=== PATIENT | male | born 1930 | race Caucasian/White ===

== ENCOUNTER → 2016-09-22 | Outpatient (CLI) | payer MEDICARE, OTHER ==
[~2016-09-22] MED LIST: ALBU18HF2 INH; ATOR40TA64 PO; AZIT250T PO; BENZ200C36 PO; DABI150C PO; DULO60CA56 PO; GADOBUTROL 10mMol/10ml INJECTION IV ONE; HYDR-4246 PO; IPRA3AMP AEROSOL; LEVO25TA9 PO; MELO-273 PO; METO25TA6 PO; MULT-94 PO; NITR0.4T SL; OMEG1CAP87 PO; OMEP40CA52 PO; PRED10TA PO; SALINE FLUSH 10ml SYRINGE ONE; SAWP1CAP PO; TRAM50TA4 PO
--- NOTE | 2016-09-22 11:23 | DI ---
EXAM: MRI CERVICAL SPINE W/WO CONTRA LOCATION OF DICTATION: [facility] HISTORY: ITS.REASON: M50.30 CERVICAL DDD; M47.812 CERVICAL SPONDYLOSIS COMPARISON: No prior studies available for comparison. TECHNIQUE: Multiplanar, multisequence, cervical spine protocol MR imaging with and without contrast of the spine was acquired. CONTRAST: 6 ml of gadolinium given Intravenously. FINDINGS: There is reversal of normal cervical dosis centered at the C4 level. There is grade 1 retrolisthesis of C4 on C5. Mild grade 1 retrolisthesis of C6 on C7. No acute fractures are demonstrated. There are Modic type changes demonstrated at several levels particularly involving the C4 and C5 levels. Anterior cervical disc fusion is demonstrated at the C5, C6, and C7 vertebra. There is multilevel degenerative disc disease and facet arthropathy with loss of disc space height and signal worse at the C3-4, C4-5, C5-C6, and C6-C7 levels. The prevertebral and paraspinal soft tissues are without identified abnormality. Segmental analysis: At the C2-C3 level there is no significant spinal canal or foraminal compromise. At the C3-4 level there is posterior disc osteophyte complex causing effacement of the ventral thecal sac. There is moderate central spinal and bilateral lateral recess/neuroforaminal stenosis suggested. At the C4-5 level there is posterior disc osteophyte complex causing effacement of the thecal sac and spinal cord. There is moderate central spinal stenosis at this level. There is moderate bilateral neuroforaminal stenosis. 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 At the C5-C6 level there is broad-based disc bulge. There is mild to moderate bilateral neuroforaminal narrowing. At the C6-7 level there is broad-based disc bulge. There is mild grade 1 retrolisthesis of C6 on C7. There is moderate central spinal and right neuroforaminal stenosis and mild left neuroforaminal stenosis suggested. At the C7-T1 level there is no significant spinal canal or foraminal compromise. IMPRESSION: 1. Reversal normal cervical dosis centered at C4 level. There is grade 1 retrolisthesis of C4 on C5 and C6 on C7. 2. There is multilevel degenerative disease and facet arthropathy. No abnormal areas of enhancement. Modic type changes at the C4-5 levels. 3. At the C3-4 level there is moderate central canal and bilateral neuroforaminal/lateral recess stenosis. 4. At the C4-5 level there is moderate central spinal and moderate bilateral neuroforaminal stenosis. There is mild increased signal in the spinal cord at this level which may reflect compressive myelopathy. 5. At the C5-C6 level there is mild to moderate bilateral neuroforaminal narrowing. 6. There is moderate central spinal and moderate right neuroforaminal stenosis and mild left neuroforaminal stenosis. .
== END ==
LOC: IMA 08:52
PROVIDERS: ATTEND Family Medicine
DX: M50.31 Other cervical disc degeneration, high cervical region (principal); M50.321 Other cervical disc degeneration at C4-C5 level; M50.322 Other cervical disc degeneration at C5-C6 level; M50.323 Other cervical disc degeneration at C6-C7 level; M50.223 Other cervical disc displacement at C6-C7 level; M43.12 Spondylolisthesis, cervical region; M47.812 Spondylosis without myelopathy or radiculopathy, cervical region; M48.02 Spinal stenosis, cervical region; Z98.1 Arthrodesis status
CPT/HCPCS: 72156; A9585

== ENCOUNTER 2016-10-02 14:46 | Emergency (ER) | payer MEDICARE, OTHER ==
[~2016-10-02] VITALS: Ht 182.9 cm; Wt 71.9 kg
[~2016-10-02 14:46] MED LIST changes: -GADOBUTROL 10mMol/10ml INJECTION IV ONE; -SALINE FLUSH 10ml SYRINGE ONE
[2016-10-02 14:48] VITALS: Ht 182.9 cm; Wt 71.9 kg
--- OUTSIDE RECORDS SUMMARY | 2016-10-02 14:49 | XMS REPORT | Continuity of Care Document ---
Author Author [facility] Organization [facility] Address Unknown Phone Unavailable Support Name Relationship Address Phone KENIA LAN DO Caregiver [address] [place] [address] SAFIA CHEEMA MD Caregiver [facility] [address] [place], [place] [phone] DANIA LAURA Next Of Kin [address] [place], [place] [address] Insurance Providers Payer Name Policy Number Subscriber Name Relationship Medicare [id number] Radha Laura 19 Self [employer] [id number] Radha Laura 19 Self Advance Directives Directive Response Recorded Date/Time Ordered Resuscitation Status Full Code 01/25/14 1:53pm Resuscitation Documents on File No 01/25/14 1:25pm Problems No known problems or medical conditions. Medications Medication Dose Route Sig Days/Qty Instructions Order Date Discontinued Date Status Guaifenesin 600 Mg PO NEEDED 03/27/09 05/27/11 Discontinued Saw [place] Fruit 450 Mg PO DAILY 03/27/09 Active Amlodipine Besylate 10 Mg PO DAILY 03/27/09 Active Atenolol 50 Mg PO BEDTIME 03/27/09 10/24/12 Discontinued Aspirin 81 Mg PO DAILY 03/27/09 10/21/12 Discontinued Fish Oil/[place]-3 Fatty Acids 1 Cap PO DAILY 03/27/09 Active Celecoxib 200 Mg PO DAILY 04/29/10 10/24/12 Discontinued Clopidogrel Bisulfate 75 Mg PO DAILY 04/29/10 10/21/12 Discontinued Famotidine 20 Mg PO DAILY 04/29/10 10/21/12 Discontinued Dabigatran Etexilate Mesylate 150 Mg PO DAILY 10/21/12 Active Duloxetine HCl 30 Mg PO DAILY 30 Qty 01/25/14 Active Tramadol HCl 50 Mg PO FOUR TIMES DAILY 90 Qty 01/25/14 Active Atorvastatin Calcium 40 Mg PO DAILY 90 Qty 01/25/14 Active Albuterol Sulfate 2.5 Mg AEROSOL RESP.TX Q4H WHILE AWAKE 01/25/14 Active Levothyroxine Sodium 25 Mcg PO DAILY 90 Qty 01/25/14 Active Hydrocodone/Apap 7.5/325 Mg 1-2 Tab PO Every 6 Hours PRN PAIN Active Hydrocodone/Acetaminophen 1 Tab PO Every 6 Hours PRN PAIN 01/26/14 Active Gabapentin 1 Cap PO NEEDED PRN PRN ORDERS 01/26/14 Active Nitroglycerin 0.4 Mg SL NEEDED For CHEST PAIN 01/26/14 Active Duloxetine HCl 1 Cap PO TWICE A DAY PRN DEPRESSION 01/26/14 Active Social History Social History Problem Response Recorded Date/Time Smoking Status Former smoker 01/26/2014 1:08pm When did patient STOP smoking? 200001/26/2014 1:08pm Chewing Tobacco Status No 10/21/2012 3:18pm Hx Substance Use No 01/26/2014 1:08pm Hx Alcohol Use Y BEER OCCASIONALLY 01/26/2014 1:08pm Has the pt used tobacco in the last 12 months Yes 01/26/2014 1:08pm Query Response Start Date Stop Date Smoking Status Never smoker Hospital Discharge Instructions No hospital discharge instructions. Plan of Care No plan of care. Functional Status No functional status results. Allergies, Adverse Reactions, Alerts Allergen Type Severity Reaction Status Last Updated No Known Drug Allergies Allergy Unknown Active 03/26/09 Immunizations Name Given Type Hx Influenza Vaccination Y FALL 2012 Historical Hx Pneumococcal Vaccination Y 2004 Historical Hx Influenza Vaccination Y FALL 2012 Historical Vital Signs Acute Vital Signs Vital Response Date/Time Temperature (Fahrenheit) 97.0 deg F (96.8 - 99.1) Temperature (Calculated Celsius) 36.59240 degrees C (36.0 - 37.3) Temperature Source Temporal Pulse Rate (adult) 74 bpm (60 - 100) Respiratory Rate 20 breaths/min (10 - 20) O2 Sat by Pulse Oximetry 96 % (90 - 100) Oxygen Delivery Method Room Air Blood Pressure 153/74 mm Hg Blood Pressure Source Automatic Cuff Height 6 ft 0 in Weight 158 lb Body Mass Index 21.0 kg/m^2 Results Test Source Date Result Interp. Ref. Range Comments Alanine Aminotransferase (ALT/SGPT) May 27, 2011 9:30am 27 U/L N 21- 72 Albumin May 27, 2011 9:30am 4.2 G/DL N 3.5-5.0 Albumin/Globulin Ratio May 27, 2011 9:30am 1.6 RATIO N 1.1-2.2 Alkaline Phosphatase May 27, 2011 9:30am 92 U/L N 38-126 Anion Gap May 27, 2011 9:30am 6 MEQ/L N 5-15 Aspartate Amino Transf (AST/SGOT) May 27, 2011 9:30am 30 U/L N 17- 59 BUN/Creatinine Ratio May 27, 2011 9:30am 28 RATIO H 6-26 Band Neutrophils # March 27, 2009 10:05am 0.0 T/MM3 - Band Neutrophils % March 27, 2009 10:05am 0.0 % N 0-6 Basophils # (Auto) May 27, 2011 9:30am 0.1 T/MM3 N 0-0.2 Basophils # (Manual) March 27, 2009 10:05am 0.0 T/MM3 N 0-0.2 Basophils % (Manual) March 27, 2009 10:05am 0.0 % N 0-2 Basophils (%) (Auto) May 27, 2011 9:30am 0.9 % N 0-2 Blood Urea Nitrogen May 27, 2011 9:30am 28.0 MG/DL H 9-20 Calcium Level May 27, 2011 9:30am 8.9 MG/DL N 8.4-10.2 Calculated Osmolality May 27, 2011 9:30am 278 MOSM/KG N 261-280 Carbon Dioxide Level May 27, 2011 9:30am 30 MEQ/L N 22-30 Chloride Level May 27, 2011 9:30am 106 MEQ/L N 98-107 Creatinine May 27, 2011 9:30am 1.0 MG/DL N 0.8-1.5 Eosinophils # (Auto) May 27, 2011 9:30am 0.4 T/MM3 N 0-0.5 Eosinophils # (Manual) March 27, 2009 10:05am 0.4 T/MM3 N 0-0.5 Eosinophils % (Manual) March 27, 2009 10:05am 5.0 % H 0-4 Eosinophils (%) (Auto) May 27, 2011 9:30am 5.9 % H 0-4 Globulin May 27, 2011 9:30am 2.6 G/DL N 2.4-3.6 Glucose Level May 27, 2011 9:30am 87 MG/DL N 75-110 Hematocrit May 27, 2011 9:30am 38.7 % L 41-53 Hemoglobin May 27, 2011 9:30am 13.3 GM/DL L 13.5-17.5 Lymphocytes # (Auto) May 27, 2011 9:30am 1.5 T/MM3 N 1-4.8 Lymphocytes # (Manual) March 27, 2009 10:05am 1.1 T/MM3 N 1-4.8 Lymphocytes % (Manual) March 27, 2009 10:05am 12.0 % L 23-45 Lymphocytes (%) (Auto) May 27, 2011 9:30am 22.2 % L 23-45 Mean Corpuscular Hemoglobin May 27, 2011 9:30am 31.4 UUG N 26-34 Mean Corpuscular Hemoglobin Concent May 27, 2011 9:30am 34.4 GM/DL N 31-37 Mean Corpuscular Volume May 27, 2011 9:30am 91.5 UM3 N 80-100 Mean Platelet Volume May 27, 2011 9:30am 11.4 UM3 N 9.4-12.4 Monocytes # (Auto) May 27, 2011 9:30am 1.1 T/MM3 H 0-0.8 Monocytes # (Manual) March 27, 2009 10:05am 1.3 T/MM3 H 0-0.8 Monocytes % (Manual) March 27, 2009 10:05am 15.0 % H 0-9.0 Monocytes (%) (Auto) May 27, 2011 9:30am 16.0 % H 0-9.0 Neutrophils # (Auto) May 27, 2011 9:30am 3.6 T/MM3 N 1.8-7.7 Neutrophils # (Manual) March 27, 2009 10:05am 6.1 T/MM3 N 1.8-7.7 Neutrophils % (Manual) March 27, 2009 10:05am 68.0 % H 33-66 Neutrophils (%) (Auto) May 27, 2011 9:30am 54.5 % N 33-66 Platelet Count May 27, 2011 9:30am 298 T/MM3 N 130-400 Potassium Level May 27, 2011 9:30am 4.7 MEQ/L N 3.6-5 Prothromb Time International Ratio March 27, 2009 10:05am 0.88 N 0.79 -1.23 THERAPUTIC RANGE=2.00-3.00 FOR ANTI-THROMBOSIS THERAPUTIC RANGE=2.50- 3.50 FOR IMPLANTED VALVE RDW Standard Deviation May 27, 2011 9:30am 41.8 FL N 36.9-50.2 Red Blood Count May 27, 2011 9:30am 4.23 M/MM3 L 4.50-5.90 Sodium Level May 27, 2011 9:30am 142 MEQ/L N 134-144 Total Bilirubin May 27, 2011 9:30am 1.00 MG/DL N 0.20-1.30 Total Protein May 27, 2011 9:30am 6.8 G/DL N 6.3-8.2 White Blood Count May 27, 2011 9:30am 6.6 T/MM3 N 4.5-11.0 EKG March 28, 2009 4:00am Complete - Glomerular Filtration Rate Calc May 27, 2011 9:30am 72 - Immature Granulocyte # (Auto) May 27, 2011 9:30am 0.03 T/MM3 N 0.00- 0.03 Immature Granulocyte % (Auto) May 27, 2011 9:30am 0.5 % N 0.0-0.5 Procedures Procedure Status Date Provider(s) Colonoscopy completed 01/26/14 SAFIA CHEEMA MD
--- OUTSIDE RECORDS SUMMARY | 2016-10-02 14:49 | XMS REPORT | Continuity of Care Document ---
Author Author [facility] Organization [facility] Address Unknown Phone Unavailable Support Name Relationship Address Phone KENIA LAN DO Caregiver [address] [place] [address] Unavailable YOSI CARVAJAL MD Caregiver [address] [place] [address] [place] [address] Unavailable DANIA LAURA DPOA Next Of Kin Unknown [phone] Insurance Providers Guarantor Radha Laura Address [address] [place] [address] CELL Email [email or web address] Payer Medicare Policy Number [id number] Subscriber's Name Radha Laura Relationship 18 Self Effective Date 96 Payer [employer] Policy Number [id number] Subscriber's Name Radha Laura Relationship 18 Self Group Number [id number] Advance Directives Directive Response Recorded Date/Time Advanced Directives Type Living Will DPOA for Healthcare 04/12/16 3:35pm Chief Complaint and Reason for Visit Chief Complaint Dyspnea/Respdistress Reason for Visit Acute bronchitis [id number] Problems Active Problems Medical Problem Onset Date Status Atrial fibrillation Unknown Chronic BPH (benign prostatic hypertrophy) Unknown Chronic CAD (coronary artery disease) Unknown Chronic COPD (chronic obstructive pulmonary disease) Unknown Chronic Degenerative arthritis of right knee Unknown Dyslipidemia Unknown Chronic GERD (gastroesophageal reflux disease) Unknown Chronic HTN (hypertension) Unknown Chronic Hypothyroidism Unknown Chronic OA (osteoarthritis) Unknown Chronic SHANA (obstructive sleep apnea) Unknown Chronic Spinal stenosis, lumbar Unknown Chronic Past Problems Medical Problem Onset Date Acute bronchitis Unknown Anemia Unknown COPD exacerbation Unknown COPD exacerbation Unknown COPD with acute exacerbation Unknown Degenerative arthritis of hip Unknown GI bleed Unknown H/O pyelonephritis Unknown Leukocytosis Unknown Ocular migraine Unknown Respiratory distress Unknown Spinal stenosis Unknown Medications Current Home Medications Medication Dose Units Route Directions Days Qty Instructions Start Date Albuterol Sulfate (Ventolin Hfa 90 Mcg/Actuation) 18 Gm Hfa.aer.ad 2 Puff Inhalation As Needed 02/06/15 Atorvastatin Calcium 40 Mg Tablet 40 Mg Oral Bedtime 01/25/14 Azithromycin (Zithromax) 250 Mg Tablet 1 Tab Oral Daily 6 Tablet TAKE TWO ON DAY ONE, THEN ONE TAB DAILY UNTIL ALL TAKEN. 04/12/16 Benzonatate 200 Mg Capsule 1 Cap Oral Three Times A Day as needed for Cough 30 Capsule DO NOT BITE, CHEW, OR CRUSH 04/12/16 Dabigatran Etexilate Mesylate (Pradaxa) 150 Mg Capsule 150 Mg Oral Twice A Day 02/06/15 Duloxetine Hcl 60 Mg Capsule. 60 Mg Oral Daily 04/12/16 Hydrocodone/Acetaminophen ([place] 5-325 Tablet) 5-325 Tablet 1 Tab Oral Every 4-6 Hours Prn 02/12/16 Ipratropium/Albuterol Sulfate (Iprat-Albut 0.5-3(2.5) Mg/3 Ml) 3 Ml Ampul.neb 1 Vial Aerosol Tx. Three Times A Day 02/12/16 Levothyroxine Sodium 25 Mcg Tablet 25 Mcg Oral Daily 01/25/14 Meloxicam 7.5 Mg Tablet 7.5 Mg Oral Daily 02/06/15 Metoprolol Tartrate 25 Mg Tablet 25 Mg Oral Twice Daily With Meals 03/06/15 Multivitamin W/Iron, Minerals ([place] For [facility]) 1 Each Tablet 1 Tab Oral Daily 04/12/16 Nitroglycerin (Nitrostat) 0.4 Mg Tablet 0.4 Mg Sublingual Every 5 Minutes X 3 as needed for Chest Pain 01/26/14 [place]-3 Fatty Acids/Fish Oil (Fish Oil 1,200 Mg Softgel) 1 Each Capsule 1 Cap Oral Daily 02/06/15 Omeprazole 40 Mg Capsule. 40 Mg Oral Daily 02/06/15 Prednisone 10 Mg Tablet 10 Mg Oral As Directed 24 Tablet 5 Tablets by mouth daily for 2 days THEN, 4 Tablets by mouth daily for 2 days THEN, 3 Tablets by mouth daily for 1 day THEN, 2 Tablets by mouth daily for 1 day THEN, 1 Tablet by mouth daily for 1 Day. 04/12/16 [place] Xtr/Zinc Picolin ([place] Capsule) 1 Each Capsule 585 Mg Oral Daily 04/12/16 Tramadol Hcl 50 Mg Tablet 50 Mg Oral Three Times A Day as needed for Pain 04/12/16 Past Home Medications Medication Directions Ordered Status Aspirin (Aspir 81) 81 Mg Tablet., 81 Mg Oral Daily 03/27/09 Discontinued Atenolol 50 Mg Tablet, 50 Mg Oral Bedtime 03/27/09 Discontinued Celecoxib (Celebrex) 200 Mg Capsule, 200 Mg Oral Daily 04/29/10 Discontinued Clopidogrel Bisulfate (Plavix) 75 Mg Tablet, 75 Mg Oral Daily 04/29/10 Discontinued Dabigatran Etexilate Mesylate (Pradaxa) 150 Mg Capsule, 150 Mg Oral Twice A Day 02/03/14 Discontinued Famotidine (Pepcid) 20 Mg Tablet, 20 Mg Oral Daily 04/29/10 Discontinued Guaifenesin (Mucinex) 600 Mg Tablet.sa, 600 Mg Oral As Needed 03/27/09 Discontinued Hydrocodone/Acetaminophen ([place] 5-325 Tablet) 1 Each Tablet, 1 Tab Oral Every 6 Hours as needed for Pain 01/26/14 Discontinued Social History Social History Problem Response Recorded Date/Time Onset Date Status Chewing Tobacco Status No 10/21/2012 3:18pm Not Applicable Not Applicable Hx Substance Use No 04/12/2016 4:08pm Not Applicable Not Applicable Hx Alcohol Use Y 2 BEERS SEVERAL TIMES PER WEEK 04/12/2016 4:08pm Not Applicable Not Applicable Has the pt used tobacco in the last 12 months No 02/12/2016 4:05pm Not Applicable Not Applicable Quit (MM/YYYY) 200103/14/2015 2:58pm Not Applicable Not Applicable Tobacco Usage none 03/14/2015 2:58pm Not Applicable Not Applicable Query Response Start Date Stop Date Smoking Status Former smoker Hospital Discharge Instructions No hospital discharge instructions. Plan of Care Discharge Date 04/12/16 5:49pm Disposition 01 DISCHARGED HOME, SELF-CARE Condition at Discharge Improved Instructions/Education Provided DI for Acute Bronchitis Prescriptions See Medication Section Referrals KENIA LAN DO Order Date: 1 Week Address: [place] [address] [address] [place] [address] Note: Additional Instructions/Education 1) PREDNISONE TAPER DIRECTED FOR SEVEN DAYS 2) ZITHROMAX Z-PACK DIRECTED FOR FIVE DAYS 3) BREATHING TREATMENTS WITH XOPENEX EVERY 6 HOURS NEEDED FOR SHORTNESS OF BREATH OR WHEEZING 4) TESSALON PERLES 200 MG EVERY 8 HOURS OR THREE TIMES A DAY NEEDED FOR COUGH 5) FOLLOW UP WITH DR. LAN IN NEXT WEEK FOR RE-EVALUATION AND FURTHER TREATMENT NEEDED Care Plan and Goals Physician Care Plan Problem: 1) ACUTE BRONCHITIS 2) ACUTE EXACERBATION OF COPD Goal: Follow up with primary care provider Instructions: Take medications and follow care plan as discussed/written Functional Status No functional status results. Allergies, Adverse Reactions, Alerts No known allergies. Immunizations Query Response on File Recorded Date/Time Hx Influenza Vaccination Y JAN 2015 02/12/16 4:05pm Hx Pneumococcal Vaccination Y 4 YRS AGO 02/12/16 4:05pm Hx Influenza Vaccination Y JAN 2015 02/12/16 4:05pm Influenza Vaccine Hx 2014 04/12/16 4:08pm Vital Signs Acute Vital Signs Vital Response Date/Time Temperature (Fahrenheit) 98.4 deg F (96.8 - 99.1) 04/12/2016 5:49pm Temperature (Calculated Celsius) 36.93537 degrees C (36.0 - 37.3) 04/12/2016 5:49pm Pulse Rate (adult) 106 bpm (60 - 100) 04/12/2016 5:49pm Respiratory Rate 20 breaths/min (10 - 20) 04/12/2016 5:49pm O2 Sat by Pulse Oximetry 99 % (90 - 100) 04/12/2016 5:49pm Oxygen Flow Rate 2.00 L/min 04/12/2016 5:49pm Blood Pressure 112/65 mm Hg 04/12/2016 5:49pm Height (Feet) 6 feet 04/12/2016 3:35pm Height (Inches) 0 inches 04/12/2016 3:35pm Weight (Kilograms) 68.400 kg 04/12/2016 3:35pm Body Mass Index (BMI) 20.0 04/12/2016 3:35pm Results Laboratory Results Test Name Result Units Flags Reference Collection Date/Time Result Date/ Time Comments Neutrophils (%) (Auto) 75.8 % H 33-66 02/24/2016 2:45am 02/24/2016 2: 52am Lymphocytes (%) (Auto) 10.1 % L 23-45 02/24/2016 2:45am 02/24/2016 2: 52am Monocytes (%) (Auto) 10.5 % H 0-9.0 02/24/2016 2:45am 02/24/2016 2:52am Eosinophils (%) (Auto) 2.8 % 0-4 02/24/2016 2:45am 02/24/2016 2:52am Basophils (%) (Auto) 0.4 % 0-2 02/24/2016 2:45am 02/24/2016 2:52am Immature Granulocyte % (Auto) 0.4 % 0.0-0.5 02/24/2016 2:45am 2015 2:52am Absolute Neutrophils (auto) 11.0 T/MM3 H 1.8-7.7 02/24/2016 2:45am 02/23 2:52am Absolute Lymphocytes (auto) 1.5 T/MM3 1-4.8 02/24/2016 2:45am 2015 2:52am Absolute Monocytes (auto) 1.5 T/MM3 H 0-0.8 02/24/2016 2:45am 2015 2:52am Absolute Eosinophils (auto) 0.4 T/MM3 0-0.5 02/24/2016 2:45am 2015 2:52am Absolute Basophils (auto) 0.1 T/MM3 0-0.2 02/24/2016 2:45am 02/24/2016 2:52am Absolute Immature Granulocyte (auto 0.06 T/MM3 H 0.00-0.03 02/24/2016 2: 45am 02/24/2016 2:52am Arterial Blood pH 7.520 H 7.350-7.450 03/25/2016 1:30pm 03/25/2016 1: 47pm Arterial Blood Partial Pressure CO2 39 MMHG 34-45 03/25/2016 1:30pm 01/2016 1:47pm Arterial Blood pO2 at Patient Temp 71 MMHG L 80-100 03/25/2016 1:30pm 1:47pm Arterial Blood HCO3 32 MEQ/L H 22-26 03/25/2016 1:30pm 03/25/2016 1: 47pm Arterial Blood Total CO2 33.0 MEQ/L H 23-27 03/25/2016 1:30pm 2015 1:47pm Arterial Blood Base Excess 8.3 MMOL/L H -2.0-2.0 03/25/2016 1:30pm 03/25 1:47pm Arterial Blood Oxygen Saturation 96.0 % 95.0-98.0 03/25/2016 1:30pm 01/2016 1:47pm Oxygen Delivery Method (LAB) ROOM AIR 03/25/2016 1:30pm 03/25/2016 1:47pm White Blood Count 17.5 T/MM3 H 4.5-11.0 04/12/2016 4:04pm 04/12/2016 4: 40pm Red Blood Count 4.06 M/MM3 L 4.50-5.90 04/12/2016 4:04pm 04/12/2016 4: 40pm Hemoglobin 12.8 GM/DL L 13.5-17.5 04/12/2016 4:04pm 04/12/2016 4:40pm Hematocrit 37.9 % L 41-53 04/12/2016 4:04pm 04/12/2016 4:40pm Mean Corpuscular Volume 93.3 UM3 80-100 04/12/2016 4:04pm 04/12/2016 4: 40pm Mean Corpuscular Hemoglobin 31.5 UUG 26-34 04/12/2016 4:04pm 2015 4:40pm Mean Corpuscular Hemoglobin Concent 33.8 GM/DL 31-37 04/12/2016 4:04pm 04/12/2016 4:40pm RDW Standard Deviation 43.0 FL 36.9-50.2 04/12/2016 4:04pm 04/12/2016 4 :40pm Platelet Count 388 T/MM3 130-400 04/12/2016 4:04pm 04/12/2016 4:40pm Mean Platelet Volume 10.6 UM3 9.4-12.4 04/12/2016 4:04pm 04/12/2016 4: 40pm Neutrophils % (Manual) 74.0 % H 33-66 04/12/2016 4:04pm 04/12/2016 4: 59pm Band Neutrophils % 3.0 % 0-6 04/12/2016 4:04pm 04/12/2016 4:59pm Lymphocytes % (Manual) 12.0 % L 23-45 04/12/2016 4:04pm 04/12/2016 4: 59pm Monocytes % (Manual) 9.0 % 0-9.0 04/12/2016 4:04pm 04/12/2016 4:59pm Eosinophils % (Manual) 2.0 % 0-4 04/12/2016 4:04pm 04/12/2016 4:59pm Band Neutrophils # 0.5 T/MM3 04/12/2016 4:04pm 04/12/2016 4:59pm Absolute Neutrophils (Manual) 13.0 T/MM3 H 1.8-7.7 04/12/2016 4:04pm 4:59pm Lymphocytes # (Manual) 2.1 T/MM3 1-4.8 04/12/2016 4:04pm 04/12/2016 4: 59pm Monocytes # (Manual) 1.6 T/MM3 H 0-0.8 04/12/2016 4:04pm 04/12/2016 4: 59pm Eosinophils # (Manual) 0.4 T/MM3 0-0.5 04/12/2016 4:04pm 04/12/2016 4: 59pm Red Cell Morphology Comment NORMAL 04/12/2016 4:04pm 04/12/2016 4: 59pm Prothromb Time International Ratio 1.05 0.99-1.21 04/12/2016 4:04pm 04/12/2016 4:34pm THERAPUTIC RANGE=2.00-3.00 FOR ANTI-THROMBOSIS THERAPUTIC RANGE=2.50-3.50 FOR IMPLANTED VALVE Activated Partial Thromboplast Time 45.1 SEC H 24-36 04/12/2016 4:04pm 04/12/2016 4:34pm Icterus Index < 2 0-7 04/12/2016 4:04pm 04/12/2016 4:41pm Chemistry Specimen Hemolysis < 15 0-25 04/12/2016 4:04pm 04/12/2016 4 :41pm 0-25: Specimen Exhibited No Hemolysis. Turbidity < 20 0-20 04/12/2016 4:04pm 04/12/2016 4:41pm Sodium Level 142 MEQ/L 134-144 04/12/2016 4:04pm 04/12/2016 4:41pm Potassium Level 3.5 MEQ/L L 3.6-5 04/12/2016 4:04pm 04/12/2016 4:41pm Chloride Level 99 MEQ/L 98-107 04/12/2016 4:04pm 04/12/2016 4:41pm Carbon Dioxide Level 32 MEQ/L H 22-30 04/12/2016 4:04pm 04/12/2016 4: 41pm Anion Gap 11 MEQ/L 5-15 04/12/2016 4:04pm 04/12/2016 4:41pm Blood Urea Nitrogen 22.0 MG/DL H 9-20 04/12/2016 4:04pm 04/12/2016 4: 41pm Creatinine 1.0 MG/DL 0.8-1.5 04/12/2016 4:04pm 04/12/2016 4:41pm BUN/Creatinine Ratio 22 RATIO 6-26 04/12/2016 4:04pm 04/12/2016 4:41pm Glomerular Filtration Rate Calc 71 04/12/2016 4:04pm 04/12/2016 4: 41pm Glucose Level 107 MG/DL 75-110 04/12/2016 4:04pm 04/12/2016 4:41pm Calculated Osmolality 276 MOSM/KG 261-280 04/12/2016 4:04pm 04/12/2016 4:41pm Calcium Level 9.6 MG/DL 8.4-10.2 04/12/2016 4:04pm 04/12/2016 4:41pm Total Bilirubin 2.10 MG/DL H 0.20-1.30 04/12/2016 4:04pm 04/12/2016 4: 41pm Alkaline Phosphatase 89 U/L 38-126 04/12/2016 4:04pm 04/12/2016 4:41pm Total Protein 7.0 G/DL 6.3-8.2 04/12/2016 4:04pm 04/12/2016 4:41pm Albumin 4.0 G/DL 3.5-5.0 04/12/2016 4:04pm 04/12/2016 4:41pm Globulin 3.0 G/DL 2.4-3.6 04/12/2016 4:04pm 04/12/2016 4:41pm Albumin/Globulin Ratio 1.3 RATIO 1.1-2.2 04/12/2016 4:04pm 04/12/2016 4 :41pm Aspartate Amino Transf (AST/SGOT) 31 U/L 17-59 04/12/2016 4:04pm 2015 4:41pm Alanine Aminotransferase (ALT/SGPT) 33 U/L 21-72 04/12/2016 4:04pm 4:41pm Troponin I < 0.012 ng/ml 0-0.12 04/12/2016 4:04pm 04/12/2016 4:52pm Troponin values with a difference of 55% increase from orginal troponin value represent a true biological DELTA value. (%increase Calc=Orginal Troponin value, divided by subsequent Troponin value, multiplied by 100) GP-Huc-G-Type Natriuretic Peptide 804 PG/ML H 0-175 04/12/2016 4:04pm 4:52pm Rule in cut points: <50 years old=450; 50-75 years old=900; >75 years old=1800; When utilizing ProBNP rule-in cut points, adjustment for impaired renal function is typically not required. Magnesium Level 1.4 MG/DL L 1.6-2.3 04/12/2016 4:04pm 04/12/2016 4:41pm Plasma Lactate 1.5 MMOL/L 0.6-2.2 04/12/2016 4:04pm 04/12/2016 4:36pm Procalcitonin 0.08 NG/ML 04/12/2016 4:04pm 04/12/2016 4:54pm PCT </= 0.5 ng/mL - sepsis not likely; PCT >0.5 and </=2 ng/mL - sepsis possible; PCT >2 ng/mL - sepsis likely; PCT >/=10 ng/mL - systemic inflammatory response - sepsis or septic shock highly indicated. Microbiology Results Procedure Source Organism/Result Collection Date/Time Result Date/Time Result Status Sputum Culture Sputum, Expectorated Sputum CULTURE INITIATED - RESULTS PENDING 04/12/2016 5:09pm 04/12/2016 5:22pm Preliminary Blood Culture Peripheral/Iv Start CULTURE INITIATED - RESULTS PENDING 04/12 4:21pm 04/12/2016 4:23pm Preliminary Name: RADHA LAURA Unit #: [id number] : 1930 Sex: M Admit Date: Loc / Svc: ED Discharge Date: DIAGNOSTIC IMAGING REPORT Report #: [id number] [facility] DEMARCUS Blankenship Indication: ITS.REASON: COUGH, SHORTNESS OF BREATH Procedure: CHEST, PA LATERAL: Encounter: Initial Comparison: 03/02/2016 Technique: PA and lateral radiographs of the chest were obtained. Findings: Lungs and airways: Increased lung volumes suggesting COPD. No focal airspace consolidation. Normal pulmonary vasculature. Pleura: No pleural effusion or pneumothorax. Heart and mediastinum: Aortic atherosclerosis. The cardiomediastinal silhouette and great vessels are otherwise within normal limits. Osseous structures and soft tissues: No acute osseous abnormality is seen. Postoperative changes of anterior cervical discectomy and fusion. Degenerative changes of the shoulders and thoracic spine. Impression: No acute cardiopulmonary process. . Procedures Procedure Status Date Provider(s) CHEST X-RAY 1 VIEW FRONTAL Completed 02/24/16 COMPREHEN METABOLIC PANEL Completed 02/24/16 ASSAY OF NATRIURETIC PEPTIDE Completed 02/24/16 ASSAY OF TROPONIN QUANT Completed 02/24/16 COMPLETE CBC W/AUTO DIFF WBC Completed 02/24/16 ELECTROCARDIOGRAM TRACING Completed 02/24/16 AIRWAY INHALATION TREATMENT Completed 02/24/16 AIRWAY INHALATION TREATMENT Completed 02/24/16 THER/PROPH/DIAG INJ IV PUSH Completed 02/24/16 EMERGENCY DEPT VISIT Completed 02/24/16 090032"INJECTION, METHYLPREDNISOLONE SODIUM SUCCINATE, UP TO Completed PREDNISONE, 10 MG TAB Completed 02/24/16 ROUTINE VENIPUNCTURE Completed 03/02/16 CHEST X-RAY 2VW FRONTAL&LATL Completed 03/02/16 METABOLIC PANEL TOTAL CA Completed 03/02/16 ASSAY OF TROPONIN QUANT Completed 03/02/16 COMPLETE CBC W/AUTO DIFF WBC Completed 03/02/16 ELECTROCARDIOGRAM TRACING Completed 03/02/16 EMERGENCY DEPT VISIT Completed 03/02/16 [id number] ITEM OR SERVICE Completed 03/02/16 WITHDRAWAL OF ARTERIAL BLOOD Completed 03/25/16 BLOOD GASES ANY COMBINATION Completed 03/25/16 Encounters Encounter Location Arrival/Admit Date Discharge/Depart Date Attending Provider Departed Emergency Room [facility] 04/12/16 3:35pm 04/12/16 5: 49pm YOSI CARVAJAL MD [facility] 03/25/16 1:15pm KENIA LAN DO Departed Emergency Room [facility] 03/02/16 12:29am 03/02/16 2: 32am DANICA ROBERT MD Departed Emergency Room [facility] 02/24/16 2:22am 02/24/16 4: 52am ESTEFANI ROACH MD Recent Diagnosis
--- OUTSIDE RECORDS SUMMARY | 2016-10-02 14:49 | XMS REPORT | Continuity of Care Document ---
Author Author [facility] Organization [facility] Address Unknown Phone Unavailable Allergies Active Description Code Type Severity Reaction Onset Reported/Identified Relationship to Patient Clinical Status Yes No Known Allergies No Known Allergies Drug Allergy Unknown N/A 07/15/2015 Medications Problems Procedures Results Test Result Range CBC - 07/16/15 05:55 MEAN CELL HGB 29.8 pg 27.0-33.0 MEAN CELL HGB CONCENTRATION 33.2 g/dL 32.0-37.0 MEAN CELL VOLUME 89.8 fl 80.0-100.0 RED BLOOD CELL 4.20 m/cumm 4.00-6.00 RED CELL DISTRIBUTION WIDTH 13.9 % 11.0- 15.6 WHITE BLOOD CELL 7.1 k/cumm 5.0-10.0 HEMOGLOBIN 12.5 gm/dL 14.0-18.0 HEMATOCRIT 37.7 % 40.0-54.0 PLATELET COUNT 342 k/cumm 150-450 PROTHROMBIN TIME WITH INR - 07/16/15 05:55 INTERNATIONAL NORMAL RATIO 1.0 0.9-1.1 PROTHROMBIN TIME 11.0 sec 9.3-12.2 PARTIAL THROMBOPLASTIN TIME - 07/16/15 05:55 PARTIAL THROMBOPLASTIN TIME 39 sec 23-39 METABOLIC PANEL, BASIC - 07/16/15 05:55 POTASSIUM 3.8 mmol/L 3.5-5.3 EST GFR (MDRD) > 60 mL/min > 59 ANION GAP 6 mmol/L 5-15 GLUCOSE 97 mg/dL 70-99 CALCIUM 8.9 mg/dL 8.5-10.1 BLOOD UREA NITROGEN 19 mg/dL 7-20 CREATININE 1.0 mg/dL 0.7-1.3 SODIUM 140 mmol/L 135-148 CHLORIDE 102 mmol/L 98-110 CARBON DIOXIDE 32 mmol/L 21-32 MAGNESIUM - 07/16/15 05:55 MAGNESIUM 1.7 mg/dL 1.8-2.4 ACT PLUS (POC) - 07/16/15 08:30 ACT PLUS (POC) 138 sec Webb <160 ACT PLUS (POC) - 07/16/15 09:21 ACT PLUS (POC) 280 sec Webb <160 ACT PLUS (POC) - 07/16/15 09:34 ACT PLUS (POC) 316 sec Webb <160 ACT PLUS (POC) - 07/16/15 09:57 ACT PLUS (POC) 357 sec Webb <160 ACT PLUS (POC) - 07/16/15 10:31 ACT PLUS (POC) 410 sec Webb <160 ACT PLUS (POC) - 07/16/15 10:52 ACT PLUS (POC) 403 sec Webb <160 ACT PLUS (POC) - 07/16/15 11:24 ACT PLUS (POC) 392 sec Webb <160 ACT PLUS (POC) - 07/16/15 11:56 ACT PLUS (POC) 443 sec Webb <160 ACT PLUS (POC) - 07/16/15 12:21 ACT PLUS (POC) 426 sec Webb <160 ACT PLUS (POC) - 07/16/15 12:42 ACT PLUS (POC) 171 sec Webb <160 CBC W/DIFF - 07/17/15 04:59 EOSINOPHIL # 0.5 k/cumm 0.1-0.5 EOSINOPHIL % 5 % 2-4 GRANULOCYTE # 7.2 k/cumm 2.0-9.0 GRANULOCYTE % 69 % 50-75 LYMPHOCYTE # 1.2 k/cumm 1.0-4.0 LYMPHOCYTE % 11 % 20-30 MEAN CELL HGB 29.8 pg 27.0-33.0 MEAN CELL HGB CONCENTRATION 32.4 g/dL 32.0-37.0 MEAN CELL VOLUME 91.7 fl 80.0-100.0 MONOCYTE # 1.6 k/cumm 0.1-1.0 MONOCYTE % 15 % 4-6 RED BLOOD CELL 3.26 m/cumm 4.00-6.00 RED CELL DISTRIBUTION WIDTH 14.0 % 11.0- 15.6 WHITE BLOOD CELL 10.4 k/cumm 5.0-10.0 HEMOGLOBIN 9.7 gm/dL 14.0-18.0 HEMATOCRIT 29.9 % 40.0-54.0 PLATELET COUNT 234 k/cumm 150-450 METABOLIC PANEL, BASIC - 07/17/15 04:59 POTASSIUM 3.9 mmol/L 3.5-5.3 EST GFR (MDRD) > 60 mL/min > 59 ANION GAP 4 mmol/L 5-15 EST CrCl (CG) > 60 mL/min > 59 GLUCOSE 94 mg/dL 70-99 CALCIUM 8.4 mg/dL 8.5-10.1 BLOOD UREA NITROGEN 17 mg/dL 7-20 CREATININE 0.8 mg/dL 0.7-1.3 SODIUM 141 mmol/L 135-148 CHLORIDE 107 mmol/L 98-110 CARBON DIOXIDE 30 mmol/L 21-32 Encounters ACCT No. Visit Date/Time Discharge Status Pt. Type Provider Facility Loc./Unit Complaint [id number] 07/16/2015 05:35:00 2015 12:31:00 DIS Outpatient Joao JACKMAN, Count Includes [facility] E.EPO [id number] 07/08/2015 14:19:00 2015 14:19:00 DIS Outpatient Joao JACKMAN, Count Includes [facility] E.RAC
--- OUTSIDE RECORDS SUMMARY | 2016-10-02 14:50 | XMS REPORT | Continuity of Care Document ---
Author Author [facility] Organization [facility] Address Unknown Phone Unavailable Support Name Relationship Address Phone DANICA ROBERT MD Caregiver [address] [place] [address] [place] [phone] LELA ROY MD Caregiver [address] [place] [address] [place] [address] KENIA OROSCO DO Caregiver [phone] [place] [phone] DANIA LAURA Next Of Kin [address] [place] [address] Insurance Providers Payer Name Policy Number Subscriber Name Relationship Medicare [id number] Radha Laura 19 Self [employer] [id number] Radha Laura 19 Self Advance Directives Directive Response Recorded Date/Time Advanced Directives Type Living Will DPOA for Healthcare 02/03/14 1:02pm Ordered Resuscitation Status Full Code 02/03/14 3:56pm Resuscitation Documents on File No 02/03/14 1:57pm Chief Complaint and Reason for Visit Chief Complaint GI BLEED Reason for Visit GI bleed Atrial fibrillation CAD (coronary artery disease) OA (osteoarthritis) GERD (gastroesophageal reflux disease) COPD (chronic obstructive pulmonary disease) HTN (hypertension) Dyslipidemia Ocular migraine Spinal stenosis, lumbar BPH (benign prostatic hypertrophy) Anemia Hypothyroidism Problems Medical Problems Problem Onset Date Status GI bleed Unknown Active Atrial fibrillation Unknown Active CAD (coronary artery disease) Unknown Active OA (osteoarthritis) Unknown Active GERD (gastroesophageal reflux disease) Unknown Active COPD (chronic obstructive pulmonary disease) Unknown Active HTN (hypertension) Unknown Active Dyslipidemia Unknown Active Ocular migraine Unknown Active Spinal stenosis, lumbar Unknown Active BPH (benign prostatic hypertrophy) Unknown Active Anemia Unknown Active Hypothyroidism Unknown Active Medications Medication Dose Route Sig Days/Qty Instructions Order Date Discontinued Date Status Guaifenesin 600 Mg PO NEEDED 03/27/09 05/27/11 Discontinued Saw Colton Fruit 450 Mg PO DAILY 03/27/09 Active Atenolol 50 Mg PO BEDTIME 03/27/09 10/24/12 Discontinued Aspirin 81 Mg PO DAILY 03/27/09 10/21/12 Discontinued Fish Oil/Pinckard-3 Fatty Acids 1 Cap PO DAILY 03/27/09 Active Celecoxib 200 Mg PO DAILY 04/29/10 10/24/12 Discontinued Clopidogrel Bisulfate 75 Mg PO DAILY 04/29/10 10/21/12 Discontinued Famotidine 20 Mg PO DAILY 04/29/10 10/21/12 Discontinued Duloxetine HCl 30 Mg PO DAILY 30 Qty 01/25/14 Active Tramadol HCl 50 Mg PO FOUR TIMES DAILY 90 Qty 01/25/14 Active Atorvastatin Calcium 40 Mg PO DAILY 90 Qty 01/25/14 Active Albuterol Sulfate 2.5 Mg AEROSOL RESP.TX Q4H WHILE AWAKE 01/25/14 Active Levothyroxine Sodium 25 Mcg PO DAILY 90 Qty 01/25/14 Active Hydrocodone/Acetaminophen 1 Tab PO Every 6 Hours PRN PAIN 01/26/14 Active Nitroglycerin 0.4 Mg SL NEEDED For CHEST PAIN 01/26/14 Active Dabigatran Etexilate Mesylate 150 Mg PO TWICE A DAY 60 Qty 02/03/14 Discontinued Gabapentin 2 Cap PO THREE TIMES A DAY 90 Qty 02/03/14 Active Hydrocodone/Acetaminophen 1 Tab PO TWICE A DAY 02/03/14 Active Social History Social History Problem Response Recorded Date/Time Smoking Status Former smoker 02/03/2014 1:58pm When did patient START smoking? 20Y/O 02/03/2014 1:58pm When did patient STOP smoking? 200102/03/2014 1:58pm Chewing Tobacco Status No 10/21/2012 3:18pm Hx Substance Use No 02/03/2014 11:01am Hx Alcohol Use Y BEER OCCASIONALLY 02/03/2014 11:01am Has the pt used tobacco in the last 12 months No 02/03/2014 1:58pm Query Response Start Date Stop Date Smoking Status Never smoker Hospital Discharge Instructions Instructions: Care Instructions: Reason for Hospitalization: Acute GI Bleed I was in the hospital because (patient own words): "I HAD BLOOD IN MY STOOL" Discharge Diet: Cardiac Discharge Activity: As tolerated Follow Up Appointments: Dr Orosco tomorrow Patient Instructions: Stop Pradaxa Condition at time of discharge: Good see instructions Condition at time of discharge: Good Notify Physician If: - Your pain is not adequately controlled. - You have persistent nausea or vomiting for more than 24 hours. - You have a fever over 101.5 degrees. - You develop redness, swelling, increasing pain, excessive bleeding, or excessive/foul smelling drainage at your incision site. - You have difficulty breathing. During office hours, call [phone]. After hours, please call [facility] at [phone] and have the directory assistance operator page Dr. Reese or the covering surgeon. *In the event of an emergency, seek medical care at the nearest emergency room.* Condition at time of discharge: Good rate >100, confusion, or persistent nausea/vomitting. 2.Severe pain, swelling, redness, or warmth in either of your legs. 3.During office hours, call [phone] 4. After hours, please call [facility] at [phone], and have the directory assistance operator page your Surgeon IN THE EVENT OF AN EMERGENCY, seek medical care at the nearest Emergency Room Condition at time of discharge: Good Good Plan of Care Discharge Date 02/04/14 1:30pm Disposition 01 DISCHARGED HOME, SELF-CARE Instructions/Education Provided Colon Polyps DI for Rectal Bleed DI for Gastrointestinal Bleeding Prescriptions See Medications Section Functional Status Query Response Date Recorded Physical Hygiene Self February 04, 2014 12:48pm Disabilities Visual February 04, 2014 12:48pm Devices Used Glasses Cane February 04, 2014 12:48pm Dressing Self February 04, 2014 12:48pm Ambulation Self February 04, 2014 12:48pm Diet Self February 04, 2014 12:48pm Mental Status Alert February 04, 2014 12:48pm Disabilities Visual February 04, 2014 12:48pm Devices Used Glasses Cane February 04, 2014 12:48pm Physical Hygiene Self February 04, 2014 12:48pm Dressing Self February 04, 2014 12:48pm Ambulation Self February 04, 2014 12:48pm Diet Self February 04, 2014 12:48pm Allergies, Adverse Reactions, Alerts Allergen Type Severity Reaction Status Last Updated No Known Drug Allergies Allergy Unknown Active 02/03/14 Immunizations Name Given Type Hx Influenza Vaccination Y FALL 2012 Historical Hx Pneumococcal Vaccination Y 3 YEARS AGO Historical Hx Influenza Vaccination Y FALL 2012 Historical Vital Signs Acute Vital Signs Vital Response Date/Time Temperature (Fahrenheit) 96.7 deg F (96.8 - 99.1) Temperature (Calculated Celsius) 35.59778 degrees C (36.0 - 37.3) Temperature Source Temporal Pulse Rate (adult) 76 bpm (60 - 100) O2 Sat by Pulse Oximetry 96 % (90 - 100) Height 6 ft 0 in Weight 158 lb Body Mass Index 21.0 kg/m^2 Results Test Source Date Result Interp. Ref. Range Comments Activated Partial Thromboplast Time February 03, 2014 10:45am 44.9 SEC H 24-36 Alanine Aminotransferase (ALT/SGPT) February 03, 2014 10:45am 27 U/L N 21-72 Albumin February 03, 2014 10:45am 3.5 G/DL N 3.5-5.0 Albumin/Globulin Ratio February 03, 2014 10:45am 1.4 RATIO N 1.1-2.2 Alkaline Phosphatase February 03, 2014 10:45am 77 U/L N 38-126 Amylase Level February 03, 2014 10:45am 55 U/L N 30-110 Anion Gap February 04, 2014 5:06am 8 MEQ/L N 5-15 Aspartate Amino Transf (AST/SGOT) February 03, 2014 10:45am 21 U/L N 17 -59 BUN/Creatinine Ratio February 04, 2014 5:06am 14 RATIO N 6-26 Band Neutrophils # March 27, 2009 10:05am 0.0 T/MM3 - Band Neutrophils % March 27, 2009 10:05am 0.0 % N 0-6 Basophils # (Auto) February 04, 2014 5:06am 0.1 T/MM3 N 0-0.2 Basophils # (Manual) March 27, 2009 10:05am 0.0 T/MM3 N 0-0.2 Basophils % (Manual) March 27, 2009 10:05am 0.0 % N 0-2 Basophils (%) (Auto) February 04, 2014 5:06am 0.9 % N 0-2 Blood Urea Nitrogen February 04, 2014 5:06am 11.0 MG/DL N 9-20 Calcium Level February 04, 2014 5:06am 9.0 MG/DL N 8.4-10.2 Calculated Osmolality February 04, 2014 5:06am 271 MOSM/KG N 261-280 Carbon Dioxide Level February 04, 2014 5:06am 30 MEQ/L N 22-30 Chemistry Specimen Hemolysis February 04, 2014 5:06am < 15 0-25 0-25 : No Hemolysis.26-70: Slight Hemolysis - can falsely elevate K and Urine Protein. 71-285: Moderate Hemolysis - can falsely elevate K, Troponin I, CA 19-9, PTH, CSF GLucose, and Urine Protein, and can falsely decrease Phenytoin. 286-999: Gross Hemolysis - can falsely elevate K, Troponin I, CA 19-9, PTH, CSF Glucose, and Urine Protine, and can falsely decrease Phenytoin. Recommend specimen recollection. Chloride Level February 04, 2014 5:06am 104 MEQ/L N 98-107 Creatinine February 04, 2014 5:06am 0.8 MG/DL N 0.8-1.5 EKG March 28, 2009 4:00am Complete - Eosinophils # (Auto) February 04, 2014 5:06am 0.5 T/MM3 N 0-0.5 Eosinophils # (Manual) March 27, 2009 10:05am 0.4 T/MM3 N 0-0.5 Eosinophils % (Manual) March 27, 2009 10:05am 5.0 % H 0-4 Eosinophils (%) (Auto) February 04, 2014 5:06am 7.6 % H 0-4 Globulin February 03, 2014 10:45am 2.5 G/DL N 2.4-3.6 Glomerular Filtration Rate Calc February 04, 2014 5:06am 93 - Glucose Level February 04, 2014 5:06am 87 MG/DL N 75-110 Hematocrit February 04, 2014 5:06am 35.9 % L 41-53 Hemoglobin February 04, 2014 10:09am 12.7 GM/DL L 13.5-17.5 Icterus Index February 04, 2014 5:06am < 2 0-7 Immature Granulocyte # (Auto) February 04, 2014 5:06am 0.03 T/MM3 N 0.00-0.03 Immature Granulocyte % (Auto) February 04, 2014 5:06am 0.5 % N 0.0-0.5 Lipase February 03, 2014 10:45am 38 U/L N 23-300 Lymphocytes # (Auto) February 04, 2014 5:06am 1.4 T/MM3 N 1-4.8 Lymphocytes # (Manual) March 27, 2009 10:05am 1.1 T/MM3 N 1-4.8 Lymphocytes % (Manual) March 27, 2009 10:05am 12.0 % L 23-45 Lymphocytes (%) (Auto) February 04, 2014 5:06am 22.3 % L 23-45 Mean Corpuscular Hemoglobin February 04, 2014 5:06am 32.2 UUG N 26-34 Mean Corpuscular Hemoglobin Concent February 04, 2014 5:06am 33.1 GM/DL N 31-37 Mean Corpuscular Volume February 04, 2014 5:06am 97.3 UM3 N 80-100 Mean Platelet Volume February 04, 2014 5:06am 10.8 UM3 N 9.4-12.4 Monocytes # (Auto) February 04, 2014 5:06am 0.9 T/MM3 H 0-0.8 Monocytes # (Manual) March 27, 2009 10:05am 1.3 T/MM3 H 0-0.8 Monocytes % (Manual) March 27, 2009 10:05am 15.0 % H 0-9.0 Monocytes (%) (Auto) February 04, 2014 5:06am 14.2 % H 0-9.0 Neutrophils # (Auto) February 04, 2014 5:06am 3.5 T/MM3 N 1.8-7.7 Neutrophils # (Manual) March 27, 2009 10:05am 6.1 T/MM3 N 1.8-7.7 Neutrophils % (Manual) March 27, 2009 10:05am 68.0 % H 33-66 Neutrophils (%) (Auto) February 04, 2014 5:06am 54.5 % N 33-66 Platelet Count February 04, 2014 5:06am 273 T/MM3 N 130-400 Potassium Level February 04, 2014 5:06am 3.9 MEQ/L N 3.6-5 Prealbumin February 03, 2014 4:00pm 26.3 MG/DL N 17.6-36.0 Prothromb Time International Ratio February 03, 2014 10:45am 1.00 N 0.81-1.09 THERAPUTIC RANGE=2.00-3.00 FOR ANTI-THROMBOSIS THERAPUTIC RANGE=2.50 -3.50 FOR IMPLANTED VALVE RDW Standard Deviation February 04, 2014 5:06am 42.5 FL N 36.9-50.2 Red Blood Count February 04, 2014 5:06am 3.69 M/MM3 L 4.50-5.90 Sodium Level February 04, 2014 5:06am 142 MEQ/L N 134-144 Thyroid Stimulating Hormone (TSH) February 03, 2014 4:00pm 0.62 MIU/L N 0.47-4.68 COMMENT blood in lab Total Bilirubin February 03, 2014 10:45am 0.90 MG/DL N 0.20-1.30 Total Protein February 03, 2014 10:45am 6.0 G/DL L 6.3-8.2 Turbidity February 04, 2014 5:06am < 20 0-20 Urinalysis Comment February 03, 2014 11:20am Microscopic not ind. - Has specimen been collected/obtained? Y Urine Bilirubin February 03, 2014 11:20am Negative - Has specimen been collected/obtained? Y Urine Blood February 03, 2014 11:20am Negative - Has specimen been collected/obtained? Y Urine Collection Type February 03, 2014 11:20am Cleancatch-midstream - Has specimen been collected/obtained? Y Urine Color February 03, 2014 11:20am Yellow - Has specimen been collected/obtained? Y Urine Glucose (UA) February 03, 2014 11:20am Negative - Has specimen been collected/obtained? Y Urine Ketones February 03, 2014 11:20am Negative - Has specimen been collected/obtained? Y Urine Leukocyte Esterase February 03, 2014 11:20am Negative - Has specimen been collected/obtained? Y Urine Nitrite February 03, 2014 11:20am Negative - Has specimen been collected/obtained? Y Urine Protein February 03, 2014 11:20am Negative - Has specimen been collected/obtained? Y Urine Specific [place] February 03, 2014 11:20am <=1.005 L - Has specimen been collected/obtained? Y Urine Turbidity February 03, 2014 11:20am Clear - Has specimen been collected/obtained? Y Urine Urobilinogen February 03, 2014 11:20am 0.2 EU/DL - Has specimen been collected/obtained? Y Urine pH February 03, 2014 11:20am 7.0 - Has specimen been collected /obtained? Y White Blood Count February 04, 2014 5:06am 6.5 T/MM3 N 4.5-11.0 Name: RADHA LAURA Unit #: [id number] : 1930 Sex: M Loc / Svc: SRG DOS: 02/03/14 Signed Report #: [id number] DIAGNOSTIC IMAGING REPORT TYPE OF EXAM: CT ABD/PELVIS W/CONTRAST ONLY Dictated By: BRYANNA SOLOMON MD INDICATION: ITS.REASON: recent colonoscopy, bloody stools, abdominal pain CT ABD/PELVIS W/CONTRAST ONLY: I agree with the V.. rad report. No soft tissue mass or ascites or adenopathy. No inflammatory process. No worrisome finding. No pericardial thickening or effusion. The lung bases are clear. Normal appearance of the liver, spleen, pancreas, adrenal glands, gallbladder, and kidneys. Atherosclerotic disease. No abdominal aortic aneurysm. No retroperitoneal mass. The pelvis is normal. No bowel dilatation. No bowel obstruction. Possible constipation. . Procedures Procedure Status Date Provider(s) LESION REMOVE COLONOSCOPY completed 01/26/14 SAFIA REESE MD Encounters Encounter Location Date/Time Admitted Inpatient [facility] 02/03/14 12:56pm Recent Diagnosis GI bleed Atrial fibrillation CAD (coronary artery disease) OA (osteoarthritis) GERD (gastroesophageal reflux disease) COPD (chronic obstructive pulmonary disease) HTN (hypertension) Dyslipidemia Ocular migraine Spinal stenosis, lumbar BPH (benign prostatic hypertrophy) Anemia Hypothyroidism
--- NOTE | 2016-10-02 15:07 | ERPDOC ---
Departure Disposition Decision Date: October 02, 2016 Disposition Decision Time: 16:35 (ALISON GALLOWAY APRN) Disposition: 01 DISCHARGED HOME, SELF-CARE Impression Impression (ALISON GALLOWAY APRN) Impression: Primary Impression: Neck pain Additional Impression: Spinal stenosis Qualified Codes: M48.02 - Spinal stenosis, cervical region Severity: Moderate (ALISON GALLOWAY APRN) Condition: Stable Seen By: Mid-level only (ALISON GALLOWAY APRN) Referrals: KENIA LAN DO (Family) Patient Instructions: Cervical Spinal Stenosis (ED) Problems/Meds/Labs Reviewed?: Yes Medications reviewed and manag: Yes (ALISON GALLOWAY APRN) Additional Instructions: Take the [place] as needed for pain at home. If this is not controlling your pain I do want you to follow up with your primary care provider or your surgeon for reevaluation. Otherwise return to ER as needed. Your labs today do appear normal. Follow up care ordered?: Yes Mental Status: Alert (ALISON GALLOWAY APRN) Scripts Hydrocodone/Acetaminophen ([place] 5-325 Tablet) 5-325 Tablet 1 TAB PO Q6H Y for PAIN, #20 TAB 0 Refills Prov: ALISON GALLOWAY APRN 10/02/16 HPI - Headache General Chief Complaint: Neck Pain Stated Complaint: NECK PAIN Time Seen by Provider: 14:56 Source: patient Exam Limitations: no limitations (ALISON GALLOWAY APRN) Time Seen by Provider: 14:56 (TIMO MOYA DO) HPI - Headache Initial Comments He has a history of problems with his neck. Had a fusion done a few years ago and had had pain in his neck every since then. Over the last few months his pain has gotten worse and over the last 24 hours it has gotten severe. He has taken some Tramadol that he uses at home for the pain but it is not helping at all. His pain is so intense that he feels like he is off balance and his having a hard time moving his arms. Denies any numbness/tingling in his arms. He denies any fever or chills. He did [place] [facility] [place] that did show retrolithesis and spinal stenosis. He is scheduled for surgery on October 08 for a revision. Occurred At: home Onset: Gradual Duration: other (Over the last 6 weeks, worse today) Severity/Quality: moderate, sharp Prior Headaches/Recent Trauma: no recent headache/trauma Associated Symptoms: stiff neck, DENIES: confusion, facial pain, fatigue, fever /chills, flushing, loss of consciousness, nasal congestion, nasal drainage, nausea/vomiting, numbness in legs/feet, rash, seizures, sinus infection, vision changes, weakness Hx of Similar Symptoms: Yes (NOLD,ALISON N PICKING MACHINE OPERATOR) Allergies: Coded Allergies: No Known Allergies (Unverified , 10/02/16) Past History Patient Surgical History Cardiac cath 2008 (stent to RCA), 2011 (moderate MR, stent was patent) Echo 12/13/2013: EF 62%, diastolic disfuction, mod AoV scl, mild-mod MR, mod MAC, mild TR, PAP 45 mm Hg Holter (12/13/2013): Sinus, Occ PACs, rare PVCs appendectomy tonsillectomy cervical fusion 2013 Rt knee ACL reconstruction Lt knee scope Rt knee scope ORIF right ankle Rt ruptured achilles tendon. (NOLD,ALISON N PICKING MACHINE OPERATOR) Past Medical History Metabolic: hypercholesterolemia, hypertension, hypothyroidism ENMT: cataracts, sleep apnea Cardiac: A-fib, CAD Respiratory: COPD, asthma GI: GERD, other Male: BPH, pyelonephritis Neurological: migraines Musculoskeletal: back pain, osteoarthritis, rheumatoid arthritis (NOLD,ALISON N PICKING MACHINE OPERATOR) Surgical History General: EGD, appendix, colonoscopy, neck, tonsils Cardiac: cardiac cath, cardiac stent, radio ablation Joint: hip, knee, other (NOLD,ALISON N PICKING MACHINE OPERATOR) Family History Family PMH: FOUND: CHF, COPD (NOLD,ALISON N PICKING MACHINE OPERATOR) Vaccines Hx Influenza Vaccination: Yes (JAN 2015) Hx Pneumococcal Vaccination: Yes (4 YRS AGO) (NOLD,ALISON N PICKING MACHINE OPERATOR) Social History Does patient use chewing tobac: No # of Packs/Tins per Day: 1 # of Years: 35 Second Hand Exposure: No Substance Use Type: does not use Alcohol Intake: none Sexuality: other (NOLD,ALISON N PICKING MACHINE OPERATOR) Review of Systems Constitutional Constitutional: DENIES: chills, dizziness, fatigue, fever, weakness (NOLD, ALISON N PICKING MACHINE OPERATOR) Eyes Vision: DENIES: blurring, double vision (NOLD,ALISON N PICKING MACHINE OPERATOR) ENMT Ears: DENIES: drainage, pain Sinuses: DENIES: congestion, rhinorrhea Mouth/Throat: DENIES: painful swallowing, scratchy throat, sore throat (NOLD, ALISON N PICKING MACHINE OPERATOR) Cardiovascular Cardiac: DENIES: chest pain, orthopnea Rhythm/Rate: DENIES: irregular beat, palpitations (NOLD,ALISON N PICKING MACHINE OPERATOR) Pulmonary Respiratory: DENIES: cough, dyspnea, sputum, tachypnea (NOLD,ALISON N PICKING MACHINE OPERATOR) GI Upper Abdomen: DENIES: nausea, pain, vomiting Lower Abdomen: DENIES: constipation, diarrhea, pain (NOLD,ALISON N PICKING MACHINE OPERATOR) Musculoskeletal General: pain (neck and down into bilateral arms) (NOLD,ALISON N PICKING MACHINE OPERATOR) Integumentary Skin: DENIES: color change, rash (NOLD,ALISON N PICKING MACHINE OPERATOR) Neurological General: DENIES: change in strength, headache, numbness, syncope, tingling, weakness (NOLD,ALISON N PICKING MACHINE OPERATOR) Physical Exam General General Nourishment: well nourished, well developed, appears stated age, no acute distress, adult General Body Habitus: well groomed (NOLD,ALISON N PICKING MACHINE OPERATOR) Vitals and Pain First Documented Vital Signs Date Time Temp Pulse Resp B/P Pulse Ox O2 Delivery O2 Flow Rate FiO2 10/02/16 14:48 98.8 82 16 165/77 94 Room Air 10/02/16 16:21 2.00 (TIMO MOYA DO) Vitals and Pain Weight: Kilograms: 71.900 Height (feet): 6 Height (inches): 0 Triage Pain Scale: (NORAYSHAWN,ALISON N PICKING MACHINE OPERATOR) RN VS reviewed by Provider: Yes (NORAYSHAWN,ALISON N PICKING MACHINE OPERATOR) Normal Exams: Chest/Resp: Clear all hahn, with good airflow, and symmetry bilaterally CV: Regular rate and rhythm, without murmur or gallop, Pulses 2+ all extremities, capillary refill, <2 seconds all ext., no pedal edema noted Abdomen: Bowel sounds positive, soft, non-tender, non-distended, no hepatosplenomegaly, masses or bruits noted Lymphatic: No lymphadenopathy, or lymphedema noted Integumentary: No rashes, hives, or bruising noted Neurologic: Patient is alert, and oriented, cranial nerves, motor/sensory/ cerebellar, exams w/o gross deficits, to observation Psychiatric: Patient exhibits, appropriate attention, emotion and affect (NORAYSHAWN,ALISON N PICKING MACHINE OPERATOR) Neck (brief) Neck: FOUND: other (He does have painful ROM of the neck in all hahn but is able to move his head in all hahn. ), NOT FOUND: tenderness (NILESH,ALISON N PICKING MACHINE OPERATOR) Differential Diagnoses Considering: Headache, Headache - Migraine, Headache - Tension/Muscle, Other ( spinal stenosis, cervical spine fracture, chronic neck pain) (NILESH,ALISON N PICKING MACHINE OPERATOR) Progress Results/Orders Orders Procedure Category Date Status Time Iv Lock (Ed Only) EDM 10/02/16 Transmitted 15:02 Cbc W/Auto LAB 10/02/16 Complete Diff-Reflex Manual Bmp - Basic Metabolic LAB 10/02/16 Complete Panel Hydromorphone PHA 10/02/16 Complete (Dilaudid) 15:15 Hydromorphone PHA 10/02/16 Complete (Dilaudid) 16:00 Methylprednisolone PHA 10/02/16 Complete Sod Succ (Solu-Medrol 16:00 Ondansetron Odt PHA 10/02/16 Complete (Zofran Odt) 17:00 (TIMO MOYA DO) Lab Results Laboratory Tests Test 10/02/16 15:12 White Blood Count 10.9T/MM3 Red Blood Count 3.74M/MM3 Hemoglobin 11.0GM/DL Hematocrit 33.1% Mean Corpuscular Volume 88.5UM3 Mean Corpuscular Hemoglobin 29.4UUG Mean Corpuscular Hemoglobin Concent 33.2GM/DL RDW Standard Deviation 42.5FL Platelet Count 369T/MM3 Mean Platelet Volume 10.7UM3 Immature Granulocyte % (Auto) 0.3% Neutrophils (%) (Auto) 63.3% Lymphocytes (%) (Auto) 16.4% Monocytes (%) (Auto) 15.0% Eosinophils (%) (Auto) 4.6% Basophils (%) (Auto) 0.4% Absolute Immature Granulocyte (auto 0.03T/MM3 Absolute Neutrophils (auto) 6.9T/MM3 Absolute Lymphocytes (auto) 1.8T/MM3 Absolute Monocytes (auto) 1.6T/MM3 Absolute Eosinophils (auto) 0.5T/MM3 Absolute Basophils (auto) 0.0T/MM3 Turbidity < 20 Sodium Level 144MEQ/L Potassium Level 3.7MEQ/L Chloride Level 105MEQ/L Carbon Dioxide Level 26MEQ/L Anion Gap 13MEQ/L Blood Urea Nitrogen 17.0MG/DL Creatinine 0.9MG/DL Glomerular Filtration Rate Calc 80 BUN/Creatinine Ratio 19RATIO Glucose Level 77MG/DL Calculated Osmolality 278MOSM/KG Calcium Level 9.0MG/DL Icterus Index < 2 Chemistry Specimen Hemolysis < 15 (TIMO MOYA DO) Medications Current ED Medications Hydromorphone HCl (Dilaudid) 0.5 mg O ONCE IV Last administered on 10/02/16 15:23; Start 10/02/16 at 15:15; Stop 10/02/16 at 15:16; Status DC Hydromorphone HCl (Dilaudid) 1 mg O ONCE IV Last administered on 10/02/16 16: 12; Start 10/02/16 at 16:00; Stop 10/02/16 at 16:01; Status DC Methylprednisolone Sodium Succinate (Solu-Medrol) 125 mg O ONCE IV Last administered on 10/02/16 16:08; Start 10/02/16 at 16:00; Stop 10/02/16 at 16:01 ; Status DC Ondansetron HCl (Zofran Odt) 4 mg O ONCE PO Last administered on 10/02/16 16: 58; Start 10/02/16 at 17:00; Stop 10/02/16 at 17:01; Status DC (TIMO MOYA DO) Progress Progress Pain is improved. Down from 28/02 to 12/24. Will go ahead and give him a Rx for [place] to take at home. If continuing to have pain at home then have him follow up with PCP or surgeon. (ALISON GALLOWAY APRN) ALISON GALLOWAY APRN October 02, 2016 15:07 TIMO MOYA DO October 02, 2016 17:44
[2016-10-02] MEDS ORDERED: HYDROMORPHONE 2mg/ml INJECTION IV ONE ×2 (15:15→16:00)
[2016-10-02 15:17] LABS: BASOPHILS % (AUTO) 0.4 % (0-2); EOSINOPHILS # (AUTO) 0.5 T/MM3 (0-0.5); EOSINOPHILS % (AUTO) 4.6 % (0-4); HCT - HEMATOCRIT 33.1 % (41-53); IMMATURE GRANULOCYTE # (AUTO) 0.03 T/MM3 (0.00-0.03); IMMATURE GRANULOCYTE % (AUTO) 0.3 % (0.0-0.5); LYMPHOCYTES # (AUTO) 1.8 T/MM3 (1-4.8); LYMPHOCYTES % (AUTO) 16.4 % (23-45); MEAN CORPUSCULAR HGB 29.4 UUG (26-34); MEAN CORPUSCULAR HGB CONC(MCHC 33.2 GM/DL (31-37); MEAN CORPUSCULAR VOLUME 88.5 UM3 (80-100); MEAN PLATELET VOLUME 10.7 UM3 (9.4-12.4); MONOCYTES # (AUTO) 1.6 T/MM3 (0-0.8); NEUTROPHILS #(AUTO)-ABSOLUTE 6.9 T/MM3 (1.8-7.7); NEUTROPHILS % (AUTO) 63.3 % (33-66); RED BLOOD COUNT 3.74 M/MM3 (4.50-5.90); WBC - WHITE BLOOD COUNT 10.9 T/MM3 (4.5-11.0)
--- OUTSIDE RECORDS SUMMARY | 2016-10-02 15:22 | XMS REPORT | Continuity of Care Document ---
Author Author [facility] Organization [facility] Address Unknown Phone Unavailable Allergies [...] 07/16/15 08:30 ACT PLUS (POC) 138 sec [place] <160 ACT PLUS (POC) - 07/16/15 09:21 ACT PLUS (POC) 280 sec [place] <160 ACT PLUS (POC) - 07/16/15 09:34 ACT PLUS (POC) 316 sec [place] <160 ACT PLUS (POC) - 07/16/15 09:57 ACT PLUS (POC) 357 sec [place] <160 ACT PLUS (POC) - 07/16/15 10:31 ACT PLUS (POC) 410 sec [place] <160 ACT PLUS (POC) - 07/16/15 10:52 ACT PLUS (POC) 403 sec [place] <160 ACT PLUS (POC) - 07/16/15 11:24 ACT PLUS (POC) 392 sec [place] <160 ACT PLUS (POC) - 07/16/15 11:56 ACT PLUS (POC) 443 sec [place] <160 ACT PLUS (POC) - 07/16/15 12:21 ACT PLUS (POC) 426 sec [place] <160 ACT PLUS (POC) - 07/16/15 12:42 ACT PLUS (POC) 171 sec [place] <160 CBC W/DIFF - 07/17/15 04:59 EOSINOPHIL [...] Status Pt. Type Provider Facility Loc./Unit Complaint [id number] 07/16/2015 05:35:00 2015 12:31:00 DIS Outpatient Joao JACKMAN, [facility] E.EPO [id number] 07/08/2015 14:19:00 2015 14:19:00 DIS Outpatient Joao JACKMAN, [facility] E.RAC
--- OUTSIDE RECORDS SUMMARY | 2016-10-02 15:22 | XMS REPORT | Continuity of Care Document ---
Author Author [facility] Organization [facility] Address Unknown Phone Unavailable Support Name Relationship Address Phone KENIA LAN DO Caregiver [address] [place] [address] SAFIA CHEEMA MD Caregiver [facility] [address] [place], [place] [phone] DANIA LAURA Next Of Kin [address] [place], [place] [address] Insurance Providers Payer Name Policy Number Subscriber Name Relationship Medicare [id number] Radha Laura 19 Self [employer] [id number] Radha Laura 19 Self Advance Directives Directive Response Recorded Date/Time Ordered Resuscitation Status Full Code 01/25/14 1:53pm Resuscitation Documents on File No 01/25/14 1:25pm Problems No known problems or medical conditions. Medications Medication Dose Route Sig Days/Qty Instructions Order Date Discontinued Date Status Guaifenesin 600 Mg PO NEEDED 03/27/09 05/27/11 Discontinued Saw Paicines Fruit 450 Mg PO DAILY 03/27/09 Active Amlodipine Besylate 10 Mg PO DAILY 03/27/09 Active Atenolol 50 Mg PO BEDTIME 03/27/09 10/24/12 Discontinued Aspirin 81 Mg PO DAILY 03/27/09 10/21/12 Discontinued Fish Oil/[place]-3 Fatty Acids 1 Cap PO DAILY 03/27/09 [...] F (96.8 - 99.1) Temperature (Calculated Celsius) 36.20702 degrees C (36.0 - 37.3) Temperature Source [...]
--- OUTSIDE RECORDS SUMMARY | 2016-10-02 15:22 | XMS REPORT | Continuity of Care Document ---
Author Author [facility] Organization [facility] Address Unknown Phone Unavailable Support Name Relationship Address Phone DANICA ROBERT MD Caregiver [address] [place] [address] [place] [phone] LELA ROY MD Caregiver [address] [place] [address] [place] [address] KENIA OROSCO DO Caregiver [address] [place] [phone] DANIA LAURA Next Of Kin [address] [place] [address] Insurance Providers Payer Name Policy Number Subscriber Name Relationship Medicare [id number] Radha Laura 19 Self [employer] [id number] Radha Laura 19 Self Advance Directives Directive [...] Mg PO NEEDED 03/27/09 05/27/11 Discontinued Saw Parlin Fruit 450 Mg PO DAILY 03/27/09 Active Atenolol 50 Mg PO BEDTIME 03/27/09 10/24/12 Discontinued Aspirin 81 Mg PO DAILY 03/27/09 10/21/12 Discontinued Fish Oil/[place]-3 Fatty Acids 1 Cap PO DAILY 03/27/09 [...] have difficulty breathing. During office hours, call [phone]. After hours, please call [facility] at [phone] and have the needle valve operator page Dr. Reese or the covering surgeon. *In the event of an emergency, seek medical care at the nearest emergency room.* Condition at time of discharge: Good rate >100, confusion, or persistent nausea/vomitting. 2.Severe pain, swelling, redness, or warmth in either of your legs. 3.During office hours, call [phone]. After hours, please call [facility] at [phone], and have the needle valve operator page your Surgeon IN THE EVENT [...] F (96.8 - 99.1) Temperature (Calculated Celsius) 35.36651 degrees C (36.0 - 37.3) Temperature Source [...] Has specimen been collected/obtained? Y Urine Specific [place] February 03, 2014 11:20am <=1.005 L - [...] N 4.5-11.0 Name: RADHA LAURA Unit #: [id number] : 1930 Sex: M Loc / Svc: SRG DOS: 02/03/14 Signed Report #: [id number] DIAGNOSTIC IMAGING REPORT TYPE OF EXAM: CT [...] MD Encounters Encounter Location Date/Time Admitted Inpatient [facility] 02/03/14 12:56pm Recent Diagnosis GI bleed Atrial fibrillation CAD (coronary artery disease) OA (osteoarthritis) GERD (gastroesophageal reflux disease) COPD (chronic obstructive pulmonary disease) HTN (hypertension) Dyslipidemia Ocular migraine Spinal stenosis, lumbar BPH (benign prostatic hypertrophy) Anemia Hypothyroidism
[2016-10-02 15:26] LABS: ANION GAP 13 MEQ/L (5-15); BUN/CREATININE RATIO 19 RATIO (6-26); CHLORIDE 105 MEQ/L (98-107); CO2 - CARBON DIOXIDE 26 MEQ/L (22-30); CREATININE 0.9 MG/DL (0.8-1.5); GLOMERULAR FILTRATION RATE 80; GLUCOSE 77 MG/DL (75-110); POTASSIUM 3.7 MEQ/L (3.6-5); SODIUM 144 MEQ/L (134-144)
[2016-10-02] MEDS ORDERED: LEVA1.25 AEROSOL (15:50)
[2016-10-02] MEDS ORDERED: APIX5TAB PO (15:52)
--- NOTE | 2016-10-02 15:57 | NUR ---
STATUS PT REPORTS NO RELIEF SINCE PAIN MEDICINE. PT STATES "IT'S NOT WORKING YET."
--- NOTE | 2016-10-02 15:58 | NUR ---
REGULATORY LAW SPECIALIST N. NOLD REGULATORY LAW SPECIALIST AT BEDSIDE.
[2016-10-02] MEDS ORDERED: HYDR-4246 PO (16:37)
--- NOTE | 2016-10-02 16:55 | NUR ---
STATUS UPON GETTING IN TO THE FOR DISMISSAL, PT STATES "I FEEL HALF NASEOUS." PT INES. REPORTED STATUS TO Peter GALLOWAY APRN WITH REQUEST FOR NAUSEA MEDICINE.
--- NOTE | 2016-10-02 16:59 | NUR ---
MED PT GIVEN INSTRUCTION REGARDING ZOFRAN, UNDERSTANDING VERBALIZED.
[2016-10-02] MEDS ORDERED: ONDANSETRON ODT 4 MG TAB PO ONE (17:00)
[2016-10-02 17:13] VITALS: BP 141/69; PULSE 83; RESP 16; TEMP 98.2; O2SAT 95
--- NOTE | 2016-10-02 17:13 | NUR ---
DISMISS PT STATES HE FEELS BETTER NOW, READY TO PROCEED TO PRIVATE VEHICLE. PT ASSISTED TO PRIVATE VEHICLE, DRIVEN BY SON, VIA WC. PT ASSISTED BY THIS RN.
== END 2016-10-02 17:13 | disposition home or self-care (01) ==
LOC: ED 14:46
DX: M48.02 Spinal stenosis, cervical region (principal)
CPT/HCPCS: 36415; 80048; 85025; 96374; 96375; 96376; 99284; A9270; J1170; J2930

== ENCOUNTER 2016-10-28 23:03 | Inpatient (IN) ==
[2016-10-28] MEDS ORDERED: DEXAMETHASONE 4 MG/ML INJECTION IVP ONE (23:18)
[2016-10-28] MEDS ORDERED: BUPIVACAINE 0.5% (5mg/ml) PF 30ml INJ SDV ID ONE (23:18)
[2016-10-28] MEDS ORDERED: NS 1,000 ML IV ONE (23:19)
--- NOTE | 2016-10-28 23:22 | Emergency Department Report ---
Fall HPI - General Stated Complaint: R Knee Time Seen by Provider: 10/28/16 23:18 Source: patient, EMS Mode of arrival: ambulatory Limitations: no limitations - History of Present Illness HPI Narrative: Patient had neck surgery 2 weeks ago, since that time he has been "been running out." Patient stumbled and fell tonight in the bathroom, when his legs "gave out on me." She has no significant injury from the fall, but feels very tired, severely fatigued, and is having worsening of his chronic right knee pain and effusion. Patient would like the effusion drained, and that is why he called EMS and came to the ER tonight. Pt had orthopedic hardware removal and replacement of the cervical spine 2 weeks ago. MD complaint: fall - Related Data Home Medications Medication Instructions Recorded Confirmed Atorvastatin Calcium 40 mg PO HS #0 01/25/14 10/28/16 Levothyroxine Sodium 25 mcg PO DAILY #0 01/25/14 10/28/16 Nitroglycerin [Nitrostat] 0.4 mg SL Q5MIN PRN #0 01/26/14 10/28/16 Albuterol Sulfate [Ventolin Hfa] 2 puff INH PRN #0 02/06/15 10/28/16 Omeprazole 40 mg PO DAILY #0 02/06/15 10/28/16 Metoprolol Tartrate 25 mg PO BIDWM #0 03/06/15 10/28/16 Duloxetine HCl 60 mg PO DAILY #0 04/12/16 10/28/16 Tramadol HCl 50 mg PO TID PRN #0 04/12/16 10/28/16 Apixaban [Eliquis] 5 mg PO DAILY #0 10/02/16 10/28/16 Levalbuterol HCl [Xopenex] 1 vial AEROSOL QID PRN #0 10/02/16 10/28/16 Hydrocodone/APAP 5/325 [Addison 1 - 2 tab PO Q4-6HPRN PRN 10/28/16 10/28/16 5/325] Meloxicam [Mobic] 7.5 mg PO DAILY 10/28/16 10/28/16 Allergies Allergy/AdvReac Type Severity Reaction Status Date / Time No Known Allergies Allergy Verified 10/28/16 23:25 Review of Systems All systems: reviewed and negative except as stated Constitutional: Reports: as per HPI Musculoskeletal: Reports: as per HPI [facility] Patient Stated Medical History Hearing Loss Yes: HEARING AIDS Cardiac Arrhythmia Yes: A FIB Hypertension Yes Chronic Obstructive Pulmonary Yes Disease (COPD) Gastroesophageal Reflux Yes Disease Clotting Problems Yes Clinic Medical History (Last Updated 10/29/16 @ 01:46 by Celso Blanchard MD) Atrial fibrillation (Acute Medical) BPH (benign prostatic hyperplasia) (Acute Medical) COPD (chronic obstructive pulmonary disease) (Acute Medical) GERD (gastroesophageal reflux disease) (Acute Medical) Hypertension (Acute Medical) Ocular migraine (Acute Medical) Past Medical History Metabolic: hypercholesterolemia, hypertension, hypothyroidism ENMT: cataracts Cardiac: A-fib, CAD Respiratory: COPD, asthma GI: GERD, other Male: BPH, pyelonephritis Neurological: migraines Musculoskeletal: back pain, osteoarthritis, chronic right knee pain/effusion Surgical History: Total Left hip replacement Mar 14, 2015. Rt knee surgery. Appendectomy 1937. Tonsillectomy . Ankle surgery. Neck surgery 2016. Arthroscopic surgery on left knee. heart catheterization with stenting 2008 Family History: Family History Brother Heart disease Father COPD (chronic obstructive pulmonary disease) Mother Diabetes - Social History Smoking status: Never smoker Physical Exam - Limitations Limitations: no limitations - General General appearance: alert (patient appears dehydrated with dry mouth) - Normal Exams: Head:: Normocephalic without trauma Eyes:: Pupils are PERRLA w/ EOMI, No scleral icterus, irritation, or foreign bodies noted ENMT:: No facial trauma, nasal exudates, pharyngeal erythema, or exudates are noted Neck:: Full range of motion, without adenopathy, JVD, bruits or thyromegaly Chest/Respirations:: Clear all hahn, with good airflow, and symmetry bilaterally Cardiovascular:: Regular rate and rhythm, without murmur or gallop, Pulses 2+ all extremities, capillary refill, <2 seconds all extremities Abdomen:: Bowel sounds positive, soft, non-tender, non-distended, no hepatosplenomegaly, masses or bruits noted Lymphatic:: No lymphadenopathy, or lymphedema noted Integumentary:: No rashes, hives, or bruising noted, hair and nails, without abnormality Neurological:: Patient is alert, and oriented, cranial nerves, motor/sensory/ cerebellar, exams w/o gross deficits, to observation Psychiatric:: Patient exhibits, appropriate attention, emotion and affect - Expanded Lower Extremity Exam Knee exam: Present: tenderness, swelling (severe sub-patellar diffuse effusion) . Absent: abrasion Course Vital Signs Temperature 101.3 F H 10/28/16 23:05 Pulse Rate 107 H 10/28/16 23:05 Respiratory Rate 16 10/28/16 23:05 Blood Pressure 160/70 H 10/28/16 23:05 Pulse Oximetry 93 10/28/16 23:05 Temperature 100.7 F H 10/29/16 00:30 Pulse Rate 119 H 10/29/16 01:31 Respiratory Rate 16 10/28/16 23:05 Blood Pressure 142/63 H 10/29/16 01:31 Pulse Oximetry 92 10/29/16 01:31 Fall - MDM Narrative Medical decision making narrative: Patient given 1 L normal saline IV fluid bolus and Tylenol - CBC - n CMP - n Lactate - normal UA - normal Using sterile technique, patient was prepped and draped with betadyne prep to the knee. Using a lateral approach, patient had local anesthetic, bupivacaine injected into the skin, then 21ga needle drained cc of yellow fluid off the knee. Then injection of 5cc Bupivacaine 0.5%/4 mg Dexamethasone into the knee. Cell count from synovial fluid shows greater than 42,000 white blood cells, primarily neutrophils. Culture and Gram stain are pending Case discussed with Dr. Cm - - Lab Data Result diagrams: 10/28/16 23:40 10/28/16 23:40 Lab Results 10/28/16 10/28/16 10/28/16 Range/Units 23:40 23:40 23:40 WBC 11.9 H (4.5-11.0) T/MM3 RBC 3.84 L (4.50-5.90) M/MM3 Hgb 11.3 L (13.5-17.5) GM/DL Hct 34.8 L (41-53) % MCV 90.6 (80-100) UM3 MCH 29.4 (26-34) UUG MCHC 32.5 (31-37) GM/DL RDW Std Deviation 45.3 (36.9-50.2) FL Plt Count 309 (130-400) T/MM3 MPV 10.0 (9.4-12.4) UM3 Immature Gran % (Auto) 0.3 (0.0-0.5) % Neut % (Auto) 77.5 H (33-66) % Lymph % (Auto) 8.8 L (23-45) % [place] % (Auto) 12.2 H (0-9.0) % Eos % (Auto) 0.9 (0-4) % Baso % (Auto) 0.3 (0-2) % Neut # 9.3 H (1.8-7.7) T/MM3 Lymph # 1.1 (1-4.8) T/MM3 [place] # 1.5 H (0-0.8) T/MM3 Eos # 0.1 (0-0.5) T/MM3 Baso # 0.0 (0-0.2) T/MM3 Abs Immat Gran (auto) 0.03 (0.00-0.03) T/MM3 Turbidity < 20 (0-20) Sodium 142 (134-144) MEQ/L Potassium 3.9 (3.6-5) MEQ/L Chloride 103 (98-107) MEQ/L Carbon Dioxide 28 (22-30) MEQ/L Anion Gap 11 (5-15) MEQ/L BUN 13.0 (9-20) MG/DL Creatinine 0.9 (0.8-1.5) MG/DL GFR Calculation 80 BUN/Creatinine Ratio 14 (6-26) RATIO Glucose 103 (75-110) MG/DL Calculated Osmolality 273 (261-280) MOSM/KG Calcium 9.3 (8.4-10.2) MG/DL Total Bilirubin 1.70 H (0.20-1.30) MG/DL Conjugated Bilirubin 0.00 (0.00-0.30) MG/DL Unconjugated Bilirubin 1.50 (0.00-11.10) MG/DL Icterus Index < 2 (0-7) AST 17 (17-59) U/L ALT 29 (21-72) U/L Alkaline Phosphatase 142 H (38-126) U/L Total Protein 6.6 (6.3-8.2) G/DL Albumin 3.8 (3.5-5.0) G/DL Globulin 2.8 (2.4-3.6) G/DL Albumin/Globulin Ratio 1.4 (1.1-2.2) RATIO Plasma Lactate 1.0 (0.6-2.2) MMOL/L Specimen Hemolysis < 15 (0-25) Ur Collection Type Urine Color (YELLOW) Urine Clarity Urine pH (5.0-8.0) Ur Specific [place] (1.015-1.025) Urine Protein (NEGATIVE) Urine Glucose (UA) (NEGATIVE) Urine Ketones (NEGATIVE) Urine Occult Blood (NEGATIVE) Urine Nitrate (NEGATIVE) Urine Bilirubin (NEGATIVE) Urine Urobilinogen (NORMAL) EU/DL Ur Leukocyte Esterase (NEGATIVE) Urinalysis Comment Fluid Type Fluid Color Fluid Turbidity Fluid RBC /MM3 Fld Tot Nucleated Cell /MM3 Fluid Neutrophils % Fluid Lymphocytes % Fluid Monocytes % Fluid Eosinophils % Fluid Basophils % Fluid Other Cells % % 10/29/16 10/29/16 Range/Units 00:09 01:00 WBC (4.5-11.0) T/MM3 RBC (4.50-5.90) M/MM3 Hgb (13.5-17.5) GM/DL Hct (41-53) % MCV (80-100) UM3 MCH (26-34) UUG MCHC (31-37) GM/DL RDW Std Deviation (36.9-50.2) FL Plt Count (130-400) T/MM3 MPV (9.4-12.4) UM3 Immature Gran % (Auto) (0.0-0.5) % Neut % (Auto) (33-66) % Lymph % (Auto) (23-45) % [place]aca % (Auto) (0-9.0) % Eos % (Auto) (0-4) % Baso % (Auto) (0-2) % Neut # (1.8-7.7) T/MM3 Lymph # (1-4.8) T/MM3 [place] # (0-0.8) T/MM3 Eos # (0-0.5) T/MM3 Baso # (0-0.2) T/MM3 Abs Immat Gran (auto) (0.00-0.03) T/MM3 Turbidity (0-20) Sodium (134-144) MEQ/L Potassium (3.6-5) MEQ/L Chloride (98-107) MEQ/L Carbon Dioxide (22-30) MEQ/L Anion Gap (5-15) MEQ/L BUN (9-20) MG/DL Creatinine (0.8-1.5) MG/DL GFR Calculation BUN/Creatinine Ratio (6-26) RATIO Glucose (75-110) MG/DL Calculated Osmolality (261-280) MOSM/KG Calcium (8.4-10.2) MG/DL Total Bilirubin (0.20-1.30) MG/DL Conjugated Bilirubin (0.00-0.30) MG/DL Unconjugated Bilirubin (0.00-11.10) MG/DL Icterus Index (0-7) AST (17-59) U/L ALT (21-72) U/L Alkaline Phosphatase (38-126) U/L Total Protein (6.3-8.2) G/DL Albumin (3.5-5.0) G/DL Globulin (2.4-3.6) G/DL Albumin/Globulin Ratio (1.1-2.2) RATIO Plasma Lactate (0.6-2.2) MMOL/L Specimen Hemolysis (0-25) Ur Collection Type Urine, clean catch Urine Color Yellow (YELLOW) Urine Clarity Clear Urine pH 7.0 (5.0-8.0) Ur Specific [place] 1.010 L (1.015-1.025) Urine Protein Negative (NEGATIVE) Urine Glucose (UA) Negative (NEGATIVE) Urine Ketones 1+ A (NEGATIVE) Urine Occult Blood Negative (NEGATIVE) Urine Nitrate Negative (NEGATIVE) Urine Bilirubin Negative (NEGATIVE) Urine Urobilinogen 1.0 (NORMAL) EU/DL Ur Leukocyte Esterase Negative (NEGATIVE) Urinalysis Comment Microscopic not ind. Fluid Type Aspirate Fluid Color Yellow Fluid Turbidity Cloudy Fluid RBC 4000 /MM3 Fld Tot Nucleated Cell 30007 /MM3 Fluid Neutrophils 90 % Fluid Lymphocytes 10 % Fluid Monocytes 0 % Fluid Eosinophils 0 % Fluid Basophils 0 % Fluid Other Cells % 0 % Disposition Clinical Impression: Septic arthritis of knee, right Qualifiers: Septic arthritis organism: due to unspecified organism Qualified Code(s): M00.9 - Pyogenic arthritis, unspecified Disposition: 02 To OBS [facility] Condition: Improved Prescriptions: Continue Atorvastatin Calcium 40 mg PO HS #0 Levothyroxine Sodium 25 mcg PO DAILY #0 Nitroglycerin [Nitrostat] 0.4 mg SL Q5MIN PRN #0 PRN Reason: CHEST PAIN Omeprazole 40 mg PO DAILY #0 Metoprolol Tartrate 25 mg PO BIDWM #0 Duloxetine HCl 60 mg PO DAILY #0 Tramadol HCl 50 mg PO TID PRN #0 PRN Reason: PAIN Albuterol Sulfate [Ventolin Hfa] 2 puff INH PRN #0 Levalbuterol HCl [Xopenex] 1 vial AEROSOL QID PRN #0 PRN Reason: SHORTNESS OF AIR Apixaban [Eliquis] 5 mg PO DAILY #0 Meloxicam [Mobic] 7.5 mg PO DAILY Hydrocodone/APAP 5/325 [Addison 5/325] 1 - 2 tab PO Q4-6HPRN PRN PRN Reason: Pain Referrals: Junior Orosco DO [Family Provider] - - Seen By: physician
[2016-10-28] MEDS: SALINE FLUSH 10ml SYRINGE IVF PRN (23:43)
[2016-10-28] MEDS ORDERED: DEXAMETHASONE 4 MG/ML INJECTION IM ONE (23:45)
[2016-10-29] MEDS ORDERED: ACETAMINOPHEN 500 MG TABLET PO ONE (00:13)
[2016-10-29] MEDS ORDERED: HYDROMORPHONE 2 MG/ML INJECTION IVP ONE (01:04)
[2016-10-29] MEDS ORDERED: KETOROLAC 30 MG/ML INJECTION IVP ONE (01:04)
[2016-10-29] MEDS: SALINE FLUSH 10ml SYRINGE IVF PRN (01:27)
[2016-10-29] MEDS ORDERED: ONDANSETRON 4 MG/2 ML INJECTION IVP PRN (02:06)
[2016-10-29] MEDS ORDERED: HYDROMORPHONE 2 MG/ML INJECTION IVP PRN (02:06)
[2016-10-29] MEDS: NS 1,000 ML IV SCH ×3 (02:27→20:56)
[2016-10-29] MEDS ORDERED: ALBUTEROL 2.5mg/3ml (0.083%) NEB AEROSOL PRN (10:26)
--- NOTE | 2016-10-29 10:41 | Orthopedic History & Physical ---
Orthopedic HPI - HPI Comments Mr Laura is an 86 yo male who was admitted thru the ER last night for right knee pain. He reports knee pain x several years that has been gradually worsening. He was scheduled for a TKA a few months ago, but it was cancelled due to a COPD exacerbation. The knee began swelling more about 2-3 days ago and in the last 24 hrs he became unable to ambulate due to severe knee pain. He presented to the ER at [facility] last evening and had the knee aspirated. Synovial fluid analysis showed no bacteria on gram stain but his synovial WBC count is >42,000. He denies fever , chills or recent infections. 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 He denies increased neck pain and has not reported any s/sx of infection in his neck. He had a left BELGICA by Dr Cm a few years ago and he reports no pain in that joint. [facility] Patient Stated Medical History Hearing Loss Yes: HEARING AIDS Cardiac Arrhythmia Yes: A FIB Hypertension Yes Chronic Obstructive Pulmonary Yes Disease (COPD) Gastroesophageal Reflux Yes Disease Clotting Problems Yes Other Musculoskeletal Yes: HARDWARE PLACED FOR C2-C7 10/08/16 Clinic Medical History (Last Updated 10/29/16 @ 01:46 by Celso Blanchard MD) Atrial fibrillation (Acute Medical) BPH (benign prostatic hyperplasia) (Acute Medical) COPD (chronic obstructive pulmonary disease) (Acute Medical) GERD (gastroesophageal reflux disease) (Acute Medical) Hypertension (Acute Medical) Ocular migraine (Acute Medical) Surgical History: Total Left hip replacement Mar 14, 2015. Rt knee surgery. ACL reconstruction Dr Garcia 1977. Appendectomy 1937. Tonsillectomy 0s. Ankle surgery. Neck surgery 2016. Arthroscopic surgery on left knee. heart catheterization with stenting 2008 Family History: Family History Brother Heart disease Father COPD (chronic obstructive pulmonary disease) Mother Diabetes - Social History Smoking status: Never smoker Review of Systems - Constitutional Constitutional: Present: fatigue, weakness. Absent: chills, fever(s), night sweats - EENT Eyes: Present: other (Needs reading glasses.) - Cardiovascular Cardiovascular: Absent: chest pain, syncope, edema - Respiratory Respiratory: Present: cough, wheezing (with his COPD.) - Gastrointestinal Gastrointestinal: Absent: abdominal pain, nausea, vomiting - Genitourinary Genitourinary General: Absent: fever(s) - Musculoskeletal Musculoskeletal: Present: as per HPI, neck pain (recent neck surgery.) - Neurological Neurological: Absent: numbness, paresthesias - Hematologic/Lymphatic Hematologic/Lymphatic: Present: easy bruising (On Eliquis.) Medications Home Medications Medication Instructions Recorded Confirmed Type Atorvastatin Calcium 40 mg PO HS #0 01/25/14 10/28/16 History Levothyroxine Sodium 25 mcg PO DAILY #0 01/25/14 10/28/16 History Nitroglycerin [Nitrostat] 0.4 mg SL Q5MIN PRN #0 01/26/14 10/28/16 History Albuterol Sulfate [Ventolin Hfa] 2 puff INH PRN #0 02/06/15 10/28/16 History Omeprazole 40 mg PO DAILY #0 02/06/15 10/28/16 History Metoprolol Tartrate 25 mg PO BIDWM #0 03/06/15 10/28/16 History Duloxetine HCl 60 mg PO DAILY #0 04/12/16 10/28/16 History Tramadol HCl 50 mg PO TID PRN #0 04/12/16 10/28/16 History Apixaban [Eliquis] 5 mg PO DAILY #0 10/02/16 10/28/16 History Levalbuterol HCl [Xopenex] 1 vial AEROSOL QID PRN #0 10/02/16 10/28/16 History Hydrocodone/APAP 5/325 [[place] 1 - 2 tab PO Q4-6HPRN PRN 10/28/16 10/28/16 History 5/325] Meloxicam [Mobic] 7.5 mg PO DAILY 10/28/16 10/28/16 History Allergies Allergy/AdvReac Type Severity Reaction Status Date / Time No Known Allergies Allergy Verified 10/29/16 03:15 Orthopedic Exam Vital signs: Temp Pulse Resp BP Pulse Ox 95.9 F L 86 16 153/73 H 98 10/29/16 08:13 10/29/16 08:13 10/29/16 08:13 10/29/16 08:13 10/29/16 08:13 - Constitutional General Appearance: Present: alert, cooperative, no acute distress - Respiratory Exam Present: non-labored - Cardiovascular Exam Present: pedal pulses intact Capillary Refill: < 2-3 Seconds - Abdominal Exam Present: soft. Absent: tenderness, distended - Extremities Exam Present: no edema, pulses intact, joint swelling (Moderate right knee effusion.) . Absent: cyanosis, calf tenderness - Knee Exam right Knee Exam: Present: tender along joint line, effusion, painful ROM (ROM pre aspiration was 0-20 degrees. Post aspiration 0-90 degrees.) - Integumentary Exam Present: pink, warm, dry, intact, other (skin is not warm or red. ). Absent: rash, lesions, bruising, erythema - Neurological Exam Present: no deficits - Psychiatric Exam Present: alert, normal affect - Labs Result Diagrams: 10/28/16 23:40 10/28/16 23:40 Abnormal lab results 10/29/16 Range/Units 04:46 C-Reactive Protein 61.3 H (0-9) MG/L Orthopedic Assessment and Plan (1) Right knee pain Status: Acute Qualifiers: Chronicity: acute Qualified Code(s): M25.561 - Pain in right knee Assessment and Plan: Pt admitted for severe knee pain. We will need to r/o septic arthritis. Txfr to inpatient status. The aspiration done in ER shows no bacteria but synovial fluid WBC's are elevated > 42,000. Pt reveived a dose of Vanco and Decadron in the ER. He has redeveloped an effusion and is quite painful. I will reaspirate the knee this morning and send specimen to lab for repeat studies. Additionally, a portion of the synovial fluid aspiration will be tested via SYNOVASURE to r/o infectious process which will be helpful if knee replacement surgery is considered in the future. I will have PT / OT work with him. He fell at home prior to admission and we need to work on strengthening and mobility. Convert to an inpatient and await final culture results from his knee. Will continue Vanco until cultures are available. Resume home meds for chronic problems. Consult hospitalist for med mgmt of his medical problems. NPO after midnight. If cultures grow anything out we will wash out the knee Wednesday. Hospital Course Summary Disclaimer: The visit summary below is not to be considered part of the above Progress Note.
[2016-10-29] MEDS ORDERED: NITROGLYCERIN 0.4 MG SUBLINGUAL TABLET SL PRN (13:20)
--- NOTE | 2016-10-29 13:23 | Operative Note ---
Orthopedic Procedures - Joint Aspiration/Injection Joint Aspiration/Injection 1 Time out performed: No Side of body: right Joint aspirated: knee Ultrasound guidance: No Skin prep: Chlorhexidine Local anesthesia used: lidocaine 1% Amount of anesthesia used (mL): 4 Needle size used: Other (18ga for the aspiration and 22 ga for the xylocaine..) Fluid obtained: turbid Total fluid obtained (mL): 155 Medication injected, if any: other (This was an aspiration procedure only. No meds injected into the joint.) Patient tolerated procedure: well, no complications Complications: none
[2016-10-29] MEDS ORDERED: TRAMADOL 50 MG TABLET PO PRN (13:59)
--- NOTE | 2016-10-29 14:01 | Pharmacy Consult-Antibiotics ---
Pharmacy Consult-Vancomycin - Laboratory Information WBC 11.9 T/MM3 (4.5-11.0) H 10/28/16 23:40 BUN 13.0 MG/DL (9-20) 10/28/16 23:40 Creatinine 0.9 MG/DL (0.8-1.5) 10/28/16 23:40 Vancomycin therapy for septic, arthritic Rt knee. Was drained in ED with fluid negative for bacteria, but positive for WBC (> 42, 000). Renal fx is stable. Calculated CrCl = 53ml/min. Received one dose of Vancomycin 1gm IV in ED at 0230 this am. Will continue with Vancomycin 750mg IV now (1400), then q12hrs starting tonight at 2100. This gets us to target trough range of 15-20mcg/ml quickly. Will confirm with a trough tomorrow am. Thank you
[2016-10-29] MEDS: OMEPRAZOLE 20 MG CAPSULE PO SCH (14:41)
--- NOTE | 2016-10-29 15:55 | Consult Note ---
<ViridianaVerena D - Last Filed: 10/29/16 17:11> Consult Information - Data of Consult Patient: known to practice within the last 3 years Consult date: 10/29/16 Requesting Physician: Elian Cm MD Primary Care Provider: Junior Orosco DO Family Provider: Junior Orosco DO - Consult Narrative Reason for consult: A-fib, CAD, COPD, O2 History of present illness: Jayy Laura is an 86 year old male seen in consultation from Dr. Cm for management of multiple comorbidities including A-fib, CAD, COPD requiring oxygen , HTN. He was seen in his room on the surgical unit. Jayy reports that while he has chronic right knee pain, over the last couple of days it has become severe and debilitating. He states that it came to the point where he was unable to bear any weight on it, and could barely move because of pain. He states that he had a mild fever, generalized body aches, and poor appetite. He has felt weak and lightheaded. He had a fall, and was unable to get up, prompting the call to 911. He was transported to [facility] emergency department on 10/28/16 late in the evening. His knee was aspirated in the emergency department, and cell count revealed greater than 42,000 WBCs, primarily neutrophils. White count was mildly elevated at 11.9. Lactate was normal at 1.0. Dr. Bernard was contacted and the patient was admitted under the orthopedic service. Medical history was reviewed. He states that he had fusion of C2-C4 by Dr. Drake about 3 weeks ago, and since that time. He hasn't had any further pain , difficulty sleeping or problems eating. He is still in a [facility] brace. He reports that since his last admission in 2014, he's had a heart ablation and this has resulted in his heart rate being under better control, at least, under the rate of 120 bpm.. He states that he has had chronic problems with his right knee and was scheduled to get it replaced but his COPD flared up, so that was postponed. In addition to the above review of systems, he also reports having a cough without further sinus issues. He also reports having problems with an enlarged prostate, namely, "dabbling" when he urinates. Review of Systems All systems: reviewed and no additional remarkable complaints except as stated - Constitutional Constitutional: Present: as per HPI, fever(s) (101.3), lethargy - EENMT Eyes: Present: other (Needs reading glasses.) Mouth/Throat: Present: as per HPI - Cardiovascular Cardiovascular: Absent: chest pain, palpitations, syncope, edema - Respiratory Respiratory: Present: cough, wheezing (with his COPD.) - Gastrointestinal Gastrointestinal: Absent: abdominal pain, change in bowel habits, constipation, diarrhea, nausea, vomiting - Genitourinary Genitourinary: Present: as per HPI - Musculoskeletal Musculoskeletal: Present: as per HPI, joint swelling, muscle weakness, neck pain - Integumentary/Breasts Integumentary: Present: wounds (surgical wound to neck) - Neurological Neurological: Present: dizziness, frequent falls, weakness - Psychiatric Psychiatric: Absent: anxiety - Hematologic/Lymphatic Hematologic/Lymphatic: Present: easy bruising (On Eliquis.) - Allergic/Immunologic Allergic/Immunologic: Absent: tongue swelling, lip swelling PFSH Coronary artery disease. Atrial fibrillation Hypertension Dyslipidemia. Hypothyroidism. Obstructive sleep apnea. Nocturnal oxygen use. COPD GERD. History of GI bleed. Spinal stenosis. History of ocular migraine. BPH Surgical History: Cardiac ablation. C2-C4 Neck fusion September 2016, Dr. Drake. Prior to this he had cervical fusion in 2013. Total Left hip replacement Feb. Rt knee surgery. ACL reconstruction Dr Garcia 1977. Appendectomy 1937. Tonsillectomy . Right ruptured Achilles tendon. Neck surgery 2016. Arthroscopic surgery on left knee. Heart catheterization with stenting to RCA 2008; cath in 2011 Family History: Brother Heart disease Father COPD (chronic obstructive pulmonary disease) Mother Diabetes Sister Atrial fibrillation - Social History Smoking status: Former smoker Packs per day: 1 Packs-years: 35 Quit date: 05/17/01 Substance use type: does not use Alcohol intake frequency: does not drink Current occupational status: retired Current residence: Apartment/Private Home Social history: PCP: Dr. Orosco CV: Dr. Jamie Epstein: Dr. Lance Uro: Dr. Arcos Pulm: Dr. Reyes Medications Home Medications Medication Instructions Recorded Confirmed Type Atorvastatin Calcium 40 mg PO HS #0 01/25/14 10/28/16 History Levothyroxine Sodium 25 mcg PO DAILY #0 01/25/14 10/28/16 History Nitroglycerin [Nitrostat] 0.4 mg SL Q5MIN PRN #0 01/26/14 10/28/16 History Omeprazole 40 mg PO DAILY #0 02/06/15 10/29/16 History Tramadol HCl 50 mg PO TID PRN #0 04/12/16 10/28/16 History Apixaban [Eliquis] 5 mg PO BID #0 10/02/16 10/29/16 History Levalbuterol HCl [Xopenex] 1 vial AEROSOL QID PRN #0 10/02/16 10/28/16 History Hydrocodone/APAP 5/325 [[place] 1 - 2 tab PO Q4-6HPRN PRN 10/28/16 10/28/16 History 5/325] Meloxicam [Mobic] 7.5 mg PO DAILY 10/28/16 10/29/16 History Diazepam [Valium] 5 mg PO TID PRN 10/29/16 10/29/16 History Metoprolol Tartrate [Lopressor] 50 mg PO BIDWM 10/29/16 10/29/16 History Allergies Allergy/AdvReac Type Severity Reaction Status Date / Time No Known Allergies Allergy Verified 10/29/16 03:15 Exam Vital Signs: Temp Pulse Resp BP Pulse Ox 96.5 F L 89 16 129/91 H 98 10/29/16 15:02 10/29/16 15:04 10/29/16 15:04 10/29/16 15:02 10/29/16 15:04 Height: 1.83 m Weight: 67.3 kg Body Mass Index: 20.1 - Constitutional Present: no acute distress, well nourished, well developed, thin - Routine HEENT Exam Eye: Present: PERRL. Absent: conjunctival icterus, scleral injection ENT: Present: mucous membranes moist, oropharynx clear - Routine Neck Exam Present: supple Comments: Healing surgical incision to left anterior neck. [place] J collar in place - Routine Respiratory Exam Present: decreased breath sounds, CTA bilaterally - Routine Cardiovascular Exam Present: S1, S2 - Routine Abdominal Exam Present: soft, normoactive bowel sounds, non distended, non tender - Routine Extremities Exam Present: clubbing (mild), edema, no edema, pulses intact, normal capillary refill, joint swelling (large right knee effusion with diffuse tenderness) - Routine Skin Exam Present: intact, dry, warm - Routine Neurological Exam Present: alert, oriented X3, vision grossly intact, hearing grossly intact ( slightly FALSE PASS) - Routine Psychiatric Exam Present: normal affect, normal thought process Results - Labs CBC & Chem 7: 10/28/16 23:40 10/28/16 23:40 Assessment and Plan (1) Sepsis Current visit: Yes Status: Acute (2) Septic arthritis of knee, right Current visit: Yes Status: Acute (3) CAD (coronary artery disease) Current visit: Yes Status: Acute (4) Atrial fibrillation Current visit: Yes Status: Acute (5) HTN (hypertension) Current visit: Yes Status: Acute (6) COPD (chronic obstructive pulmonary disease) Current visit: Yes Status: Acute (7) SHANA (obstructive sleep apnea) Current visit: Yes Status: Acute DVT Prophylaxis: SCD's GI Prophylaxis: other (Omeprazole) Resuscitation Status: Full Code Assessment and Plan: Agree with admission per ortho Sepsis secondary to septic joint -meets sepsis criteria based on fever of 101.3 and HR at 111. Leukocytosis nearly met limit of 12K. Lactate normal. CRP elevated. Check procalcitonin. -joint aspirated in the ED and again by ortho today - await cx; may need I&D -agree with Vanco, dosing per pharmacy Generalized debility -agree with PT/OT consult A-fib, CAD, HTN, HLD -monitor HR on tele & assess EKG -Dr. 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 Drake Elevated total bili (1.7) -conjugated 0; unconjugated 1.5 -AST & ALT normal but ALT is slightly high at 142 -monitor for now Thank you for this consult. We will follow Mr. Laura along with you during his hospital course. Discussed with nursing and with Dr. Spencer. Hospital Course Summary Disclaimer: The visit summary below is not to be considered part of the above Progress Note. Sepsis Assessment - Evaluation Sepsis screening result: No Definite Risk - Focused Exam Vital Signs Temp Pulse Resp BP Pulse Ox 10/29/16 15:04 89 16 98 10/29/16 15:02 96.5 F L 95 18 129/91 H 92 Capillary refill: < 2-3 Seconds <Adama Spencer - Last Filed: 10/29/16 18:05> Consult Information - Data of Consult Requesting Physician: Elian Cm MD Primary Care Provider: Junior Orosco DO Family Provider: Junior Orosco DO [facility] Medical History (Last Updated 10/29/16 @ 16:29 by Verena Kemp, BILLING ADMINISTRATOR) Atrial fibrillation (Acute Medical) BPH (benign prostatic hyperplasia) (Acute Medical) COPD (chronic obstructive pulmonary disease) (Acute Medical) GERD (gastroesophageal reflux disease) (Acute Medical) Hypertension (Acute Medical) Ocular migraine (Acute Medical) Family History: Family History Brother Heart disease Father COPD (chronic obstructive pulmonary disease) Mother Diabetes Exam Vital Signs: Temp Pulse Resp BP Pulse Ox 96.5 F L 89 16 129/91 H 98 10/29/16 15:02 10/29/16 17:33 10/29/16 17:33 10/29/16 15:02 10/29/16 17:33 Height: 1.83 m Weight: 67.3 kg Results - Labs CBC & Chem 7: 10/28/16 23:40 10/28/16 23:40 Assessment and Plan (1) Sepsis Current visit: Yes Status: Acute (2) Septic arthritis of knee, right Current visit: Yes Status: Acute (3) CAD (coronary artery disease) Current visit: Yes Status: Acute (4) Atrial fibrillation Current visit: Yes Status: Acute (5) HTN (hypertension) Current visit: Yes Status: Acute (6) COPD (chronic obstructive pulmonary disease) Current visit: Yes Status: Acute (7) SHANA (obstructive sleep apnea) Current visit: Yes Status: Acute Assessment and Plan: Have independently interviewed and examined pt. Chart reviewed. Case discussed With Jamey Eli and Verena Kemp. Above care plan developed with my supervision; agree with above. Pt has had chronic arthritic problems with his right knee, dating back to the 70 's. Last Steroid injection about 5 years ago. In process of getting knee replacement with Dr Cm. Developed increasing swelling and pain to right knee starting 3 day ago. Denies any trauma or injury to knee-did not twist or bend knee wrong, or have and impact to knee. Gradually progressive swelling/pain until yesterday when pain become to severe to walk or move. Any movement caused pain. Not able to stand from seated position (even with help). [place] very weak in general. Notes chills. No n/v. Recent neck surgery-recovering well. Bowel function has normalized. Breathing essentially stable. Does wear O2 when sleeping (or at rest, as sometimes will fall asleep in the chair if there for 2-3 hours). Cough without sputum. No pain with breathing or chest pain. Lungs: decrease air movement. Coarse bilaterally. No distress with O2. CV: distant, obscured by lung sounds. AB: soft nt/nd +BS EXT: right knee markedly swollen as compared to the left. No increased warmth. SCD in place MSE: awake alert appropriate Plan: Continue Vanco for antimicrobial coverage - check C/S. IS and acapella to help breathing; continue home breathing treatment. Tele to monitor HR. Pradaxa on hold for potential Sx. Monitor lab. Hospital Course Summary Disclaimer: The visit summary below is not to be considered part of the above Progress Note. Sepsis Assessment - Focused Exam Vital Signs Temp Pulse Resp BP Pulse Ox 10/29/16 17:33 89 16 98 10/29/16 15:04 89 16 98 10/29/16 15:02 96.5 F L 95 18 129/91 H 92
--- NOTE | 2016-10-29 15:55 | XRay Report ---
INDICATION: Dyspnea; CAD and COPD PROCEDURE: CHEST 2-VIEWS UPRIGHT (PA & LAT) Encounter: Initial COMPARISON: April 12, 2016 FINDINGS: The lungs are clear without evidence of focal abnormal airspace opacity. There is no pleural effusion or pneumothorax. The heart size, mediastinal contours and pulmonary vascularity are within normal limits. Cervical spine hardware. IMPRESSION: No acute cardiopulmonary disease. .
[2016-10-29] MEDS: LEVALBUTEROL 1.25 MG/3 ML AEROSOL PRN (18:06)
[2016-10-29] MEDS: ATORVASTATIN 40 MG TABLET PO SCH ×2 (20:58→23:06)
[2016-10-30] MEDS: NS 1,000 ML IV SCH ×3 (05:55→15:39)
[2016-10-30] MEDS: OMEPRAZOLE 20 MG CAPSULE PO SCH (08:37)
[2016-10-30] MEDS: LEVOTHYROXINE 25 MCG TABLET PO SCH (08:37)
[2016-10-30] MEDS: POLYETHYL GLYCOL 3350 17gm PACKET PO SCH (08:45)
[2016-10-30] MEDS: LEVALBUTEROL 1.25 MG/3 ML AEROSOL PRN ×4 (08:50→22:01)
--- NOTE | 2016-10-30 09:07 | Orthopedic Progress Note ---
Date: Subjective/Severity of Illness: Jayy is feeling about the same. Pain is better after aspiration but the effusion returns. The crystal exam shows pseudo gout. Cultures are negative so far. On IV Vanco. He worked with PT yesterday and they recommended IRU placement. Hospitalist is following medically. Orthopedic Objective PO Vital signs: Temp Pulse Resp BP Pulse Ox 96.6 F L 89 18 151/79 H 96 10/30/16 07:34 10/30/16 07:34 10/30/16 08:40 10/30/16 07:34 10/30/16 08:40 Height and Weight: Height 6 ft Weight 152 lb 1.903 oz Body Mass Index 20.1 - Constitutional General Appearance: Present: alert - Respiratory Exam Present: non-labored - Extremities Exam Extremities: Present: no edema, pulses intact - Knee Exam Knee Exam: Present: effusion, painful ROM - Integumentary Exam Absent: erythema - Neurological Exam Present: no deficits - Psychiatric Exam Present: alert - Labs Result Diagrams: 10/30/16 04:13 10/30/16 04:13 Abnormal lab results 10/30/16 10/30/16 Range/Units 04:13 04:13 RBC 3.09 L (4.50-5.90) M/MM3 Hgb 9.2 L D (13.5-17.5) GM/DL Hct 29.6 L D (41-53) % Neut % (Auto) 70.9 H (33-66) % Lymph % (Auto) 14.5 L (23-45) % [place] % (Auto) 11.1 H (0-9.0) % [place] # 0.9 H (0-0.8) T/MM3 Chloride 111 H D (98-107) MEQ/L H & H 10/30/16 Range/Units 04:13 Hgb 9.2 L D (13.5-17.5) GM/DL Hct 29.6 L D (41-53) % Orthopedic Assessment and Plan (1) Sepsis Status: Acute (2) Septic arthritis of knee, right Status: Acute Qualifiers: Septic arthritis organism: due to unspecified organism Qualified Code(s): M00.9 - Pyogenic arthritis, unspecified (3) CAD (coronary artery disease) Status: Acute (4) Atrial fibrillation Status: Acute (5) HTN (hypertension) Status: Acute (6) COPD (chronic obstructive pulmonary disease) Status: Acute (7) SHANA (obstructive sleep apnea) Status: Acute (8) Right knee pain Status: Acute Qualifiers: Chronicity: acute Qualified Code(s): M25.561 - Pain in right knee Assessment and Plan: A diagnosis of septic arthritis has not been confirmed at this time. He has severe primary osteoarthritis and pseudo gout. Cultures are negative so far but Ca Pyrophosphate crystals are present. He received some IV Decadron in the ER which is probably why the synovial cell count dropped so much on the second aspirate. Will continue to treat like its a septic arthritis until final cultures are available sometime Wednesday. If infectious process is ruled out, he would likely benefit from a steroid shot in the knee. Consider serial aspirations to help with his comfort until final results are available. Consider oral NSAIDs if reasonable from a medical standpoint. Plan transfer to IRU when we can confirm no surgical intervention is required. Hospital Course Summary Disclaimer: The visit summary below is not to be considered part of the above Progress Note.
[2016-10-30] MEDS: ACETAMINOPHEN 500 MG TABLET PO PRN (09:12)
--- NOTE | 2016-10-30 15:05 | Pharmacy Consult-Antibiotics ---
Pharmacy Consult-Vancomycin - Laboratory Information WBC 8.4 T/MM3 (4.5-11.0) 10/30/16 04:13 BUN 13.0 MG/DL (9-20) 10/30/16 04:13 Creatinine 0.8 MG/DL (0.8-1.5) 10/30/16 04:13 Procalcitonin 0.37 NG/ML 10/29/16 04:05 Vancomycin Trough 8.18 UG/ML (15-20) L 10/30/16 10:34 - Consult Information Vancomycin trough level low at 8.2 mcg/ml. Will change to vancomycin 1000mg IV q12h. Will continue to monitor and adjust accordingly. Thank you.
[2016-10-30] MEDS: MELOXICAM 7.5 MG TABLET PO SCH (18:45)
--- NOTE | 2016-10-30 20:54 | Progress Note ---
Subjective: F/U: COPD, HTN, Afib Doing okay. Right knee swollen today-was hoping ortho would tap off more fluid and taps do help decrease his discomfort. Walking difficult due to the knee pain. Breathing stable-not feeling increased SOA or congestion. No n/v or ab pain. Appetite fair. Passing flatus. No f/c. Objective Vital signs: Temp Pulse Resp BP Pulse Ox 96.6 F L 81 16 145/66 H 95 10/30/16 15:45 10/30/16 15:45 10/30/16 17:00 10/30/16 15:45 10/30/16 17:00 Weight: 69 kg - Constitutional Present: no acute distress, well nourished, well developed, thin - Routine HEENT Exam Head: Present: normocephalic, atraumatic Eye: Present: EOMI, PERRL. Absent: conjunctival icterus ENT: Present: mucous membranes moist, nares patent - Routine Respiratory Exam Present: prolonged expiratory phase, diminished air movement. Absent: accessory muscle use, wheezes - Routine Cardiovascular Exam Present: RRR - Routine Abdominal Exam Present: soft, normoactive bowel sounds, non distended, non tender - Routine Extremities Exam Absent: edema - Routine Musculoskeletal Exam Musculoskeletal: joint swelling (right knee) - Routine Skin Exam Present: intact, warm. Absent: mottling - Routine Neurological Exam Present: alert, oriented X3, CN II-XII intact. Absent: motor deficit - Routine Psychiatric Exam Present: normal affect, normal thought process, cooperative, good insight, good judgment Results - Labs CBC & Chem 7: 10/30/16 04:13 10/30/16 04:13 Assessment and Plan (1) Sepsis Current visit: Yes Status: Acute (2) Septic arthritis of knee, right Current visit: Yes Status: Acute (3) CAD (coronary artery disease) Current visit: Yes Status: Acute (4) Atrial fibrillation Current visit: Yes Status: Acute (5) HTN (hypertension) Current visit: Yes Status: Acute (6) COPD (chronic obstructive pulmonary disease) Current visit: Yes Status: Acute (7) SHANA (obstructive sleep apnea) Current visit: Yes Status: Acute DVT Prophylaxis: SCD's GI Prophylaxis: other (Omeprazole) Resuscitation Status: Full Code Assessment and Plan: Continue Vanco for antimicrobial coverage - no growth on joint aspirations. May restart Mobic to help pain. Continue neb treatment and IS/Acapella for pulmonary toilet. Hold on Pradaxa incase of any need for surgical intervention. Encourage therapy and activitis. Sepsis Assessment - Evaluation Sepsis screening result: No Definite Risk - Focused Exam Vital Signs Temp Pulse Resp BP Pulse Ox 10/30/16 17:00 16 95 10/30/16 15:45 96.6 F L 81 16 145/66 H 97 10/30/16 13:30 22 95 Respiratory exam: Present: decreased breath sounds, CTA bilaterally Cardiovascular exam: Present: S1, S2 Capillary refill: < 2-3 Seconds Hospital Course Summary Disclaimer: The visit summary below is not to be considered part of the above Progress Note.
[2016-10-30] MEDS: ATORVASTATIN 40 MG TABLET PO SCH (22:05)
[2016-10-31] MEDS: NS 1,000 ML IV SCH ×3 (01:03→20:18)
[2016-10-31] MEDS: OMEPRAZOLE 20 MG CAPSULE PO SCH (06:23)
[2016-10-31] MEDS: LEVOTHYROXINE 25 MCG TABLET PO SCH (06:24)
[2016-10-31] MEDS ORDERED: LIDOCAINE 1% (10mg/ml) 5ml PF SDV SQ ONE (08:21)
--- NOTE | 2016-10-31 08:35 | Orthopedic Progress Note ---
Date: Subjective/Severity of Illness: Jayy is doing okay. Reports a headache because of his neck brace and not being able to move his neck freely. No breathing problems. Knee pain is moderate if he moves. WBC trending downward, Afebrile, Cultures neg at Day #2. Orthopedic Objective Vital signs: Temp Pulse Resp BP Pulse Ox 96.7 F L 91 24 179/89 H 99 10/31/16 07:45 10/31/16 07:45 10/31/16 07:45 10/31/16 07:45 10/31/16 07:45 Height and Weight: Height 6 ft Weight 152 lb 1.903 oz Body Mass Index 20.1 - Constitutional General Appearance: Present: alert, cooperative, no acute distress - Respiratory Exam Present: non-labored - Cardiovascular Exam Present: pedal pulses intact - Extremities Exam Present: pulses intact, joint swelling (right knee.) - Knee Exam right Knee Exam: Present: tender along joint line, effusion, painful ROM (ROM pre aspiration was 0-20 degrees. Post aspiration 0-90 degrees.) - Integumentary Exam Present: pink, warm, dry. Absent: rash, bruising, erythema - Neurological Exam Present: no deficits - Psychiatric Exam Present: alert, normal affect - Labs Result Diagrams: 10/31/16 05:11 10/31/16 05:11 Abnormal lab results 10/30/16 10/31/16 10/31/16 Range/Units 10:34 05:11 05:11 RBC 3.57 L (4.50-5.90) M/MM3 Hgb 10.3 L D (13.5-17.5) GM/DL Hct 32.9 L D (41-53) % Lymph % (Auto) 19.3 L (23-45) % Eos % (Auto) 5.4 H (0-4) % Sodium 148 H (134-144) MEQ/L Chloride 110 H (98-107) MEQ/L Creatinine 0.7 L (0.8-1.5) MG/DL Calculated Osmolality 283 H (261-280) MOSM/KG Vancomycin Trough 8.18 L (15-20) UG/ML H & H 10/30/16 10/31/16 Range/Units 04:13 05:11 Hgb 9.2 L D 10.3 L D (13.5-17.5) GM/DL Hct 29.6 L D 32.9 L D (41-53) % Orthopedic Assessment and Plan (1) Sepsis Status: Acute (2) Septic arthritis of knee, right Status: Acute Qualifiers: Septic arthritis organism: due to unspecified organism Qualified Code(s): M00.9 - Pyogenic arthritis, unspecified (3) CAD (coronary artery disease) Status: Acute (4) Atrial fibrillation Status: Acute (5) HTN (hypertension) Status: Acute (6) COPD (chronic obstructive pulmonary disease) Status: Acute (7) SHANA (obstructive sleep apnea) Status: Acute (8) Right knee pain Status: Acute Qualifiers: Chronicity: acute Qualified Code(s): M25.561 - Pain in right knee Assessment and Plan: Cultures negative at day # 2. WBC trending downward and he remains afebrile. Knee continues to show no warmth or redness but has a mod effusion. I aspirated 140cc of synovial fluid off the knee this am. Fluid appeared the same as my first aspirate. Cont to work with PT. Consider Kenalog injection in the knee once cultures are confirmed negative at 72hrs. Agree with Mobic per hospitalist recommendation. Hospital Course Summary Disclaimer: The visit summary below is not to be considered part of the above Progress Note.
--- NOTE | 2016-10-31 08:36 | Operative Note ---
Orthopedic Procedures - Joint Aspiration/Injection Joint Aspiration/Injection 1 Time out performed: No Side of body: right Joint aspirated: knee Ultrasound guidance: No Skin prep: Chlorhexidine Local anesthesia used: lidocaine 1% Amount of anesthesia used (mL): 5 Needle size used: 18G Fluid obtained: turbid Medication injected, if any: other (NONE) Patient tolerated procedure: well, no complications Complications: none
[2016-10-31] MEDS: ACETAMINOPHEN 500 MG TABLET PO PRN (09:08)
[2016-10-31] MEDS: MELOXICAM 7.5 MG TABLET PO SCH (09:08)
[2016-10-31] MEDS: POLYETHYL GLYCOL 3350 17gm PACKET PO SCH (10:24)
[2016-10-31] MEDS ORDERED: SALINE FLUSH 10ml SYRINGE IV PRN (14:26)
--- NOTE | 2016-10-31 14:48 | Progress Note ---
Subjective: F/U: COPD, HTN, Afib Jamey tapped his right knee today-very helpful. Helped decrease his pain and he was able to walk much better. Breathing about the same-not SOA, but some congestion. Neb Tx as needed and helpful. Eating well. No ab pain. Not having chest pressure or pain. Objective Vital signs: Temp Pulse Resp BP Pulse Ox 96.7 F L 91 24 179/89 H 99 10/31/16 07:45 10/31/16 07:45 10/31/16 07:45 10/31/16 07:45 10/31/16 07:45 Weight: 68.3 kg - Constitutional Present: no acute distress, well nourished, well developed, thin - Routine HEENT Exam Head: Present: normocephalic, atraumatic Eye: Present: EOMI, PERRL ENT: Present: mucous membranes moist - Routine Respiratory Exam Present: decreased breath sounds, wheezes, distant breath sounds, diminished air movement. Absent: accessory muscle use, rales, respiratory distress - Routine Cardiovascular Exam Present: RRR - Routine Abdominal Exam Present: soft, normoactive bowel sounds, non distended, non tender. Absent: rebound, guarding - Routine Extremities Exam Present: no edema, pulses intact. Absent: cyanosis, clubbing - Routine Musculoskeletal Exam Musculoskeletal: no clubbing or cyanosis, normal strength, joint swelling ( Right knee ) - Routine Skin Exam Present: intact, dry, warm. Absent: pallor, mottling - Routine Neurological Exam Present: alert, oriented X3, CN II-XII intact, vision grossly intact, hearing grossly intact. Absent: sensory deficit, motor deficit - Routine Psychiatric Exam Present: normal affect, normal thought process, cooperative, good insight, good judgment Results - Labs CBC & Chem 7: 10/31/16 05:11 10/31/16 05:11 Assessment and Plan (1) Sepsis Current visit: Yes Status: Resolved (2) Septic arthritis of knee, right Current visit: Yes Status: Acute (3) CAD (coronary artery disease) Current visit: Yes Status: Chronic (4) Atrial fibrillation Current visit: Yes Status: Chronic (5) HTN (hypertension) Current visit: Yes Status: Chronic (6) COPD (chronic obstructive pulmonary disease) Current visit: Yes Status: Chronic (7) SHANA (obstructive sleep apnea) Current visit: Yes Status: Chronic DVT Prophylaxis: SCD's GI Prophylaxis: other (Prilosec) Assessment and Plan: Continue Vanco for antimicrobial coverage - no growth on joint aspirations after 2 days.. Mobic restarted yesterday to help pain. Tap by Jamey today very helpful. 140 cc removed. Will change Xopenex to [id number] prn. Add budesonide nebulized BID and Mucinex DM BID. Hold on Pradaxa incase of any need for surgical intervention. Encourage therapy and activities. Lab largely stable. Will hold on routine draw for tomorrow. Vanco trough set for Wednesday at 0430 - would be good time to recheck CRP and lab. Time spent with pt care 25 minutes. Sepsis Assessment - Evaluation Sepsis screening result: No Definite Risk - Focused Exam Vital Signs Temp Pulse Resp BP Pulse Ox 10/31/16 07:45 96.7 F L 91 24 179/89 H 99 Respiratory exam: Present: decreased breath sounds, CTA bilaterally Cardiovascular exam: Present: S1, S2 Capillary refill: < 2-3 Seconds Hospital Course Summary Disclaimer: The visit summary below is not to be considered part of the above Progress Note.
[2016-10-31] MEDS: LEVALBUTEROL 1.25 MG/3 ML AEROSOL PRN ×2 (15:57→21:07)
[2016-10-31] MEDS: BUDESONIDE INH.SOLN 0.5mg/2ml NEB AEROSOL SCH (21:07)
[2016-10-31] MEDS: GUAIFENESIN/D-METHORPHAN 600 MG/30 MG TABLET PO SCH (22:41)
[2016-10-31] MEDS: ATORVASTATIN 40 MG TABLET PO SCH (22:44)
[2016-11-01] MEDS: NS 1,000 ML IV SCH ×2 (04:26→04:27)
[2016-11-01] MEDS: LEVOTHYROXINE 25 MCG TABLET PO SCH (05:54)
[2016-11-01] MEDS: OMEPRAZOLE 20 MG CAPSULE PO SCH (05:54)
[2016-11-01] MEDS: BUDESONIDE INH.SOLN 0.5mg/2ml NEB AEROSOL SCH ×2 (07:07→20:35)
--- NOTE | 2016-11-01 08:50 | Orthopedic Progress Note ---
Date: Subjective/Severity of Illness: Otis is doing well this morning. He reports the knee feels much better today. Slept well early but struggled late. Neck is feeling better and headache is gone. Denies SOA but is still on some O2. Orthopedic Objective Vital signs: Temp Pulse Resp BP Pulse Ox 96.7 F L 85 12 152/84 H 98 10/31/16 23:21 11/01/16 00:00 11/01/16 07:07 10/31/16 23:21 11/01/16 07:07 Height and Weight: Height 6 ft Weight 150 lb 9.211 oz Body Mass Index 20.1 - Constitutional General Appearance: Present: alert, no acute distress - Respiratory Exam Present: non-labored - Extremities Exam Present: pulses intact - Knee Exam right Knee Exam: Present: effusion (Mild.) - Integumentary Exam Absent: erythema - Neurological Exam Present: no deficits - Psychiatric Exam Present: alert - Labs Result Diagrams: 10/31/16 05:11 10/31/16 05:11 H & H 10/30/16 10/31/16 Range/Units 04:13 05:11 Hgb 9.2 L D 10.3 L D (13.5-17.5) GM/DL Hct 29.6 L D 32.9 L D (41-53) % Orthopedic Assessment and Plan (1) Right knee pain Status: Acute Qualifiers: Chronicity: acute Qualified Code(s): M25.561 - Pain in right knee Assessment and Plan: Cultures negative from the knee. ( The second aspirate is not 72 hrs yet ). Crystals positive for Ca Pyrophosphate (pseudogout) Afebrile and WBC has normalized. I suspect his knee effusion was related to gout and not infection. If cultures remain neg past the 72 hr papo, we could stop the antibiotic and consider a steroid injection in the knee. Expect txfr to IRU in AM. (2) Sepsis Status: Resolved (3) Septic arthritis of knee, right Status: Acute Qualifiers: Septic arthritis organism: due to unspecified organism Qualified Code(s): M00.9 - Pyogenic arthritis, unspecified (4) CAD (coronary artery disease) Status: Chronic (5) Atrial fibrillation Status: Chronic (6) HTN (hypertension) Status: Chronic (7) COPD (chronic obstructive pulmonary disease) Status: Chronic (8) SHANA (obstructive sleep apnea) Status: Chronic Hospital Course Summary Disclaimer: The visit summary below is not to be considered part of the above Progress Note.
[2016-11-01] MEDS: GUAIFENESIN/D-METHORPHAN 600 MG/30 MG TABLET PO SCH ×2 (09:28→21:13)
[2016-11-01] MEDS: MELOXICAM 7.5 MG TABLET PO SCH (09:28)
[2016-11-01] MEDS: POLYETHYL GLYCOL 3350 17gm PACKET PO SCH (09:29)
[2016-11-01] MEDS: LEVALBUTEROL 1.25 MG/3 ML AEROSOL PRN ×3 (11:39→20:37)
--- NOTE | 2016-11-01 15:29 | Progress Note ---
Subjective: F/U: COPD, HTN, Afib Having a good day today. Knee swelling not as increased today as prior days. Still with pain due decreased. Able to walk well in halls, but needed tramadol post. Breathing stable-some cough/congestion and sputum; feels is decreasing overall. No pain with breathing. No chest pressure or pain. No nausea. Eating well. Had good stool yesterday, but not today yet. No f/c. Objective Vital signs: Temp Pulse Resp BP Pulse Ox 96.9 F 97 16 164/89 H 97 11/01/16 08:48 11/01/16 08:48 11/01/16 11:41 11/01/16 08:48 11/01/16 08:48 Weight: 66.5 kg - Constitutional Present: no acute distress, well nourished, well developed, thin, cooperative - Routine HEENT Exam Head: Present: normocephalic, atraumatic Eye: Present: EOMI, PERRL ENT: Present: mucous membranes moist, nares patent - Routine Respiratory Exam Present: decreased breath sounds, distant breath sounds, diminished air movement. Absent: accessory muscle use, respiratory distress, rhonchi, stridor , wheezes - Routine Cardiovascular Exam Present: RRR - Routine Abdominal Exam Present: soft, normoactive bowel sounds, non distended, non tender. Absent: guarding - Routine Extremities Exam Present: pulses intact. Absent: cyanosis, clubbing - Routine Musculoskeletal Exam Musculoskeletal: joint swelling (Right knee-stable. ) - Routine Skin Exam Present: intact, dry, warm - Routine Neurological Exam Present: alert, oriented X3, CN II-XII intact. Absent: motor deficit - Routine Psychiatric Exam Present: normal affect, normal thought process, cooperative, good insight, good judgment. Absent: depressed, anxious, agitated Results - Labs CBC & Chem 7: 10/31/16 05:11 10/31/16 05:11 Assessment and Plan (1) Sepsis Current visit: Yes Status: Resolved (2) Septic arthritis of knee, right Current visit: Yes Status: Suspected (3) CAD (coronary artery disease) Current visit: Yes Status: Chronic (4) Atrial fibrillation Current visit: Yes Status: Chronic (5) HTN (hypertension) Current visit: Yes Status: Chronic (6) COPD (chronic obstructive pulmonary disease) Current visit: Yes Status: Chronic (7) SHANA (obstructive sleep apnea) Current visit: Yes Status: Chronic DVT Prophylaxis: SCD's Resuscitation Status: Full Code Assessment and Plan: Continue Vanco for antimicrobial coverage - no growth on joint aspirations. If cultures negative tomorrow can stop Vanco. Continue with pain control. Hope for steroid injection to knee tomorrow if cultures negative. Continue respiratory medications and support. Could restart Pradaxa tomorrow if cultures neg (would start after steroid injection). Encourage therapy and activities. Check CMP, CBC, CRP tomorrow due to medications. Vanco trough on order. Time spent with pt care 25 minutes. Sepsis Assessment - Evaluation Sepsis screening result: No Definite Risk - Focused Exam Vital Signs Temp Pulse Resp BP Pulse Ox 11/01/16 11:41 16 11/01/16 08:48 96.9 F 97 18 164/89 H 97 11/01/16 08:00 93 11/01/16 07:07 12 98 Respiratory exam: Present: decreased breath sounds, CTA bilaterally Cardiovascular exam: Present: S1, S2 Capillary refill: < 2-3 Seconds Hospital Course Summary Disclaimer: The visit summary below is not to be considered part of the above Progress Note.
[2016-11-01] MEDS ORDERED: NS FLUSH BAG 500ml IV PRN (17:17)
[2016-11-01] MEDS: ATORVASTATIN 40 MG TABLET PO SCH (21:14)
[2016-11-02] MEDS: LEVOTHYROXINE 25 MCG TABLET PO SCH (06:18)
[2016-11-02] MEDS: BUDESONIDE INH.SOLN 0.5mg/2ml NEB AEROSOL SCH (06:55)
[2016-11-02] MEDS: LEVALBUTEROL 1.25 MG/3 ML AEROSOL PRN ×2 (06:56→14:54)
[2016-11-02] MEDS: OMEPRAZOLE 20 MG CAPSULE PO SCH (07:15)
--- NOTE | 2016-11-02 07:41 | Orthopedic Progress Note ---
Date: Subjective/Severity of Illness: Mr Laura is reporting little knee pain this AM. He has been mobile with a walker with good tolerance. Denies having any SOA at this time. No new complaints this am. Orthopedic Objective Vital signs: Temp Pulse Resp BP Pulse Ox 96 F L 82 15 156/86 H 97 11/01/16 23:10 11/02/16 00:00 11/02/16 06:45 11/01/16 23:10 11/02/16 06:45 Height and Weight: Height 6 ft Weight 146 lb 9.718 oz Body Mass Index 20.1 - Constitutional General Appearance: Present: alert, no acute distress - Respiratory Exam Present: non-labored - Extremities Exam Present: pulses intact - Knee Exam right Knee Exam: Present: effusion (Mild. No warmth or erythema.) - Neurological Exam Present: no deficits - Psychiatric Exam Present: alert, normal affect - Labs Result Diagrams: 11/02/16 04:35 11/02/16 04:35 Abnormal lab results 11/02/16 11/02/16 11/02/16 Range/Units 04:35 04:35 04:35 RBC 3.41 L (4.50-5.90) M/MM3 Hgb 9.9 L (13.5-17.5) GM/DL Hct 30.9 L (41-53) % Braxton % (Auto) 12.9 H (0-9.0) % Eos % (Auto) 7.4 H (0-4) % Sodium 147 H (134-144) MEQ/L Potassium 3.1 L (3.6-5) MEQ/L Chloride 108 H (98-107) MEQ/L BUN 8.0 L (9-20) MG/DL C-Reactive Protein 23.7 H (0-9) MG/L Total Protein 5.7 L (6.3-8.2) G/DL Albumin 3.1 L (3.5-5.0) G/DL Vancomycin Trough 14.74 L (15-20) UG/ML H & H 10/30/16 10/31/16 11/02/16 Range/Units 04:13 05:11 04:35 Hgb 9.2 L D 10.3 L D 9.9 L (13.5-17.5) GM/DL Hct 29.6 L D 32.9 L D 30.9 L (41-53) % Orthopedic Assessment and Plan (1) Right knee pain Status: Acute Qualifiers: Chronicity: acute Qualified Code(s): M25.561 - Pain in right knee Assessment and Plan: Synovial fluid cultures are all negative this AM which is 4 days post aspiration. I offered pt a cortisone shot this am but he feels the knee is better and would prefer to hold off in injecting it. He would like to go home rather than IRU. I will check with PT/OT regarding his safety and independent function. Hospitalist to eval medical condition before discharge. (2) Sepsis Status: Resolved (3) Septic arthritis of knee, right Status: Suspected Qualifiers: Septic arthritis organism: due to unspecified organism Qualified Code(s): M00.9 - Pyogenic arthritis, unspecified (4) CAD (coronary artery disease) Status: Chronic (5) Atrial fibrillation Status: Chronic (6) HTN (hypertension) Status: Chronic (7) COPD (chronic obstructive pulmonary disease) Status: Chronic (8) SHANA (obstructive sleep apnea) Status: Chronic Hospital Course Summary Disclaimer: The visit summary below is not to be considered part of the above Progress Note.
--- NOTE | 2016-11-02 08:42 | Pharmacy Consult-Antibiotics ---
Pharmacy Consult-Vancomycin - Laboratory Information WBC 6.0 T/MM3 (4.5-11.0) 11/02/16 04:35 BUN 8.0 MG/DL (9-20) L 11/02/16 04:35 Creatinine 0.9 MG/DL (0.8-1.5) D 11/02/16 04:35 Procalcitonin 0.37 NG/ML 10/29/16 04:05 Vancomycin Trough 14.74 UG/ML (15-20) L 11/02/16 04:35 Pt's renal fx remains stable. Calculated CrCl = 55ml/min Trough level is good. Will continue present regimen of VANCOMYCIN 1GM IV q12hrs. Thank you
[2016-11-02] MEDS: GUAIFENESIN/D-METHORPHAN 600 MG/30 MG TABLET PO SCH (08:55)
[2016-11-02] MEDS: MELOXICAM 7.5 MG TABLET PO SCH (08:55)
[2016-11-02] MEDS: POLYETHYL GLYCOL 3350 17gm PACKET PO SCH (08:56)
--- NOTE | 2016-11-02 10:04 | Infectious Disease Consult ---
Infectious Disease Consult Date of Consultation: 11/02/16 Requesting Physician: Elian Cm Reason for Consultation: antibiotic recs History of Present Illness: Mr. Laura is an 86 y/o man with a h/o prior surgeries on his right knee (ACL repair) who reports that about 5 years ago he had a knee effusion there that was drained. He thinks he got a cortisone shot and it improved. It's been ok until recently. He underwent revision cervical spine surgery on 10/08/[address] Luna (he reports hardware from C2-4 was removed, and new hardware was placed C2-7). Shortly after leaving the hospital, he developed R knee effusion and pain. He presented to the ED on 10/28 and his R knee was aspirated and showed 42,000 WBCs with 90% neutrophils. Synovial fluid culture was negative. There was Ca pyrophosphate crystals seen. His knee was aspirated again on 10/29 and showed fewer WBCs, but had 99% neutrophils, gram stain and culture negative. He had fever to 101.3 on admission. Blood cultures were not done. Sputum culture has grown Pseudomonas, but CXR is negative. He has a h/o COPD and reports that he gets antibiotics intermittently for that. Most recent antibiotic was Azithromycin, taken in September. A Synovasure was sent off and returned positive. The patient has been scheduled for R TKA in the future by Dr. Cm. The patient states that he can walk on his knee, but thinks the fluid is reaccumulating. He's been on Vancomycin since admission. Medications Home Medications Medication Instructions Recorded Confirmed Type Atorvastatin Calcium 40 mg PO HS #0 01/25/14 10/28/16 History Levothyroxine Sodium 25 mcg PO DAILY #0 01/25/14 10/28/16 History Nitroglycerin [Nitrostat] 0.4 mg SL Q5MIN PRN #0 01/26/14 10/28/16 History Omeprazole 40 mg PO DAILY #0 02/06/15 10/29/16 History Tramadol HCl 50 mg PO TID PRN #0 04/12/16 10/28/16 History Apixaban [Eliquis] 5 mg PO BID #0 10/02/16 10/29/16 History Levalbuterol HCl [Xopenex] 1 vial AEROSOL QID PRN #0 10/02/16 10/28/16 History Hydrocodone/APAP 5/325 [Mayer 1 - 2 tab PO Q4-6HPRN PRN 10/28/16 10/28/16 History 5/325] Meloxicam [Mobic] 7.5 mg PO DAILY 10/28/16 10/29/16 History Diazepam [Valium] 5 mg PO TID PRN 10/29/16 10/29/16 History Metoprolol Tartrate [Lopressor] 50 mg PO BIDWM 10/29/16 10/29/16 History Allergies Allergy/AdvReac Type Severity Reaction Status Date / Time No Known Drug Allergies Allergy Verified 10/30/16 13:41 No Known Adverse Drug AdvReac Verified 10/30/16 13:41 Reactions [facility] Medical History (Last Updated 11/01/16 @ 15:35 by Adama Spencer MD) Atrial fibrillation (Acute Medical) BPH (benign prostatic hyperplasia) (Acute Medical) COPD (chronic obstructive pulmonary disease) (Acute Medical) GERD (gastroesophageal reflux disease) (Acute Medical) Hypertension (Acute Medical) Ocular migraine (Acute Medical) Surgical History: Cardiac ablation. C2-C7 Neck fusion September 2016, Dr. Drake. Prior to this he had cervical fusion in 2013. Total Left hip replacement Feb. Rt knee surgery. ACL reconstruction Dr Garcia 1977. Appendectomy 1937. Tonsillectomy . Right ruptured Achilles tendon. Neck surgery 2016. Arthroscopic surgery on left knee. Heart catheterization with stenting to RCA 2008; cath in 2011 Family History: Family History Brother Heart disease Father COPD (chronic obstructive pulmonary disease) Mother Diabetes - Social History Smoking status: Former smoker Household members: family Current residence: Apartment/Private Home Review of Systems - Constitutional Constitutional: Present: as per HPI, fever(s) (101.3), lethargy - EENMT Eyes: Present: other (Needs reading glasses.) Mouth/Throat: Present: as per HPI - Cardiovascular Cardiovascular: Absent: chest pain, palpitations, syncope, edema - Respiratory Respiratory: Present: cough, wheezing (with his COPD.) - Gastrointestinal Gastrointestinal: Absent: abdominal pain, change in bowel habits, constipation, diarrhea, nausea, vomiting - Genitourinary Genitourinary: Absent: dysuria - Musculoskeletal Musculoskeletal: Present: as per HPI, joint swelling (R knee), muscle weakness, neck pain - Integumentary/Breasts Integumentary: Present: wounds (surgical wound to neck) - Neurological Neurological: Present: dizziness, frequent falls, weakness - Psychiatric Psychiatric: Absent: anxiety - Hematologic/Lymphatic Hematologic/Lymphatic: Present: easy bruising (On Eliquis.) - Allergic/Immunologic Allergic/Immunologic: Absent: tongue swelling, lip swelling Exam Vital Signs: Temp Pulse Resp BP Pulse Ox 97.2 F 91 16 169/80 H 94 11/02/16 07:54 11/02/16 07:54 11/02/16 07:54 11/02/16 07:54 11/02/16 07:54 Height: 1.83 m Weight: 66.5 kg Body Mass Index: 20.1 - Constitutional Present: no acute distress, well nourished, well developed, thin, cooperative - Routine HEENT Exam Head: Present: normocephalic, atraumatic Eye: Present: EOMI, PERRL ENT: Present: oropharynx clear - Routine Neck Exam Present: supple Comments: wearing cervical collar - Routine Respiratory Exam Present: CTA bilaterally - Routine Cardiovascular Exam Present: RRR - Routine Abdominal Exam Present: soft, normoactive bowel sounds, non tender - Routine Extremities Exam Absent: edema - Detailed Lower Extremity Exam Knee: Left erythema, Right joint effusion, Right warmth, Right full ROM (doesn' t appear to be very painful) - Routine Skin Exam Absent: rash - Routine Neurological Exam Present: alert, oriented X3, CN II-XII intact. Absent: motor deficit - Routine Psychiatric Exam Present: normal affect Results - Labs CBC & Chem 7: 11/02/16 04:35 11/02/16 04:35 Labs: Microbiology 10/29/16 10:20 Aspirate, Right Knee Gram Stain - Final 10/29/16 10:20 Aspirate, Right Knee Body Fluid Culture - Preliminary No Growth After 2 Days 10/29/16 01:00 Aspirate, Right Knee Gram Stain - Final 10/29/16 01:00 Aspirate, Right Knee Body Fluid Culture - Final No Growth After 3 Days 10/30/16 09:13 Sputum, Expectorated Gram Stain - Final 10/30/16 09:13 Sputum, Expectorated Sputum Culture - Final Pseudomonas aeruginosa Normal Respiratory Viviana Laboratory Tests 10/29/16 10/29/16 10/29/16 01:00 10:20 10:20 Fluid Type Aspirate Synovial fluid Fluid Color Yellow Light yellow Fluid Turbidity Cloudy Cloudy Fluid RBC 4000 80 Fld Tot Nucleated Cell [id number] Fluid Neutrophils 90 99 Fluid Crystal Quantity Many A Fluid Crystal Appear Cloudy A Fluid Crystal Color Yellow A Synovial Source - Synov Intracell Crystal Both A Synovial Crystal Type Ca pyrophosphat A Impression: Sepsis, secondary to musculoskeletal source. Fever, R knee pain and effusion. R knee effusion with 42,000 WBCs, 90% neutrophils, and positive Synovasure test. S/p revision C2-7 fusion 10/08/16. COPD, with sputum colonization with Pseudomonas. A fib. Recommendation: Recommend treating him with either Vancomycin, which would require q12 hour dosing, or Daptomycin for 4 weeks. I discussed this with him, and he was not very sure that he wanted to proceed with this plain. I discussed that I would recommend this, especially since he needs this knee replaced in the future. I discussed with case management who will help arrange outpatient IV antibiotoics. He already has a PICC. He will need weekly CBC with diff, BMP and CRP. He'll need weekly Vanco trough if on Vanco, and weekly CPK if on Daptomycin. Sepsis Assessment - Evaluation Sepsis screening result: No Definite Risk - Focused Exam Vital Signs Temp Pulse Resp BP Pulse Ox 11/02/16 07:54 97.2 F 91 16 169/80 H 94 11/02/16 06:45 15 97 11/02/16 00:00 82 11/01/16 23:10 96 F L 82 17 156/86 H 97 Respiratory exam: Present: decreased breath sounds, CTA bilaterally Cardiovascular exam: Present: S1, S2 Capillary refill: < 2-3 Seconds
--- NOTE | 2016-11-02 13:23 | Discharge Summary ---
Orthopedic Discharge Info Date of admission: 10/29/16 11:33 Anticipated date of discharge: 11/02/16 Primary care physician: Junior Orosco DO Attending Physician: Elian Cm MD Consults: 10/29/16 Pharmacy Consult [CONS] Routine Pharmacy Consult: Vancomycin Comment: He got one dose in ER last night. 10/29/16 13:11 Physician Consult [CONS] Routine Consulting Provider: Adama Spencer Reason For Exam: Medical mgmt Ordering Provider has Notified [employer]: No 10/30/16 IRU Screening [Inpatient Rehab Screening] [CONS] Routine Screen requested by:: Physician Comment Text:: recent back/neck surgery, suspected septic arthritis knee; possible DC thursday 11/0211/02/16 08:52 Physician Consult [CONS] Routine Consulting Provider: Elham Lyn Reason For Exam: septic right knee Ordering Provider has Notified [employer]ator: No - Discharge Diagnosis (1) Septic arthritis of knee, right Qualifiers: Septic arthritis organism: due to unspecified organism Qualified Code(s): M00.9 - Pyogenic arthritis, unspecified Status: Acute (2) Right knee pain Qualifiers: Chronicity: acute Qualified Code(s): M25.561 - Pain in right knee Status: Acute (3) Sepsis Status: Resolved (4) CAD (coronary artery disease) Status: Chronic (5) Atrial fibrillation Status: Chronic (6) HTN (hypertension) Status: Chronic (7) COPD (chronic obstructive pulmonary disease) Status: Chronic (8) SHANA (obstructive sleep apnea) Status: Chronic - Procedures Procedures: Procedures Replacement of Left Hip Joint with Ceramic on Polyethylene Synthetic Substitute , Uncemented, Open Approach (03/14/15) - Laboratory Result Diagrams: 11/02/16 04:35 11/02/16 04:35 Laboratory: Abnormal lab results 11/02/16 11/02/16 11/02/16 Range/Units 04:35 04:35 04:35 RBC 3.41 L (4.50-5.90) M/MM3 Hgb 9.9 L (13.5-17.5) GM/DL Hct 30.9 L (41-53) % [place] % (Auto) 12.9 H (0-9.0) % Eos % (Auto) 7.4 H (0-4) % Sodium 147 H (134-144) MEQ/L Potassium 3.1 L (3.6-5) MEQ/L Chloride 108 H (98-107) MEQ/L BUN 8.0 L (9-20) MG/DL C-Reactive Protein 23.7 H (0-9) MG/L Total Protein 5.7 L (6.3-8.2) G/DL Albumin 3.1 L (3.5-5.0) G/DL Vancomycin Trough 14.74 L (15-20) UG/ML H & H 10/30/16 10/31/16 11/02/16 Range/Units 04:13 05:11 04:35 Hgb 9.2 L D 10.3 L D 9.9 L (13.5-17.5) GM/DL Hct 29.6 L D 32.9 L D 30.9 L (41-53) % - Microbiology Microbiology 10/30/16 09:13 Sputum, Expectorated Gram Stain - Final 10/30/16 09:13 Sputum, Expectorated Sputum Culture - Final Pseudomonas aeruginosa Normal Respiratory [facility] Discharge HPI - HPI Comments Mr Laura is an 86 yo male who was admitted thru the ER last night for right knee pain. He reports knee pain x several years that has been gradually worsening. He was scheduled for a TKA a few months ago, but it was cancelled due to a COPD exacerbation. The knee began swelling more about 2-3 days ago and in the last 24 hrs he became unable to ambulate due to severe knee pain. He presented to the ER at [facility] last evening and had the knee aspirated. Synovial fluid analysis showed no bacteria on gram stain but his synovial WBC count is >42,000. He denies fever , chills or recent infections. 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 He denies increased neck pain and has not reported any s/sx of infection in his neck. He had a left BELGICA by Dr Cm a few years ago and he reports no pain in that joint. Orthopedic Hospital Course Hospital course: 11/02/16 13:01 Synvosure testing came back this AM and is POSITIVE for a bacterial component to his knee pain. Cultures at [facility] are both negative to date. Afebrile. ID consult obtained today. Recommend daily IV antibiotic x 4 weeks. PICC line is ordered. Resume anticoagulant as non-surgical tx is recommended. Discharge today. F/U in ortho clinic in 2 weeks. F/U with Dr Lyn in 4 weeks. 11/01/16 Cultures neg. Knee pain improving. Less effusion. Bowels working, Appetite good. Afebrile. 10/31/16 Knee aspirated with 140cc obtained. Specimen not sent for culture. Afeb. WBCs trending downward. Cultures negative. 10/30/16 Cultures negative. Moderate knee pain. Ca Pyrophosphate crystals found on previous days synovial analysis. Mobic added for pseudogout coverage. 10/29/16 Repeat aspiration at bedside this am, Synovial fluid specimen sent to our lab and sample sent for Synvosure evaluation. 155cc obtained during aspiration. Synovial WBC count reported as 3120 with 99% neutrophils. Begin PT for mobility needs. ST eval for swallowing problems using the neck brace for recent c-spine surgery 3 weeks ago. Diet adjusted. COPD / Afib / HTN / CAD all managed by hospitalist service. Nebulizers PRN. 10/28/16 Admitted thru ER around 11pm with signs / sx of right knee septic arthritis. Moderate right knee effusion with severe pain / debility. T 101.3 / HR 111 / Lactate 1.0 / Serum WBC 11.9 / elevated CRP, Synovial fluid aspiration done in ER showed >42,500 WBCs . IV Vanco given in ER along with IV Decadron. Ongoing care required?: Yes Discharge Plan - Med Rec/Dispo Truven Instructions: [facility] Ortho Postop Instructions Additional Instructions: FOLLOW UP WITH DR. LYN IN 4 WEEKS AT HER [place] OFFICE. COME TO [facility] AT THE SAME TIME EACH DAY TO GET YOUR IV ANTIBIOTIC FOR 4 WEEKS BEGINNING NOVEMBER 03. CHECK IN AT REGISTRATION AND THEN COME TO ROOM 114 ON THE SURGICAL UNIT TO GET THE MEDICATION. Prescriptions: New RX: PEG 3350 17gm PACKET [Miralax] 17 gm PO DAILY packet RX: Tramadol [Ultram] 50 - 100 mg PO Q6H PRN #30 PRN Reason: Pain Continue RX: Atorvastatin Calcium 40 mg PO HS #0 RX: Levothyroxine Sodium 25 mcg PO DAILY #0 RX: Nitroglycerin [Nitrostat] 0.4 mg SL Q5MIN PRN #0 PRN Reason: CHEST PAIN RX: Omeprazole 40 mg PO DAILY #0 RX: Tramadol HCl 50 mg PO TID PRN #0 PRN Reason: PAIN RX: Diazepam [Valium] 5 mg PO TID PRN PRN Reason: Anxiety RX: Meloxicam [Mobic] 7.5 mg PO DAILY #14 RX: Levalbuterol HCl [Xopenex] 1 vial AEROSOL QID PRN #0 PRN Reason: SHORTNESS OF AIR RX: Apixaban [Eliquis] 5 mg PO BID #0 RX: Hydrocodone/APAP 5/325 [[place] 5/325] 1 - 2 tab PO Q4-6HPRN PRN PRN Reason: Pain RX: Metoprolol Tartrate [Lopressor] 50 mg PO BIDWM - Disposition 01 Discharged Home, Self-Care - Attestation Attestation Narrative: 11/02/16 17:12 Pt will begin outpatient IV Daptomycin on 11/03/16. He received his first dose of antibiotic prior to discharge.
--- NOTE | 2016-11-02 13:28 | Progress Note ---
Subjective: F/U: COPD, HTN, Afib Doing well today. Minimal knee discomfort. Doing well ambulating in the halls. No f/c. Breathing stable. No nausea or ab pain. Stools stable. Not having chest pain or palpitations. Objective Vital signs: Temp Pulse Resp BP Pulse Ox 97.2 F 90 18 169/80 H 95 11/02/16 07:54 11/02/16 08:00 11/02/16 10:45 11/02/16 07:54 11/02/16 10:45 Body Mass Index: 20.1 - Constitutional Present: no acute distress, well nourished, well developed, thin, cooperative - Routine HEENT Exam Head: Present: normocephalic, atraumatic Eye: Present: EOMI, PERRL. Absent: scleral injection ENT: Present: mucous membranes moist - Routine Respiratory Exam Present: decreased breath sounds, wheezes (faint). Absent: rales, respiratory distress - Routine Cardiovascular Exam Present: RRR - Routine Abdominal Exam Present: soft, normoactive bowel sounds, non distended, non tender - Routine Extremities Exam Present: edema, no edema, pulses intact. Absent: cyanosis, clubbing - Routine Musculoskeletal Exam Musculoskeletal: normal strength, joint swelling (Right knee ) - Routine Skin Exam Present: intact, dry, warm - Routine Neurological Exam Present: alert, oriented X3, CN II-XII intact, vision grossly intact, hearing grossly intact. Absent: motor deficit - Routine Psychiatric Exam Present: normal affect, normal thought process, cooperative, good insight, good judgment Results - Labs CBC & Chem 7: 11/02/16 04:35 11/02/16 04:35 Assessment and Plan (1) Septic arthritis of knee, right Current visit: Yes Status: Acute (2) Sepsis Current visit: Yes Status: Resolved (3) CAD (coronary artery disease) Current visit: Yes Status: Chronic (4) Atrial fibrillation Current visit: Yes Status: Chronic (5) HTN (hypertension) Current visit: Yes Status: Chronic (6) COPD (chronic obstructive pulmonary disease) Current visit: Yes Status: Chronic (7) SHANA (obstructive sleep apnea) Current visit: Yes Status: Chronic DVT Prophylaxis: SCD's Assessment and Plan: ID recommending 4 weeks of treatment for knee coverage - initiating Daptomycin in outpatient setting. CM making arrangements. May restart Brillenta for anticoagulation. Encourage continued use of IS and acapella in outpatient setting. Oral potassium 20mEq x 1 today due to decreased potassium level. Medically doing well - agree with discharge plans to home. Case discussed with Jamey Mckeon. Time spent with pt care 25 minutes. Sepsis Assessment - Evaluation Sepsis screening result: No Definite Risk - Focused Exam Vital Signs Temp Pulse Resp BP Pulse Ox 11/02/16 10:45 18 95 11/02/16 08:00 90 11/02/16 07:54 97.2 F 91 16 169/80 H 94 11/02/16 06:45 15 97 Respiratory exam: Present: decreased breath sounds, CTA bilaterally Cardiovascular exam: Present: S1, S2 Capillary refill: < 2-3 Seconds Hospital Course Summary Disclaimer: The visit summary below is not to be considered part of the above Progress Note.
[2016-11-02] MEDS ORDERED: DAPTOmycin 400 MG in NS 8 ML IVP SCH ×2 (16:15→16:45)
--- NOTE | 2016-11-02 17:09 | XRay Report ---
EXAM: XR chest post-procedure 1V HISTORY: PICC LINE PLACEMENT LOCATION OF DICTATION: [facility] COMPARISON: Prior chest x-ray dated 10/29/2016 FINDINGS: There is been interval placement of a right-sided PICC line, the tip of the catheter is mid SVC in location in satisfactory position. There is no evidence of a pneumothorax. The cardiomediastinal silhouette remains within normal limits in size and configuration. The mediastinum is not widened. The trachea is midline. The pulmonary vascularity is not engorged. The lung hahn demonstrate mild increased interstitial markings that appear chronic. No acute consolidating infiltrates are seen. The costophrenic angles are sharp. The bony thorax is stable showing partial visualization of the changes of cervical spine fusion. IMPRESSION: 1. No acute cardiopulmonary process is identified. 2. Interval placement of a right-sided PICC line which is in satisfactory position. .
== END 2016-11-02 18:00 | disposition home or self-care (01) | DRG 872 ==
LOC: SRG 23:03 → ED 23:03 → SRG 10-29 03:05
PROVIDERS: ADMIT Orthopaedic Surgery; ATTEND Orthopaedic Surgery

== ENCOUNTER 2016-11-21 10:16 | Inpatient (IN) ==
[2016-11-21] MEDS ORDERED: ALBUTEROL/IPRATROPIUM 2.5mg-0.5mg/3ml NEB AEROSOL ONE (10:44)
[2016-11-21] MEDS: SALINE FLUSH 10ml SYRINGE IVF PRN (10:54)
[2016-11-21] MEDS: NS 1,000 ML IV SCH (11:11)
--- NOTE | 2016-11-21 12:30 | Emergency Department Report ---
SOB HPI - General Chief Complaint: Shortness of Breath/Dyspnea Stated Complaint: fever,cough,chest pain Time Seen by Provider: 11/21/16 10:32 Source: patient, other (INFUSION THERAPY NURSING STAFF) Mode of arrival: wheelchair Limitations: no limitations - History of Present Illness 86 YO WM who presents to ER for increasing shortness of breath. Patient has a history of COPD. He reports over the last week he has become increasingly short of breath. He is currently receiving vancomycin infusions for an infection in his knee. Today, during the infusion, patient notified staff that he has been feeling very short of breath. Patient's temperature was 100.2 deg F per Infusion Therapy nursing staff. He was brought over to ER for further evaluation. Patient reports he has been coughing up brown sputum. He has been experiencing chills and progressive weakness. Severity: similar to previous episodes Consistency/Duration: intermittent Relieving factors: oxygen, rest, bronchodilators Exacerbating factors: exertion, movement, coughing Associated symptoms: fever, cough, wheezing, sputum production, orthopnea, other (progressive generalized weakness) - Related Data Home oxygen amount: 2 liters (at night but increased use in the last 4-5 days) Home Medications Medication Instructions Recorded Confirmed Atorvastatin Calcium 40 mg PO HS #0 01/25/14 11/21/16 Levothyroxine Sodium 25 mcg PO ACB #0 01/25/14 11/21/16 Nitroglycerin [Nitrostat] 0.4 mg SL Q5MIN3 PRN #0 01/26/14 11/21/16 Omeprazole 40 mg PO ACB #0 02/06/15 11/21/16 Apixaban [Eliquis] 5 mg PO BID #0 10/02/16 11/21/16 Levalbuterol HCl [Xopenex] 1 vial AEROSOL QID PRN #0 10/02/16 11/21/16 Hydrocodone/APAP 5/325 [[place] 1 - 2 tab PO Q4-6HPRN PRN 10/28/16 11/21/16 5/325] Diazepam [Valium] 5 mg PO TID PRN 10/29/16 11/21/16 duloxetine 60 mg capsule,delayed 60 mg PO DAILY 30 Days 11/16/16 11/21/16 release Albuterol Inhaler [Ventolin Hfa] 1 puff INH BID PRN 11/21/16 11/21/16 DAPTOmycin [Daptomycin] 400 mg IV DAILY 11/21/16 11/21/16 Metoprolol Tartrate [Lopressor] 25 mg PO BIDWM 11/21/16 11/21/16 Mometasone/Formoterol 200/5 1 puff INH BID 11/21/16 11/21/16 [DULERA 200/5mcg INHALER] Previous Rx's Medication Instructions Recorded Meloxicam [Mobic] 7.5 mg PO DAILY #14 11/02/16 Tramadol [Ultram] 50 - 100 mg PO Q6H PRN #30 11/02/16 Allergies Allergy/AdvReac Type Severity Reaction Status Date / Time No Known Allergies Allergy Verified 11/21/16 10:33 Review of Systems All systems: reviewed and negative except as stated Constitutional: Reports: fever, chills, weakness Eyes: Denies: eye pain, vision change ENT: Denies: ear pain, dental pain, hearing loss Cardiovascular: Reports: dyspnea on exertion, orthopnea. Denies: chest pain, palpitations Respiratory: Reports: cough, dyspnea, wheezes Gastrointestinal: Reports: nausea. Denies: abdominal pain, vomiting, diarrhea, constipation, hematemesis, melena Genitourinary: Denies: dysuria, frequency Integumentary: Denies: photosensitivity Neurological: Reports: weakness (generalized) Endocrine: Reports: fatigue, heat or cold intolerance Hematological/Lymphatic: Reports: easy bruising PFSH Patient Stated Medical History Migraine Yes: ocular Cataracts Yes Hearing Loss Yes: HEARING AIDS Cardiac Arrhythmia Yes: A FIB Hypertension Yes Asthma Yes Chronic Obstructive Pulmonary Yes Disease (COPD) Pneumonia Yes Gastroesophageal Reflux Yes Disease Gastrointestinal Bleeding Yes Hx Benign Prostatic Yes Hyperplasia Hx Renal Disease No Clotting Problems Yes Osteoarthritis Yes Other Musculoskeletal Yes: HARDWARE PLACED FOR C2-C7 10/08/16 Other Infectious Yes Clinic Medical History (Last Updated 11/21/16 @ 15:55 by Jasmyne Colón APRN) Atrial fibrillation (Acute Medical) BPH (benign prostatic hyperplasia) (Acute Medical) COPD (chronic obstructive pulmonary disease) (Acute Medical) GERD (gastroesophageal reflux disease) (Acute Medical) Hypertension (Acute Medical) Ocular migraine (Acute Medical) Surgical History: Cardiac ablation. C2-C7 Neck fusion September 2016, Dr. Drake. Prior to this he had cervical fusion in 2013. Total Left hip replacement Feb. Rt knee surgery. ACL reconstruction Dr Garcia 1977. Appendectomy 193. Tonsillectomy 1939s. Right ruptured Achilles tendon. Neck surgery 2016. Arthroscopic surgery on left knee. Heart catheterization with stenting to RCA 2008; cath in 2011 Family History: Family History Brother Heart disease Father COPD (chronic obstructive pulmonary disease) Mother Diabetes - Social History Smoking status: Former smoker Current occupational status: retired Physical Exam - Limitations Limitations: no limitations - General General appearance: alert - Normal Exams: Head:: Normocephalic without trauma Eyes:: Pupils are PERRLA w/ EOMI, No scleral icterus ENMT:: No facial trauma Cardiovascular:: Regular rate and rhythm, without murmur or gallop, Pulses 2+ all extremities, capillary refill, <2 seconds all extremities Abdomen:: Bowel sounds positive, soft, non-tender, non-distended, no hepatosplenomegaly, masses or bruits noted Integumentary:: No rashes, hives, or bruising noted Neurological:: Patient is alert, and oriented, cranial nerves, motor/sensory/ cerebellar, exams w/o gross deficits, to observation Psychiatric:: Patient exhibits, appropriate attention, emotion and affect - Respiratory Respiratory exam: Present: wheezes (expiratory wheezes bilaterally), other ( coarse breath sounds bilaterally throughout) Course Course Narrative: 1218: Patient noted to be hypoxic with room air O2 sat 88%. Patient does utilize oxygen at night but not typically during the day. - Consultations Consultation #1: [id number]: Contacted Dr. Bustos regarding admission. discussed case. Will admit patient. Vital Signs Temperature 99.2 F 11/21/16 10:19 Pulse Rate 96 11/21/16 10:19 Respiratory Rate 28 H 11/21/16 10:19 Blood Pressure 144/65 H 11/21/16 10:19 Pulse Oximetry 92 11/21/16 10:19 Temperature 100 F 11/21/16 15:51 Pulse Rate 104 H 11/21/16 15:51 Respiratory Rate 16 11/21/16 17:05 Blood Pressure 161/82 H 11/21/16 15:51 Pulse Oximetry 95 11/21/16 17:05 Shortness of Breath/Dyspnea - Differential Diagnosis Likely: acute exacerbation of chronic obstructive airways disease, congestive heart failure, community acquired pneumonia, pulmonary embolism - Lab Data Attestation: I reviewed the patient's lab results. Result diagrams: 11/21/16 10:58 11/21/16 10:58 Lab Results 11/21/16 11/21/16 11/21/16 Range/Units 10:35 10:55 10:58 WBC 15.7 H (4.5-11.0) T/MM3 RBC 3.49 L (4.50-5.90) M/MM3 Hgb 10.2 L (13.5-17.5) GM/DL Hct 31.7 L (41-53) % MCV 90.8 (80-100) UM3 MCH 29.2 (26-34) UUG MCHC 32.2 (31-37) GM/DL RDW Std Deviation 44.8 (36.9-50.2) FL Plt Count 305 (130-400) T/MM3 MPV 11.4 (9.4-12.4) UM3 Immature Gran % (Auto) Not performed Neut % (Auto) Not performed Lymph % (Auto) Not performed [place] % (Auto) Not performed Eos % (Auto) Not performed Baso % (Auto) Not performed Neut # Not performed Lymph # Not performed [place] # Not performed Eos # Not performed Baso # Not performed Abs Immat Gran (auto) Not performed Neutrophils % (Manual) 80.0 H (33-66) % Band Neutrophils % 2.0 (0-6) % Lymphocytes % (Manual) 10.0 L (23-45) % Monocytes % (Manual) 8.0 (0-9.0) % Neutrophils # (Manual) 12.6 H (1.8-7.7) T/MM3 Band Neutrophils # 0.3 T/MM3 Lymphocytes # (Manual) 1.6 (1-4.8) T/MM3 Monocytes # (Manual) 1.3 H (0-0.8) T/MM3 RBC Morph Comment Abnormal INR (0.99-1.21) D-Dimer (0-230) NG/ML ABG pH 7.480 H (7.350-7.450) ABG pCO2 42 (34-45) MMHG ABG pO2 64 L (80-100) MMHG ABG HCO3 31 H (22-26) MEQ/L ABG Total CO2 32.6 H (23-27) MEQ/L ABG O2 Saturation 94.0 L (95.0-98.0) % ABG Base Excess 7.1 H (-2.0-2.0) MMOL/L O2 Delivery Method Room air Turbidity (0-20) Sodium (134-144) MEQ/L Potassium (3.6-5) MEQ/L Chloride (98-107) MEQ/L Carbon Dioxide (22-30) MEQ/L Anion Gap (5-15) MEQ/L BUN (9-20) MG/DL Creatinine (0.8-1.5) MG/DL GFR Calculation BUN/Creatinine Ratio (6-26) RATIO Glucose (75-110) MG/DL Calculated Osmolality (261-280) MOSM/KG Calcium (8.4-10.2) MG/DL Icterus Index (0-7) Troponin I (0-0.12) ng/ml B-Natriuretic Peptide (0-175) pg/mL Plasma Lactate (0.6-2.2) MMOL/L Procalcitonin 0.08 NG/ML Specimen Hemolysis (0-25) Ur Collection Type Urine Color (YELLOW) Urine Clarity Urine pH (5.0-8.0) Ur Specific [place] (1.015-1.025) Urine Protein (NEGATIVE) Urine Glucose (UA) (NEGATIVE) Urine Ketones (NEGATIVE) Urine Occult Blood (NEGATIVE) Urine Nitrate (NEGATIVE) Urine Bilirubin (NEGATIVE) Urine Urobilinogen (NORMAL) EU/DL Ur Leukocyte Esterase (NEGATIVE) Urine RBC (0-3) /HPF Urine WBC (0-5) /HPF Ur Squamous Epith Cells Amorphous Sediment Urine Bacteria (NEGATIVE) Ur Culture Indicated? 11/21/16 11/21/16 11/21/16 Range/Units 10:58 10:58 10:58 WBC (4.5-11.0) T/MM3 RBC (4.50-5.90) M/MM3 Hgb (13.5-17.5) GM/DL Hct (41-53) % MCV (80-100) UM3 MCH (26-34) UUG MCHC (31-37) GM/DL RDW Std Deviation (36.9-50.2) FL Plt Count (130-400) T/MM3 MPV (9.4-12.4) UM3 Immature Gran % (Auto) Neut % (Auto) Lymph % (Auto) [place] % (Auto) Eos % (Auto) Baso % (Auto) Neut # Lymph # [place] # Eos # Baso # Abs Immat Gran (auto) Neutrophils % (Manual) (33-66) % Band Neutrophils % (0-6) % Lymphocytes % (Manual) (23-45) % Monocytes % (Manual) (0-9.0) % Neutrophils # (Manual) (1.8-7.7) T/MM3 Band Neutrophils # T/MM3 Lymphocytes # (Manual) (1-4.8) T/MM3 Monocytes # (Manual) (0-0.8) T/MM3 RBC Morph Comment INR 1.80 H (0.99-1.21) D-Dimer 268 H (0-230) NG/ML ABG pH (7.350-7.450) ABG pCO2 (34-45) MMHG ABG pO2 (80-100) MMHG ABG HCO3 (22-26) MEQ/L ABG Total CO2 (23-27) MEQ/L ABG O2 Saturation (95.0-98.0) % ABG Base Excess (-2.0-2.0) MMOL/L O2 Delivery Method Turbidity < 20 (0-20) Sodium 139 (134-144) MEQ/L Potassium 3.3 L (3.6-5) MEQ/L Chloride 101 (98-107) MEQ/L Carbon Dioxide 30 (22-30) MEQ/L Anion Gap 8 (5-15) MEQ/L BUN 16.0 (9-20) MG/DL Creatinine 0.9 (0.8-1.5) MG/DL GFR Calculation 80 BUN/Creatinine Ratio 18 (6-26) RATIO Glucose 106 (75-110) MG/DL Calculated Osmolality 269 (261-280) MOSM/KG Calcium 8.5 (8.4-10.2) MG/DL Icterus Index < 2 (0-7) Troponin I 0.016 (0-0.12) ng/ml B-Natriuretic Peptide 1680 H (0-175) pg/mL Plasma Lactate 1.2 (0.6-2.2) MMOL/L Procalcitonin NG/ML Specimen Hemolysis < 15 (0-25) Ur Collection Type Urine Color (YELLOW) Urine Clarity Urine pH (5.0-8.0) Ur Specific [place] (1.015-1.025) Urine Protein (NEGATIVE) Urine Glucose (UA) (NEGATIVE) Urine Ketones (NEGATIVE) Urine Occult Blood (NEGATIVE) Urine Nitrate (NEGATIVE) Urine Bilirubin (NEGATIVE) Urine Urobilinogen (NORMAL) EU/DL Ur Leukocyte Esterase (NEGATIVE) Urine RBC (0-3) /HPF Urine WBC (0-5) /HPF Ur Squamous Epith Cells Amorphous Sediment Urine Bacteria (NEGATIVE) Ur Culture Indicated? 11/21/16 Range/Units 12:33 WBC (4.5-11.0) T/MM3 RBC (4.50-5.90) M/MM3 Hgb (13.5-17.5) GM/DL Hct (41-53) % MCV (80-100) UM3 MCH (26-34) UUG MCHC (31-37) GM/DL RDW Std Deviation (36.9-50.2) FL Plt Count (130-400) T/MM3 MPV (9.4-12.4) UM3 Immature Gran % (Auto) Neut % (Auto) Lymph % (Auto) [place] % (Auto) Eos % (Auto) Baso % (Auto) Neut # Lymph # [place] # Eos # Baso # Abs Immat Gran (auto) Neutrophils % (Manual) (33-66) % Band Neutrophils % (0-6) % Lymphocytes % (Manual) (23-45) % Monocytes % (Manual) (0-9.0) % Neutrophils # (Manual) (1.8-7.7) T/MM3 Band Neutrophils # T/MM3 Lymphocytes # (Manual) (1-4.8) T/MM3 Monocytes # (Manual) (0-0.8) T/MM3 RBC Morph Comment INR (0.99-1.21) D-Dimer (0-230) NG/ML ABG pH (7.350-7.450) ABG pCO2 (34-45) MMHG ABG pO2 (80-100) MMHG ABG HCO3 (22-26) MEQ/L ABG Total CO2 (23-27) MEQ/L ABG O2 Saturation (95.0-98.0) % ABG Base Excess (-2.0-2.0) MMOL/L O2 Delivery Method Turbidity (0-20) Sodium (134-144) MEQ/L Potassium (3.6-5) MEQ/L Chloride (98-107) MEQ/L Carbon Dioxide (22-30) MEQ/L Anion Gap (5-15) MEQ/L BUN (9-20) MG/DL Creatinine (0.8-1.5) MG/DL GFR Calculation BUN/Creatinine Ratio (6-26) RATIO Glucose (75-110) MG/DL Calculated Osmolality (261-280) MOSM/KG Calcium (8.4-10.2) MG/DL Icterus Index (0-7) Troponin I (0-0.12) ng/ml B-Natriuretic Peptide (0-175) pg/mL Plasma Lactate (0.6-2.2) MMOL/L Procalcitonin NG/ML Specimen Hemolysis (0-25) Ur Collection Type Urine, clean catch Urine Color Yellow (YELLOW) Urine Clarity Clear Urine pH 7.0 (5.0-8.0) Ur Specific [place] 1.015 (1.015-1.025) Urine Protein 1+ A (NEGATIVE) Urine Glucose (UA) Negative (NEGATIVE) Urine Ketones Negative (NEGATIVE) Urine Occult Blood Trace-intact (NEGATIVE) Urine Nitrate Negative (NEGATIVE) Urine Bilirubin Negative (NEGATIVE) Urine Urobilinogen 0.2 (NORMAL) EU/DL Ur Leukocyte Esterase Negative (NEGATIVE) Urine RBC None seen (0-3) /HPF Urine WBC 0-1 (0-5) /HPF Ur Squamous Epith Cells 0-5 Amorphous Sediment Few Urine Bacteria None seen (NEGATIVE) Ur Culture Indicated? Cult not indicated - Radiology Data Attestation: I reviewed the patient's radiology results. CT PE: NO EVIDENCE OF PULMONARY EMBOLUS. PATCHY NODULAR INFILTRATE IN THE RIGHT UPPER LOBE AND BILATERAL LOWER LOBES WITH PERIBRONCHIAL THICKENING AND HAZY INFILTRATION OF THE LEFT UPPER LOBE SUSPICIOUS FOR ASYMMETRIC EDEMA VS. MULTIFOCAL PNEUMONIA. - EKG Data EKG #1 EKG attestation: Yes: I reviewed and interpreted this EKG. Rate: normal Rhythm: NSR, PVC's (OCCASIONAL) [place]/QRS: normal Interpretation: nonspecific ST-T wave changes Disposition Clinical Impression: Community acquired pneumonia, Acute exacerbation of chronic obstructive airways disease Disposition: To [facility] Acute Care Condition: Stable Time of Disposition: 13:45 - Seen By: physician
[2016-11-21] MEDS ORDERED: IOHEXOL 350mg/ml 75ml INJECTION ONE (12:34)
[2016-11-21] MEDS ORDERED: SALINE FLUSH 10ml SYRINGE ONE (12:35)
[2016-11-21] MEDS ORDERED: NS 100 ML ONE (12:35)
[2016-11-21] MEDS ORDERED: ALBUTEROL 2.5mg/0.5ml (0.5%) NEB AEROSOL ONE (13:35)
[2016-11-21] MEDS ORDERED: CEFTRIAXONE (ER USE ONLY) 1 GM in NS 100 ML IV ONE (14:05)
--- NOTE | 2016-11-21 15:30 | History & Physical Report ---
<Jasmyne Colón V - Last Filed: 11/21/16 15:20> History of Present Illness Date: 11/21/16 Chief complaint: shortness of breath, fever, coughing HPI: Jayy is a pleasant 86-year-old gentleman who has been receiving outpatient infusions of Daptomycin since 11/03 for treatment of right knee infection. He was instructed to complete this course, through November 30 under the outpatient care of Dr. Elham Key. Today he presented to the outpatient infusion center and was found to have a fever of 100.2, accompanied with increased difficulty breathing. He was then directed to the emergency room for further evaluation and treatment. Initially his heart rate was 107, room air saturations 87%. Basic laboratory studies were obtained and he was found to have leukocytosis with a white count of 15.7, 80% neutrophils, 2% bands. Hemoglobin 10.2, hematocrit 31.7, platelet count 305. Sodium is 139, potassium 3.3, BUN 16, creatinine 0.9, Later osmolality 269. Troponin was 0.016, proBNP 1680. Venous lactate 1.2, pro calcitonin 0.08. Urinalysis is unremarkable. An ABG showed a pH of 7.48, pCO2 42, pO2 64, bicarbonate 31. INR 1.8, and a mildly elevated d- dimer at 268. CT of the chest was performed to rule out emboli. The CT did reveal right upper lobe and bilateral lower lobe infiltrates and no thrombus was identified. He should does chronically utilize oxygen only at night. However , over the last 3 days he has required increased oxygen during the day. Given these findings, patient does meet criteria for sepsis with known infection of pneumonia. The hospitalist services were contacted and accepted patient for inpatient admission for further evaluation and treatment. It is expected that his stay will be greater than 2 overnights He is seen on initial examination. He is alert, oriented and pleasant. He does report that over the past 3 days he feels more short of breath. He is now having a productive cough that is worse. States that he has been sleeping in his chair, which has subsequently been causing him an increased amount of pain in his neck. He did undergo a cervical revision of C2-C7 fusion on 10/08/16 under the care of Dr Luna. (He reports that oral old hardware was removed and new hardware was placed at this time). We did discuss advanced directives and he does wish to be a full code Review of Systems All systems: reviewed and no additional remarkable complaints except as stated - Constitutional Constitutional: Present: chills, fatigue, fever(s) - Cardiovascular Cardiovascular: Present: dyspnea on exertion, orthopnea - Respiratory Respiratory: Present: cough, dyspnea, dyspnea on exertion, excessive phlegm production - Gastrointestinal Gastrointestinal: Present: nausea (last evening) - Musculoskeletal Musculoskeletal: Present: neck pain PFSH Past Medical History Migraine- ocular Cataracts Hearing Loss Atrial fibrillation Hypertension Asthma Coronary artery disease COPD with home oxygen use at night Pneumonia Gastroesophageal Reflux Hypothyroidism BPH History of GI bleed Osteoarthritis Cervical hardware replaced C2-C7 10/08/16 Recent right knee infection. Currently on outpatient daptomycin IV treatment from 11/03 through 11/30/16 Surgical History: Cardiac ablation. C2-C7 Neck fusion September 2016, Dr. Drake. Prior cervical fusion in 2013. Total Left hip replacement Mar 14, 2015. Rt knee surgery. ACL reconstruction Dr Garcia 1977. Appendectomy 1937. Tonsillectomy . Right ruptured Achilles tendon. Neck surgery 2016. Arthroscopic surgery on left knee. Heart catheterization with stenting to RCA 2008; cath in 2011 Family History: Family History Brother Heart disease Father COPD (chronic obstructive pulmonary disease) Mother Diabetes - Social History Smoking status: Former smoker Substance use type: does not use Alcohol intake frequency: does not drink Housing: house Household members: none Current residence: Apartment/Private Home Social history: Primary care provider, Dr. Orosco [place] Dr. Ayala Medications Home Medications Medication Instructions Recorded Confirmed Type Atorvastatin Calcium 40 mg PO HS #0 01/25/14 11/21/16 History Levothyroxine Sodium 25 mcg PO ACB #0 01/25/14 11/21/16 History Nitroglycerin [Nitrostat] 0.4 mg SL Q5MIN3 PRN #0 01/26/14 11/21/16 History Omeprazole 40 mg PO ACB #0 02/06/15 11/21/16 History Apixaban [Eliquis] 5 mg PO BID #0 10/02/16 11/21/16 History Levalbuterol HCl [Xopenex] 1 vial AEROSOL QID PRN #0 10/02/16 11/21/16 History Hydrocodone/APAP 5/325 [[place] 1 - 2 tab PO Q4-6HPRN PRN 10/28/16 11/21/16 History 5/325] Diazepam [Valium] 5 mg PO TID PRN 10/29/16 11/21/16 History duloxetine 60 mg capsule,delayed 60 mg PO DAILY 30 Days 11/16/16 11/21/16 History release Albuterol Inhaler [Ventolin Hfa] 1 puff INH BID PRN 11/21/16 11/21/16 History DAPTOmycin [Daptomycin] 400 mg IV DAILY 11/21/16 11/21/16 History Metoprolol Tartrate [Lopressor] 25 mg PO BIDWM 11/21/16 11/21/16 History Mometasone/Formoterol 200/5 1 puff INH BID 11/21/16 11/21/16 History [DULERA 200/5mcg INHALER] Allergies Allergy/AdvReac Type Severity Reaction Status Date / Time No Known Allergies Allergy Verified 11/21/16 10:33 Exam Vital Signs: Temperature 99 F 11/21/16 14:11 Pulse Rate 107 H 11/21/16 14:11 Respiratory Rate 24 11/21/16 14:11 Blood Pressure 172/77 H 11/21/16 14:11 Pulse Oximetry 96 11/21/16 14:11 Height: 1.83 m Weight: 68.2 kg - Constitutional Present: no acute distress - Routine HEENT Exam Head: Present: normocephalic, atraumatic Eye: Present: EOMI, PERRL ENT: Present: mucous membranes moist, nares patent - Routine Neck Exam Comments: C-collar intact. Healed cervicle incision - Routine Respiratory Exam Present: wheezes, crackles (bilateral bases) - Routine Cardiovascular Exam Present: RRR, S1, S2, no murmur - Routine Abdominal Exam Present: soft, normoactive bowel sounds, non distended, non tender - Routine Extremities Exam Present: full ROM Comments: No erythema noted to right knee - Routine Back/Spine/Pelvis Exam Back/Spine: Present: full ROM - Routine Skin Exam Present: intact, dry, warm - Routine Neurological Exam Present: alert, oriented X3, CN II-XII intact, moving all extremities - Routine Psychiatric Exam Present: normal affect, normal thought process Results - Labs CBC & Chem 7: 11/21/16 10:58 11/21/16 10:58 Assessment and Plan (1) Sepsis Current visit: Yes Status: Acute (2) Community acquired pneumonia Current visit: Yes Status: Acute (3) Respiratory failure with hypoxia Current visit: Yes Status: Acute Assessment and Plan: 11/21/16 Sepsis-manifestations include- 1. Community acquired pneumonia 2. Leukocytosis 3. Tachycardia-heart rate 107 4. Hypoxia-room air saturations 87% 5. Fever-100.7 Community-acquired pneumonia Status failure with hypoxia COPD Recent cervical spine hardware change Atrial fibrillation Hypertension Asthma Coronary artery disease hx- Pneumonia Gastroesophageal Reflux Hypothyroidism BPH History of GI bleed Osteoarthritis Plan Based on meeting criteria for sepsis, we will admit patient as an inpatient under the care of Dr. Bustos for sepsis, kidney acquired pneumonia, hypoxia Repeat a venous lactate at 1530 based on sepsis protocol. Obtain a sputum culture, blood cultures pending. Rocephin was started on 1 gram of IV Rocephin in the emergency room. We'll continue this daily and add azithromycin for further pulmonary coverage. Will scheduled DuoNeb breathing treatments 4 times a day as well as when necessary in addition to Pulmicort twice a day. Patient does chronically utilize nebulizers at home. Acapella 4 times a day Mucinex twice a day to help with mucus expectorant Normal saline with 20 KCl at 75ml an hour for gentle hydration Patient is on eloquence for chronic anticoagulation. Remaining home medications are reviewed. Will need to speak with attending regarding continued outpatient daptomycin as patient does continue to need treatment through November 30. Will recheck CBC and BMP tomorrow morning to follow blood counts, renal function and electrolytes Again, patient does request to be a full code and this order is written. Discuss further orders with attending, Dr. Bustos. At time of discharge medical care will return to primary care provider, Dr. Orosco Sepsis Assessment - Evaluation Sepsis screening result: No Definite Risk Hospital Course Summary Disclaimer: The visit summary below is not to be considered part of the above Progress Note. Hospital Course: 11/21/16- Admission Sepsis-manifestations include- 1. Community acquired pneumonia 2. Leukocytosis 3. Tachycardia-heart rate 107 4. Hypoxia-room air saturations 87% 5. Fever-100.7 Community-acquired pneumonia Status failure with hypoxia COPD Recent cervical spine hardware change Atrial fibrillation Hypertension Asthma Coronary artery disease Pneumonia Gastroesophageal Reflux Hypothyroidism BPH History of GI bleed Osteoarthritis Plan Based on meeting criteria for sepsis, we will admit patient as an inpatient under the care of Dr. Bustos for sepsis, kidney acquired pneumonia, hypoxia Repeat a venous lactate at 1530 based on sepsis protocol. Obtain a sputum culture, blood cultures pending. Rocephin was started on 1 gram of IV Rocephin in the emergency room. We'll continue this daily and add azithromycin for further pulmonary coverage. Will scheduled DuoNeb breathing treatments 4 times a day as well as when necessary in addition to Pulmicort twice a day. Patient does chronically utilize nebulizers at home. Acapella 4 times a day Mucinex twice a day to help with mucus expectorant Normal saline with 20 KCl at 75ml an hour for gentle hydration Patient is on eloquence for chronic anticoagulation. Remaining home medications are reviewed. Will need to speak with attending regarding continued outpatient daptomycin as patient does continue to need treatment through November 30. Will recheck CBC and BMP tomorrow morning to follow blood counts, renal function and electrolytes Again, patient does request to be a full code and this order is written. Discuss further orders with attending, Dr. Bustos. At time of discharge medical care will return to primary care provider, Dr. Orosco <Leilani Bustos - Last Filed: 11/21/16 19:50> History of Present Illness Date: 11/21/16 [facility] Patient Stated Medical History Migraine Yes: ocular Cataracts Yes Hearing Loss Yes: HEARING AIDS Cardiac Arrhythmia Yes: A FIB Hypertension Yes Asthma Yes Bronchitis Yes Chronic Obstructive Pulmonary Yes Disease (COPD) Pneumonia Yes Gastroesophageal Reflux Yes Disease Gastrointestinal Bleeding Yes Hx Benign Prostatic Yes Hyperplasia Osteoarthritis Yes Other Musculoskeletal Yes: HARDWARE PLACED FOR C2-C7 10/08/16 Other Infectious Yes: SEPTIC ARTHRITIS IN [facility] Medical History (Last Updated 11/21/16 @ 18:00 by Radha Contreras MD) Atrial fibrillation (Acute Medical) BPH (benign prostatic hyperplasia) (Acute Medical) COPD (chronic obstructive pulmonary disease) (Acute Medical) GERD (gastroesophageal reflux disease) (Acute Medical) Hypertension (Acute Medical) Ocular migraine (Acute Medical) Family History: Family History Brother Heart disease Father COPD (chronic obstructive pulmonary disease) Mother Diabetes Exam Vital Signs: Temperature 100 F 11/21/16 15:51 Pulse Rate 104 H 11/21/16 15:51 Respiratory Rate 16 11/21/16 17:05 Blood Pressure 161/82 H 11/21/16 15:51 Pulse Oximetry 95 11/21/16 17:05 Oxygen Delivery Method Nasal Cannula Oxygen Flow Rate 2 Height: 1.83 m Weight: 67.5 kg Results - Labs CBC & Chem 7: 11/21/16 10:58 11/21/16 10:58 Assessment and Plan (1) Community acquired pneumonia Current visit: Yes Status: Acute (2) Sepsis Current visit: Yes Status: Acute (3) Respiratory failure with hypoxia Current visit: Yes Status: Acute (4) Septic arthritis of knee, right Problem details: Continue daptomycin daily at outpatient dose through 11/30 Current visit: No Status: Acute Assessment and Plan: I have independently evaluated and examined this patient. I reviewed the chart, the patient's history, and the [facility]'s documented findings as above. We discussed and formulated the assessment and plan as above with additions as below: Mr. Laura is an 86-year-old male with recent hospitalization for septic right knee infection being treated with outpatient daptomycin to permit daily infusions. For several days he developed increasing cough and dyspnea requiring increased use of breathing treatments and expansion of hours time he uses supplemental oxygen. Cough has been productive of large amounts of purulent sputum. He was noted to have fever at the infusion center today and referred to the emergency room where hypoxia with room air O2 sat 85%, leukocytosis, and infiltrate were identified on CTA prompting hospitalization. Respirations are nonlabored with good airflow, occasional wheezes in the mid right lung field, crackles in the mid left lung field posteriorly and faint crackles at both bases. Patient is alert and cooperative, speech is fluent, is fully oriented. Abdomen is benign, cardiac rhythm was regular at time of assessment. Labs as noted, CTA chest reviewed by myself-no evidence of pulmonary emboli but patchy infiltrate greater on the left evident. Infiltrate minimally apparent in left mid lung field on chest x-ray. EKG sinus rhythm without acute change. Thank you case could be made for considering this healthcare associated pneumonia given patient's daily visits to the hospital but in the absence of lactic acidosis and overall stability of the patient uncomfortable initiating antibiotics as reported above and reassessing. Gram-positive coverage will be provided by continuation of daptomycin. Sputum culture sent. In addition to above diagnoses please add anemia and hypokalemia. Note above should read respiratory failure with hypoxia and patient is on Eliquis for anticoagulation. Discussed with ER provider, nursing, chest x-ray/CT reviewed by myself, medications and laboratory data reviewed. Hospital Course Summary Disclaimer: The visit summary below is not to be considered part of the above Progress Note.
[2016-11-21] MEDS: POTASSIUM CHLORIDE INJ 20 MEQ in NS 1,000 ML IV SCH (15:44)
[2016-11-21] MEDS ORDERED: HYDROCODONE/APAP 5mg/325mg TABLET PO PRN (15:49)
[2016-11-21] MEDS ORDERED: DIAZEPAM 5 MG TABLET PO PRN (15:49)
[2016-11-21] MEDS ORDERED: FALL RISK - PHARMACY CONSULT MC PRN (16:11)
[2016-11-21 16:25] VITALS: BMI 20.2
[2016-11-21] MEDS: ALBUTEROL/IPRATROPIUM 2.5mg-0.5mg/3ml NEB AEROSOL SCH (17:15)
[2016-11-21] MEDS: TRAMADOL 50 MG TABLET PO PRN (18:49)
[2016-11-21] MEDS: ALBUTEROL/IPRATROPIUM 2.5mg-0.5mg/3ml NEB AEROSOL PRN (20:32)
[2016-11-21] MEDS: ATORVASTATIN 40 MG TABLET PO SCH (22:12)
[2016-11-21] MEDS: APIXABAN 5 MG TABLET PO SCH (22:12)
[2016-11-22] MEDS: ALBUTEROL/IPRATROPIUM 2.5mg-0.5mg/3ml NEB AEROSOL PRN ×2 (01:15→05:35)
[2016-11-22] MEDS: NS 1,000 ML IV SCH ×2 (04:07→04:08)
[2016-11-22] MEDS: TRAMADOL 50 MG TABLET PO PRN (05:17)
[2016-11-22] MEDS: POTASSIUM CHLORIDE INJ 20 MEQ in NS 1,000 ML IV SCH (05:31)
[2016-11-22] MEDS: LEVOTHYROXINE 25 MCG TABLET PO SCH (06:40)
[2016-11-22] MEDS: ALBUTEROL/IPRATROPIUM 2.5mg-0.5mg/3ml NEB AEROSOL SCH ×3 (07:16→15:06)
[2016-11-22] MEDS: OMEPRAZOLE 20 MG CAPSULE PO SCH (07:25)
[2016-11-22] MEDS: DULOXETINE 60 MG CAPSULE PO SCH (08:03)
[2016-11-22] MEDS: MELOXICAM 7.5 MG TABLET PO SCH (08:03)
[2016-11-22] MEDS: APIXABAN 5 MG TABLET PO SCH ×2 (08:04→20:58)
[2016-11-22] MEDS ORDERED: DAPTOMYCIN 500 MG IV SCH (09:00)
[2016-11-22] MEDS ORDERED: DIGOXIN 500 MCG/2 ML INJECTION IVP ONE (09:42)
[2016-11-22] MEDS: DAPTOmycin 400 MG in NS 8 ML IVP SCH (09:44)
--- NOTE | 2016-11-22 09:52 | XRay Report ---
INDICATION: Dyspnea PROCEDURE: CHEST 2-VIEWS UPRIGHT (PA & LAT) Encounter: Initial COMPARISON: November 02, 2016 FINDINGS: Slight opacity in the left lower lobe posteriorly appears new. Emphysema. Right PICC line remains in place. No pneumothorax or definite pleural effusion. Heart size and mediastinal contours are stable. Pulmonary vascular markings are slightly increased. Impression: Left lower lobe atelectasis or pneumonia. .
--- NOTE | 2016-11-22 10:41 | CT Scan Report ---
Indication: DYSPNEA, HYPOXIA, ELEVATED D-DIMER PROCEDURE: CT angio pulm emboli: Encounter: Initial Comparison: None Technique: Axial CT pulmonary angiographic phase images were performed through the chest after the administration of intravenous contrast. Coronal and Sagittal MIP reconstructed images were created and reviewed. Automated Exposure Control and Iterative Reconstruction dose reducing techniques were utilized. Contrast: Omnipaque 350 60 mL Findings: Pulmonary arteries: Exam is diagnostic to the subsegmental pulmonary arterial level. No filling defects identified to suggest a pulmonary embolus. Other findings: Paraseptal emphysema. Scattered groundglass nodular opacities in all lung hahn. There is bronchiectasis in both lower lobes which may be chronic. No pneumothorax. Central airways are patent. No axillary or mediastinal adenopathy. Heart size is within normal limits. Three vessel coronary artery disease. No pericardial effusion. Reflux of contrast into the hepatic veins may be due to right heart insufficiency. No acute abnormality seen in the upper abdomen. Impression: 1. No pulmonary embolus. 2. Infectious or inflammatory pulmonary opacities bilaterally. Recommend clinical and laboratory correlation. There is a preliminary report by [employer]. .
--- NOTE | 2016-11-22 12:17 | Cardiology Consult Note ---
History of Present Illness Consult date: 11/22/16 <Katy Amos 11/22/16 12:41> Requesting physician: Leilani Bustos <DandreKaty zamarripa 11/22/16 12:41> Consult reason: atrial fibrillation <DandreKaty zamarripa 11/22/16 12:41> Chief complaint: Atrial fibrillation <DandreKaty zamarripa Adonis 11/22/16 12:41> History of present illness: Jayy is a 86 year old male who is well known to with a history of CAD with stent to RCA in 2008, paroxysmal atrial fibrillation, carotid artery stenosis, non-rheumatic mitral valve insufficiency, HTN and HLD. He has been receiving outpatient infusions of Daptomycin since 11/03 for treatment of right knee infection. He was instructed to complete this course, through November 30 under the outpatient care of Dr. Elham Key. He presented to the outpatient infusion center yesterday and was found to have a fever of 100.2, accompanied with increased difficulty breathing. He was then directed to the emergency room for further evaluation and treatment. CT of the chest was performed to rule out emboli. The CT did reveal right upper lobe and bilateral lower lobe infiltrates and no thrombus was identified. The hospitalist services were contacted and accepted patient for inpatient admission. This morning he is noted to be in atrial fibrillationon EKG, rate 100-130s on telemetry and Dr. Ayala is being consulted. I examined him in his room on Medical with multiple family at the bedside. He is alert, oriented and pleasant. He is wearing a cervical collar due to recent cervical revision of C2- C7 fusion on 10/08/16 under the care of Dr Luna. He has a frequent cough and is tachypneic and dyspneic on O2 at 2L/NC. He denies chest pain or pressure, no pounding or racing heartbeats. <Katy Amos 11/22/16 12:41> Review of Systems - Constitutional Constitutional: Present: chills, fatigue, fever(s) <Katy Amos 11/22/16 12:41> - EENMT Eyes: Absent: change in vision <Katy Amos 11/22/16 12:41> Balance: Absent: vertigo <Katy Amos 11/22/16 12:41> Mouth/Throat: Absent: sore throat <Katy Amos 11/22/16 12:41> - Cardiovascular Cardiovascular: Present: dyspnea on exertion, orthopnea <Katy Amos 01/31 12:41> Vascular: Absent: pedal edema <Katy Amos 11/22/16 12:41> - Respiratory Respiratory: Present: cough, dyspnea, dyspnea on exertion, excessive phlegm production <Katy Amos 11/22/16 12:41> - Gastrointestinal Gastrointestinal: Present: nausea (last evening). Absent: diarrhea, vomiting <Katy Amos 11/22/16 12:41> - Genitourinary Genitourinary: Absent: dysuria <Katy Amos 11/22/16 12:41> - Musculoskeletal Musculoskeletal: Present: neck pain <DandreKaty Lamb 11/22/16 12:41> - Integumentary/Breasts Integumentary: Absent: photosensitivity <DandreKaty 11/22/16 12:41> - Neurological Neurological: Absent: dizziness <Katy Amos 11/22/16 12:41> PFS Patient Stated Medical History Migraine Yes: ocular Cataracts Yes Hearing Loss Yes: HEARING AIDS Cardiac Arrhythmia Yes: A FIB Hypertension Yes Asthma Yes Bronchitis Yes Chronic Obstructive Pulmonary Yes Disease (COPD) Pneumonia Yes Gastroesophageal Reflux Yes Disease Gastrointestinal Bleeding Yes Hx Benign Prostatic Yes Hyperplasia Osteoarthritis Yes Other Musculoskeletal Yes: HARDWARE PLACED FOR C2-C7 10/08/16 Other Infectious Yes: SEPTIC ARTHRITIS IN [facility] Medical History (Last Updated 11/25/16 @ 11:52 by Jasmyne Colón APRN) Atrial fibrillation (Acute Medical) BPH (benign prostatic hyperplasia) (Acute Medical) COPD (chronic obstructive pulmonary disease) (Acute Medical) GERD (gastroesophageal reflux disease) (Acute Medical) Hypertension (Acute Medical) Ocular migraine (Acute Medical) <Hola Ayala - 11/25/16 13:17> Patient Stated Medical History Migraine Yes: ocular Cataracts Yes Hearing Loss Yes: HEARING AIDS Cardiac Arrhythmia Yes: A FIB Hypertension Yes Asthma Yes Bronchitis Yes Chronic Obstructive Pulmonary Yes Disease (COPD) Pneumonia Yes Gastroesophageal Reflux Yes Disease Gastrointestinal Bleeding Yes Hx Benign Prostatic Yes Hyperplasia Osteoarthritis Yes Other Musculoskeletal Yes: HARDWARE PLACED FOR C2-C7 10/08/16 Other Infectious Yes: SEPTIC ARTHRITIS IN [facility] Medical History (Last Updated 11/21/16 @ 19:51 by Leilani Bustos MD) Atrial fibrillation (Acute Medical) BPH (benign prostatic hyperplasia) (Acute Medical) COPD (chronic obstructive pulmonary disease) (Acute Medical) GERD (gastroesophageal reflux disease) (Acute Medical) Hypertension (Acute Medical) Ocular migraine (Acute Medical) <Katy Amos - 11/22/16 12:41> Surgical History: Cardiac ablation. C2-C7 Neck fusion September 2016, Dr. Drake. Prior to this he had cervical fusion in 2013. Total Left hip replacement Feb. Rt knee surgery. ACL reconstruction Dr Garcia 1977. Appendectomy 1937. Tonsillectomy . Right ruptured Achilles tendon. Neck surgery 2016. Arthroscopic surgery on left knee. Heart catheterization with stenting to RCA 2008; cath in 2011 <Katy Amos - 11/22/16 12:41> Family History: Family History Brother Heart disease Father COPD (chronic obstructive pulmonary disease) Mother Diabetes <Hola Ayala - 11/25/16 13:17> Family History Brother Heart disease Father COPD (chronic obstructive pulmonary disease) Mother Diabetes <Katy Amos - 11/22/16 12:41> - Social History Smoking status: Former smoker <Katy Amos - 11/22/16 12:41> Substance use type: does not use <Katy Amos - 11/22/16 12:41> Alcohol intake frequency: does not drink <Katy Amos - 11/22/16 12:41> Current occupational status: retired <Katy Amos - 11/22/16 12:41> Current residence: Apartment/Private Home <Katy Amos - 11/22/16 12:41> Medications Home Medications Medication Instructions Recorded Confirmed Type Atorvastatin Calcium 40 mg PO HS #0 01/25/14 11/24/16 History Levothyroxine Sodium 25 mcg PO ACB #0 01/25/14 11/24/16 History Nitroglycerin [Nitrostat] 0.4 mg SL Q5MIN3 PRN #0 01/26/14 11/24/16 History Omeprazole 40 mg PO ACB #0 02/06/15 11/24/16 History Apixaban [Eliquis] 5 mg PO BID #0 10/02/16 11/24/16 History Levalbuterol HCl [Xopenex] 1 vial AEROSOL QID PRN #0 10/02/16 11/24/16 History Hydrocodone/APAP 5/325 [[place] 1 - 2 tab PO Q4-6HPRN PRN 10/28/16 11/24/16 History 5/325] Diazepam [Valium] 5 mg PO TID PRN 10/29/16 11/24/16 History duloxetine 60 mg capsule,delayed 60 mg PO DAILY 30 Days 11/16/16 11/24/16 History release Albuterol Inhaler [Ventolin Hfa] 1 puff INH BID PRN 11/21/16 11/24/16 History DAPTOmycin [Daptomycin] 400 mg IV DAILY 11/21/16 11/24/16 History Mometasone/Formoterol 200/5 1 puff INH BID 11/21/16 11/24/16 History [DULERA 200/5mcg INHALER] <Hola Ayala - 11/25/16 13:17> Allergies Allergy/AdvReac Type Severity Reaction Status Date / Time No Known Allergies Allergy Verified 11/21/16 10:33 <Hola Ayala - 11/25/16 13:17> Exam Vital signs: Temperature 95.8 F L 11/24/16 07:12 Pulse Rate 87 11/24/16 07:12 Respiratory Rate 18 11/24/16 15:10 Blood Pressure 152/73 H 11/24/16 07:12 Pulse Oximetry 95 11/24/16 15:10 Oxygen Delivery Method Room Air Oxygen Flow Rate 1 <Hola Ayala - 11/25/16 13:17> Temperature 99.6 F 11/22/16 07:41 Pulse Rate 119 H 11/22/16 11:00 Respiratory Rate 24 11/22/16 11:36 Blood Pressure 129/70 11/22/16 10:57 Pulse Oximetry 94 11/22/16 10:57 Oxygen Delivery Method Nasal Cannula Oxygen Flow Rate 2 <Katy Amos - 11/22/16 12:41> - Constitutional mild distress, thin, cooperative <Katy Amos 11/22/16 12:41> - Routine Neck Exam Present: carotid bruit (left). Absent: JVD <Katy Amos 11/22/16 12:41> - Routine Chest/Breast/Axilla Exam Chest wall: Absent: tenderness <Katy Amos 11/22/16 12:41> - Routine Respiratory Exam Present: rales (bilateral). Absent: CTA bilaterally <Katy Amos 12:41> - Routine Cardiovascular Exam Present: no murmur, tachycardia, irregular rhythm. Absent: JVD <Katy Amos 11/22/16 12:41> - Routine Abdominal Exam Present: soft, normoactive bowel sounds <Katy Amos 11/22/16 12:41> - Routine Extremities Exam Present: no edema <Katy Amos 11/22/16 12:41> - Routine Skin Exam Present: intact <Katy Amos 11/22/16 12:41> - Routine Neurological Exam Present: alert, oriented X3 <Katy Amos 11/22/16 12:41> - Routine Psychiatric Exam Present: normal affect, normal thought process <Katy Amos 11/22/16 12: 41> Results 11/24/16 04:38 11/24/16 04:38 <Hola Ayala - 11/25/16 13:17> CBC 11/22/16 Range/Units 05:13 WBC 14.2 H (4.5-11.0) T/MM3 RBC 3.19 L (4.50-5.90) M/MM3 Hgb 9.1 L (13.5-17.5) GM/DL Hct 28.8 L (41-53) % Plt Count 274 (130-400) T/MM3 Neut # Not performed Lymph # Not performed [place] # Not performed Eos # Not performed Baso # Not performed Comprehensive Metabolic Panel 11/22/16 Range/Units 05:13 Sodium 137 (134-144) MEQ/L Potassium 3.3 L (3.6-5) MEQ/L Chloride 102 (98-107) MEQ/L Carbon Dioxide 28 (22-30) MEQ/L BUN 13.0 (9-20) MG/DL Creatinine 0.9 (0.8-1.5) MG/DL Glucose 90 (75-110) MG/DL Calcium 8.1 L (8.4-10.2) MG/DL Intake and Output 11/21/16 11/22/16 11/22/16 22:59 06:59 14:59 Intake Total 670 / 670 1110 / 1110 240 / 240 Output Total 800 / 800 500 / 500 Balance -130 / -130 610 / 610 240 / 240 Intake: IV 1010 / 1010 KCl 20 Meq In Normal 1010 / 1010 Saline 1,000 ml @ 75 mls/ hr IV .[id number] [facility] Rx#: [id number] Oral 670 / 670 100 / 100 240 / 240 Output: Urine 800 / 800 500 / 500 Other: Weight 148 lb 12.992 oz 150 lb 2.157 oz Patient Weight 11/23/16 06:59 Weight 150 lb 2.157 oz Laboratory Results - last 48 hr 11/21/16 11/21/16 11/21/16 10:35 10:55 10:58 WBC 15.7 H RBC 3.49 L Hgb 10.2 L Hct 31.7 L MCV 90.8 MCH 29.2 MCHC 32.2 RDW Std Deviation 44.8 Plt Count 305 MPV 11.4 Immature Gran % (Auto) Not performed Neut % (Auto) Not performed Lymph % (Auto) Not performed [place] % (Auto) Not performed Eos % (Auto) Not performed Baso % (Auto) Not performed Neut # Not performed Lymph # Not performed [place] # Not performed Eos # Not performed Baso # Not performed Abs Immat Gran (auto) Not performed Neutrophils % (Manual) 80.0 H Band Neutrophils % 2.0 Lymphocytes % (Manual) 10.0 L Monocytes % (Manual) 8.0 Neutrophils # (Manual) 12.6 H Band Neutrophils # 0.3 Lymphocytes # (Manual) 1.6 Monocytes # (Manual) 1.3 H RBC Morph Comment Abnormal INR D-Dimer ABG pH 7.480 H ABG pCO2 42 ABG pO2 64 L ABG HCO3 31 H ABG Total CO2 32.6 H ABG O2 Saturation 94.0 L ABG Base Excess 7.1 H O2 Delivery Method Room air Turbidity Sodium Potassium Chloride Carbon Dioxide Anion Gap BUN Creatinine GFR Calculation BUN/Creatinine Ratio Glucose Calculated Osmolality Calcium Magnesium Icterus Index Troponin I B-Natriuretic Peptide Plasma Lactate Procalcitonin 0.08 Specimen Hemolysis Ur Collection Type Urine Color Urine Clarity Urine pH Ur Specific [place] Urine Protein Urine Glucose (UA) Urine Ketones Urine Occult Blood Urine Nitrate Urine Bilirubin Urine Urobilinogen Ur Leukocyte Esterase Urine RBC Urine WBC Ur Squamous Epith Cells Amorphous Sediment Urine Bacteria Ur Culture Indicated? 11/21/16 11/21/16 11/21/16 10:58 10:58 10:58 WBC RBC Hgb Hct MCV MCH MCHC RDW Std Deviation Plt Count MPV Immature Gran % (Auto) Neut % (Auto) Lymph % (Auto) [place] % (Auto) Eos % (Auto) Baso % (Auto) Neut # Lymph # [place] # Eos # Baso # Abs Immat Gran (auto) Neutrophils % (Manual) Band Neutrophils % Lymphocytes % (Manual) Monocytes % (Manual) Neutrophils # (Manual) Band Neutrophils # Lymphocytes # (Manual) Monocytes # (Manual) RBC Morph Comment INR 1.80 H D-Dimer 268 H ABG pH ABG pCO2 ABG pO2 ABG HCO3 ABG Total CO2 ABG O2 Saturation ABG Base Excess O2 Delivery Method Turbidity < 20 Sodium 139 Potassium 3.3 L Chloride 101 Carbon Dioxide 30 Anion Gap 8 BUN 16.0 Creatinine 0.9 GFR Calculation 80 BUN/Creatinine Ratio 18 Glucose 106 Calculated Osmolality 269 Calcium 8.5 Magnesium Icterus Index < 2 Troponin I 0.016 B-Natriuretic Peptide 1680 H Plasma Lactate 1.2 Procalcitonin Specimen Hemolysis < 15 Ur Collection Type Urine Color Urine Clarity Urine pH Ur Specific [place] Urine Protein Urine Glucose (UA) Urine Ketones Urine Occult Blood Urine Nitrate Urine Bilirubin Urine Urobilinogen Ur Leukocyte Esterase Urine RBC Urine WBC Ur Squamous Epith Cells Amorphous Sediment Urine Bacteria Ur Culture Indicated? 11/21/16 11/21/16 11/22/16 12:33 15:55 05:13 WBC 14.2 H RBC 3.19 L Hgb 9.1 L Hct 28.8 L MCV 90.3 MCH 28.5 MCHC 31.6 RDW Std Deviation 44.0 Plt Count 274 MPV 11.7 Immature Gran % (Auto) Not performed Neut % (Auto) Not performed Lymph % (Auto) Not performed [place] % (Auto) Not performed Eos % (Auto) Not performed Baso % (Auto) Not performed Neut # Not performed Lymph # Not performed [place] # Not performed Eos # Not performed Baso # Not performed Abs Immat Gran (auto) Not performed Neutrophils % (Manual) 86.0 H Band Neutrophils % 5.0 Lymphocytes % (Manual) 6.0 L Monocytes % (Manual) 3.0 Neutrophils # (Manual) 12.2 H Band Neutrophils # 0.7 Lymphocytes # (Manual) 0.9 L Monocytes # (Manual) 0.4 RBC Morph Comment Abnormal INR D-Dimer ABG pH ABG pCO2 ABG pO2 ABG HCO3 ABG Total CO2 ABG O2 Saturation ABG Base Excess O2 Delivery Method Turbidity Sodium Potassium Chloride Carbon Dioxide Anion Gap BUN Creatinine GFR Calculation BUN/Creatinine Ratio Glucose Calculated Osmolality Calcium Magnesium Icterus Index Troponin I B-Natriuretic Peptide Plasma Lactate 0.8 Procalcitonin Specimen Hemolysis Ur Collection Type Urine, clean catch Urine Color Yellow Urine Clarity Clear Urine pH 7.0 Ur Specific [place] 1.015 Urine Protein 1+ A Urine Glucose (UA) Negative Urine Ketones Negative Urine Occult Blood Trace-intact Urine Nitrate Negative Urine Bilirubin Negative Urine Urobilinogen 0.2 Ur Leukocyte Esterase Negative Urine RBC None seen Urine WBC 0-1 Ur Squamous Epith Cells 0-5 Amorphous Sediment Few Urine Bacteria None seen Ur Culture Indicated? Cult not indicated 11/22/16 11/22/16 05:13 05:13 WBC RBC Hgb Hct MCV MCH MCHC RDW Std Deviation Plt Count MPV Immature Gran % (Auto) Neut % (Auto) Lymph % (Auto) [place] % (Auto) Eos % (Auto) Baso % (Auto) Neut # Lymph # [place] # Eos # Baso # Abs Immat Gran (auto) Neutrophils % (Manual) Band Neutrophils % Lymphocytes % (Manual) Monocytes % (Manual) Neutrophils # (Manual) Band Neutrophils # Lymphocytes # (Manual) Monocytes # (Manual) RBC Morph Comment INR D-Dimer ABG pH ABG pCO2 ABG pO2 ABG HCO3 ABG Total CO2 ABG O2 Saturation ABG Base Excess O2 Delivery Method Turbidity < 20 Sodium 137 Potassium 3.3 L Chloride 102 Carbon Dioxide 28 Anion Gap 7 BUN 13.0 Creatinine 0.9 GFR Calculation 80 BUN/Creatinine Ratio 14 Glucose 90 Calculated Osmolality 264 Calcium 8.1 L Magnesium 0.9 L Icterus Index < 2 Troponin I B-Natriuretic Peptide Plasma Lactate Procalcitonin Specimen Hemolysis < 15 Ur Collection Type Urine Color Urine Clarity Urine pH Ur Specific [place] Urine Protein Urine Glucose (UA) Urine Ketones Urine Occult Blood Urine Nitrate Urine Bilirubin Urine Urobilinogen Ur Leukocyte Esterase Urine RBC Urine WBC Ur Squamous Epith Cells Amorphous Sediment Urine Bacteria Ur Culture Indicated? <Katy Amos - 11/22/16 12:41> - Imaging and Cardiology EKG results: image reviewed <Katy Amos - 11/22/16 12:41> Imaging & Cardiology Narrative: 11/22/16 12:37 Date of Exam: 11/21/16 Ordering Provider: Radha Contreras MD Type of Exam(s): XR chest 2V Reason for Exam(s): Dyspnea INDICATION: Dyspnea PROCEDURE: CHEST 2-VIEWS UPRIGHT (PA & LAT) Encounter: Initial COMPARISON: November 02, 2016 FINDINGS: Slight opacity in the left lower lobe posteriorly appears new. Emphysema. Right PICC line remains in place. No pneumothorax or definite pleural effusion. Heart size and mediastinal contours are stable. Pulmonary vascular markings are slightly increased. Impression: Left lower lobe atelectasis or pneumoni <Katy Amos - 11/22/16 12:41> - EKG Interpretation EKG shows: atrial fibrillation <DandreKaty Adonis - 11/22/16 12:41> EKG interpretations - Dysrhythmias Supraventricular dysrhythmia: atrial fibrillation <Katy Amos - 11/22/16 12:41> Assessment and Plan (1) CAD (coronary artery disease) Status: Chronic (2) Community acquired pneumonia Problem details: H influenza in sputum - likely causative agent. Status: Resolved (3) Sepsis Status: Resolved (4) Acute exacerbation of chronic obstructive airways disease Status: Acute (5) Essential (primary) hypertension Status: Chronic (6) Mixed hyperlipidemia Status: Chronic (7) Occlusion and stenosis of bilateral carotid arteries Status: Chronic (8) Nonrheumatic mitral valve insufficiency Status: Acute (9) Paroxysmal atrial fibrillation Status: Acute <Hola Ayala - 11/25/16 13:17> (1) Sepsis Status: Resolved per attending (2) Community acquired pneumonia Status: Acute per attending (3) Acute exacerbation of chronic obstructive airways disease Status: Acute per attending (4) CAD (coronary artery disease) Status: Chronic Recent stress test unremarkable. Continue current therapy with routine monitoring (5) Essential (primary) hypertension Status: Chronic Continue Home dose Metoprolol 50mg BID (6) Mixed hyperlipidemia Status: Chronic Takes Lipitor, PCP manages (7) Occlusion and stenosis of bilateral carotid arteries Status: Chronic Recent DCD stable. Continue current therapy with routine monitoring (8) Nonrheumatic mitral valve insufficiency Status: Acute No significant mitral stenosis on last echo. Continue current therapy with routine monitoring (9) Paroxysmal atrial fibrillation Status: Acute I examined the patient and discussed findings with Dr. Ayala, we agreed on the plan of care together. S/P ablation 15 months ago. Paroxysmal. Poor rate control. Increase Metoprolol to home dose of 50mg PO BID. Patient take Eliquis for stroke prevention. K+ 3.3-Replace potassium, Mag 0.9- replace magnesium, check TSH. Follow electrolytes <Katy Amos - 11/23/16 14:05> - Attestation Attestation Narrative: 11/25/16 13:17 Recommendation After examining the patient I agree with the above assessment. I am involved in the formulation of the patient's plan of care. <Hola Ayala - 11/25/16 13:17> Hospital Course Summary Disclaimer: The visit summary below is not to be considered part of the above Progress Note. <Hola Ayala - 11/25/16 13:17> The visit summary below is not to be considered part of the above Progress Note. <Katy Amos - 11/22/16 12:41> Hospital Course: 11/21/16- Admission Sepsis-manifestations include- 1. Community acquired pneumonia 2. Leukocytosis 3. Tachycardia-heart rate 107 4. Hypoxia-room air saturations 87% 5. Fever-100.7 Community-acquired pneumonia Status failure with hypoxia COPD Recent cervical spine hardware change Atrial fibrillation Hypertension Asthma Coronary artery disease Pneumonia Gastroesophageal Reflux Hypothyroidism BPH History of GI bleed Osteoarthritis Plan Based on meeting criteria for sepsis, we will admit patient as an inpatient under the care of Dr. Bustos for sepsis, kidney acquired pneumonia, hypoxia Repeat a venous lactate at 1530 based on sepsis protocol. Obtain a sputum culture, blood cultures pending. Rocephin was started on 1 gram of IV Rocephin in the emergency room. We'll continue this daily and add azithromycin for further pulmonary coverage. Will scheduled DuoNeb breathing treatments 4 times a day as well as when necessary in addition to Pulmicort twice a day. Patient does chronically utilize nebulizers at home. Acapella 4 times a day Mucinex twice a day to help with mucus expectorant Normal saline with 20 KCl at 75ml an hour for gentle hydration Patient is on eloquence for chronic anticoagulation. Remaining home medications are reviewed. Will need to speak with attending regarding continued outpatient daptomycin as patient does continue to need treatment through November 30. Will recheck CBC and BMP tomorrow morning to follow blood counts, renal function and electrolytes Again, patient does request to be a full code and this order is written. Discuss further orders with attending, Dr. Bustos. At time of discharge medical care will return to primary care provider, Dr. Orosco <Katy Amos - 11/22/16 12:41> Sepsis Assessment - Evaluation Sepsis screening result: No Definite Risk <Katy Amos - 11/22/16 12:41>
[2016-11-22] MEDS ORDERED: INHALER ASSIST DEVICE (Optichamber) MC ONE (12:59)
[2016-11-22] MEDS: MAGNESIUM SULFATE 1gm PREMIX 1 GM/100 ML BAG IV SCH ×2 (13:59→15:24)
--- NOTE | 2016-11-22 16:32 | Progress Note ---
<Alexandria Barbour - Last Filed: 11/22/16 16:29> Subjective: Jayy is seen today in follow up. He is up in the chair. Main c/o is pain in the right first thumb joint and also in the right knee. He has been getting outpt. dapto for septic joint. He does not report increasing SOA. He did demonstrate a mild increase in HR with increasing variability in rhythm. He does have a known hx of Atrial Fib. He reports that he was not symptomatic with this HR increase. No other acute c/o noted. Objective Vital signs: Temperature 98.9 F 11/22/16 15:46 Pulse Rate 103 H 11/22/16 16:13 Respiratory Rate 18 11/22/16 15:46 Blood Pressure 134/76 11/22/16 15:46 Pulse Oximetry 94 11/22/16 15:46 Oxygen Delivery Method Nasal Cannula Oxygen Flow Rate 3 Rhythm: Atrial Fibrillation with RVR Weight: 68.1 kg - Constitutional Present: no acute distress, thin, cooperative - Routine HEENT Exam Head: Present: normocephalic Eye: Present: EOMI, PERRL ENT: Present: mucous membranes moist Comments: C-collar in place due to recent spinal surgery - Routine Respiratory Exam Present: CTA bilaterally. Absent: rales, rhonchi, wheezes, crackles - Routine Cardiovascular Exam Present: RRR, S1, S2, no murmur, irregular rhythm - Routine Abdominal Exam Present: soft, normoactive bowel sounds, non distended, non tender - Routine Extremities Exam Present: no edema, pulses intact Comments: Right knee is swollen and tender. Right thumb first joint is swollen, mildly reddened, tender. - Routine Back/Spine/Pelvis Exam Comments: C-collar in place - Routine Musculoskeletal Exam Musculoskeletal: Present: joint erythera, joint swelling, limited range of motion. Absent: no joint swelling - Routine Skin Exam Present: dry, warm - Routine Neurological Exam Present: alert, oriented X3 - Routine Psychiatric Exam Present: normal affect, cooperative, good insight, good judgment Results - Labs CBC & Chem 7: 11/22/16 05:13 11/22/16 05:13 - ECG Data Tracing #2 Arrhythmias present: afib, paroxysmal afib Assessment and Plan (1) Septic arthritis of knee, right Problem details: Continue daptomycin daily at outpatient dose through 11/30 Current visit: No Status: Acute (2) Community acquired pneumonia Current visit: Yes Status: Acute (3) Sepsis Current visit: Yes Status: Acute (4) Respiratory failure with hypoxia Current visit: Yes Status: Acute (5) Essential (primary) hypertension Current visit: Yes Status: Chronic (6) Atrial fibrillation Current visit: No Status: Chronic (7) CAD (coronary artery disease) Current visit: No Status: Chronic (8) COPD (chronic obstructive pulmonary disease) Current visit: No Status: Chronic (9) HTN (hypertension) Current visit: No Status: Chronic (10) SHANA (obstructive sleep apnea) Current visit: No Status: Chronic (11) Swelling of right thumb Current visit: Yes Status: Acute DVT Prophylaxis: Eliquis GI Prophylaxis: other (PPI) Resuscitation Status: Full Code Assessment and Plan: 11/22/16- *Acute respiratory failure- Continue daptomycin and nebs. Will change to home Xopenex due to increase in HR and arrhythmia O2 as needed. Continue to monitor progress *Leukocytosis/Known septic joint- Continue Daptomycin. Follows with Dr. Elham Key as O/P. If leukocytosis persists, may want to consider c-spine CT, but he is not c/o of any increase in neck pain or new cervical-spine related sx. *Right thumb arthropathy- check uric acid. D/W Dr. Bustos- start prednisone. Continue pain medications *AFib vs. Atrial tachyarrhythmia- Metoprolol increased back to home dose. Mag was quite low, replacing. Replace low potassium as well. Continue telemetry. Appreciate cardiology input. (Follows with Dr. Ayala). Continue Eliquis. *HTN- BP is controlled at this time. Continue monitoring. *Hydration- May be able to DC IVF tomorrow, continue to monitor. *Pain- Cymbalta, Mobic, PRN meds. - Time spent with patient 25 - 35 minutes Sepsis Assessment - Evaluation Sepsis screening result: No Definite Risk Hospital Course Summary Disclaimer: The visit summary below is not to be considered part of the above Progress Note. Hospital Course: 11/21/16- Admission Sepsis-manifestations include- 1. Community acquired pneumonia 2. Leukocytosis 3. Tachycardia-heart rate 107 4. Hypoxia-room air saturations 87% 5. Fever-100.7 Community-acquired pneumonia Status failure with hypoxia COPD Recent cervical spine hardware change Atrial fibrillation Hypertension Asthma Coronary artery disease Pneumonia Gastroesophageal Reflux Hypothyroidism BPH History of GI bleed Osteoarthritis Plan Based on meeting criteria for sepsis, we will admit patient as an inpatient under the care of Dr. Bustos for sepsis, kidney acquired pneumonia, hypoxia Repeat a venous lactate at 1530 based on sepsis protocol. Obtain a sputum culture, blood cultures pending. Rocephin was started on 1 gram of IV Rocephin in the emergency room. We'll continue this daily and add azithromycin for further pulmonary coverage. Will scheduled DuoNeb breathing treatments 4 times a day as well as when necessary in addition to Pulmicort twice a day. Patient does chronically utilize nebulizers at home. Acapella 4 times a day Mucinex twice a day to help with mucus expectorant Normal saline with 20 KCl at 75ml an hour for gentle hydration Patient is on eloquence for chronic anticoagulation. Remaining home medications are reviewed. Will need to speak with attending regarding continued outpatient daptomycin as patient does continue to need treatment through November 30. Will recheck CBC and BMP tomorrow morning to follow blood counts, renal function and electrolytes Again, patient does request to be a full code and this order is written. Discuss further orders with attending, Dr. Bustos. At time of discharge medical care will return to primary care provider, Dr. Orosco 11/22/16 16:43 *Acute respiratory failure- Continue daptomycin and nebs. Will change to home Xopenex due to increase in HR and arrhythmia O2 as needed. Continue to monitor progress *Leukocytosis/Known septic joint- Continue Daptomycin. Follows with Dr. Elham Key as O/P. If leukocytosis persists, may want to consider c-spine CT, but he is not c/o of any increase in neck pain or new cervical-spine related sx. *Right thumb arthropathy- check uric acid. D/W Dr. Bustos- start prednisone. Continue pain medications *AFib vs. Atrial tachyarrhythmia- Metoprolol increased back to home dose. Mag was quite low, replacing. Replace low potassium as well. Continue telemetry. Appreciate cardiology input. (Follows with Dr. Ayala). Continue Eliquis. *HTN- BP is controlled at this time. Continue monitoring. *Hydration- May be able to DC IVF tomorrow, continue to monitor. *Pain- Cymbalta, Mobic, PRN meds. <Leilani Bustos - Last Filed: 11/22/16 20:50> Objective Vital signs: Temperature 98.9 F 11/22/16 15:46 Pulse Rate 103 H 11/22/16 16:13 Respiratory Rate 18 11/22/16 19:20 Blood Pressure 134/76 11/22/16 15:46 Pulse Oximetry 95 11/22/16 19:20 Oxygen Delivery Method Nasal Cannula Oxygen Flow Rate 3 Results - Labs CBC & Chem 7: 11/22/16 05:13 11/22/16 05:13 Assessment and Plan (1) Community acquired pneumonia Current visit: Yes Status: Acute (2) Respiratory failure with hypoxia Current visit: Yes Status: Acute (3) Septic arthritis of knee, right Problem details: Continue daptomycin daily at outpatient dose through 11/30 Current visit: No Status: Acute (4) CAD (coronary artery disease) Current visit: No Status: Chronic (5) Atrial fibrillation Current visit: No Status: Chronic (6) HTN (hypertension) Current visit: No Status: Chronic (7) COPD (chronic obstructive pulmonary disease) Current visit: No Status: Chronic (8) SHANA (obstructive sleep apnea) Current visit: No Status: Chronic (9) Sepsis Current visit: Yes Status: Acute (10) Essential (primary) hypertension Current visit: Yes Status: Chronic (11) Swelling of right thumb Current visit: Yes Status: Acute Assessment and Plan: I have independently evaluated and examined this patient. I reviewed the chart, the patient's history, and the RN DIGESTIVE's documented findings as above. We discussed and formulated the assessment and plan as above with additions as below: Mr. Laura was resting comfortably when seen but reported significant pain in his right thumb and increased pain in his right knee. Dyspnea is somewhat improved and cough remains productive of purulent sputum. Patient has been reported to have episodes of SVT overnight and EKG this morning suggested atrial fibrillation-although by my review there are clear P waves in lead 2 with frequent PVCs and this appears to be sinus tachycardia with PACs. NAD, alert Respirations are nonlabored with diminished airflow, breath sounds are clear other than minor crackles at the bases. The right first MCP is moderately swollen and slightly erythematous/warm; right knee has mild edema but no warmth. 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 If knee symptoms worsen will ask Dr. Cm to reevaluate. SVT, sinus tach-albuterol converted to Xopenex, metoprolol dose increased-wrong dose on home medication list, dose inappropriately low overnight. EKG reviewed by myself-result as above. Laboratory data reviewed, discussed with bacteriology, discussed with cardiology, chest x-ray ordered for tomorrow. Hospital Course Summary Disclaimer: The visit summary below is not to be considered part of the above Progress Note.
[2016-11-22] MEDS: PredniSONE 20 MG TABLET PO SCH (17:12)
[2016-11-22] MEDS: NS with KCL 20 mEq 1,000 ML IV SCH (18:23)
[2016-11-22] MEDS: ATORVASTATIN 40 MG TABLET PO SCH (21:00)
[2016-11-23] MEDS: OMEPRAZOLE 20 MG CAPSULE PO SCH (05:52)
[2016-11-23] MEDS: LEVOTHYROXINE 25 MCG TABLET PO SCH (05:53)
--- NOTE | 2016-11-23 07:54 | XRay Report ---
LOCATION OF DICTATION: [facility] EXAM: XR chest 2V HISTORY: Hypoxia, SOA COMPARISON: No prior studies available for comparison. FINDINGS: The heart size is normal. The mediastinal configuration is unremarkable. The lungs are hyperexpanded There are no consolidating opacities or pleural effusions. There is no evidence for a pneumothorax. Anterior cervical disc fusion is demonstrated. Mild spondylosis of the thoracic spine. IMPRESSION: Hyperexpanded lungs. No evidence for developing pneumonia. The heart size is within normal limits. .
[2016-11-23] MEDS: NS with KCL 20 mEq 1,000 ML IV SCH (08:15)
[2016-11-23] MEDS: MELOXICAM 7.5 MG TABLET PO SCH (08:16)
[2016-11-23] MEDS: APIXABAN 5 MG TABLET PO SCH ×2 (08:17→21:33)
[2016-11-23] MEDS: PredniSONE 20 MG TABLET PO SCH (08:17)
[2016-11-23] MEDS: DULOXETINE 60 MG CAPSULE PO SCH (08:17)
[2016-11-23] MEDS: DAPTOmycin 400 MG in NS 8 ML IVP SCH (08:35)
--- NOTE | 2016-11-23 10:47 | Progress Note ---
Subjective: F/U: Sepsis, Pneumonia, Respiratory failure. Breathing improving-less congestion and SOA. No pain with breathing. Right thumb still very painful to touch-hurts with movements. Right knee pain and swelling about the same from yesterday. Denies mouth pain or difficulty swallowing. No nausea or ab pain-appetite with decrease. No chest pressure or palpitations. NO f/c. Objective Vital signs: Temperature 96.6 F L 11/23/16 07:21 Pulse Rate 91 11/23/16 07:21 Respiratory Rate 20 11/23/16 09:32 Blood Pressure 136/78 11/23/16 07:21 Pulse Oximetry 95 11/23/16 07:21 Oxygen Delivery Method Nasal Cannula Oxygen Flow Rate 3 Weight: 70 kg - Constitutional Present: well nourished, well developed, cooperative. Absent: agitated - Routine HEENT Exam Head: Present: normocephalic, atraumatic Eye: Present: EOMI, PERRL ENT: Present: mucous membranes moist (No thrush ) - Routine Respiratory Exam Present: decreased breath sounds, prolonged expiratory phase, diminished air movement. Absent: accessory muscle use, respiratory distress, wheezes, crackles - Routine Cardiovascular Exam Present: RRR - Routine Abdominal Exam Present: soft, normoactive bowel sounds, non distended, non tender - Routine Extremities Exam Present: no edema, pulses intact, tenderness (Right thumb ), joint swelling ( Right knee ). Absent: cyanosis, clubbing - Routine Musculoskeletal Exam Musculoskeletal: Present: no clubbing or cyanosis - Routine Skin Exam Present: intact, warm. Absent: mottling - Routine Neurological Exam Present: alert, oriented X3, CN II-XII intact, vision grossly intact, hearing grossly intact. Absent: motor deficit - Routine Psychiatric Exam Present: normal affect, normal thought process, cooperative, good insight, good judgment. Absent: anxious, agitated Results - Labs CBC & Chem 7: 11/23/16 04:12 11/23/16 04:12 Assessment and Plan (1) Respiratory failure with hypoxia Current visit: Yes Status: Acute (2) Sepsis Current visit: Yes Status: Resolved (3) Community acquired pneumonia Current visit: Yes Status: Acute (4) Swelling of right thumb Current visit: Yes Status: Acute (5) Septic arthritis of knee, right Problem details: Continue daptomycin daily at outpatient dose through 11/30 Current visit: No Status: Acute (6) CAD (coronary artery disease) Current visit: No Status: Chronic (7) HTN (hypertension) Current visit: No Status: Chronic (8) Atrial fibrillation Current visit: No Status: Chronic (9) COPD (chronic obstructive pulmonary disease) Current visit: No Status: Chronic (10) SHANA (obstructive sleep apnea) Current visit: No Status: Chronic (11) Essential (primary) hypertension Current visit: Yes Status: Chronic (12) Hypokalemia Current visit: Yes Status: Resolved 11/23/16 10:50 POA DVT Prophylaxis: Eliquis Resuscitation Status: Full Code Assessment and Plan: Sputum Gram stain-H influenza CXR: Hyperexpantion - no infiltrate Sepsis syndrome resolved. Respiratory status improving. Will continue Daptomycin for coverage of knee. Continue Prednison to help decrease knee/thumb inflammation. Mucinex, neb treatments and acapella to help loosen secretions. Consult with Dr Cm for reevaluation of knee and to check thumb. HR and BP controlled well with current medications. PT/OT consult to assess functional status. Monitor lab. - Time spent with patient 25 - 35 minutes Sepsis Assessment - Evaluation Sepsis screening result: Sepsis Risk Hospital Course Summary Disclaimer: The visit summary below is not to be considered part of the above Progress Note. Hospital Course: 11/21/16- Admission Sepsis-manifestations include- 1. Community acquired pneumonia 2. Leukocytosis 3. Tachycardia-heart rate 107 4. Hypoxia-room air saturations 87% 5. Fever-100.7 Community-acquired pneumonia Status failure with hypoxia COPD Recent cervical spine hardware change Atrial fibrillation Hypertension Asthma Coronary artery disease Pneumonia Gastroesophageal Reflux Hypothyroidism BPH History of GI bleed Osteoarthritis Plan Based on meeting criteria for sepsis, we will admit patient as an inpatient under the care of Dr. Bustos for sepsis, kidney acquired pneumonia, hypoxia Repeat a venous lactate at 1530 based on sepsis protocol. Obtain a sputum culture, blood cultures pending. Rocephin was started on 1 gram of IV Rocephin in the emergency room. We'll continue this daily and add azithromycin for further pulmonary coverage. Will scheduled DuoNeb breathing treatments 4 times a day as well as when necessary in addition to Pulmicort twice a day. Patient does chronically utilize nebulizers at home. Acapella 4 times a day Mucinex twice a day to help with mucus expectorant Normal saline with 20 KCl at 75ml an hour for gentle hydration Patient is on eloquence for chronic anticoagulation. Remaining home medications are reviewed. Will need to speak with attending regarding continued outpatient daptomycin as patient does continue to need treatment through November 30. Will recheck CBC and BMP tomorrow morning to follow blood counts, renal function and electrolytes Again, patient does request to be a full code and this order is written. Discuss further orders with attending, Dr. Bustos. At time of discharge medical care will return to primary care provider, Dr. Orosco 11/22/16 16:43 *Acute respiratory failure- Continue daptomycin and nebs. Will change to home Xopenex due to increase in HR and arrhythmia O2 as needed. Continue to monitor progress *Leukocytosis/Known septic joint- Continue Daptomycin. Follows with Dr. Elham Key as O/P. If leukocytosis persists, may want to consider c-spine CT, but he is not c/o of any increase in neck pain or new cervical-spine related sx. *Right thumb arthropathy- check uric acid. D/W Dr. Bustos- start prednisone. Continue pain medications *AFib vs. Atrial tachyarrhythmia- Metoprolol increased back to home dose. Mag was quite low, replacing. Replace low potassium as well. Continue telemetry. Appreciate cardiology input. (Follows with Dr. Ayala). Continue Eliquis. *HTN- BP is controlled at this time. Continue monitoring. *Hydration- May be able to DC IVF tomorrow, continue to monitor. *Pain- Cymbalta, Mobic, PRN meds. 11/23/16 10:58 Sputum Gram stain-H influenza CXR: Hyperexpantion - no infiltrate Sepsis syndrome resolved. Respiratory status improving. Will continue Daptomycin for coverage of knee. Continue Prednison to help decrease knee/thumb inflammation. Mucinex, neb treatments and acapella to help loosen secretions. Consult with Dr Cm for reevaluation of knee and to check thumb. HR and BP controlled well with current medications. PT/OT consult to assess functional status. Monitor lab.
[2016-11-23] MEDS: MAGNESIUM SULFATE 1gm PREMIX 1 GM/100 ML BAG IV SCH ×2 (12:23→13:34)
--- NOTE | 2016-11-23 14:10 | Cardiology Progress Note ---
Subjective Principal diagnosis: atrial fibrillation <Katy Amos - 11/23/16 14:13> Interval history: Jayy is seen in his room on [facility]. He states he is feeling well today other than his right thumb which is quite painful with use. He denies chest pain or pressure, no palpitations noticed. <Katy Amos - 11/23/16 14:13> Exam Vital signs: Temperature 95.8 F L 11/24/16 07:12 Pulse Rate 87 11/24/16 07:12 Respiratory Rate 18 11/24/16 15:10 Blood Pressure 152/73 H 11/24/16 07:12 Pulse Oximetry 95 11/24/16 15:10 Oxygen Delivery Method Room Air Oxygen Flow Rate 1 <Hola Ayala - 11/25/16 13:21> Temperature 96.6 F L 11/23/16 07:21 Pulse Rate 91 11/23/16 07:21 Respiratory Rate 16 11/23/16 10:56 Blood Pressure 136/78 11/23/16 07:21 Pulse Oximetry 95 11/23/16 10:56 Oxygen Delivery Method Nasal Cannula Oxygen Flow Rate 3 <Katy Amos 11/23/16 14:13> - Constitutional no acute distress, well nourished, cooperative <Katy mAos 11/23/16 14: 13> - Routine HEENT Exam ENT: Present: mucous membranes moist <Katy Amos 11/23/16 14:13> - Routine Neck Exam Present: carotid bruit (left). Absent: JVD <DandreKaty Lamb 11/23/16 14:13> - Routine Chest/Breast/Axilla Exam Chest wall: Absent: tenderness <Katy Amos 11/23/16 14:13> - Routine Respiratory Exam Present: dyspnea, rales (bilateral). Absent: CTA bilaterally <Katy Amos 11/23/16 14:13> - Routine Cardiovascular Exam Present: RRR, no murmur. Absent: JVD <DandreKaty Lamb 11/23/16 14:13> - Routine Abdominal Exam Present: soft, normoactive bowel sounds <DandreKaty zamarripa Adonis 11/23/16 14:13> - Routine Skin Exam Present: intact <Katy Amos - 11/23/16 14:13> - Routine Neurological Exam Present: alert, oriented X3 <Katy Amos - 11/23/16 14:13> - Routine Psychiatric Exam Present: normal affect, normal thought process <Katy Amos - 11/23/16 14: 13> Hospital Course This is a general summary of the patient's hospital course. For more details refer to the complete medical record. <Hola Ayala - 11/25/16 13:21> This is a general summary of the patient's hospital course. For more details refer to the complete medical record. <Katy Amos - 11/23/16 14:13> Hospital course: 11/21/16- Admission Sepsis-manifestations include- 1. Community acquired pneumonia 2. Leukocytosis 3. Tachycardia-heart rate 107 4. Hypoxia-room air saturations 87% 5. Fever-100.7 Community-acquired pneumonia Status failure with hypoxia COPD Recent cervical spine hardware change Atrial fibrillation Hypertension Asthma Coronary artery disease Pneumonia Gastroesophageal Reflux Hypothyroidism BPH History of GI bleed Osteoarthritis Plan Based on meeting criteria for sepsis, we will admit patient as an inpatient under the care of Dr. Bustos for sepsis, kidney acquired pneumonia, hypoxia Repeat a venous lactate at 1530 based on sepsis protocol. Obtain a sputum culture, blood cultures pending. Rocephin was started on 1 gram of IV Rocephin in the emergency room. We'll continue this daily and add azithromycin for further pulmonary coverage. Will scheduled DuoNeb breathing treatments 4 times a day as well as when necessary in addition to Pulmicort twice a day. Patient does chronically utilize nebulizers at home. Acapella 4 times a day Mucinex twice a day to help with mucus expectorant Normal saline with 20 KCl at 75ml an hour for gentle hydration Patient is on eloquence for chronic anticoagulation. Remaining home medications are reviewed. Will need to speak with attending regarding continued outpatient daptomycin as patient does continue to need treatment through November 30. Will recheck CBC and BMP tomorrow morning to follow blood counts, renal function and electrolytes Again, patient does request to be a full code and this order is written. Discuss further orders with attending, Dr. Bustos. At time of discharge medical care will return to primary care provider, Dr. Orosco 11/22/16 Cardiology Atrial Fibrillation? S/P ablation 15 months ago. Paroxysmal. Poor rate control. Increase Metoprolol to home dose of 50mg PO BID. Patient take Eliquis for stroke prevention. K+ 3.3-Replace potassium, Mag 0.9- replace magnesium, check TSH. Follow electrolytes CAD -Recent stress test unremarkable. Continue current therapy with routine monitoring HTN -Continue Home dose Metoprolol 50mg BID HLD -Takes Lipitor, PCP manages Carotid stenosis -Recent DCD stable. Continue current therapy with routine monitoring Mitral insuff.-No significant mitral stenosis on last echo. Continue current therapy with routine monitoring I examined the patient and discussed findings with Dr. Ayala, we agreed on the plan of care together. 11/23/16 Cardiology HR regular and improved [id number]. Mag 1.6 today replaced with 2 gms IV. Continue to monitor telemetry. <Katy Amos - 11/24/16 12:17> Time spent with patient: less than 15 minutes <Katy Amos - 11/23/16 14:13 > Progress Note-A&P (1) CAD (coronary artery disease) Status: Chronic (2) Community acquired pneumonia Problem details: H influenza in sputum - likely causative agent. Status: Resolved (3) Sepsis Status: Resolved (4) Acute exacerbation of chronic obstructive airways disease Status: Acute (5) Essential (primary) hypertension Status: Chronic (6) Mixed hyperlipidemia Status: Chronic (7) Occlusion and stenosis of bilateral carotid arteries Status: Chronic (8) Nonrheumatic mitral valve insufficiency Status: Acute (9) Paroxysmal atrial fibrillation Status: Acute <Hola Ayala - 11/25/16 13:21> (1) Sepsis Status: Resolved (2) Community acquired pneumonia Status: Acute (3) Acute exacerbation of chronic obstructive airways disease Status: Acute (4) CAD (coronary artery disease) Status: Chronic (5) Essential (primary) hypertension Status: Chronic (6) Mixed hyperlipidemia Status: Chronic (7) Occlusion and stenosis of bilateral carotid arteries Status: Chronic (8) Nonrheumatic mitral valve insufficiency Status: Acute (9) Paroxysmal atrial fibrillation Status: Acute <Katy Amos - 11/24/16 12:17> - Time Spent With Patient Total time spent is greater than 50% in coordination of care (as documented) at patient's floor/unit and/or counseling patient: <Hola Ayala - 11/25/16 13:21> Total time spent is greater than 50% in coordination of care (as documented) at patient's floor/unit and/or counseling patient: <Katy Amos - 11/23/16 14:13> less than 15 minutes <Katy Amos - 11/24/16 12:17> - Attestation Attestation Narrative: Recommendation After examining the patient I agree with the above assessment. I am involved in the formulation of the patient's plan of care. <Hola Ayala - 11/25/16 13:21> Sepsis Assessment - Evaluation Sepsis screening result: No Definite Risk <Katy Amos - 11/23/16 14:13>
--- NOTE | 2016-11-23 16:57 | Operative Note ---
- Procedure Date of Admission: 11/23/16 Side: right Preoperative Diagnosis: knee primary DJD Postoperative Diagnosis: Same as preoperative diagnosis. Operation: Procedures Drainage of Right Knee Joint, Percutaneous Approach (10/29/16) Replacement of Left Hip Joint with Ceramic on Polyethylene Synthetic Substitute , Uncemented, Open Approach (03/14/15) Operation: other (aspiration right knee) Surgeon: Masoud Cm MD Complications: None. Estimated Blood Loss: None Fluids: None Description of Procedure: Mr. Sanchez right knee was identified. Skin was prepped with ChloraPrep. An 18 -gauge needle was then used to remove 100 cc of cloudy yellow fluid from the right knee joint through a superior lateral approach. The needle was then removed the site was cleaned with alcohol and a Band-Aid was placed. He tolerated this well.
--- NOTE | 2016-11-23 16:58 | Operative Note ---
- Procedure Date of Admission: 11/23/16 Side: right Preoperative Diagnosis: other (right thumb CMC osteoarthritis) Postoperative Diagnosis: Same as preoperative diagnosis. Operation: Procedures Drainage of Right Knee Joint, Percutaneous Approach (10/29/16) Replacement of Left Hip Joint with Ceramic on Polyethylene Synthetic Substitute , Uncemented, Open Approach (03/14/15) Operation: other (injection of right CMC joint with Kenalog) Surgeon: Masoud Cm MD Diagnostics Tech: None Complications: None. Estimated Blood Loss: None Fluids: None Description of Procedure: Mr. Laura's right thumb was prepped with ChloraPrep. I then used a 25-gauge needle to inject 40 mg Kenalog and 1 mL core percent Marcaine into the first CMC joint from a dorsal approach. The needle was removed and the site was cleaned with alcohol and a Band-Aid was placed. He tolerated this well.
--- NOTE | 2016-11-23 17:02 | Orthopedic Consult Note ---
Orthopedic Consultation HPI - Consultation Info Consult Date: 11/23/16 Attending Physician: Leilani Bustos MD Consult Reason: joint pain - HPI Elements right other Injury: No Pain: throbbing Onset: gradual Severity: moderate, severe Duration: several days Treatments Tried: rest - History of Present Illness Mr. Laura is a kind 86-year-old woman well-known to me. He is currently being treated with IV daptomycin for right knee intra-articular infection. On his previous workup culture results were negative but a synovial sure test was positive and so he was treated with IV antibiotics. He is currently doing well with the knee and is admitted as an inpatient for pneumonia. Over the last couple days is been complaining of increase seen pain his right thumb. He has had pain in his thumb before there is been no other specific treatment. Review of Systems - Constitutional Constitutional: Absent: chills, fever(s), night sweats PFSH Patient Stated Medical History Migraine Yes: ocular Cataracts Yes Hearing Loss Yes: HEARING AIDS Cardiac Arrhythmia Yes: A FIB Hypertension Yes Asthma Yes Bronchitis Yes Chronic Obstructive Pulmonary Yes Disease (COPD) Pneumonia Yes Gastroesophageal Reflux Yes Disease Gastrointestinal Bleeding Yes Hx Benign Prostatic Yes Hyperplasia Osteoarthritis Yes Other Musculoskeletal Yes: HARDWARE PLACED FOR C2-C7 10/08/16 Other Infectious Yes: SEPTIC ARTHRITIS IN [facility] Medical History (Last Updated 11/23/16 @ 12:40 by Katy Amos APRN) Atrial fibrillation (Acute Medical) BPH (benign prostatic hyperplasia) (Acute Medical) COPD (chronic obstructive pulmonary disease) (Acute Medical) GERD (gastroesophageal reflux disease) (Acute Medical) Hypertension (Acute Medical) Ocular migraine (Acute Medical) Surgical History: Cardiac ablation. C2-C7 Neck fusion September 2016, Dr. Drake. Prior to this he had cervical fusion in 2013. Total Left hip replacement Feb. Rt knee surgery. ACL reconstruction Dr Garcia 1977. Appendectomy 1937. Tonsillectomy . Right ruptured Achilles tendon. Neck surgery 2016. Arthroscopic surgery on left knee. Heart catheterization with stenting to RCA 2008; cath in 2011 Family History: Family History Brother Heart disease Father COPD (chronic obstructive pulmonary disease) Mother Diabetes - Social History Current residence: Apartment/Private Home Medications Home Medications Medication Instructions Recorded Confirmed Type Atorvastatin Calcium 40 mg PO HS #0 01/25/14 11/21/16 History Levothyroxine Sodium 25 mcg PO ACB #0 01/25/14 11/21/16 History Nitroglycerin [Nitrostat] 0.4 mg SL Q5MIN3 PRN #0 01/26/14 11/21/16 History Omeprazole 40 mg PO ACB #0 02/06/15 11/21/16 History Apixaban [Eliquis] 5 mg PO BID #0 10/02/16 11/21/16 History Levalbuterol HCl [Xopenex] 1 vial AEROSOL QID PRN #0 10/02/16 11/21/16 History Hydrocodone/APAP 5/325 [[place] 1 - 2 tab PO Q4-6HPRN PRN 10/28/16 11/21/16 History 5/325] Diazepam [Valium] 5 mg PO TID PRN 10/29/16 11/21/16 History duloxetine 60 mg capsule,delayed 60 mg PO DAILY 30 Days 11/16/16 11/21/16 History release Albuterol Inhaler [Ventolin Hfa] 1 puff INH BID PRN 11/21/16 11/21/16 History DAPTOmycin [Daptomycin] 400 mg IV DAILY 11/21/16 11/21/16 History Metoprolol Tartrate [Lopressor] 25 mg PO BIDWM 11/21/16 11/21/16 History Mometasone/Formoterol 200/5 1 puff INH BID 11/21/16 11/21/16 History [DULERA 200/5mcg INHALER] Allergies Allergy/AdvReac Type Severity Reaction Status Date / Time No Known Allergies Allergy Verified 11/21/16 10:33 Orthopedic Exam Vital signs: Temperature 96.8 F 11/23/16 15:50 Pulse Rate 84 11/23/16 16:00 Respiratory Rate 18 11/23/16 15:50 Blood Pressure 137/71 11/23/16 15:50 Pulse Oximetry 97 11/23/16 15:50 Oxygen Delivery Method Nasal Cannula Oxygen Flow Rate 3 - Constitutional General Appearance: Present: no acute distress, well developed, well nourished - Cardiovascular Exam Present: pedal pulses intact - Extremities Exam Present: no edema, joint swelling Comments: Right knee with 2+ effusion. No redness. Knee is stable to exam. Calf and thigh are soft and nontender. Range of motion actively is within normal limits. Exam of the right hand shows skin is intact without lesions is a positive first CMC grind test. He has full motion of the thumb without locking. Good sensation and pulses in his right hand - Neurological Exam Present: intact to light touch, no deficits - Psychiatric Exam Present: alert, oriented, normal affect - Labs Result Diagrams: 11/23/16 04:12 11/23/16 04:12 Abnormal lab results 11/22/16 11/23/16 11/23/16 Range/Units 05:05 04:12 04:12 WBC 11.6 H (4.5-11.0) T/MM3 RBC 3.13 L (4.50-5.90) M/MM3 Hgb 8.8 L (13.5-17.5) GM/DL Hct 28.3 L (41-53) % Neutrophils % (Manual) 86.0 H (33-66) % Lymphocytes % (Manual) 6.0 L (23-45) % Neutrophils # (Manual) 10.0 H (1.8-7.7) T/MM3 Lymphocytes # (Manual) 0.7 L (1-4.8) T/MM3 Glucose 150 H (75-110) MG/DL Uric Acid 3.4 L (3.5-8.5) MG/DL H & H 11/22/16 11/23/16 Range/Units 05:13 04:12 Hgb 9.1 L 8.8 L (13.5-17.5) GM/DL Hct 28.8 L 28.3 L (41-53) % Impression and Recommendation (1) CMC arthritis, thumb, degenerative Current visit: Yes Qualifiers: Osteoarthritis type: primary Laterality: right Qualified Code(s): M18.11 - Unilateral primary osteoarthritis of first carpometacarpal joint, right hand Status: Acute Recommended a corticosteroid injection. He agreed with this plan preformed today. We will also aspirate his right knee for comfort and sent for cultures and sensitivities as well as crystal analysis. Hospital Course Summary Disclaimer: The visit summary below is not to be considered part of the above Progress Note. Hospital Course: 11/21/16- Admission Sepsis-manifestations include- 1. Community acquired pneumonia 2. Leukocytosis 3. Tachycardia-heart rate 107 4. Hypoxia-room air saturations 87% 5. Fever-100.7 Community-acquired pneumonia Status failure with hypoxia COPD Recent cervical spine hardware change Atrial fibrillation Hypertension Asthma Coronary artery disease Pneumonia Gastroesophageal Reflux Hypothyroidism BPH History of GI bleed Osteoarthritis Plan Based on meeting criteria for sepsis, we will admit patient as an inpatient under the care of Dr. Bustos for sepsis, kidney acquired pneumonia, hypoxia Repeat a venous lactate at 1530 based on sepsis protocol. Obtain a sputum culture, blood cultures pending. Rocephin was started on 1 gram of IV Rocephin in the emergency room. We'll continue this daily and add azithromycin for further pulmonary coverage. Will scheduled DuoNeb breathing treatments 4 times a day as well as when necessary in addition to Pulmicort twice a day. Patient does chronically utilize nebulizers at home. Acapella 4 times a day Mucinex twice a day to help with mucus expectorant Normal saline with 20 KCl at 75ml an hour for gentle hydration Patient is on eloquence for chronic anticoagulation. Remaining home medications are reviewed. Will need to speak with attending regarding continued outpatient daptomycin as patient does continue to need treatment through November 30. Will recheck CBC and BMP tomorrow morning to follow blood counts, renal function and electrolytes Again, patient does request to be a full code and this order is written. Discuss further orders with attending, Dr. Bustos. At time of discharge medical care will return to primary care provider, Dr. Orosco 11/22/16 Cardiology Atrial Fibrillation? S/P ablation 15 months ago. Paroxysmal. Poor rate control. Increase Metoprolol to home dose of 50mg PO BID. Patient take Eliquis for stroke prevention. K+ 3.3-Replace potassium, Mag 0.9- replace magnesium, check TSH. Follow electrolytes CAD -Recent stress test unremarkable. Continue current therapy with routine monitoring HTN -Continue Home dose Metoprolol 50mg BID HLD -Takes Lipitor, PCP manages Carotid stenosis -Recent DCD stable. Continue current therapy with routine monitoring Mitral insuff.-No significant mitral stenosis on last echo. Continue current therapy with routine monitoring I examined the patient and discussed findings with Dr. Ayala, we agreed on the plan of care together. 11/23/16 Cardiology HR regular and improved [id number]. Mag 1.6 today replaced with 2 gms IV. Continue to monitor telemetry
[2016-11-23] MEDS ORDERED: TRIAMCINOLONE 40mg/ml 1ml INJECTION INJ ONE (18:40)
[2016-11-23] MEDS ORDERED: BUPIVACAINE 0.25% (2.5mg/ml) PF 30ml INJECTION IJ ONE (18:40)
[2016-11-23] MEDS: ATORVASTATIN 40 MG TABLET PO SCH (21:33)
[2016-11-24] MEDS: NS with KCL 20 mEq 1,000 ML IV SCH (01:47)
[2016-11-24] MEDS: OMEPRAZOLE 20 MG CAPSULE PO SCH (05:52)
[2016-11-24] MEDS: LEVOTHYROXINE 25 MCG TABLET PO SCH (05:53)
[2016-11-24 07:14] VITALS: BP 152/73; PULSE 87; TEMP 95.8
[2016-11-24] MEDS: DULOXETINE 60 MG CAPSULE PO SCH (08:35)
[2016-11-24] MEDS: MELOXICAM 7.5 MG TABLET PO SCH (08:35)
[2016-11-24] MEDS: APIXABAN 5 MG TABLET PO SCH (08:36)
[2016-11-24] MEDS: PredniSONE 20 MG TABLET PO SCH (08:36)
[2016-11-24] MEDS: DAPTOmycin 400 MG in NS 8 ML IVP SCH (08:37)
[2016-11-24] MEDS: SALINE FLUSH 10ml SYRINGE IVF PRN (08:40)
[2016-11-24 08:48] VITALS: RESP 18
[2016-11-24] MEDS: ALBUTEROL/IPRATROPIUM 2.5mg-0.5mg/3ml NEB AEROSOL PRN (12:34)
--- NOTE | 2016-11-24 12:46 | Cardiology Progress Note ---
Subjective Principal diagnosis: atrial fibrillation <Katy Amos 11/24/16 12:51> Interval history: Jayy is sitting up in the recliner in his room on Medical. He has family at the bedside. He had his right thumb injected by Ortho with corticosteriod yesterday. He denies chest pain or pressure, no palpitations noticed. <Katy Amos 11/24/16 12:51> Exam Vital signs: Temperature 95.8 F L 11/24/16 07:12 Pulse Rate 87 11/24/16 07:12 Respiratory Rate 18 11/24/16 15:10 Blood Pressure 152/73 H 11/24/16 07:12 Pulse Oximetry 95 11/24/16 15:10 Oxygen Delivery Method Room Air Oxygen Flow Rate 1 <Hola Ayala - 11/25/16 13:25> Temperature 95.8 F L 11/24/16 07:12 Pulse Rate 87 11/24/16 07:12 Respiratory Rate 18 11/24/16 12:09 Blood Pressure 152/73 H 11/24/16 07:12 Pulse Oximetry 93 11/24/16 12:09 Oxygen Delivery Method Room Air Oxygen Flow Rate 1 <Katy Amos 11/24/16 12:51> - Constitutional no acute distress, thin, cooperative <Katy Amos 11/24/16 12:51> - Routine HEENT Exam ENT: Present: mucous membranes moist <Katy Amos 11/24/16 12:51> - Routine Neck Exam Absent: JVD <Katy Amos 11/24/16 12:51> - Routine Chest/Breast/Axilla Exam Chest wall: Absent: tenderness <Katy Amos 11/24/16 12:51> - Routine Respiratory Exam Present: CTA bilaterally, diminished air movement. Absent: rales, wheezes < Katy Amos 11/24/16 12:51> - Routine Cardiovascular Exam Present: RRR, no murmur. Absent: JVD <Katy Amos 11/24/16 12:51> - Routine Abdominal Exam Present: soft, normoactive bowel sounds <Katy Amos 11/24/16 12:51> - Routine Extremities Exam Present: no edema <Katy Amos - 11/24/16 12:51> - Routine Skin Exam Present: intact <Katy Amos - 11/24/16 12:51> - Routine Neurological Exam Present: alert, oriented X3 <Kayt Amos - 11/24/16 12:51> - Routine Psychiatric Exam Present: normal affect, normal thought process <Katy Amos - 11/24/16 12: 51> - Additional findings Additional findings: Date of Exam: 11/23/16 Ordering Provider: Alexandria Barbour APRN Type of Exam(s): XR chest 2V Reason for Exam(s): Hypoxia, SOA LOCATION OF DICTATION: [place] EXAM: XR chest 2V HISTORY: Hypoxia, SOA COMPARISON: No prior studies available for comparison. FINDINGS: The heart size is normal. The mediastinal configuration is unremarkable. The lungs are hyperexpanded There are no consolidating opacities or pleural effusions. There is no evidence for a pneumothorax. Anterior cervical disc fusion is demonstrated. Mild spondylosis of the thoracic spine. IMPRESSION: Hyperexpanded lungs. No evidence for developing pneumonia. The heart size is within normal limits. Laboratory Results - last 72 hr 11/21/16 11/21/16 11/22/16 12:33 15:55 05:05 WBC RBC Hgb Hct MCV MCH MCHC RDW Std Deviation Plt Count MPV Immature Gran % (Auto) Neut % (Auto) Lymph % (Auto) [place] % (Auto) Eos % (Auto) Baso % (Auto) Neut # Lymph # [place] # Eos # Baso # Abs Immat Gran (auto) Neutrophils % (Manual) Band Neutrophils % Lymphocytes % (Manual) Monocytes % (Manual) Neutrophils # (Manual) Band Neutrophils # Lymphocytes # (Manual) Monocytes # (Manual) RBC Morph Comment Turbidity Sodium Potassium Chloride Carbon Dioxide Anion Gap BUN Creatinine GFR Calculation BUN/Creatinine Ratio Glucose Calculated Osmolality Uric Acid 3.4 L Calcium Magnesium Icterus Index Plasma Lactate 0.8 TSH Specimen Hemolysis Urine RBC None seen Urine WBC 0-1 Ur Squamous Epith Cells 0-5 Amorphous Sediment Few Urine Bacteria None seen Ur Culture Indicated? Cult not indicated Fluid Type Fluid Color Fluid Turbidity Fluid RBC Fld Tot Nucleated Cell Fluid Neutrophils Fluid Lymphocytes Fluid Monocytes Fluid Eosinophils Fluid Basophils Fluid Other Cells % 11/22/16 11/22/16 11/22/16 05:13 05:13 05:13 WBC 14.2 H RBC 3.19 L Hgb 9.1 L Hct 28.8 L MCV 90.3 MCH 28.5 MCHC 31.6 RDW Std Deviation 44.0 Plt Count 274 MPV 11.7 Immature Gran % (Auto) Not performed Neut % (Auto) Not performed Lymph % (Auto) Not performed [place] % (Auto) Not performed Eos % (Auto) Not performed Baso % (Auto) Not performed Neut # Not performed Lymph # Not performed [place] # Not performed Eos # Not performed Baso # Not performed Abs Immat Gran (auto) Not performed Neutrophils % (Manual) 86.0 H Band Neutrophils % 5.0 Lymphocytes % (Manual) 6.0 L Monocytes % (Manual) 3.0 Neutrophils # (Manual) 12.2 H Band Neutrophils # 0.7 Lymphocytes # (Manual) 0.9 L Monocytes # (Manual) 0.4 RBC Morph Comment Abnormal Turbidity < 20 Sodium 137 Potassium 3.3 L Chloride 102 Carbon Dioxide 28 Anion Gap 7 BUN 13.0 Creatinine 0.9 GFR Calculation 80 BUN/Creatinine Ratio 14 Glucose 90 Calculated Osmolality 264 Uric Acid Calcium 8.1 L Magnesium 0.9 L Icterus Index < 2 Plasma Lactate TSH 2.61 Specimen Hemolysis < 15 Urine RBC Urine WBC Ur Squamous Epith Cells Amorphous Sediment Urine Bacteria Ur Culture Indicated? Fluid Type Fluid Color Fluid Turbidity Fluid RBC Fld Tot Nucleated Cell Fluid Neutrophils Fluid Lymphocytes Fluid Monocytes Fluid Eosinophils Fluid Basophils Fluid Other Cells % 11/23/16 11/23/16 11/23/16 04:12 04:12 16:54 WBC 11.6 H RBC 3.13 L Hgb 8.8 L Hct 28.3 L MCV 90.4 MCH 28.1 MCHC 31.1 RDW Std Deviation 42.8 Plt Count 268 MPV 11.4 Immature Gran % (Auto) Not performed Neut % (Auto) Not performed Lymph % (Auto) Not performed [place] % (Auto) Not performed Eos % (Auto) Not performed Baso % (Auto) Not performed Neut # Not performed Lymph # Not performed [place] # Not performed Eos # Not performed Baso # Not performed Abs Immat Gran (auto) Not performed Neutrophils % (Manual) 86.0 H Band Neutrophils % 2.0 Lymphocytes % (Manual) 6.0 L Monocytes % (Manual) 6.0 Neutrophils # (Manual) 10.0 H Band Neutrophils # 0.2 Lymphocytes # (Manual) 0.7 L Monocytes # (Manual) 0.7 RBC Morph Comment Abnormal Turbidity < 20 Sodium 135 Potassium 4.4 D Chloride 102 Carbon Dioxide 27 Anion Gap 6 BUN 20.0 D Creatinine 0.9 GFR Calculation 80 BUN/Creatinine Ratio 22 Glucose 150 H Calculated Osmolality 266 Uric Acid Calcium 8.4 Magnesium 1.6 D Icterus Index < 2 Plasma Lactate TSH Specimen Hemolysis < 15 Urine RBC Urine WBC Ur Squamous Epith Cells Amorphous Sediment Urine Bacteria Ur Culture Indicated? Fluid Type Synovial fluid Fluid Color Yellow Fluid Turbidity Cloudy Fluid RBC 4000 Fld Tot Nucleated Cell [id number] Fluid Neutrophils 97 Fluid Lymphocytes 3 Fluid Monocytes 0 Fluid Eosinophils 0 Fluid Basophils 0 Fluid Other Cells % 0 11/24/16 11/24/16 04:38 04:38 WBC 14.2 H RBC 3.00 L Hgb 8.5 L Hct 26.8 L MCV 89.3 MCH 28.3 MCHC 31.7 RDW Std Deviation 40.8 Plt Count 288 MPV 11.2 Immature Gran % (Auto) Not performed Neut % (Auto) Not performed Lymph % (Auto) Not performed [place] % (Auto) Not performed Eos % (Auto) Not performed Baso % (Auto) Not performed Neut # Not performed Lymph # Not performed [place] # Not performed Eos # Not performed Baso # Not performed Abs Immat Gran (auto) Not performed Neutrophils % (Manual) 96.0 H Band Neutrophils % Lymphocytes % (Manual) 3.0 L Monocytes % (Manual) 1.0 Neutrophils # (Manual) 13.6 H Band Neutrophils # Lymphocytes # (Manual) 0.4 L Monocytes # (Manual) 0.1 RBC Morph Comment Abnormal Turbidity < 20 Sodium 135 Potassium 4.6 Chloride 104 Carbon Dioxide 25 Anion Gap 6 BUN 23.0 H Creatinine 0.8 GFR Calculation 92 BUN/Creatinine Ratio 29 H Glucose 159 H Calculated Osmolality 267 Uric Acid Calcium 8.5 Magnesium Icterus Index < 2 Plasma Lactate TSH Specimen Hemolysis < 15 Urine RBC Urine WBC Ur Squamous Epith Cells Amorphous Sediment Urine Bacteria Ur Culture Indicated? Fluid Type Fluid Color Fluid Turbidity Fluid RBC Fld Tot Nucleated Cell Fluid Neutrophils Fluid Lymphocytes Fluid Monocytes Fluid Eosinophils Fluid Basophils Fluid Other Cells % <Katy Amos - 11/24/16 12:51> Hospital Course This is a general summary of the patient's hospital course. For more details refer to the complete medical record. <Hola Ayala - 11/25/16 13:25> This is a general summary of the patient's hospital course. For more details refer to the complete medical record. <Katy Amos - 11/24/16 12:51> Hospital course: 11/21/16- Admission Sepsis-manifestations include- 1. Community acquired pneumonia 2. Leukocytosis 3. Tachycardia-heart rate 107 4. Hypoxia-room air saturations 87% 5. Fever-100.7 Community-acquired pneumonia Status failure with hypoxia COPD Recent cervical spine hardware change Atrial fibrillation Hypertension Asthma Coronary artery disease Pneumonia Gastroesophageal Reflux Hypothyroidism BPH History of GI bleed Osteoarthritis Plan Based on meeting criteria for sepsis, we will admit patient as an inpatient under the care of Dr. Bustos for sepsis, kidney acquired pneumonia, hypoxia Repeat a venous lactate at 1530 based on sepsis protocol. Obtain a sputum culture, blood cultures pending. Rocephin was started on 1 gram of IV Rocephin in the emergency room. We'll continue this daily and add azithromycin for further pulmonary coverage. Will scheduled DuoNeb breathing treatments 4 times a day as well as when necessary in addition to Pulmicort twice a day. Patient does chronically utilize nebulizers at home. Acapella 4 times a day Mucinex twice a day to help with mucus expectorant Normal saline with 20 KCl at 75ml an hour for gentle hydration Patient is on eloquence for chronic anticoagulation. Remaining home medications are reviewed. Will need to speak with attending regarding continued outpatient daptomycin as patient does continue to need treatment through November 30. Will recheck CBC and BMP tomorrow morning to follow blood counts, renal function and electrolytes Again, patient does request to be a full code and this order is written. Discuss further orders with attending, Dr. Bustos. At time of discharge medical care will return to primary care provider, Dr. Orosco 11/22/16 Cardiology Atrial Fibrillation? S/P ablation 15 months ago. Paroxysmal. Poor rate control. Increase Metoprolol to home dose of 50mg PO BID. Patient take Eliquis for stroke prevention. K+ 3.3-Replace potassium, Mag 0.9- replace magnesium, check TSH. Follow electrolytes CAD -Recent stress test unremarkable. Continue current therapy with routine monitoring HTN -Continue Home dose Metoprolol 50mg BID HLD -Takes Lipitor, PCP manages Carotid stenosis -Recent DCD stable. Continue current therapy with routine monitoring Mitral insuff.-No significant mitral stenosis on last echo. Continue current therapy with routine monitoring I examined the patient and discussed findings with Dr. Ayala, we agreed on the plan of care together. 11/23/16 Cardiology HR regular and improved [id number]. Mag 1.6 today replaced with 2 gms IV. Continue to monitor telemetry. 11/24/16 K+ 4.6, consider IVF without KCl if continued on transfer <Katy Amos - 11/24/16 14:45> Progress Note-A&P (1) CAD (coronary artery disease) Status: Chronic (2) Community acquired pneumonia Problem details: H influenza in sputum - likely causative agent. Status: Resolved (3) Sepsis Status: Resolved (4) Acute exacerbation of chronic obstructive airways disease Status: Acute (5) Essential (primary) hypertension Status: Chronic (6) Mixed hyperlipidemia Status: Chronic (7) Occlusion and stenosis of bilateral carotid arteries Status: Chronic (8) Nonrheumatic mitral valve insufficiency Status: Acute (9) Paroxysmal atrial fibrillation Status: Acute <Hola Ayala - 11/25/16 13:25> (1) Sepsis Status: Resolved (2) Community acquired pneumonia Problem details: H influenza in sputum - likely causative agent. Status: Resolved (3) Acute exacerbation of chronic obstructive airways disease Status: Acute (4) CAD (coronary artery disease) Status: Chronic (5) Essential (primary) hypertension Status: Chronic (6) Mixed hyperlipidemia Status: Chronic (7) Occlusion and stenosis of bilateral carotid arteries Status: Chronic (8) Nonrheumatic mitral valve insufficiency Status: Acute (9) Paroxysmal atrial fibrillation Status: Acute <Katy Amos - 11/24/16 14:44> - Time Spent With Patient Total time spent is greater than 50% in coordination of care (as documented) at patient's floor/unit and/or counseling patient: <Hola Ayala - 11/25/16 13:25> Total time spent is greater than 50% in coordination of care (as documented) at patient's floor/unit and/or counseling patient: <Katy Amos - 11/24/16 12:51> less than 15 minutes <Katy Amos 11/24/16 14:45> - Attestation Attestation Narrative: Recommendation After examining the patient I agree with the above assessment. I am involved in the formulation of the patient's plan of care. <Hola Ayala - 11/25/16 13:25> Sepsis Assessment - Evaluation Sepsis screening result: No Definite Risk <Katy Amos - 11/24/16 12:51>
--- NOTE | 2016-11-24 13:28 | Progress Note ---
Subjective: F/U: Sepsis, Pneumonia, Respiratory failure. Doing much better today. Breathing easier-still notes some cough/congestion but able to maintain saturations well on RA. No pain with breathing. Dr Cm injected his right thumb yesterday-much less discomfort today and more movement ability. Also had his knee tapped. Eating well. No ab pain. Stools moving. Urinating well. No chest pain. No f/c. Objective Vital signs: Temperature 95.8 F L 11/24/16 07:12 Pulse Rate 87 11/24/16 07:12 Respiratory Rate 18 11/24/16 12:09 Blood Pressure 152/73 H 11/24/16 07:12 Pulse Oximetry 93 11/24/16 12:09 Oxygen Delivery Method Room Air Oxygen Flow Rate 1 Weight: 71.9 kg - Constitutional Present: no acute distress, well nourished, well developed, cooperative - Routine HEENT Exam Head: Present: normocephalic, atraumatic Eye: Present: EOMI, PERRL ENT: Present: mucous membranes moist - Routine Respiratory Exam Present: distant breath sounds, diminished air movement. Absent: respiratory distress, rhonchi, wheezes, crackles - Routine Cardiovascular Exam Present: RRR, no murmur - Routine Abdominal Exam Present: soft, normoactive bowel sounds, non distended, non tender. Absent: guarding - Routine Extremities Exam Present: no edema, pulses intact. Absent: cyanosis, clubbing - Routine Musculoskeletal Exam Musculoskeletal: Present: no clubbing or cyanosis - Routine Skin Exam Present: intact, warm. Absent: mottling - Routine Neurological Exam Present: alert, oriented X3, CN II-XII intact, motor deficit, vision grossly intact, hearing grossly intact - Routine Psychiatric Exam Present: normal affect, normal thought process, cooperative, good insight, good judgment. Absent: anxious, agitated Results - Labs CBC & Chem 7: 11/24/16 04:38 11/24/16 04:38 Microbiology Results: Microbiology 11/23/16 16:53 Aspirate, Right Knee Gram Stain - Final 11/23/16 16:53 Aspirate, Right Knee Body Fluid Culture - Preliminary Culture Initiated - Results Pending Assessment and Plan (1) Respiratory failure with hypoxia Current visit: Yes Status: Resolved (2) Sepsis Current visit: Yes Status: Resolved (3) Community acquired pneumonia Current visit: Yes Status: Acute (4) Swelling of right thumb Current visit: Yes Status: Acute (5) Septic arthritis of knee, right Problem details: Continue daptomycin daily at outpatient dose through 11/30 Current visit: No Status: Acute (6) CAD (coronary artery disease) Current visit: No Status: Chronic (7) HTN (hypertension) Current visit: No Status: Chronic (8) Atrial fibrillation Current visit: No Status: Chronic (9) COPD (chronic obstructive pulmonary disease) Current visit: No Status: Chronic (10) SHANA (obstructive sleep apnea) Current visit: No Status: Chronic (11) Essential (primary) hypertension Current visit: Yes Status: Chronic (12) Hypokalemia Current visit: Yes Status: Resolved 11/23/16 10:50 POA DVT Prophylaxis: Eliquis Resuscitation Status: Full Code Assessment and Plan: With respiratory status improving and sepsis/respiratory failure resolve can discharge to IRU for continued therapy. Will need to continue Daptomycin for coverage of knee. Has ID appointment in near future from prior hospitalization - will had ID see on IRU. Continue Prednisone to help decrease knee/thumb inflammation - will decrease to 20mg tomorrow. Mucinex, neb treatments and acapella to help loosen secretions. Continue with CV medications - HR and BP stable. Electrolytes improved. Will need to continue to monitor electrolytes and blood counts on rehab. Definitive f/u with PCP will be made at time of discharge from IRU. See orders for details. Case discussed with CM and pt's son. Time spent with patient care and discharge greater than 35 minutes. Sepsis Assessment - Evaluation Sepsis screening result: No Definite Risk Hospital Course Summary Disclaimer: The visit summary below is not to be considered part of the above Progress Note. Hospital Course: 11/21/16- Admission Sepsis-manifestations include- 1. Community acquired pneumonia 2. Leukocytosis 3. Tachycardia-heart rate 107 4. Hypoxia-room air saturations 87% 5. Fever-100.7 Community-acquired pneumonia Status failure with hypoxia COPD Recent cervical spine hardware change Atrial fibrillation Hypertension Asthma Coronary artery disease Gastroesophageal Reflux Hypothyroidism BPH History of GI bleed Osteoarthritis Plan Based on meeting criteria for sepsis, we will admit patient as an inpatient under the care of Dr. Bustos for sepsis, kidney acquired pneumonia, hypoxia Repeat a venous lactate at 1530 based on sepsis protocol. Obtain a sputum culture, blood cultures pending. Rocephin was started on 1 gram of IV Rocephin in the emergency room. We'll continue this daily and add azithromycin for further pulmonary coverage. Will scheduled DuoNeb breathing treatments 4 times a day as well as when necessary in addition to Pulmicort twice a day. Patient does chronically utilize nebulizers at home. Acapella 4 times a day Mucinex twice a day to help with mucus expectorant Normal saline with 20 KCl at 75ml an hour for gentle hydration Patient is on eloquence for chronic anticoagulation. Remaining home medications are reviewed. Will need to speak with attending regarding continued outpatient daptomycin as patient does continue to need treatment through November 30. Will recheck CBC and BMP tomorrow morning to follow blood counts, renal function and electrolytes Again, patient does request to be a full code and this order is written. Discuss further orders with attending, Dr. Butsos. At time of discharge medical care will return to primary care provider, Dr. Orosco 11/22/16 16:43 *Acute respiratory failure- Continue daptomycin and nebs. Will change to home Xopenex due to increase in HR and arrhythmia O2 as needed. Continue to monitor progress *Leukocytosis/Known septic joint- Continue Daptomycin. Follows with Dr. Elham Key as O/P. If leukocytosis persists, may want to consider c-spine CT, but he is not c/o of any increase in neck pain or new cervical-spine related sx. *Right thumb arthropathy- Check uric acid. D/W Dr. Bustos- start prednisone. Continue pain medications *AFib vs. Atrial tachyarrhythmia- Metoprolol increased back to home dose. Mag was quite low, replacing. Replace low potassium as well. Continue telemetry. Appreciate cardiology input. (Follows with Dr. Ayala). Continue Eliquis. *HTN- BP is controlled at this time. Continue monitoring. *Hydration- May be able to DC IVF tomorrow, continue to monitor. *Pain- Cymbalta, Mobic, PRN meds. 11/22/16 Cardiology Atrial Fibrillation? S/P ablation 15 months ago. Paroxysmal. Poor rate control. Increase Metoprolol to home dose of 50mg PO BID. Patient take Eliquis for stroke prevention. K+ 3.3-Replace potassium, Mag 0.9- replace magnesium, check TSH. Follow electrolytes CAD -Recent stress test unremarkable. Continue current therapy with routine monitoring HTN -Continue Home dose Metoprolol 50mg BID HLD -Takes Lipitor, PCP manages Carotid stenosis -Recent DCD stable. Continue current therapy with routine monitoring Mitral insuff.-No significant mitral stenosis on last echo. Continue current therapy with routine monitoring 11/23/16 10:58 Sputum Gram stain-H influenza CXR: Hyperexpantion - no infiltrate Sepsis syndrome resolved. Respiratory status improving. Will continue Daptomycin for coverage of knee. Continue Prednison to help decrease knee/thumb inflammation. Mucinex, neb treatments and acapella to help loosen secretions. Consult with Dr Cm for reevaluation of knee and to check thumb. HR and BP controlled well with current medications. PT/OT consult to assess functional status. Monitor lab. 11/23/16 Cardiology HR regular and improved [id number]. Mag 1.6 today replaced with 2 gms IV. Continue to monitor telemetry. 11/24/16 Doing much better today. Breathing easier-still notes some cough/congestion but able to maintain saturations well on RA. No pain with breathing. Dr Cm injected his right thumb yesterday-much less discomfort today and more movement ability. Also had his knee tapped. Eating well. No ab pain. Stools moving. Urinating well. No chest pain. No f/c. With respiratory status improving and sepsis/respiratory failure resolve can discharge to IRU for continued therapy. Will need to continue Daptomycin for coverage of knee. Will need Daptomcyin through 11/30. Has ID appointment in near future from prior hospitalization - will had ID see on IRU. Continue Prednisone to help decrease knee/thumb inflammation - will decrease to 20mg tomorrow. Mucinex, neb treatments and acapella to help loosen secretions. Continue with CV medications - HR and BP stable. Electrolytes improved. Will need to continue to monitor electrolytes and blood counts on rehab. Definitive f/u with PCP will be made at time of discharge from IRU.
--- NOTE | 2016-11-24 13:50 | Discharge Summary ---
Discharge Information Date of admission: 11/21/16 14:40 Anticipated date of discharge: 11/24/16 Attending Physician: Leilani Bustos MD Primary care physician: Junior Orosco DO Consults: 11/22/16 11:05: Physician Consult [CONS] Routine Consulting Provider: Hola Ayala Reason For Exam: ekg showing AFIB with RVR. HR continuing 100-130s 11/23/16: Inpatient Rehab Screening [CONS] Routine 11/23/16 10:22 Dr [Physician Consult] [CONS] Routine Consulting Provider: Elian Cm Reason For Exam: Right thumb pain - Knee pain/swelling - Discharge Diagnosis (1) Respiratory failure with hypoxia Qualifiers: Chronicity: acute Qualified Code(s): J96.01 - Acute respiratory failure with hypoxia Status: Resolved (2) Sepsis Qualifiers: Sepsis type: sepsis due to unspecified organism Qualified Code(s): A41.9 - Sepsis, unspecified organism Status: Resolved (3) Community acquired pneumonia Problem Details: H influenza in sputum - likely causative agent. Status: Resolved (4) Swelling of right thumb Status: Acute (5) Septic arthritis of knee, right Qualifiers: Septic arthritis organism: due to unspecified organism Qualified Code(s): M00.9 - Pyogenic arthritis, unspecified Problem Details: Continue daptomycin daily at outpatient dose through 11/30 Status: Acute (6) CAD (coronary artery disease) Qualifiers: Coronary Disease-Associated Artery/Lesion type: [place] artery [place] vs. transplanted heart: [place] heart Associated angina: without angina Qualified Code(s): I25.10 - Atherosclerotic heart disease of [place] coronary artery without angina pectoris Status: Chronic (7) HTN (hypertension) Qualifiers: Hypertension type: essential hypertension Qualified Code(s): I10 - Essential (primary) hypertension Status: Chronic (8) Atrial fibrillation Status: Chronic (9) COPD (chronic obstructive pulmonary disease) Qualifiers: COPD type: unspecified COPD Qualified Code(s): J44.9 - Chronic obstructive pulmonary disease, unspecified Status: Chronic (10) SHANA (obstructive sleep apnea) Status: Chronic (11) Essential (primary) hypertension Status: Chronic (12) Hypokalemia Status: Resolved - Procedures Procedures: Date of Procedure: 11/23/16 Side: right Preoperative Diagnosis: knee primary DJD Postoperative Diagnosis: Same as preoperative diagnosis. Operation: other (aspiration right knee) Surgeon: Masoud Cm MD Description of Procedure: Mr. Sanchez right knee was identified. Skin was prepped with ChloraPrep. An 18 -gauge needle was then used to remove 100 cc of cloudy yellow fluid from the right knee joint through a superior lateral approach. The needle was then removed the site was cleaned with alcohol and a Band-Aid was placed. He tolerated this well. Date of procedure: 11/23/16 Side: right Preoperative Diagnosis: other (right thumb CMC osteoarthritis) Postoperative Diagnosis: Same as preoperative diagnosis. Operation: other (injection of right CMC joint with Kenalog) Surgeon: Masoud Cm MD Description of Procedure: Mr. Sanchez right thumb was prepped with ChloraPrep. I then used a 25-gauge needle to inject 40 mg Kenalog and 1 mL core percent Marcaine into the first CMC joint from a dorsal approach. The needle was removed and the site was cleaned with alcohol and a Band-Aid was placed. He tolerated this well. - Laboratory Labs: 11/24/16 04:38 11/24/16 04:38 - Microbiology Microbiology 11/23/16 16:53 Aspirate, Right Knee Gram Stain - Final 11/23/16 16:53 Aspirate, Right Knee Body Fluid Culture - Preliminary Culture Initiated - Results Pending - Radiology Radiology: Date of Exam: 11/21/16 Indication: DYSPNEA, HYPOXIA, ELEVATED D-DIMER PROCEDURE: CT angio pulm emboli: Technique: Axial CT pulmonary angiographic phase images were performed through the chest after the administration of intravenous contrast. Coronal and Sagittal MIP reconstructed images were created and reviewed. Findings: Pulmonary arteries: Exam is diagnostic to the subsegmental pulmonary arterial level. No filling defects identified to suggest a pulmonary embolus. Other findings: Paraseptal emphysema. Scattered groundglass nodular opacities in all lung hahn. There is bronchiectasis in both lower lobes which may be chronic. No pneumothorax. Central airways are patent. No axillary or mediastinal adenopathy. Heart size is within normal limits. Three vessel coronary artery disease. No pericardial effusion. Reflux of contrast into the hepatic veins may be due to right heart insufficiency. No acute abnormality seen in the upper abdomen. Impression: 1. No pulmonary embolus. 2. Infectious or inflammatory pulmonary opacities bilaterally. Recommend clinical and laboratory correlation. History of Present Illness HPI: Jayy is a pleasant 86-year-old gentleman who has been receiving outpatient infusions of Daptomycin since 11/03 for treatment of right knee infection. He was instructed to complete this course, through November 30 under the outpatient care of Dr. Elham Key. Today he presented to the outpatient infusion center and was found to have a fever of 100.2, accompanied with increased difficulty breathing. He was then directed to the emergency room for further evaluation and treatment. Initially his heart rate was 107, room air saturations 87%. Basic laboratory studies were obtained and he was found to have leukocytosis with a white count of 15.7, 80% neutrophils, 2% bands. Hemoglobin 10.2, hematocrit 31.7, platelet count 305. Sodium is 139, potassium 3.3, BUN 16, creatinine 0.9, Later osmolality 269. Troponin was 0.016, proBNP 1680. Venous lactate 1.2, pro calcitonin 0.08. Urinalysis is unremarkable. An ABG showed a pH of 7.48, pCO2 42, pO2 64, bicarbonate 31. INR 1.8, and a mildly elevated d- dimer at 268. CT of the chest was performed to rule out emboli. The CT did reveal right upper lobe and bilateral lower lobe infiltrates and no thrombus was identified. He should does chronically utilize oxygen only at night. However , over the last 3 days he has required increased oxygen during the day. Given these findings, patient does meet criteria for sepsis with known infection of pneumonia. The hospitalist services were contacted and accepted patient for inpatient admission for further evaluation and treatment. It is expected that his stay will be greater than 2 overnights He is seen on initial examination. He is alert, oriented and pleasant. He does report that over the past 3 days he feels more short of breath. He is now having a productive cough that is worse. States that he has been sleeping in his chair, which has subsequently been causing him an increased amount of pain in his neck. He did undergo a cervical revision of C2-C7 fusion on 10/08/16 under the care of Dr Luna. (He reports that oral old hardware was removed and new hardware was placed at this time). We did discuss advanced directives and he does wish to be a full code For complete details of the H&P, refer to that document. Objective Vital signs: Temperature 95.8 F L 11/24/16 07:12 Pulse Rate 87 11/24/16 07:12 Respiratory Rate 18 11/24/16 12:09 Blood Pressure 152/73 H 11/24/16 07:12 Pulse Oximetry 93 11/24/16 12:09 Oxygen Delivery Method Room Air Oxygen Flow Rate 1 Weight: 71.9 kg Hospital Course This is a general summary of the patient's hospital course. For more details refer to the complete medical record. Hospital course: 11/21/16- Admission Sepsis-manifestations include- 1. Community acquired pneumonia 2. Leukocytosis 3. Tachycardia-heart rate 107 4. Hypoxia-room air saturations 87% 5. Fever-100.7 Community-acquired pneumonia Status failure with hypoxia COPD Recent cervical spine hardware change Atrial fibrillation Hypertension Asthma Coronary artery disease Gastroesophageal Reflux Hypothyroidism BPH History of GI bleed Osteoarthritis Plan Based on meeting criteria for sepsis, we will admit patient as an inpatient under the care of Dr. Bustos for sepsis, kidney acquired pneumonia, hypoxia Repeat a venous lactate at 1530 based on sepsis protocol. Obtain a sputum culture, blood cultures pending. Rocephin was started on 1 gram of IV Rocephin in the emergency room. We'll continue this daily and add azithromycin for further pulmonary coverage. Will scheduled DuoNeb breathing treatments 4 times a day as well as when necessary in addition to Pulmicort twice a day. Patient does chronically utilize nebulizers at home. Acapella 4 times a day Mucinex twice a day to help with mucus expectorant Normal saline with 20 KCl at 75ml an hour for gentle hydration Patient is on eloquence for chronic anticoagulation. Remaining home medications are reviewed. Will need to speak with attending regarding continued outpatient daptomycin as patient does continue to need treatment through November 30. Will recheck CBC and BMP tomorrow morning to follow blood counts, renal function and electrolytes Again, patient does request to be a full code and this order is written. Discuss further orders with attending, Dr. Bustos. At time of discharge medical care will return to primary care provider, Dr. Orosco 11/22/16 16:43 *Acute respiratory failure- Continue daptomycin and nebs. Will change to home Xopenex due to increase in HR and arrhythmia O2 as needed. Continue to monitor progress *Leukocytosis/Known septic joint- Continue Daptomycin. Follows with Dr. Elham Key as O/P. If leukocytosis persists, may want to consider c-spine CT, but he is not c/o of any increase in neck pain or new cervical-spine related sx. *Right thumb arthropathy- Check uric acid. D/W Dr. Bustos- start prednisone. Continue pain medications *AFib vs. Atrial tachyarrhythmia- Metoprolol increased back to home dose. Mag was quite low, replacing. Replace low potassium as well. Continue telemetry. Appreciate cardiology input. (Follows with Dr. Ayala). Continue Eliquis. *HTN- BP is controlled at this time. Continue monitoring. *Hydration- May be able to DC IVF tomorrow, continue to monitor. *Pain- Cymbalta, Mobic, PRN meds. 11/22/16 Cardiology Atrial Fibrillation? S/P ablation 15 months ago. Paroxysmal. Poor rate control. Increase Metoprolol to home dose of 50mg PO BID. Patient take Eliquis for stroke prevention. K+ 3.3-Replace potassium, Mag 0.9- replace magnesium, check TSH. Follow electrolytes CAD -Recent stress test unremarkable. Continue current therapy with routine monitoring HTN -Continue Home dose Metoprolol 50mg BID HLD -Takes Lipitor, PCP manages Carotid stenosis -Recent DCD stable. Continue current therapy with routine monitoring Mitral insuff.-No significant mitral stenosis on last echo. Continue current therapy with routine monitoring 11/23/16 10:58 Sputum Gram stain-H influenza CXR: Hyperexpantion - no infiltrate Sepsis syndrome resolved. Respiratory status improving. Will continue Daptomycin for coverage of knee. Continue Prednison to help decrease knee/thumb inflammation. Mucinex, neb treatments and acapella to help loosen secretions. Consult with Dr Cm for reevaluation of knee and to check thumb. HR and BP controlled well with current medications. PT/OT consult to assess functional status. Monitor lab. 11/23/16 Cardiology HR regular and improved [id number]. Mag 1.6 today replaced with 2 gms IV. Continue to monitor telemetry. 11/24/16 Doing much better today. Breathing easier-still notes some cough/congestion but able to maintain saturations well on RA. No pain with breathing. Dr Cm injected his right thumb yesterday-much less discomfort today and more movement ability. Also had his knee tapped. Eating well. No ab pain. Stools moving. Urinating well. No chest pain. No f/c. With respiratory status improving and sepsis/respiratory failure resolve can discharge to IRU for continued therapy. Will need to continue Daptomycin for coverage of knee. Will need Daptomcyin through 11/30. Has ID appointment in near future from prior hospitalization - will had ID see on IRU. Continue Prednisone to help decrease knee/thumb inflammation - will decrease to 20mg tomorrow. Mucinex, neb treatments and acapella to help loosen secretions. Continue with CV medications - HR and BP stable. Electrolytes improved. Will need to continue to monitor electrolytes and blood counts on rehab. Definitive f/u with PCP will be made at time of discharge from IRU. Time spent with patient: discharge greater than 30 minutes DVT Prophylaxis: Eliqu Discharge Plan - Med Rec/Dispo Truven Instructions: Chest Pain (GEN), Fever in Adults (GEN), Acute Cough (GEN) Prescriptions: New Metoprolol Tartrate [Lopressor] 50 mg PO BIDWM tablet XOPENEX 1.25mg/3ml NEB [XOPENEX 1.25mg/3ml] 1.25 mg AEROSOL QID neb PredniSONE [Deltasone] 20 mg PO WB tablet Continue Atorvastatin Calcium 40 mg PO HS #0 Levothyroxine Sodium 25 mcg PO ACB #0 Nitroglycerin [Nitrostat] 0.4 mg SL Q5MIN3 PRN #0 PRN Reason: CHEST PAIN Omeprazole 40 mg PO ACB #0 Diazepam [Valium] 5 mg PO TID PRN PRN Reason: Anxiety Meloxicam [Mobic] 7.5 mg PO DAILY #14 Albuterol Inhaler [Ventolin Hfa] 1 puff INH BID PRN PRN Reason: Prn Orders Mometasone/Formoterol 200/5 [DULERA 200/5mcg INHALER] 1 puff INH BID DAPTOmycin [Daptomycin] 400 mg IV DAILY Levalbuterol HCl [Xopenex] 1 vial AEROSOL QID PRN #0 PRN Reason: SHORTNESS OF AIR Apixaban [Eliquis] 5 mg PO BID #0 Hydrocodone/APAP 5/325 [[place] 5/325] 1 - 2 tab PO Q4-6HPRN PRN PRN Reason: Pain Tramadol [Ultram] 50 - 100 mg PO Q6H PRN #30 PRN Reason: Pain duloxetine 60 mg capsule,delayed release 60 mg PO DAILY 30 Days Discontinued Metoprolol Tartrate [Lopressor] 25 mg PO BIDWM Discharge Instructions/Outpatient Orders: Final Provider Discharge Instructions Location: Determined By Patient - Disposition 62 To [facility] [place] INPT Rehab - Attestation Attestation Narrative: 11/24/16 14:08 Patient seen by me prior to discharge-see progress note from today.
[2016-11-24 15:11] VITALS: O2SAT 95
== END 2016-11-24 16:11 | DRG 871 ==
LOC: ED 10:16 → MED 14:40
PROVIDERS: ADMIT Internal Medicine; ATTEND Internal Medicine

== ENCOUNTER 2016-11-24 16:08 | Inpatient (IN) ==
[2016-11-24] MEDS ORDERED: FALL RISK - PHARMACY CONSULT MC PRN (19:47)
[2016-11-24] MEDS ORDERED: DIAZEPAM 5 MG TABLET PO PRN (19:47)
[2016-11-24] MEDS ORDERED: TRAMADOL 50 MG TABLET PO PRN (19:47)
[2016-11-24 21:43] VITALS: BMI 20.9
[2016-11-24] MEDS: ATORVASTATIN 40 MG TABLET PO SCH (22:15)
[2016-11-24] MEDS: APIXABAN 5 MG TABLET PO SCH (22:15)
[2016-11-24] MEDS: SALINE FLUSH 10ml SYRINGE IVF PRN (22:16)
[2016-11-24] MEDS: HYDROCODONE/APAP 5mg/325mg TABLET PO PRN (22:18)
[2016-11-25] MEDS: LEVOTHYROXINE 25 MCG TABLET PO SCH (05:31)
[2016-11-25] MEDS: OMEPRAZOLE 20 MG CAPSULE PO SCH (05:31)
[2016-11-25] MEDS: SALINE FLUSH 10ml SYRINGE IVF PRN ×2 (06:15→21:48)
[2016-11-25] MEDS: PredniSONE 20 MG TABLET PO SCH (08:59)
[2016-11-25] MEDS: MELOXICAM 7.5 MG TABLET PO SCH (09:00)
[2016-11-25] MEDS: APIXABAN 5 MG TABLET PO SCH ×2 (09:00→21:47)
[2016-11-25] MEDS: DULOXETINE 60 MG CAPSULE PO SCH (09:00)
--- NOTE | 2016-11-25 11:46 | Consult Note ---
Consult Information - Data of Consult Patient: known to practice within the last 3 years Consult date: 11/25/16 Requesting Physician: Lucas Baker MD Primary Care Provider: Junior Orosco DO Family Provider: Junior Orosco DO - Consult Narrative Reason for consult: Medical management. Recent sepsis History of present illness: Jayy is a pleasant 86 yr old gentleman who is well known to the hospitalist services following his recent admission to the acute hospital stay. He was admitted on 11/21/13 with sepsis, community-acquired pneumonia and respiratory failure with increased hypoxia. Sputum did reveal Haemophilus influenza A. He continued to receive IV daptomycin for a septic right knee that has been persistent and been followed in the outpatient setting by Dr. Elham Key. He also was evaluated by Dr. Cm for increased right thumb swelling and pain. He was placed on steroids to help with inflammation. Although medically, he has improved and stabilized. He continues to have weakness and is accepted to the inpatient rehabilitation unit for ongoing therapy and strengthening. Jayy is seen this morning for initial consultation. He is currently on room air maintain adequate saturations. He does verbalize that he utilizes home oxygen at night only, however, has recently required it during the day during his hospitalization. He does request to utilize oxygen if he feels short of breath regardless of his oxygen saturation number. Otherwise, he denies having any pain or difficulties. Did review this. My laboratory studies. White count did slightly increase to 17.3, hemoglobin stable. 8.5. He is afebrile. [facility] Patient Stated Medical History Migraine Yes: ocular Cataracts Yes Hearing Loss Yes: HEARING AIDS Cardiac Arrhythmia Yes: A FIB Hypertension Yes Asthma Yes Bronchitis Yes Chronic Obstructive Pulmonary Yes Disease (COPD) Pneumonia Yes Constipation No: HX: of Torn Anus Gastroesophageal Reflux Yes Disease Gastrointestinal Bleeding Yes: after having a polps removed Hx Benign Prostatic Yes Hyperplasia Hx Incontinence No: BPH Hx Renal Disease No Clotting Problems Yes Osteoarthritis Yes Other Musculoskeletal Yes: HARDWARE PLACED FOR C2-C7 10/08/16 Other Infectious Yes: SEPTIC ARTHRITIS IN [facility] Medical History (Last Updated 11/24/16 @ 14:10 by Adama Spencer MD) Atrial fibrillation (Acute Medical) BPH (benign prostatic hyperplasia) (Acute Medical) COPD (chronic obstructive pulmonary disease) (Acute Medical) GERD (gastroesophageal reflux disease) (Acute Medical) Hypertension (Acute Medical) Ocular migraine (Acute Medical) Surgical History: Cardiac ablation. C2-C7 Neck fusion September 2016, Dr. Drake. Prior to this he had cervical fusion in 2013. Total Left hip replacement Feb. Rt knee surgery. ACL reconstruction Dr Garcia 1977. Appendectomy 1937. Tonsillectomy . Right ruptured Achilles tendon. Neck surgery 2016. Arthroscopic surgery on left knee. Heart catheterization with stenting to RCA 2008; cath in 2011 Family History: Family History Brother Heart disease Father COPD (chronic obstructive pulmonary disease) Mother Diabetes - Social History Substance use type: does not use Alcohol intake frequency: does not drink Current residence: Apartment/Private Home Social history: PCP Dr Orosco Review of Systems All systems: reviewed and no additional remarkable complaints except as stated - Constitutional Constitutional: Present: fatigue - Respiratory Respiratory: Present: dyspnea Medications Home Medications Medication Instructions Recorded Confirmed Type Atorvastatin Calcium 40 mg PO HS #0 01/25/14 11/24/16 History Levothyroxine Sodium 25 mcg PO ACB #0 01/25/14 11/24/16 History Nitroglycerin [Nitrostat] 0.4 mg SL Q5MIN3 PRN #0 01/26/14 11/24/16 History Omeprazole 40 mg PO ACB #0 02/06/15 11/24/16 History Apixaban [Eliquis] 5 mg PO BID #0 10/02/16 11/24/16 History Levalbuterol HCl [Xopenex] 1 vial AEROSOL QID PRN #0 10/02/16 11/24/16 History Hydrocodone/APAP 5/325 [[place] 1 - 2 tab PO Q4-6HPRN PRN 10/28/16 11/24/16 History 5/325] Diazepam [Valium] 5 mg PO TID PRN 10/29/16 11/24/16 History duloxetine 60 mg capsule,delayed 60 mg PO DAILY 30 Days 11/16/16 11/24/16 History release Albuterol Inhaler [Ventolin Hfa] 1 puff INH BID PRN 11/21/16 11/24/16 History DAPTOmycin [Daptomycin] 400 mg IV DAILY 11/21/16 11/24/16 History Mometasone/Formoterol 200/5 1 puff INH BID 11/21/16 11/24/16 History [DULERA 200/5mcg INHALER] Allergies Allergy/AdvReac Type Severity Reaction Status Date / Time No Known Allergies Allergy Verified 11/21/16 10:33 Exam Vital Signs: Temperature 97.8 F 11/25/16 08:00 Pulse Rate 109 H 11/25/16 08:00 Respiratory Rate 16 11/25/16 10:45 Blood Pressure 125/71 11/25/16 08:00 Pulse Oximetry 93 11/25/16 08:00 Oxygen Delivery Method Room Air Height: 1.83 m Weight: 69.853 kg Body Mass Index: 20.9 - Constitutional Present: no acute distress - Routine HEENT Exam Eye: Present: EOMI, PERRL ENT: Present: mucous membranes moist, dentition normal - Routine Respiratory Exam Present: CTA bilaterally, diminished air movement (throughout ). Absent: wheezes - Routine Cardiovascular Exam Present: RRR, S1, S2, no murmur. Absent: murmur - Routine Abdominal Exam Present: soft, normoactive bowel sounds, non distended. Absent: tenderness - Routine Extremities Exam Present: normal capillary refill Comments: Mild swelling to knee without, without acute erythema Thumb erythema and swelling much improved - Routine Skin Exam Present: dry, warm - Routine Neurological Exam Present: alert, oriented X3, CN II-XII intact - Routine Psychiatric Exam Present: normal affect Results - Labs CBC & Chem 7: 11/25/16 06:07 11/25/16 06:07 Assessment and Plan (1) Weakness Current visit: Yes Status: Acute Following acute illness, sepsis H. Influenza (2) Nonrheumatic mitral valve insufficiency Current visit: No Status: Acute (3) Paroxysmal atrial fibrillation Current visit: No Status: Acute (4) Septic arthritis of knee, right Problem details: Continue daptomycin daily at outpatient dose through 11/30 Current visit: No Status: Acute (5) Swelling of right thumb Current visit: No Status: Acute (6) CAD (coronary artery disease) Current visit: No Status: Chronic (7) COPD (chronic obstructive pulmonary disease) Current visit: No Status: Chronic (8) Essential (primary) hypertension Current visit: No Status: Chronic (9) HTN (hypertension) Current visit: No Status: Chronic (10) Mixed hyperlipidemia Current visit: No Status: Chronic (11) SHANA (obstructive sleep apnea) Current visit: No Status: Chronic DVT Prophylaxis: Eliquis Resuscitation Status: Full Code Assessment and Plan: 11/25 Agree with admission to IRu for ongoing rehabilitation under the care of Dr Baker Continue with PT/OT for ongoing therapy and strengthening. He is able to be weaned down to room air during the day. He states that with activity. He does feel more dyspneic and is encouraged to utilize oxygen as needed. He does use chronic oxygen at night. Will continue to monitor both thumb and knee as both symptoms have improved greatly. He does continue on prednisone taper. 20 mg daily for 4 days then decrease to 10 mg daily for 4 days then stop. Prednisone may be the cause of mild leukocytosis. We will continue to follow. Routine laboratory studies. Hospital Course Summary Disclaimer: The visit summary below is not to be considered part of the above Progress Note. Hospital Course: 11/25/16 16:43 11/25 Continue with PT/OT for ongoing therapy and strengthening. She is able to be weaned down to room air during the day. He states that with activity. He does feel more dyspneic and is encouraged to utilize oxygen as needed. He does use chronic oxygen at night. Will continue to monitor both thumb and knee as both symptoms have improved greatly. He does continue on prednisone taper. 20 mg daily for 4 days then decrease to 10 mg daily for 4 days then stop. Prednisone may be the cause of mild leukocytosis. We will continue to follow. Routine laboratory studies. Sepsis Assessment - Evaluation Sepsis screening result: No Definite Risk
[2016-11-25] MEDS: DAPTOmycin 400 MG in NS 8 ML IVP SCH (12:49)
--- NOTE | 2016-11-25 16:04 | IRU History & Physical Report ---
HPI IRU Date: Chief complaint: debility s/p pneumonia HPI: 86 yo gentleman s/p inpatient treatment of pneumonia. He has a hx of right knee infection which led to sepsis and he has been on iv antibiotics for this. He worked well with PT and OT but has been unable to manage adl's due to continued pain and muscle weakness. He requires IRU admission. \ Review of Systems All systems: reviewed and no additional remarkable complaints except as stated - Constitutional Constitutional: Present: fatigue - Respiratory Respiratory: Present: dyspnea PFSH Patient Stated Medical History Migraine Yes: ocular Cataracts Yes Hearing Loss Yes: HEARING AIDS Cardiac Arrhythmia Yes: A FIB Hypertension Yes Asthma Yes Bronchitis Yes Chronic Obstructive Pulmonary Yes Disease (COPD) Pneumonia Yes Constipation No: HX: of Torn Anus Gastroesophageal Reflux Yes Disease Gastrointestinal Bleeding Yes: after having a polps removed Hx Benign Prostatic Yes Hyperplasia Hx Incontinence No: BPH Hx Renal Disease No Clotting Problems Yes Osteoarthritis Yes Other Musculoskeletal Yes: HARDWARE PLACED FOR C2-C7 10/08/16 Other Infectious Yes: SEPTIC ARTHRITIS IN [facility] Medical History (Last Updated 11/25/16 @ 11:52 by Jasmyne Colón APRN) Atrial fibrillation (Acute Medical) BPH (benign prostatic hyperplasia) (Acute Medical) COPD (chronic obstructive pulmonary disease) (Acute Medical) GERD (gastroesophageal reflux disease) (Acute Medical) Hypertension (Acute Medical) Ocular migraine (Acute Medical) Surgical History: Cardiac ablation. C2-C7 Neck fusion September 2016, Dr. Drake. Prior to this he had cervical fusion in 2013. Total Left hip replacement Feb. Rt knee surgery. ACL reconstruction Dr Garcia 1977. Appendectomy 1937. Tonsillectomy . Right ruptured Achilles tendon. Neck surgery 2016. Arthroscopic surgery on left knee. Heart catheterization with stenting to RCA 2008; cath in 2011 Family History: Family History Brother Heart disease Father COPD (chronic obstructive pulmonary disease) Mother Diabetes - Social History Substance use type: does not use Alcohol intake frequency: does not drink Current residence: Apartment/Private Home Medications Home Medications Medication Instructions Recorded Confirmed Type Atorvastatin Calcium 40 mg PO HS #0 01/25/14 11/24/16 History Levothyroxine Sodium 25 mcg PO ACB #0 01/25/14 11/24/16 History Nitroglycerin [Nitrostat] 0.4 mg SL Q5MIN3 PRN #0 01/26/14 11/24/16 History Omeprazole 40 mg PO ACB #0 02/06/15 11/24/16 History Apixaban [Eliquis] 5 mg PO BID #0 10/02/16 11/24/16 History Levalbuterol HCl [Xopenex] 1 vial AEROSOL QID PRN #0 10/02/16 11/24/16 History Hydrocodone/APAP 5/325 [[place] 1 - 2 tab PO Q4-6HPRN PRN 10/28/16 11/24/16 History 5/325] Diazepam [Valium] 5 mg PO TID PRN 10/29/16 11/24/16 History duloxetine 60 mg capsule,delayed 60 mg PO DAILY 30 Days 11/16/16 11/24/16 History release Albuterol Inhaler [Ventolin Hfa] 1 puff INH BID PRN 11/21/16 11/24/16 History DAPTOmycin [Daptomycin] 400 mg IV DAILY 11/21/16 11/24/16 History Mometasone/Formoterol 200/5 1 puff INH BID 11/21/16 11/24/16 History [DULERA 200/5mcg INHALER] Allergies Allergy/AdvReac Type Severity Reaction Status Date / Time No Known Allergies Allergy Verified 11/21/16 10:33 Exam Vital Signs: Temperature 97.8 F 11/25/16 08:00 Pulse Rate 109 H 11/25/16 08:00 Respiratory Rate 20 11/25/16 14:37 Blood Pressure 125/71 11/25/16 08:00 Pulse Oximetry 93 11/25/16 08:00 Oxygen Delivery Method Room Air Telemetry Rhythm: Sinus Rhythm Height: 1.83 m Weight: 69.853 kg Body Mass Index: 20.9 - Constitutional Present: no acute distress - Routine HEENT Exam Head: Present: normocephalic - Routine Neck Exam Present: supple. Absent: carotid bruit - Routine Chest/Breast/Axilla Exam Chest wall: Absent: tenderness - Routine Respiratory Exam Present: CTA bilaterally. Absent: wheezes - Routine Cardiovascular Exam Present: RRR. Absent: murmur - Routine Abdominal Exam Present: soft, normoactive bowel sounds, non distended. Absent: tenderness Sepsis Assessment - Evaluation Sepsis screening result: No Definite Risk IRU A/P (1) Community acquired pneumonia Problem details: H influenza in sputum - likely causative agent. Current visit: No Status: Resolved Medical to manage (2) Sepsis Qualifiers: Sepsis type: sepsis due to unspecified organism Qualified Code(s): A41.9 - Sepsis, unspecified organism Current visit: No Status: Resolved Medical to manage along with ID as needed. (3) Septic arthritis of knee, right Qualifiers: Septic arthritis organism: due to unspecified organism Qualified Code(s): M00.9 - Pyogenic arthritis, unspecified Problem details: Continue daptomycin daily at outpatient dose through 11/30 Current visit: No Status: Acute PT and OT to work with pt to treat debility and myopathy. Care plan to be established with understanding that pt will have some limitations. DVT Prophylaxis: Eliquis - Course Hospital Course: Lcuas Baker MD: - Interventions to Obtain Goals PT Treatment Plan: Balance/Proprioception, Functional Activities, Gait Training , Patient/Family Education, Therapeutic Exercise OT Treatment Plan: ADL (Basic Care), Balance Training, IADL, Pt./Family Education, Ther. Exercise for ADL, Ultrasound
--- NOTE | 2016-11-25 16:08 | IRU 24Hr Post Admit Eval ---
24 Hr Post Admission Physical - Relevant Changes Relevant Changes: No Reviewed: I have reviewed the patient's information and concur with the finding and results of the pre-admission screen. Certification: I certify the patient for rehabilitation. - Patient Condition (1) Community acquired pneumonia Status: Resolved Code(s): J18.9 - Pneumonia, unspecified organism Classification: Present on IRF Admission, Diagnosis Requiring Medical Follow Up (2) Sepsis Status: Resolved Qualifiers: Sepsis type: sepsis due to unspecified organism Qualified Code(s): A41.9 - Sepsis, unspecified organism Code(s): A41.9 - Sepsis, unspecified organism Classification: Present on IRF Admission, Diagnosis Requiring Medical Follow Up (3) Septic arthritis of knee, right Status: Acute Qualifiers: Septic arthritis organism: due to unspecified organism Qualified Code(s): M00.9 - Pyogenic arthritis, unspecified Code(s): M00.9 - Pyogenic arthritis, unspecified Classification: Present on IRF Admission, IRF Tx That Should Address Diagnosis, Diagnosis Requiring Medical Follow Up - Prior Functional Status Lives With: Alone Residence Type: Apartment/Private Home Assitive Devices: None Prior Functional Status: Indep. at home or school - Current Functional Status Failed Alternative Therapy: Arrived from Acute Care Patient Requirements: The patient requires oversight by rehabilitation physician to manage their rehabilitation treatment plan and multidisciplinary approach to care that can only be provided in an IRF and requires a multidisciplinary approach to care, provided by professional PTs, OTs, STs, dieticians, RTs, rehabilitation nurses and is not available in lesser levels of care. Limitiations Req: Mobility Impairment, ADL Impairment, Respiratory Impairment Physical Therapy Minutes: 90 Occupational Therapy Minutes: 90 Therapy: The patient is to receive therapy at least 5 days a week. - Complications/Comorbidities Barriers to Discharge: Weakness, Balance, Endurance, Pain Control - Plan to Avoid Complications Plan to Avoid Complications: The patient cannot receive this care in a lesser intensive setting such as [facility] or Outpatient Therapy due to the patient requiring medical supervision of sepsis while Inpatient intensive PT and OT are given.
[2016-11-25] MEDS: ATORVASTATIN 40 MG TABLET PO SCH (21:47)
[2016-11-25] MEDS: HYDROCODONE/APAP 5mg/325mg TABLET PO PRN (23:57)
[2016-11-26] MEDS: OMEPRAZOLE 20 MG CAPSULE PO SCH ×2 (05:05→06:15)
[2016-11-26] MEDS: LEVOTHYROXINE 25 MCG TABLET PO SCH ×2 (05:05→06:15)
[2016-11-26] MEDS: DULOXETINE 60 MG CAPSULE PO SCH (08:18)
[2016-11-26] MEDS: APIXABAN 5 MG TABLET PO SCH ×2 (08:18→22:28)
[2016-11-26] MEDS: MELOXICAM 7.5 MG TABLET PO SCH (08:18)
[2016-11-26] MEDS: PredniSONE 20 MG TABLET PO SCH (08:19)
[2016-11-26] MEDS: DAPTOmycin 400 MG in NS 8 ML IVP SCH (11:36)
[2016-11-26] MEDS: SALINE FLUSH 10ml SYRINGE IVF PRN (11:36)
--- NOTE | 2016-11-26 15:25 | IRU Plan of Care ---
[facility] Overall Plan of Care - Patient Impairments (1) Weakness Code(s): R53.1 - Weakness Status: Acute Classification: Present on IRF Admission, IRF Tx That Should Address Diagnosis (2) Nonrheumatic mitral valve insufficiency Code(s): I34.0 - Nonrheumatic mitral (valve) insufficiency Status: Acute Classification: Present on IRF Admission, Diagnosis Requiring Medical Follow Up (3) Paroxysmal atrial fibrillation Code(s): I48.0 - Paroxysmal atrial fibrillation Status: Acute (4) Septic arthritis of knee, right Qualifiers: Septic arthritis organism: due to unspecified organism Qualified Code(s): M00.9 - Pyogenic arthritis, unspecified Code(s): M00.9 - Pyogenic arthritis, unspecified Status: Acute Classification: Present on IRF Admission, IRF Tx That Should Address Diagnosis, Diagnosis Requiring Medical Follow Up (5) Swelling of right thumb Code(s): M79.89 - Other specified soft tissue disorders Status: Acute Classification: Present on IRF Admission (6) CAD (coronary artery disease) Qualifiers: Coronary Disease-Associated Artery/Lesion type: [place] artery [place] vs. transplanted heart: [place] heart Associated angina: without angina Qualified Code(s): I25.10 - Atherosclerotic heart disease of [place] coronary artery without angina pectoris Code(s): I25.10 - Atherosclerotic heart disease of [place] coronary artery without angina pectoris Status: Chronic Classification: Present on IRF Admission, Diagnosis Requiring Medical Follow Up (7) COPD (chronic obstructive pulmonary disease) Qualifiers: COPD type: unspecified COPD Qualified Code(s): J44.9 - Chronic obstructive pulmonary disease, unspecified Code(s): J44.9 - Chronic obstructive pulmonary disease, unspecified Status: Chronic Classification: Present on IRF Admission, Diagnosis Requiring Medical Follow Up (8) Essential (primary) hypertension Code(s): I10 - Essential (primary) hypertension Status: Chronic Classification: Present on IRF Admission (9) HTN (hypertension) Qualifiers: Hypertension type: essential hypertension Qualified Code(s): I10 - Essential (primary) hypertension Code(s): I10 - Essential (primary) hypertension Status: Chronic Classification: Present on IRF Admission (10) Mixed hyperlipidemia Code(s): E78.2 - Mixed hyperlipidemia Status: Chronic Classification: Present on IRF Admission (11) SHANA (obstructive sleep apnea) Code(s): G47.33 - Obstructive sleep apnea (adult) (pediatric) Status: Chronic Classification: Present on IRF Admission - Relevant Changes Relevant Changes: No Reviewed: I have reviewed the patient's information and concur with the finding and results of the pre-admission screen. Certification: I certify the patient for rehabilitation. - Medical Prognosis Medical Prognosis: Fair Vital Signs: Last Vital Signs Temp 97.7 F 11/26/16 08:00 Pulse 84 11/26/16 08:00 Resp 16 11/26/16 11:18 BP 160/84 H 11/26/16 08:00 Pulse Ox 96 11/26/16 08:00 - Anticipated Interventions Anticipated Interventions: The patient requires inpatient IRF care for PT, OT, and/or ST for residuals remaining from [] resulting in muscular weakness and strength deficits. Strength Deficits: Right Lower Extremity, Left Lower Extremity - FIM Ambulation Distance: 672 Toileting Adaptive Equipment: Urinal Number of Continent Voids: 1 - Current Functional Status Failed Alternative Therapy: Arrived from Acute Care Patient Requires: The patient requires oversight by rehabilitation physician to manage their rehabilitation treatment plan and multidisciplinary approach to care that can only be provided in an IRF and requires a multidisciplinary approach to care, provided by professional PTs, OTs, STs, dieticians, RTs, rehabilitation nurses and is not available in lesser levels of care. Physical Therapy Minutes: 90 Occupational Therapy Minutes: 90 Therapy: The patient is to receive therapy at least [address] Treatment Plan: Swallow Precautions, Modified Diet ST Treatment Plan Duration: Discontinue Therapy ST Treatment Plan Frequency: N/A Plan of Care Comment: Swallow plan in place. No additional skilled speech therapy recommended at this time. Supervision recommended during meals. - Anticipated LOS/Outcomes Anticipated Functional Outcome: Return to preadmission status with physical therapy and occupational therapy inpatient treatment Anticipated DC Destination: Home Health Service Home Safety Plan: The patient will be provided with the development of a Home Safety Plan for return to a home or home-like environment and and to ensure safety post discharge. - Plan to Avoid Complications Barriers to Attaining Goals: Weakness, Balance, Endurance Plan to Avoid Complications: The patient cannot receive this care in a lesser intensive setting such as Senior Living or Outpatient Therapy due to the patient requiring medical supervision of cardiac and infectious disease concerns during inpatient physical therapy and occupational therapy treatment..
[2016-11-26] MEDS: ATORVASTATIN 40 MG TABLET PO SCH (22:28)
[2016-11-27] MEDS: LEVOTHYROXINE 25 MCG TABLET PO SCH (06:37)
[2016-11-27] MEDS: OMEPRAZOLE 20 MG CAPSULE PO SCH (06:37)
--- NOTE | 2016-11-27 08:07 | Progress Note ---
Subjective: Mr. Laura was resting in bed, but ready to get up for the day. He feels like therapy is going very well and he is seeing improvement in strength. He denies any knee pain, or pain anywhere for that matter. He occasionally feels like he can't catch his breath, but this has been going on for a long time. No abdominal discomfort, nausea or vomiting. He states he has been eating well. Objective Vital signs: Temperature 97.8 F 11/27/16 07:49 Pulse Rate 86 11/27/16 07:49 Respiratory Rate 15 11/27/16 07:49 Blood Pressure 154/93 H 11/27/16 07:49 Pulse Oximetry 90 11/27/16 07:49 Oxygen Delivery Method Room Air Oxygen Flow Rate 1 Body Mass Index: 20.9 - Constitutional Present: no acute distress, mild distress, well nourished, well developed, thin - Routine HEENT Exam ENT: Present: mucous membranes moist, oropharynx clear - Routine Respiratory Exam Present: decreased breath sounds, rhonchi, crackles - Routine Cardiovascular Exam Present: S1, S2 - Routine Abdominal Exam Present: soft, normoactive bowel sounds, non distended, non tender - Routine Extremities Exam Present: no edema, pulses intact, normal capillary refill - Routine Musculoskeletal Exam Musculoskeletal: Present: other (effusion to Right knee has significantly improved. There is no erythema or warmth. No range of motion deficits to thumb.) - Routine Skin Exam Present: intact, dry, warm - Routine Neurological Exam Present: alert, oriented X3 - Routine Psychiatric Exam Present: normal affect, normal thought process (a) Results - Labs CBC & Chem 7: 11/26/16 05:04 11/26/16 05:04 Assessment and Plan (1) Weakness Current visit: Yes Status: Acute Following acute illness, sepsis H. Influenza (2) Septic arthritis of knee, right Problem details: Continue daptomycin daily at outpatient dose through 11/30 Current visit: No Status: Acute (3) Swelling of right thumb Current visit: Yes Status: Resolved (4) CAD (coronary artery disease) Current visit: No Status: Chronic (5) HTN (hypertension) Current visit: No Status: Chronic (6) COPD (chronic obstructive pulmonary disease) Current visit: No Status: Chronic (7) SHANA (obstructive sleep apnea) Current visit: No Status: Chronic (8) Paroxysmal atrial fibrillation Current visit: No Status: Chronic (9) Essential (primary) hypertension Current visit: No Status: Chronic (10) Nonrheumatic mitral valve insufficiency Current visit: No Status: Acute (11) Mixed hyperlipidemia Current visit: No Status: Chronic DVT Prophylaxis: Eliquis Resuscitation Status: Full Code Assessment and Plan: Septic joint -Right knee Effusion, much improved -Continue daptomycin through 11/30 -Agree with Dr. Key consultation COPD -Continue prednisone taper -Nocturnal oxygen, supportive care Leukocytosis -at least in part associated with steroids -recheck in am HTN -moderate elevations -hesitant to introduce new antihypertensives during acute illness and while on steroids Sepsis Assessment - Evaluation Sepsis screening result: No Definite Risk Hospital Course Summary Disclaimer: The visit summary below is not to be considered part of the above Progress Note. Hospital Course: 11/25/16 16:43 11/25 Continue with PT/OT for ongoing therapy and strengthening. She is able to be weaned down to room air during the day. He states that with activity. He does feel more dyspneic and is encouraged to utilize oxygen as needed. He does use chronic oxygen at night. Will continue to monitor both thumb and knee as both symptoms have improved greatly. He does continue on prednisone taper. 20 mg daily for 4 days then decrease to 10 mg daily for 4 days then stop. Prednisone may be the cause of mild leukocytosis. We will continue to follow. Routine laboratory studies. 11/27/16 08:14 Septic joint -Right knee Effusion, much improved -Continue daptomycin through 11/30 -Agree with Dr. Key consultation COPD -Continue prednisone taper -Nocturnal oxygen, supportive care Leukocytosis -at least in part associated with steroids -recheck in am HTN -moderate elevations -hesitant to introduce new antihypertensives during acute illness and while on steroids
[2016-11-27] MEDS: DULOXETINE 60 MG CAPSULE PO SCH (08:34)
[2016-11-27] MEDS: MELOXICAM 7.5 MG TABLET PO SCH (08:34)
[2016-11-27] MEDS: PredniSONE 20 MG TABLET PO SCH (08:34)
[2016-11-27] MEDS: APIXABAN 5 MG TABLET PO SCH ×2 (08:34→21:15)
[2016-11-27] MEDS: DAPTOmycin 400 MG in NS 8 ML IVP SCH (09:47)
[2016-11-27] MEDS: SALINE FLUSH 10ml SYRINGE IVF PRN ×2 (09:48→17:32)
--- NOTE | 2016-11-27 14:28 | IRU Progress Note ---
- Subjective/Serverity of Illness Working with physical therapy, making progress in strength. Feeling little or no pain in his knee today. Exam Vital Signs: Temperature 97.8 F 11/27/16 07:49 Pulse Rate 86 11/27/16 07:49 Respiratory Rate 16 11/27/16 12:37 Blood Pressure 154/93 H 11/27/16 07:49 Pulse Oximetry 90 11/27/16 07:49 Oxygen Delivery Method Room Air Oxygen Flow Rate 1 Telemetry Rhythm: Sinus Rhythm Height: 1.83 m Weight: 69.853 kg Body Mass Index: 20.9 - Constitutional Present: no acute distress - Routine HEENT Exam Head: Present: normocephalic Eye: Present: EOMI ENT: Present: mucous membranes moist - Routine Neck Exam Present: supple, full ROM - Routine Chest/Breast/Axilla Exam Chest wall: Absent: tenderness - Routine Respiratory Exam Present: CTA bilaterally. Absent: wheezes, crackles - Routine Cardiovascular Exam Present: RRR, no murmur Sepsis Assessment - Evaluation Sepsis screening result: No Definite Risk IRU A/P (1) Weakness Current visit: Yes Status: Acute Improvement with PT adn OT. Continue per plan of care. Reeval on Wednesday. (2) Nonrheumatic mitral valve insufficiency Current visit: No Status: Acute Managed by Medical (3) Paroxysmal atrial fibrillation Current visit: No Status: Chronic Managed by Medical (4) Septic arthritis of knee, right Qualifiers: Septic arthritis organism: due to unspecified organism Qualified Code(s): M00.9 - Pyogenic arthritis, unspecified Problem details: Continue daptomycin daily at outpatient dose through 11/30 Current visit: No Status: Acute cont antibiotics per Medical. PT and OT are working to get her ambulatory and independent despite septic knee. (5) Swelling of right thumb Current visit: Yes Status: Resolved (6) CAD (coronary artery disease) Qualifiers: Coronary Disease-Associated Artery/Lesion type: crow artery [place] vs. transplanted heart: crow heart Associated angina: without angina Qualified Code(s): I25.10 - Atherosclerotic heart disease of crow coronary artery without angina pectoris Current visit: No Status: Chronic (7) COPD (chronic obstructive pulmonary disease) Qualifiers: COPD type: unspecified COPD Qualified Code(s): J44.9 - Chronic obstructive pulmonary disease, unspecified Current visit: No Status: Chronic Managed by Medical (8) Essential (primary) hypertension Current visit: No Status: Chronic (9) HTN (hypertension) Qualifiers: Hypertension type: essential hypertension Qualified Code(s): I10 - Essential (primary) hypertension Current visit: No Status: Chronic (10) Mixed hyperlipidemia Current visit: No Status: Chronic (11) SHANA (obstructive sleep apnea) Current visit: No Status: Chronic DVT Prophylaxis: Eliquis Resuscitation Status: Full Code - Course Hospital Course: Lucas Baker MD: - Interventions to Obtain Goals PT Treatment Plan: Balance/Proprioception, Functional Activities, Gait Training , Patient/Family Education, Therapeutic Exercise OT Treatment Plan: ADL (Basic Care), Balance Training, IADL, Pt./Family Education, Ther. Exercise for ADL, Ultrasound
[2016-11-27] MEDS: ATORVASTATIN 40 MG TABLET PO SCH (21:16)
[2016-11-28] MEDS: OMEPRAZOLE 20 MG CAPSULE PO SCH (06:38)
[2016-11-28] MEDS: LEVOTHYROXINE 25 MCG TABLET PO SCH (06:38)
[2016-11-28] MEDS: MELOXICAM 7.5 MG TABLET PO SCH (08:48)
[2016-11-28] MEDS: APIXABAN 5 MG TABLET PO SCH ×2 (08:48→21:11)
[2016-11-28] MEDS: PredniSONE 20 MG TABLET PO SCH (08:49)
[2016-11-28] MEDS: DULOXETINE 60 MG CAPSULE PO SCH (08:49)
[2016-11-28] MEDS: DAPTOmycin 400 MG in NS 8 ML IVP SCH (10:19)
[2016-11-28] MEDS: SALINE FLUSH 10ml SYRINGE IVF PRN (10:19)
[2016-11-28] MEDS: GUAIFENESIN/D-METHORPHAN 600mg/30mg TABLET PO SCH ×2 (10:19→21:11)
[2016-11-28] MEDS ORDERED: NS with KCL 20 mEq 20 MEQ/1,000 ML IV.SOLN IV SCH (12:30)
--- NOTE | 2016-11-28 14:52 | Progress Note ---
<UlyssesUsha Bunny - Last Filed: 11/28/16 14:46> Subjective: Jayy is seen today in follow up for his recent pneumonia secondary to H.flu and septic knee. He is seen in his room and reports that he feels more worn out today. He states that he slept well last night but woke up tired and has progressively gotten more tired as the day has gone on. He denies any other complaints including no fevers, chills, chest pain, increased shortness of breath, abdominal pain, nausea, vomiting or dysuria. He does admit to 2 loose bowel movements today and denies any noted blood. He continues to have a productive cough with brownish sputum and believes that his congestion is starting to break up in his chest. His appetite is fair and unchanged as compared to before his admission but he states that he is eating most of his meals. On exam, he is noted to ambulate easily from the bathroom to his bed with minimal assistance and using his cane. He is alert and orientated x 3 and in no apparent distress. Cardiac exam reveals irregular rhythm consistent with rate controlled afib. Lungs are diminished in the bases bilaterally with questionable crackles on the right. Abdomen is soft, nontender with active bowel sounds. Trace edema to lower extremities. Labs today showed significant increase in leukocytosis at 21.1, anemia with HGB at 9.6 and thrombocytosis with platelets at 421. Hypokalemia was also noted with potassium at 3.3. Objective Vital signs: Temperature 98.3 F 11/28/16 08:10 Pulse Rate 85 11/28/16 10:17 Respiratory Rate 18 11/28/16 08:10 Blood Pressure 109/68 11/28/16 10:17 Pulse Oximetry 96 11/28/16 08:10 Oxygen Delivery Method Room Air Oxygen Flow Rate 1 Body Mass Index: 20.9 - Constitutional Present: no acute distress, well nourished, well developed, thin, cooperative - Routine HEENT Exam Head: Present: normocephalic, atraumatic Eye: Present: PERRL. Absent: conjunctival icterus, scleral injection ENT: Present: mucous membranes dry, oropharynx clear - Routine Respiratory Exam Present: decreased breath sounds, rales, diminished air movement. Absent: accessory muscle use, wheezes - Routine Cardiovascular Exam Present: S1, S2, irregular rhythm - Routine Abdominal Exam Present: soft, normoactive bowel sounds, non distended, non tender - Routine Extremities Exam Present: edema (trace), non tender, pulses intact - Routine Back/Spine/Pelvis Exam Back/Spine: Present: full ROM. Absent: erythema, warmth - Routine Musculoskeletal Exam Musculoskeletal: Present: normal strength, moving extremities well - Routine Skin Exam Present: intact, dry, warm. Absent: jaundice - Routine Neurological Exam Present: alert, oriented X3, moving all extremities, hearing grossly intact, normal speech - Routine Lymphatic Exam Lymphatic: Absent: lymphedema - Routine Psychiatric Exam Present: normal affect, cooperative Results - Labs CBC & Chem 7: 11/28/16 04:40 11/28/16 04:40 Assessment and Plan (1) Septic arthritis of knee, right Problem details: Continue daptomycin daily at outpatient dose through 11/30 Current visit: No Status: Acute (2) CAD (coronary artery disease) Current visit: No Status: Chronic (3) COPD (chronic obstructive pulmonary disease) Current visit: No Status: Chronic (4) SHANA (obstructive sleep apnea) Current visit: No Status: Chronic (5) Essential (primary) hypertension Current visit: No Status: Chronic (6) Mixed hyperlipidemia Current visit: No Status: Chronic (7) Nonrheumatic mitral valve insufficiency Current visit: No Status: Acute (8) Swelling of right thumb Current visit: Yes Status: Resolved (9) Paroxysmal atrial fibrillation Current visit: No Status: Chronic (10) Weakness Current visit: Yes Status: Acute Following acute illness, sepsis H. Influenza Resuscitation Status: Full Code Assessment and Plan: Jayy reports that he feels more fatigued and worn out today. Denies fever or chills. 2 loose bowel movements without blood. Persistent productive cough with brownish sputum. No increased shortness of breath or chest pain. No abdominal pain. Cardiac exam reveals irregular rhythm. Lungs diminished in bilateral bases with questionable crackles. Trace edema. Alert and orientated x 3. Septic joint, Right knee -Effusion, much improved -Continue daptomycin through 11/30. -Agree with Dr. Key consultation. COPD -Continue prednisone taper and breathing treatments as needed. -Continue nocturnal oxygen and supportive care. -Mucinex for mucolytic effect and encourage acapella for pulmonary toileting. Leukocytosis, worsening. -WBC elevated to 21.1. Possibly some secondary steroid effect but concern for infectious source. -Will obtain GI panel, repeat CXR and UA to evaluate for possible source of infection. Patient remains afebrile and vitals stable. -Recheck CBC and BMP in AM to monitor blood counts, electrolytes and renal function. Hyponatremia. -Sodium 133. Initiate NS with KCl 20 mEq IV at 100cc/hr for hydration and potassium replacement. Monitor closely for signs of fluid overload. HTN -fairly well controlled. Continue to monitor closely. -hesitant to introduce new antihypertensives during acute illness and while on steroids. - Time spent with patient 25 - 35 minutes Sepsis Assessment - Evaluation Sepsis screening result: No Definite Risk Hospital Course Summary Disclaimer: The visit summary below is not to be considered part of the above Progress Note. Hospital Course: 11/25/16 16:43 11/25 Continue with PT/OT for ongoing therapy and strengthening. She is able to be weaned down to room air during the day. He states that with activity. He does feel more dyspneic and is encouraged to utilize oxygen as needed. He does use chronic oxygen at night. Will continue to monitor both thumb and knee as both symptoms have improved greatly. He does continue on prednisone taper. 20 mg daily for 4 days then decrease to 10 mg daily for 4 days then stop. Prednisone may be the cause of mild leukocytosis. We will continue to follow. Routine laboratory studies. 11/27/16 08:14 Septic joint -Right knee Effusion, much improved -Continue daptomycin through 11/30 -Agree with Dr. Key consultation COPD -Continue prednisone taper -Nocturnal oxygen, supportive care Leukocytosis -at least in part associated with steroids -recheck in am HTN -moderate elevations -hesitant to introduce new antihypertensives during acute illness and while on steroids 11/28/16 15:03 Jayy reports that he feels more fatigued and worn out today. Denies fever or chills. 2 loose bowel movements without blood. Persistent productive cough with brownish sputum. No increased shortness of breath or chest pain. No abdominal pain. Cardiac exam reveals irregular rhythm. Lungs diminished in bilateral bases with questionable crackles. Trace edema. Alert and orientated x 3. Septic joint, Right knee -Effusion, much improved -Continue daptomycin through 11/30. -Agree with Dr. Key consultation. COPD -Continue prednisone taper and breathing treatments as needed. -Continue nocturnal oxygen and supportive care. -Mucinex for mucolytic effect and encourage acapella for pulmonary toileting. Leukocytosis, worsening. -WBC elevated to 21.1. Possibly some secondary steroid effect but concern for infectious source. -Will obtain GI panel, repeat CXR and UA to evaluate for possible source of infection. Patient remains afebrile and vitals stable. -Recheck CBC and BMP in AM to monitor blood counts, electrolytes and renal function. Hyponatremia. -Sodium 133. Initiate NS with KCl 20 mEq IV at 100cc/hr for hydration and potassium replacement. Monitor closely for signs of fluid overload. HTN -fairly well controlled. Continue to monitor closely. -hesitant to introduce new antihypertensives during acute illness and while on steroids. <Darshana Barnett - Last Filed: 11/28/16 17:14> Objective Vital signs: Temperature 98.7 F 11/28/16 17:02 Pulse Rate 86 11/28/16 17:02 Respiratory Rate 16 11/28/16 17:02 Blood Pressure 145/84 H 11/28/16 17:02 Pulse Oximetry 94 11/28/16 17:02 Oxygen Delivery Method Room Air Oxygen Flow Rate 1 Results - Labs CBC & Chem 7: 11/28/16 04:40 11/28/16 04:40 Assessment and Plan (1) Septic arthritis of knee, right Problem details: Continue daptomycin daily at outpatient dose through 11/30 Current visit: No Status: Acute (2) CAD (coronary artery disease) Current visit: No Status: Chronic (3) COPD (chronic obstructive pulmonary disease) Current visit: No Status: Chronic (4) SHANA (obstructive sleep apnea) Current visit: No Status: Chronic (5) Essential (primary) hypertension Current visit: No Status: Chronic (6) Mixed hyperlipidemia Current visit: No Status: Chronic (7) Nonrheumatic mitral valve insufficiency Current visit: No Status: Acute (8) Swelling of right thumb Current visit: Yes Status: Resolved (9) Paroxysmal atrial fibrillation Current visit: No Status: Chronic (10) Weakness Current visit: Yes Status: Acute Assessment and Plan: 11/28/2016-I reviewed this chart, the patient history, and the FIREMAN's/PA's documented findings as above. We discussed and formulated the assessment and plan as above with the additions below.-Dr. Barnett I've seen and examined the patient independently. The patient states that he felt "wore out" starting this morning. He states the past when he has felt like this was because of low blood pressure. He also feels a little febrile but his temperature has not been elevated. He thinks he had a short lasting episode of chills. He's had some loose stools and his stomach feels a little upset. He denies any abdominal pain, nausea or vomiting. He states his breathing is better and his cough has resolved. He is eating and drinking okay. This morning blood pressure was 109/68 but is currently 145/84. He is afebrile. O2 sat is 94% on room air. As described auscultation. Cardiovascular reveals a regular rate and rhythm. Abdomen is soft and nontender with positive bowel sounds. Extremities are free of edema. Skin is warm and dry and without rashes. The patient has a PICC line in the right arm which looks okay. Lab work today showed elevation of white count of 21.1 up from 15. 74% neutrophils and 0% bands. The patient is on oral steroids. Chest x-ray on my read reveals no infiltrates. Urinalysis is normal. Stool sample was obtained and GI panel is pending. Impression Fatigued unknown etiology, rule out infection, rule out hypotension, rule out abnormal electrolytes versus other. Leukocytosis Septic knee on daptomycin through the 17th of this month. Diarrhea Plan Await GI panel. Patient was given IV fluids with potassium. We'll check a renal panel and magnesium tomorrow. If the patient is febrile or having increasing white count may need to repeat blood cultures. Hospital Course Summary Disclaimer: The visit summary below is not to be considered part of the above Progress Note.
[2016-11-28] MEDS: ATORVASTATIN 40 MG TABLET PO SCH (21:11)
[2016-11-29] MEDS: OMEPRAZOLE 20 MG CAPSULE PO SCH (06:42)
[2016-11-29] MEDS: LEVOTHYROXINE 25 MCG TABLET PO SCH (06:42)
[2016-11-29] MEDS: MELOXICAM 7.5 MG TABLET PO SCH (09:34)
[2016-11-29] MEDS: APIXABAN 5 MG TABLET PO SCH ×2 (09:34→20:41)
[2016-11-29] MEDS: GUAIFENESIN/D-METHORPHAN 600mg/30mg TABLET PO SCH ×2 (09:34→20:41)
[2016-11-29] MEDS: DULOXETINE 60 MG CAPSULE PO SCH (09:34)
[2016-11-29] MEDS: SALINE FLUSH 10ml SYRINGE IVF PRN ×2 (09:35→10:59)
[2016-11-29] MEDS: DAPTOmycin 400 MG in NS 8 ML IVP SCH (09:35)
[2016-11-29] MEDS: PredniSONE 10 MG TABLET PO SCH (09:35)
[2016-11-29] MEDS ORDERED: NS FLUSH BAG 500ml IV PRN (10:55)
[2016-11-29] MEDS: MAGNESIUM SULFATE 1gm PREMIX 1 GM/100 ML BAG IV SCH ×2 (10:59→12:31)
--- NOTE | 2016-11-29 11:22 | Progress Note ---
Subjective: Jayy is seen today in follow up while resting in bed. He reports feeling much better today following IV fluids. He denies having any chills or fevers. Denies pain or shortness of breath. He is noted to have coughing which he feels is "unchanged". Appetite is good and bowels are moving without difficulty. Objective Vital signs: Temperature 98.2 F 11/29/16 09:00 Pulse Rate 91 11/29/16 09:00 Respiratory Rate 18 11/29/16 10:03 Blood Pressure 114/65 11/29/16 09:00 Pulse Oximetry 95 11/29/16 09:00 Oxygen Delivery Method Room Air Oxygen Flow Rate 1 Body Mass Index: 20.9 - Constitutional Present: no acute distress, well nourished, well developed - Routine HEENT Exam Head: Present: normocephalic, atraumatic Eye: Present: EOMI, PERRL ENT: Present: mucous membranes moist, dentition normal - Routine Respiratory Exam Present: CTA bilaterally. Absent: wheezes - Routine Cardiovascular Exam Present: RRR, S1, S2. Absent: murmur - Routine Abdominal Exam Present: soft, normoactive bowel sounds, non distended. Absent: tenderness - Routine Extremities Exam Present: normal capillary refill - Routine Back/Spine/Pelvis Exam Back/Spine: Present: full ROM - Routine Skin Exam Present: dry, warm - Routine Neurological Exam Present: alert, oriented X3, CN II-XII intact - Routine Lymphatic Exam Lymphatic: Absent: adenopathy - Routine Psychiatric Exam Present: normal affect Results - Labs CBC & Chem 7: 11/29/16 04:36 11/29/16 04:36 Microbiology Results: Microbiology 11/29/16 10:01 Cath/Port/Line/Picc Blood Culture - Preliminary Culture Initiated - Results Pending 11/29/16 10:34 Cath/Port/Line/Picc Blood Culture - Preliminary Culture Initiated - Results Pending Assessment and Plan (1) Septic arthritis of knee, right Problem details: Continue daptomycin daily at outpatient dose through 11/30 Current visit: No Status: Acute (2) CAD (coronary artery disease) Current visit: No Status: Chronic (3) COPD (chronic obstructive pulmonary disease) Current visit: No Status: Chronic (4) SHANA (obstructive sleep apnea) Current visit: No Status: Chronic (5) Essential (primary) hypertension Current visit: No Status: Chronic (6) Mixed hyperlipidemia Current visit: No Status: Chronic (7) Nonrheumatic mitral valve insufficiency Current visit: No Status: Acute (8) Swelling of right thumb Current visit: Yes Status: Resolved (9) Paroxysmal atrial fibrillation Current visit: No Status: Chronic (10) Weakness Current visit: Yes Status: Acute Following acute illness, sepsis H. Influenza Assessment and Plan: 11/29/16 Jayy overall is feeling much better today. He states that the fatigue seems to improve following rests a day. Does continue to have leukocytosis, white count this morning 21.5. GI panel obtained yesterday afternoon was negative, and urinalysis was unremarkable. He remains afebrile overnight. It is possible that leukocytosis is related to ongoing prednisone use. 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 His last dose should be . Have asked nursing staff to cancel his outpatient appointment with infectious disease, Dr. Key. Will contact her tomorrow morning to arrange follow-up for possible evaluation during his stay. Potassium 40 me milliequivalents was given this morning for oral supplementation for mild hypokalemia, potassium 3.3 Continue on Eliquis for chronic anticoagulation. Recheck CBC and BMP tomorrow morning to follow blood counts, renal function and electrolytes Sepsis Assessment - Evaluation Sepsis screening result: No Definite Risk Hospital Course Summary Disclaimer: The visit summary below is not to be considered part of the above Progress Note. Hospital Course: 11/25/16 16:43 7 Continue with PT/OT for ongoing therapy and strengthening. She is able to be weaned down to room air during the day. He states that with activity. He does feel more dyspneic and is encouraged to utilize oxygen as needed. He does use chronic oxygen at night. Will continue to monitor both thumb and knee as both symptoms have improved greatly. He does continue on prednisone taper. 20 mg daily for 4 days then decrease to 10 mg daily for 4 days then stop. Prednisone may be the cause of mild leukocytosis. We will continue to follow. Routine laboratory studies. 11/27/16 08:14 Septic joint -Right knee Effusion, much improved -Continue daptomycin through 11/30 -Agree with Dr. Key consultation COPD -Continue prednisone taper -Nocturnal oxygen, supportive care Leukocytosis -at least in part associated with steroids -recheck in am HTN -moderate elevations -hesitant to introduce new antihypertensives during acute illness and while on steroids 11/28/16 15:03 Jayy reports that he feels more fatigued and worn out today. Denies fever or chills. 2 loose bowel movements without blood. Persistent productive cough with brownish sputum. No increased shortness of breath or chest pain. No abdominal pain. Cardiac exam reveals irregular rhythm. Lungs diminished in bilateral bases with questionable crackles. Trace edema. Alert and orientated x 3. Septic joint, Right knee -Effusion, much improved -Continue daptomycin through 11/30. -Agree with Dr. Key consultation. COPD -Continue prednisone taper and breathing treatments as needed. -Continue nocturnal oxygen and supportive care. -Mucinex for mucolytic effect and encourage acapella for pulmonary toileting. Leukocytosis, worsening. -WBC elevated to 21.1. Possibly some secondary steroid effect but concern for infectious source. -Will obtain GI panel, repeat CXR and UA to evaluate for possible source of infection. Patient remains afebrile and vitals stable. -Recheck CBC and BMP in AM to monitor blood counts, electrolytes and renal function. Hyponatremia. -Sodium 133. Initiate NS with KCl 20 mEq IV at 100cc/hr for hydration and potassium replacement. Monitor closely for signs of fluid overload. HTN -fairly well controlled. Continue to monitor closely. -hesitant to introduce new antihypertensives during acute illness and while on steroids. 11/29/16 Jayy overall is feeling much better today. He states that the fatigue seems to improve following rests a day. Does continue to have leukocytosis, white count this morning 21.5. GI panel obtained yesterday afternoon was negative, and urinalysis was unremarkable. He remains afebrile overnight. It is possible that leukocytosis is related to ongoing prednisone use. 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 His last dose should be . Have asked nursing staff to cancel his outpatient appointment with infectious disease, Dr. Key. Will contact her tomorrow morning to arrange follow-up for possible evaluation during his stay. Potassium 40 me milliequivalents was given this morning for oral supplementation for mild hypokalemia, potassium 3.3 Continue on Eliquis for chronic anticoagulation. Recheck CBC and BMP tomorrow morning to follow blood counts, renal function and electrolytes
--- NOTE | 2016-11-29 11:58 | XRay Report ---
INDICATION: dyspnea PROCEDURE: CHEST 2-VIEWS UPRIGHT (PA & LAT) Encounter: Initial COMPARISON: November 23, 2016 FINDINGS: Lungs are hyperinflated. Right PICC line remains in place. No focal consolidative pneumonia. Small pleural effusions on the lateral view. Heart size, pulmonary vascularity and mediastinal contours are stable. Impression: No focal pneumonia. Small pleural effusions. .
[2016-11-29] MEDS: ATORVASTATIN 40 MG TABLET PO SCH ×2 (20:41→23:06)
[2016-11-30] MEDS: LEVOTHYROXINE 25 MCG TABLET PO SCH (06:36)
[2016-11-30] MEDS: OMEPRAZOLE 20 MG CAPSULE PO SCH (06:36)
[2016-11-30] MEDS: MELOXICAM 7.5 MG TABLET PO SCH (08:40)
[2016-11-30] MEDS: GUAIFENESIN/D-METHORPHAN 600mg/30mg TABLET PO SCH ×2 (08:41→21:46)
[2016-11-30] MEDS: APIXABAN 5 MG TABLET PO SCH ×2 (08:41→21:46)
[2016-11-30] MEDS: PredniSONE 10 MG TABLET PO SCH (08:41)
[2016-11-30] MEDS: DULOXETINE 60 MG CAPSULE PO SCH (08:41)
[2016-11-30] MEDS: SALINE FLUSH 10ml SYRINGE IVF PRN (09:21)
[2016-11-30] MEDS: DAPTOmycin 400 MG in NS 8 ML IVP SCH (09:21)
--- NOTE | 2016-11-30 09:28 | IRU Progress Note ---
- Subjective/Serverity of Illness Out to [facility] area for meals. Still having sig pain in knee. Exam Vital Signs: Oxygen Delivery Method Room Air Oxygen Flow Rate 2 Telemetry Rhythm: Sinus Rhythm Height: 1.83 m Weight: 69.853 kg Body Mass Index: 20.9 - Constitutional Present: no acute distress - Routine HEENT Exam Head: Present: normocephalic Eye: Present: EOMI, PERRL ENT: Present: mucous membranes moist - Routine Neck Exam Present: supple, full ROM - Routine Respiratory Exam Present: CTA bilaterally. Absent: wheezes, crackles - Routine Cardiovascular Exam Present: RRR. Absent: murmur Sepsis Assessment - Evaluation Sepsis screening result: No Definite Risk IRU A/P (1) Weakness Current visit: Yes Status: Acute PT and OT developed plan of care and will work a totoal of 3 hours daily with pt. Pt aware and agrees. (2) Nonrheumatic mitral valve insufficiency Current visit: No Status: Acute Managed by Medical (3) Paroxysmal atrial fibrillation Current visit: No Status: Chronic Managed by Medical (4) Septic arthritis of knee, right Qualifiers: Septic arthritis organism: due to unspecified organism Qualified Code(s): M00.9 - Pyogenic arthritis, unspecified Problem details: Continue daptomycin daily at outpatient dose through 11/30 Current visit: No Status: Acute Managed by Medical , Pt and OT to work with patient and help increase ROM and stability with septic knee (as appropriate) (5) Swelling of right thumb Current visit: Yes Status: Resolved (6) CAD (coronary artery disease) Qualifiers: Coronary Disease-Associated Artery/Lesion type: [place] artery [place] vs. transplanted heart: [place] heart Associated angina: without angina Qualified Code(s): I25.10 - Atherosclerotic heart disease of [place] coronary artery without angina pectoris Current visit: No Status: Chronic (7) COPD (chronic obstructive pulmonary disease) Qualifiers: COPD type: unspecified COPD Qualified Code(s): J44.9 - Chronic obstructive pulmonary disease, unspecified Current visit: No Status: Chronic (8) Essential (primary) hypertension Current visit: No Status: Chronic (9) HTN (hypertension) Qualifiers: Hypertension type: essential hypertension Qualified Code(s): I10 - Essential (primary) hypertension Current visit: No Status: Chronic (10) Mixed hyperlipidemia Current visit: No Status: Chronic (11) SHANA (obstructive sleep apnea) Current visit: No Status: Chronic DVT Prophylaxis: Eliquis Resuscitation Status: Full Code - Course Hospital Course: Lucas Baker MD: - Interventions to Obtain Goals PT Treatment Plan: Balance/Proprioception, Functional Activities, Gait Training , Patient/Family Education, Therapeutic Exercise OT Treatment Plan: ADL (Basic Care), Balance Training, IADL, Pt./Family Education, Ther. Exercise for ADL, Ultrasound
--- NOTE | 2016-11-30 10:32 | IRU Progress Note ---
- Subjective/Serverity of Illness Mr. Laura continues to progress with therapies etc. He had a pre-existing right knee infection (no prosthesis in the knee to my knowledge). He was on IV daptomycin as an outpatient for that. Organism is not known to me. He then developed community acquired pneumonia and sepsis and was hospitalized. He continues to recover from this. He continues to have a cough with no particular sputum. His appetite is poor he states. In addition, he did have cervical spine surgery at [facility] on October [address] Luna. He is on a prednisone taper presumably due to his lung condition. His white count continues to be a bit elevated but is improved from 21,000 down to 19,000. He did develop some loose stools over the weekend but those are improved. Barriers to improve and include his debility from his pneumonia and infection as well as the significant pain in the right knee. His pain continues to be a significant issue for him. He is followed by Dr. Elham Key, infectious disease with regard to the knee. Exam Vital Signs: Temperature 97.4 F 11/30/16 07:00 Pulse Rate 82 11/30/16 07:00 Respiratory Rate 16 11/30/16 07:17 Blood Pressure 136/74 11/30/16 07:00 Pulse Oximetry 96 11/30/16 07:17 Oxygen Delivery Method Room Air Oxygen Flow Rate 2 Height: 1.83 m Weight: 69.853 kg Body Mass Index: 20.9 - Constitutional Present: moderate distress Comments: Continues to complain of significant pain in the knee. - Routine HEENT Exam Head: Present: normocephalic Eye: Present: EOMI ENT: Present: mucous membranes moist - Routine Neck Exam Comments: Neck is in a rigid cervical spine collar. - Routine Respiratory Exam Present: dyspnea, crackles, distant breath sounds - Routine Cardiovascular Exam Present: RRR, no murmur - Routine Abdominal Exam Present: soft, normoactive bowel sounds, non distended, non tender - Routine Extremities Exam Present: no edema - Detailed Lower Extremity Exam Comments: Right knee is cool and seems to have reasonable range of motion. No effusion identified. - Routine Psychiatric Exam Present: normal affect, normal thought process Sepsis Assessment - Evaluation Sepsis screening result: No Definite Risk IRU A/P (1) Weakness Current visit: Yes Status: Acute Patient continues to be debilitated. He is improving with therapy. (2) Septic arthritis of knee, right Qualifiers: Septic arthritis organism: due to unspecified organism Qualified Code(s): M00.9 - Pyogenic arthritis, unspecified Problem details: Continue daptomycin daily at outpatient dose through 11/30 Current visit: No Status: Acute Continue daptomycin per Dr. Key. (3) Atrial fibrillation Current visit: No Status: Chronic Remains. No bleeding identified. (4) Acute exacerbation of chronic obstructive airways disease Current visit: No Status: Acute Has a recent community acquired pneumonia. He is improving. He is on a prednisone taper. Please see medical team in this regard. DVT Prophylaxis: Og Resuscitation Status: Full Code - Course Hospital Course: Lucas Baker MD: - Interventions to Obtain Goals PT Treatment Plan: Balance/Proprioception, Functional Activities, Gait Training , Patient/Family Education, Therapeutic Exercise OT Treatment Plan: ADL (Basic Care), Balance Training, IADL, Pt./Family Education, Ther. Exercise for ADL, Ultrasound
--- NOTE | 2016-11-30 12:10 | IRU Team Meeting ---
IRU Team Meeting - Nursing Vital Signs: Vital Signs - 24 hr 11/29/16 15:43 11/29/16 16:02 11/29/16 21:06 Temperature 98.2 F Pulse Rate 81 Respiratory Rate 24 18 20 Blood Pressure 148/82 H Pulse Oximetry 95 11/29/16 21:26 11/29/16 23:25 11/30/16 07:00 Temperature 97.1 F 97.4 F Pulse Rate 79 82 Respiratory Rate 20 16 20 Blood Pressure 139/77 136/74 Pulse Oximetry 96 99 11/30/16 07:17 11/30/16 11:16 Temperature Pulse Rate Respiratory Rate 16 15 Blood Pressure Pulse Oximetry 96 Current Medications: Acetaminophen/Hydrocodone Bitart ([place] 5/325) 1 - 2 tab PO Q4H PRN PRN Reason: Pain Last Admin: 11/25/16 23:57 Dose: 1 tab Apixaban (Eliquis) 5 mg PO BID [facility] Last Admin: 11/30/16 08:41 Dose: 5 mg Atorvastatin Calcium (Lipitor) 40 mg PO HS [facility] Last Admin: 11/29/16 23:06 Dose: Not Given Diazepam (Valium) 5 mg PO TID PRN PRN Reason: Anxiety Duloxetine HCl (Cymbalta) 60 mg PO DAILY [facility] Last Admin: 11/30/16 08:41 Dose: 60 mg Guaifenesin/Dextromethorphan (Mucinex Dm) 1 tab PO BID [facility] Last Admin: 11/30/16 08:41 Dose: 1 tab Daptomycin 400 mg/ Sodium (Chloride) 8 mls @ 240 mls/hr IVP DAILY [facility] Last Admin: 11/30/16 09:21 Dose: 240 mls/hr Levalbuterol HCl (Xopenex 1.25mg/3ml) 1.25 mg AEROSOL Q4HR PRN PRN Reason: Shortness of air Last Admin: 11/29/16 00:20 Dose: 1.25 mg Levalbuterol HCl (Xopenex 1.25mg/3ml) 1.25 mg IPPB RTQID [facility] Last Admin: 11/30/16 11:16 Dose: 1.25 mg Levothyroxine Sodium (Synthroid) 25 mcg PO ACB [facility] Last Admin: 11/30/16 06:36 Dose: 25 mcg Magnesium Oxide (Magox) 400 mg PO BID [facility] Meloxicam (Mobic) 7.5 mg PO WB [facility] Last Admin: 11/30/16 08:40 Dose: 7.5 mg Metoprolol Tartrate (Lopressor) 50 mg PO BIDWM [facility] Last Admin: 11/30/16 08:41 Dose: 50 mg Mometasone Furoate/Formoterol Fumar (Dulera 200/5mcg Inhaler) 1 puff IH BID [facility] Last Admin: 11/30/16 10:00 Dose: 1 puff Omeprazole (Prilosec) 40 mg PO ACB [facility] Last Admin: 11/30/16 06:36 Dose: 40 mg Prednisone (Deltasone) 10 mg PO WB [facility] Last Admin: 11/30/16 08:41 Dose: 10 mg Sodium Chloride (Iv Flush) 10 - 80 ml IVF PRN PRN PRN Reason: Flushing Last Admin: 11/30/16 09:21 Dose: 20 ml Sodium Chloride (Normal Saline) 500 ml IV PRN PRN Last Admin: 11/29/16 10:59 Dose: 500 ml Tramadol HCl (Ultram) 50 - 100 mg PO Q6H PRN PRN Reason: Pain Comments: Potassium low over the weekend. Started on supplement, prednisone and mucinex. On [place]/Tramadol but not requiring this at present. Is receiving Mobic. Mostly continent, last BM yesterday. Some aspiration risk. Rec mod barium swallow. Dietary working with him. Unable to tuck chin. Speech following. Dietary: Supplements BID. Weight is stable (was down on admission and now back up to baseline) - Physical Therapy Supine to Sit Bed Mobility Ability: Stand By Assist/Supervision Sit to Supine Bed Mobility Ability: Stand By Assist/Supervision Comments: Walking 400 ft. Close to meeting his goals. Doing well with PT. - Occupational Therapy Eating Ability: Stand By Assist/Supervision Bathing Ability: Stand By Assist/Supervision Lower Body Dressing Comment: Has met all of OT goals. - Care Plan Anticipated Length of Stay: 1 Anticipated DC Destination: Home, Self Care
[2016-11-30] MEDS: MAGNESIUM OXIDE 400 MG TABLET PO SCH ×2 (12:47→21:46)
--- NOTE | 2016-11-30 12:54 | Infectious Disease Consult ---
Infectious Disease Consult Date of Consultation: 11/30/16 Requesting Physician: Darshana Barnett Reason for Consultation: antibiotic recs History of Present Illness: Mr. Laura is an 86 y/o man known to me from his prior hospitalization. He was admitted on 10/28 and his R knee was aspirated and showed 42,000 WBCs with 90% neutrophils. Synovial fluid culture was negative. There were Ca pyrophosphate crystals seen. His knee was aspirated again on 10/29 and showed fewer WBCs, but had 99% neutrophils, gram stain and culture negative. He had fever to 101.3 on admission. Blood cultures were not done. Sputum culture has grown Pseudomonas , but CXR is negative. He has a h/o COPD and reports that he gets antibiotics intermittently for that. Most recent antibiotic was Azithromycin, taken in September. A Synovasure was sent off and returned positive. The patient has been scheduled for R TKA in the future by Dr. Cm. He was treated for septic arthritis of the right knee (with negative cultures) with Daptomycin as an outpatient, with plans to complete 4 weeks of IV antibiotics today, 11/30. He was readmitted here on 11/21/13 with sepsis, community-acquired pneumonia and respiratory failure with increased hypoxia. Sputum did reveal Haemophilus influenzae. Initially his heart rate was 107, room air saturations 87%. Basic laboratory studies were obtained and he was found to have leukocytosis with a white count of 15.7, 80% neutrophils, 2% bands. Hemoglobin 10.2, hematocrit 31.7 , platelet count 305. Sodium is 139, potassium 3.3, BUN 16, creatinine 0.9, Later osmolality 269. Troponin was 0.016, proBNP 1680. Venous lactate 1.2, pro calcitonin 0.08. Urinalysis was unremarkable. An ABG showed a pH of 7.48, pCO2 42, pO2 64, bicarbonate 31. INR 1.8, and a mildly elevated d-dimer at 268. CT of the chest was performed to rule out emboli. The CT did reveal right upper lobe and bilateral lower lobe infiltrates and no thrombus was identified. The last 3 days prior to admission, he has required increased oxygen during the day. He was treated with rocephin and azithromycin. He was also given some steroids for COPD and thumb inflammation. He reports to me that his knee is feeling better, but he is very fatigued. He had diarrhea last Wednesday, and reports that his potassium and magnesium were replace. The diarrhea has resolved. He continues to have a cough and poor appetite. Medications Home Medications Medication Instructions Recorded Confirmed Type Atorvastatin Calcium 40 mg PO HS #0 01/25/14 11/24/16 History Levothyroxine Sodium 25 mcg PO ACB #0 01/25/14 11/24/16 History Nitroglycerin [Nitrostat] 0.4 mg SL Q5MIN3 PRN #0 01/26/14 11/24/16 History Omeprazole 40 mg PO ACB #0 02/06/15 11/24/16 History Apixaban [Eliquis] 5 mg PO BID #0 10/02/16 11/24/16 History Levalbuterol HCl [Xopenex] 1 vial AEROSOL QID PRN #0 10/02/16 11/24/16 History Hydrocodone/APAP 5/325 [[place] 1 - 2 tab PO Q4-6HPRN PRN 10/28/16 11/24/16 History 5/325] Diazepam [Valium] 5 mg PO TID PRN 10/29/16 11/24/16 History duloxetine 60 mg capsule,delayed 60 mg PO DAILY 30 Days 11/16/16 11/24/16 History release Albuterol Inhaler [Ventolin Hfa] 1 puff INH BID PRN 11/21/16 11/24/16 History DAPTOmycin [Daptomycin] 400 mg IV DAILY 11/21/16 11/24/16 History Mometasone/Formoterol 200/5 1 puff INH BID 11/21/16 11/24/16 History [DULERA 200/5mcg INHALER] Allergies Allergy/AdvReac Type Severity Reaction Status Date / Time No Known Allergies Allergy Verified 11/21/16 10:33 [facility] Patient Stated Medical History Migraine Yes: ocular Cataracts Yes Hearing Loss Yes: HEARING AIDS Cardiac Arrhythmia Yes: A FIB Hypertension Yes Asthma Yes Bronchitis Yes Chronic Obstructive Pulmonary Yes Disease (COPD) Pneumonia Yes Constipation No: HX: of Torn Anus Gastroesophageal Reflux Yes Disease Gastrointestinal Bleeding Yes: after having a polps removed Hx Benign Prostatic Yes Hyperplasia Hx Incontinence No: BPH Hx Renal Disease No Clotting Problems Yes Osteoarthritis Yes Other Musculoskeletal Yes: HARDWARE PLACED FOR C2-C7 10/08/16 Other Infectious Yes: SEPTIC ARTHRITIS IN RT [facility] Medical History (Last Updated 11/27/16 @ 08:14 by Verena Kemp APRN) Atrial fibrillation (Acute Medical) BPH (benign prostatic hyperplasia) (Acute Medical) COPD (chronic obstructive pulmonary disease) (Acute Medical) GERD (gastroesophageal reflux disease) (Acute Medical) Hypertension (Acute Medical) Ocular migraine (Acute Medical) Recent right knee infection. Currently on outpatient daptomycin IV treatment from 11/03 through 11/30/16 Surgical History: Cardiac ablation. C2-C7 Neck fusion September 2016, Dr. Drake. Prior to this he had cervical fusion in 2013. Total Left hip replacement Feb. Rt knee surgery. ACL reconstruction Dr Garcia 1977. Appendectomy 1937. Tonsillectomy . Right ruptured Achilles tendon. Neck surgery 2016. Arthroscopic surgery on left knee. Heart catheterization with stenting to RCA 2008; cath in 2011 Family History: Family History Brother Heart disease Father COPD (chronic obstructive pulmonary disease) Mother Diabetes - Social History Smoking status: Former smoker Alcohol intake frequency: does not drink Current residence: Apartment/Private Home Review of Systems - Constitutional Constitutional: Present: fatigue - EENMT Eyes: Absent: change in vision Mouth/Throat: Absent: sore throat - Cardiovascular Cardiovascular: Absent: chest pain - Respiratory Respiratory: Present: cough, dyspnea - Gastrointestinal Gastrointestinal: Present: diarrhea (3 days ago, now resolved). Absent: vomiting - Genitourinary Genitourinary: Absent: difficulty urinating, dysuria - Musculoskeletal Musculoskeletal: Absent: arthralgias, joint swelling - Integumentary/Breasts Integumentary: Absent: pruritus, rash - Neurological Neurological: Absent: headache(s) - Hematologic/Lymphatic Hematologic/Lymphatic: Absent: lymphadenopathy Exam Vital Signs: Temperature 97.4 F 11/30/16 07:00 Pulse Rate 82 11/30/16 07:00 Respiratory Rate 15 11/30/16 11:16 Blood Pressure 136/74 11/30/16 07:00 Pulse Oximetry 96 11/30/16 07:17 Oxygen Delivery Method Room Air Oxygen Flow Rate 2 Height: 1.83 m Weight: 69.853 kg Body Mass Index: 20.9 - Constitutional Present: well developed, thin - Routine HEENT Exam Head: Present: normocephalic Eye: Present: EOMI ENT: Present: mucous membranes moist, dentition normal - Routine Neck Exam Comments: wearing neck brace - Routine Respiratory Exam Present: CTA bilaterally. Absent: wheezes - Routine Cardiovascular Exam Present: RRR. Absent: murmur - Routine Abdominal Exam Present: soft, normoactive bowel sounds, non distended. Absent: tenderness - Routine Extremities Exam Present: normal capillary refill. Absent: edema, joint swelling Comments: good ROM of R knee - Routine Skin Exam Present: dry, warm. Absent: rash Comments: RUE PICC line - Routine Neurological Exam Present: alert, oriented X3, CN II-XII intact - Routine Psychiatric Exam Present: normal affect, cooperative Results - Labs CBC & Chem 7: 11/30/16 04:02 11/30/16 04:02 Microbiology Results: Microbiology 11/29/16 10:01 Cath/Port/Line/Picc Blood Culture - Preliminary No Growth After 1 Day 11/29/16 10:34 Cath/Port/Line/Picc Blood Culture - Preliminary No Growth After 1 Day Impression: IMPRESSIONS: * Septic arthritis of R knee, s/p arthrocentesis, completing 4 weeks of IV antibiotics today. * H/o R knee pseudogout. * S/p revision C2-7 fusion 10/08/16. * COPD, with sputum colonization with Pseudomonas, previously, more recently with H. influenzae. * A fib. * Diarrhea, resolved. * Fatigue. * Leukocytosis, most likely related to steroids. Recommendation: RECOMMENDATIONS: * I would recommend stopping the daptomycin after today's dose. His knee looks good. * Recommend d/c PICC at discharge. * Would monitor him off antibiotics. * Please call if I can be of further assistance. He had an appointment with me tomorrow in clinic. We have cancelled it. I'll see him back in follow up PRN. Sepsis Assessment - Evaluation Sepsis screening result: No Definite Risk
--- NOTE | 2016-11-30 14:11 | Progress Note ---
<Jasmyne Colón V - Last Filed: 11/30/16 14:02> Subjective: Jayy is seen today while resting in his chair. He reports that he had a busy morning with therapy and he feels worn out again. He denies feeling more short of breath or having chest pain. He is currently on room air during examination. No difficulty with voiding or bowel movements. Objective Vital signs: Temperature 97.4 F 11/30/16 07:00 Pulse Rate 82 11/30/16 07:00 Respiratory Rate 15 11/30/16 11:16 Blood Pressure 136/74 11/30/16 07:00 Pulse Oximetry 96 11/30/16 07:17 Oxygen Delivery Method Room Air Oxygen Flow Rate 2 Body Mass Index: 20.9 - Constitutional Present: no acute distress, well nourished, well developed - Routine HEENT Exam Eye: Present: EOMI, PERRL ENT: Present: mucous membranes moist, dentition normal - Routine Respiratory Exam Present: CTA bilaterally. Absent: wheezes - Routine Cardiovascular Exam Present: RRR, S1, S2. Absent: murmur - Routine Abdominal Exam Present: soft, normoactive bowel sounds, non distended. Absent: tenderness - Routine Extremities Exam Present: full ROM, normal capillary refill - Routine Back/Spine/Pelvis Exam Back/Spine: Present: full ROM - Routine Skin Exam Present: intact, dry, warm - Routine Neurological Exam Present: alert, oriented X3, CN II-XII intact - Routine Lymphatic Exam Lymphatic: Absent: adenopathy - Routine Psychiatric Exam Present: normal affect, normal thought process Results - Labs CBC & Chem 7: 11/30/16 04:02 11/30/16 04:02 Microbiology Results: Microbiology 11/29/16 10:01 Cath/Port/Line/Picc Blood Culture - Preliminary No Growth After 1 Day 11/29/16 10:34 Cath/Port/Line/Picc Blood Culture - Preliminary No Growth After 1 Day Assessment and Plan (1) Septic arthritis of knee, right Problem details: Continue daptomycin daily at outpatient dose through 11/30 Current visit: No Status: Acute (2) CAD (coronary artery disease) Current visit: No Status: Chronic (3) HTN (hypertension) Current visit: No Status: Chronic (4) COPD (chronic obstructive pulmonary disease) Current visit: No Status: Chronic (5) SHANA (obstructive sleep apnea) Current visit: No Status: Chronic (6) Essential (primary) hypertension Current visit: No Status: Chronic (7) Mixed hyperlipidemia Current visit: No Status: Chronic (8) Nonrheumatic mitral valve insufficiency Current visit: No Status: Acute (9) Swelling of right thumb Current visit: Yes Status: Resolved (10) Paroxysmal atrial fibrillation Current visit: No Status: Chronic (11) Weakness Current visit: Yes Status: Acute Following acute illness, sepsis H. Influenza Assessment and Plan: 11/30/16 Patient was evaluated by Dr. Key today who has been managing his outpatient daptomycin infusions for right knee cellulitis. Today completes this course and it is discontinued by Dr Key. He does continue to have persistent leukocytosis, however this may be related to prednisone. Prednisone was tapered down starting yesterday to 10 milligrams daily. Will continue this through 12/02. Then taper down to 5 milligrams daily 4 days then stop. Noted that his magnesium is low. Will start magnesium oral supplementation twice a day. Continue on Eliquis for chronic anticoagulation. Recheck CBC and BMP tomorrow morning to follow blood counts, renal function and electrolytes Sepsis Assessment - Evaluation Sepsis screening result: No Definite Risk Hospital Course Summary Disclaimer: The visit summary below is not to be considered part of the above Progress Note. Hospital Course: 11/25/16 16:43 11/25 Continue with PT/OT for ongoing therapy and strengthening. She is able to be weaned down to room air during the day. He states that with activity. He does feel more dyspneic and is encouraged to utilize oxygen as needed. He does use chronic oxygen at night. Will continue to monitor both thumb and knee as both symptoms have improved greatly. He does continue on prednisone taper. 20 mg daily for 4 days then decrease to 10 mg daily for 4 days then stop. Prednisone may be the cause of mild leukocytosis. We will continue to follow. Routine laboratory studies. 11/27/16 08:14 Septic joint -Right knee Effusion, much improved -Continue daptomycin through 11/30 -Agree with Dr. Key consultation COPD -Continue prednisone taper -Nocturnal oxygen, supportive care Leukocytosis -at least in part associated with steroids -recheck in am HTN -moderate elevations -hesitant to introduce new antihypertensives during acute illness and while on steroids 11/28/16 15:03 Jayy reports that he feels more fatigued and worn out today. Denies fever or chills. 2 loose bowel movements without blood. Persistent productive cough with brownish sputum. No increased shortness of breath or chest pain. No abdominal pain. Cardiac exam reveals irregular rhythm. Lungs diminished in bilateral bases with questionable crackles. Trace edema. Alert and orientated x 3. Septic joint, Right knee -Effusion, much improved -Continue daptomycin through 11/30. -Agree with Dr. Key consultation. COPD -Continue prednisone taper and breathing treatments as needed. -Continue nocturnal oxygen and supportive care. -Mucinex for mucolytic effect and encourage acapella for pulmonary toileting. Leukocytosis, worsening. -WBC elevated to 21.1. Possibly some secondary steroid effect but concern for infectious source. -Will obtain GI panel, repeat CXR and UA to evaluate for possible source of infection. Patient remains afebrile and vitals stable. -Recheck CBC and BMP in AM to monitor blood counts, electrolytes and renal function. Hyponatremia. -Sodium 133. Initiate NS with KCl 20 mEq IV at 100cc/hr for hydration and potassium replacement. Monitor closely for signs of fluid overload. HTN -fairly well controlled. Continue to monitor closely. -hesitant to introduce new antihypertensives during acute illness and while on steroids. 11/29/16 Jayy overall is feeling much better today. He states that the fatigue seems to improve following rests a day. Does continue to have leukocytosis, white count this morning 21.5. GI panel obtained yesterday afternoon was negative, and urinalysis was unremarkable. He remains afebrile overnight. It is possible that leukocytosis is related to ongoing prednisone use. 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 His last dose should be . Have asked nursing staff to cancel his outpatient appointment with infectious disease, Dr. Key. Will contact her tomorrow morning to arrange follow-up for possible evaluation during his stay. Potassium 40 me milliequivalents was given this morning for oral supplementation for mild hypokalemia, potassium 3.3 Continue on Eliquis for chronic anticoagulation. Recheck CBC and BMP tomorrow morning to follow blood counts, renal function and electrolytes 11/30/16 Patient was evaluated by Dr. Key today who has been managing his outpatient daptomycin infusions for right knee cellulitis. Today completes this course and it is discontinued by Dr Key. He does continue to have persistent leukocytosis, however this may be related to prednisone. Prednisone was tapered down starting yesterday to 10 milligrams daily. Will continue this through 12/02. Then taper down to 5 milligrams daily 4 days then stop. Noted that his magnesium is low. Will start magnesium oral supplementation twice a day. Continue on Eliquis for chronic anticoagulation. Recheck CBC and BMP tomorrow morning to follow blood counts, renal function and electrolytes <BarnettDarshana honeycutt Louann - Last Filed: 11/30/16 15:39> Objective Vital signs: Temperature 97.4 F 11/30/16 07:00 Pulse Rate 82 11/30/16 07:00 Respiratory Rate 15 11/30/16 11:16 Blood Pressure 136/74 11/30/16 07:00 Pulse Oximetry 96 11/30/16 07:17 Oxygen Delivery Method Room Air Oxygen Flow Rate 2 Results - Labs CBC & Chem 7: 11/30/16 04:02 11/30/16 04:02 Microbiology Results: Microbiology 11/29/16 10:01 Cath/Port/Line/Picc Blood Culture - Preliminary No Growth After 1 Day 11/29/16 10:34 Cath/Port/Line/Picc Blood Culture - Preliminary No Growth After 1 Day Assessment and Plan (1) Septic arthritis of knee, right Problem details: Continue daptomycin daily at outpatient dose through 11/30 Current visit: No Status: Acute (2) CAD (coronary artery disease) Current visit: No Status: Chronic (3) HTN (hypertension) Current visit: No Status: Chronic (4) COPD (chronic obstructive pulmonary disease) Current visit: No Status: Chronic (5) SHANA (obstructive sleep apnea) Current visit: No Status: Chronic (6) Essential (primary) hypertension Current visit: No Status: Chronic (7) Mixed hyperlipidemia Current visit: No Status: Chronic (8) Nonrheumatic mitral valve insufficiency Current visit: No Status: Acute (9) Swelling of right thumb Current visit: Yes Status: Resolved (10) Paroxysmal atrial fibrillation Current visit: No Status: Chronic (11) Weakness Current visit: Yes Status: Acute Assessment and Plan: 11/30/2016-I reviewed this chart, the patient history, and the APARTMENT MAINTENANCE SUPERVISOR's/PA's documented findings as above. We discussed and formulated the assessment and plan as above with the additions below. I've seen and examined the patient independently Patient states that he feels worn out after therapy. He denies any lightheadedness, shortness of breath or chest pain. He states he's had a chronic cough for about 2 years which is at its baseline. He is eating and drinking okay. Denies any other complaints. On exam he is alert and oriented 3 and in no acute distress. Chest reveals some mild wheezing in the right lung field. Cardio vascular reveals a regular rate and rhythm. Abdomen is soft and nontender. Extremities are free of edema. Continue with current care plan. Agree with oral magnesium supplementation and check mag and basic metabolic profile tomorrow. Antibiotics were discontinued today. Patient states the plan is for him to be discharged to home tomorrow. We'll DC PICC prior to discharge. Hospital Course Summary Disclaimer: The visit summary below is not to be considered part of the above Progress Note.
[2016-11-30 20:20] VITALS: TEMP 98.3
[2016-11-30] MEDS: ATORVASTATIN 40 MG TABLET PO SCH (21:46)
[2016-12-01] MEDS: LEVOTHYROXINE 25 MCG TABLET PO SCH (06:14)
[2016-12-01] MEDS: OMEPRAZOLE 20 MG CAPSULE PO SCH (06:14)
[2016-12-01] MEDS: DULOXETINE 60 MG CAPSULE PO SCH (08:43)
[2016-12-01] MEDS: MELOXICAM 7.5 MG TABLET PO SCH (08:43)
[2016-12-01] MEDS: GUAIFENESIN/D-METHORPHAN 600mg/30mg TABLET PO SCH (08:43)
[2016-12-01] MEDS: MAGNESIUM OXIDE 400 MG TABLET PO SCH (08:43)
[2016-12-01] MEDS: APIXABAN 5 MG TABLET PO SCH (08:43)
[2016-12-01] MEDS: PredniSONE 10 MG TABLET PO SCH (08:44)
[2016-12-01] MEDS: SALINE FLUSH 10ml SYRINGE IVF PRN (08:44)
[2016-12-01 09:46] VITALS: BP 131/67; PULSE 79; O2SAT 96
--- NOTE | 2016-12-01 09:56 | Progress Note ---
Subjective: Otis is seen this morning in follow up for his septic knee. He is seen in the dining room, having just finished all his breakfast. He reports that he is doing well and is excited about his discharge today. He denies any complaints including no chest pain, shortness of breath, abdominal pain, nausea, vomiting or dysuria. His appetite is good and his bowels are moving. Discussed his PICC line being removed prior to departure and follow up with Dr. Key as needed. On exam, he is alert and orientated x 3 and in good spirits. Cardiac exam reveals regular rate and rhythm and lungs are clear to ausculation bilaterally. Abdomen is soft, nontender with active bowel sounds. C-collar in place. No edema noted to lower extremities. Repeat labs continue to show improvement with leukocytosis trending down at 16.9. He remains on prednisone taper and has been afebrile. Blood cultures negative after 1 day and magnesiuim improved to 1.7 with supplementation. Vital signs stable. Objective Vital signs: Temperature 98.3 F 12/01/16 07:00 Pulse Rate 79 12/01/16 07:00 Respiratory Rate 18 12/01/16 09:39 Blood Pressure 131/67 12/01/16 07:00 Pulse Oximetry 96 12/01/16 07:00 Oxygen Delivery Method Room Air Oxygen Flow Rate 2 Body Mass Index: 20.9 - Constitutional Present: no acute distress, well nourished, well developed, cooperative Comments: good spirits - Routine HEENT Exam Head: Present: normocephalic, atraumatic Eye: Present: PERRL. Absent: conjunctival icterus, scleral injection ENT: Present: mucous membranes moist Comments: c-collar in place - Routine Respiratory Exam Present: CTA bilaterally. Absent: dyspnea, rhonchi, stridor, wheezes - Routine Cardiovascular Exam Present: RRR, S1, S2, murmur - Routine Abdominal Exam Present: soft, normoactive bowel sounds, non tender - Routine Extremities Exam Present: no edema, non tender, pulses intact - Routine Back/Spine/Pelvis Exam Back/Spine: Present: full ROM. Absent: erythema, warmth - Routine Musculoskeletal Exam Musculoskeletal: Present: normal strength, moving extremities well - Routine Skin Exam Present: intact, dry, warm - Routine Neurological Exam Present: alert, oriented X3, moving all extremities - Routine Lymphatic Exam Lymphatic: Absent: lymphedema - Routine Psychiatric Exam Present: normal affect, cooperative Results - Labs CBC & Chem 7: 12/01/16 03:50 12/01/16 03:50 Microbiology Results: Microbiology 11/29/16 10:01 Cath/Port/Line/Picc Blood Culture - Preliminary No Growth After 1 Day 11/29/16 10:34 Cath/Port/Line/Picc Blood Culture - Preliminary No Growth After 1 Day Assessment and Plan (1) Septic arthritis of knee, right Problem details: Continue daptomycin daily at outpatient dose through 11/30 Current visit: No Status: Acute (2) CAD (coronary artery disease) Current visit: No Status: Chronic (3) HTN (hypertension) Current visit: No Status: Chronic (4) COPD (chronic obstructive pulmonary disease) Current visit: No Status: Chronic (5) SHANA (obstructive sleep apnea) Current visit: No Status: Chronic (6) Essential (primary) hypertension Current visit: No Status: Chronic (7) Mixed hyperlipidemia Current visit: No Status: Chronic (8) Nonrheumatic mitral valve insufficiency Current visit: No Status: Acute (9) Swelling of right thumb Current visit: Yes Status: Resolved (10) Paroxysmal atrial fibrillation Current visit: No Status: Chronic (11) Weakness Current visit: Yes Status: Acute Following acute illness, sepsis H. Influenza Assessment and Plan: Overall, Jayy is doing well and feels good. He is in good spirits today with upcoming discharge this afternoon. Denies any complaints. Eating and drinking well and bowels are moving. On exam he is alert and oriented 3 and in no acute distress. Cardiac exam reveals regular rate and rhythm and lungs are clear to auscultation. Abdomen is soft and nontender. Extremities are free of edema. Repeat labs today showed improvement with leukocytosis trending down at 16.9. Persistent anemia with hemoglobin at 9.7. Blood cultures negative after 1 day. Magnesium improved to 1.7 with supplementation. Continue with current care plan. Anticipate discharge today. PICC to be discontinued prior to discharge Persistent leukocytosis most likely steroid-effect, related to prednisone. Prednisone currently at 10 milligrams daily. Will continue this through 12/02. Then taper down to 5 milligrams daily 4 days then stop. Magnesium improved to 1.7 today. Continue with supplementation. Continue on Eliquis for chronic anticoagulation. Upon discharge, patient's care will be returned to his PCP. - Time spent with patient 25 - 35 minutes Coordination of Care: >50% of visit spent providing counseling/coordination of care Sepsis Assessment - Evaluation Sepsis screening result: No Definite Risk Hospital Course Summary Disclaimer: The visit summary below is not to be considered part of the above Progress Note. Hospital Course: 11/25/16 16:43 11/25 Continue with PT/OT for ongoing therapy and strengthening. She is able to be weaned down to room air during the day. He states that with activity. He does feel more dyspneic and is encouraged to utilize oxygen as needed. He does use chronic oxygen at night. Will continue to monitor both thumb and knee as both symptoms have improved greatly. He does continue on prednisone taper. 20 mg daily for 4 days then decrease to 10 mg daily for 4 days then stop. Prednisone may be the cause of mild leukocytosis. We will continue to follow. Routine laboratory studies. 11/27/16 08:14 Septic joint -Right knee Effusion, much improved -Continue daptomycin through 11/30 -Agree with Dr. Key consultation COPD -Continue prednisone taper -Nocturnal oxygen, supportive care Leukocytosis -at least in part associated with steroids -recheck in am HTN -moderate elevations -hesitant to introduce new antihypertensives during acute illness and while on steroids 11/28/16 15:03 Jayy reports that he feels more fatigued and worn out today. Denies fever or chills. 2 loose bowel movements without blood. Persistent productive cough with brownish sputum. No increased shortness of breath or chest pain. No abdominal pain. Cardiac exam reveals irregular rhythm. Lungs diminished in bilateral bases with questionable crackles. Trace edema. Alert and orientated x 3. Septic joint, Right knee -Effusion, much improved -Continue daptomycin through 11/30. -Agree with Dr. Key consultation. COPD -Continue prednisone taper and breathing treatments as needed. -Continue nocturnal oxygen and supportive care. -Mucinex for mucolytic effect and encourage acapella for pulmonary toileting. Leukocytosis, worsening. -WBC elevated to 21.1. Possibly some secondary steroid effect but concern for infectious source. -Will obtain GI panel, repeat CXR and UA to evaluate for possible source of infection. Patient remains afebrile and vitals stable. -Recheck CBC and BMP in AM to monitor blood counts, electrolytes and renal function. Hyponatremia. -Sodium 133. Initiate NS with KCl 20 mEq IV at 100cc/hr for hydration and potassium replacement. Monitor closely for signs of fluid overload. HTN -fairly well controlled. Continue to monitor closely. -hesitant to introduce new antihypertensives during acute illness and while on steroids. 11/29/16 Jayy overall is feeling much better today. He states that the fatigue seems to improve following rests a day. Does continue to have leukocytosis, white count this morning 21.5. GI panel obtained yesterday afternoon was negative, and urinalysis was unremarkable. He remains afebrile overnight. It is possible that leukocytosis is related to ongoing prednisone use. 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 His last dose should be . Have asked nursing staff to cancel his outpatient appointment with infectious disease, Dr. Key. Will contact her tomorrow morning to arrange follow-up for possible evaluation during his stay. Potassium 40 me milliequivalents was given this morning for oral supplementation for mild hypokalemia, potassium 3.3 Continue on Eliquis for chronic anticoagulation. Recheck CBC and BMP tomorrow morning to follow blood counts, renal function and electrolytes 11/30/16 Patient was evaluated by Dr. Key today who has been managing his outpatient daptomycin infusions for right knee cellulitis. Today completes this course and it is discontinued by Dr Key. He does continue to have persistent leukocytosis, however this may be related to prednisone. Prednisone was tapered down starting yesterday to 10 milligrams daily. Will continue this through 12/02. Then taper down to 5 milligrams daily 4 days then stop. Noted that his magnesium is low. Will start magnesium oral supplementation twice a day. Continue on Eliquis for chronic anticoagulation. Recheck CBC and BMP tomorrow morning to follow blood counts, renal function and electrolytes 12/01/16 10:06 Overall, Jayy is doing well and feels good. He is in good spirits today with upcoming discharge this afternoon. Denies any complaints. Eating and drinking well and bowels are moving. On exam he is alert and oriented 3 and in no acute distress. Cardiac exam reveals regular rate and rhythm and lungs are clear to auscultation. Abdomen is soft and nontender. Extremities are free of edema. Repeat labs today showed improvement with leukocytosis trending down at 16.9. Persistent anemia with hemoglobin at 9.7. Blood cultures negative after 1 day. Magnesium improved to 1.7 with supplementation. Continue with current care plan. Anticipate discharge today. PICC to be discontinued prior to discharge Persistent leukocytosis most likely steroid-effect, related to prednisone. Prednisone currently at 10 milligrams daily. Will continue this through 12/02. Then taper down to 5 milligrams daily 4 days then stop. Magnesium improved to 1.7 today. Continue with supplementation. Continue on Eliquis for chronic anticoagulation. Upon discharge, patient's care will be returned to his PCP.
--- NOTE | 2016-12-01 10:04 | IRU Progress Note ---
- Subjective/Serverity of Illness Mr. Laura was evaluated in his room. He states that he is doing well except he is still frustrated about his cough. The sputum is fairly minimal but is "quite. " He has not been running a fever. His appetite is reasonably good. He is finishing up his daptomycin. The PICC line will be removed prior to dismissal. We appreciate the hospitalist's input. Patient plans to follow-up with Dr. Key as well as an outpatient. Exam Vital Signs: Temperature 98.3 F 12/01/16 07:00 Pulse Rate 79 12/01/16 07:00 Respiratory Rate 18 12/01/16 09:39 Blood Pressure 131/67 12/01/16 07:00 Pulse Oximetry 96 12/01/16 07:00 Oxygen Delivery Method Room Air Oxygen Flow Rate 2 Height: 1.83 m Weight: 69.853 kg Body Mass Index: 20.9 - Constitutional Present: no acute distress - Routine HEENT Exam Head: Present: normocephalic Eye: Present: EOMI - Routine Neck Exam Comments: He remains in the rigid cervical spine brace secondary to his cervical spine surgery in September. - Routine Respiratory Exam Present: crackles Comments: There is a hint of crackles here and there. I think this is likely atelectasis. The chest x-ray did reveal a small effusion. No consolidating infiltrate was identified however. He is in no acute distress but does report some dyspnea if he hurries. - Routine Cardiovascular Exam Present: irregular rhythm, irregularly irregular - Routine Abdominal Exam Present: soft, normoactive bowel sounds, non distended, non tender - Routine Extremities Exam Present: no edema, non tender Results IRU - Labs Labs: I reviewed his labs. His white count remains elevated at 16,000, likely related to his prednisone usage. He is afebrile and has no other evidence of active infection at present. Sepsis Assessment - Evaluation Sepsis screening result: No Definite Risk IRU A/P (1) Weakness Current visit: Yes Status: Acute Patient has improved with regard to his weakness. He is stable for dismissal. (2) Septic arthritis of knee, right Qualifiers: Qualified Code(s): M00.9 - Pyogenic arthritis, unspecified Problem details: Continue daptomycin daily at outpatient dose through 11/30 Current visit: No Status: Acute He has concluded his daptomycin therapy. The PICC line will be removed per hospitalist's order. Patient will be dismissed today to follow-up with his personal doctor and Dr. Key, infectious disease. (3) Atrial fibrillation Current visit: No Status: Chronic His ventricular response is controlled. He is on eloquence and tolerating it well without evidence of active bleeding. (4) Acute exacerbation of chronic obstructive airways disease Current visit: No Status: Acute Does have a few crackles although most clear after several deep breaths. I think a lot of this may be atelectatic changes. DVT Prophylaxis: Eliquis Resuscitation Status: Full Code - Course Hospital Course: Lucas Baker MD: - Interventions to Obtain Goals PT Treatment Plan: Balance/Proprioception, Functional Activities, Gait Training , Patient/Family Education, Therapeutic Exercise OT Treatment Plan: ADL (Basic Care), Balance Training, IADL, Pt./Family Education, Ther. Exercise for ADL, Ultrasound
--- NOTE | 2016-12-01 10:42 | Discharge Instructions ---
Discharge Plan - Med Rec/Dispo Referrals/Follow Up: Junior Orosco DO [Family Provider] - (Dr. Juventino Orosco on 12/08/16 at 1:00 pm for Hosp. follow-up. Medical [address] [place] [address]) Prescriptions: No Action Atorvastatin Calcium 40 mg PO HS #0 Levothyroxine Sodium 25 mcg PO ACB #0 Nitroglycerin [Nitrostat] 0.4 mg SL Q5MIN3 PRN #0 PRN Reason: CHEST PAIN Omeprazole 40 mg PO ACB #0 Diazepam [Valium] 5 mg PO TID PRN PRN Reason: Anxiety Meloxicam [Mobic] 7.5 mg PO DAILY #14 Albuterol Inhaler [Ventolin Hfa] 1 puff INH BID PRN PRN Reason: Prn Orders Mometasone/Formoterol 200/5 [DULERA 200/5mcg INHALER] 1 puff INH BID DAPTOmycin [Daptomycin] 400 mg IV DAILY Metoprolol Tartrate [Lopressor] 50 mg PO BIDWM tablet LEVALBUTEROL 1.25mg/3ml NEB [XOPENEX 1.25mg/3ml] 1.25 mg AEROSOL QID neb Levalbuterol HCl [Xopenex] 1 vial AEROSOL QID PRN #0 PRN Reason: SHORTNESS OF AIR Apixaban [Eliquis] 5 mg PO BID #0 Hydrocodone/APAP 5/325 [Novice 5/325] 1 - 2 tab PO Q4-6HPRN PRN PRN Reason: Pain Tramadol [Ultram] 50 - 100 mg PO Q6H PRN #30 PRN Reason: Pain PredniSONE [Deltasone] 20 mg PO WB tablet duloxetine 60 mg capsule,delayed release 60 mg PO DAILY 30 Days Discharge Instructions/Outpatient Orders: Final Provider Discharge Instructions Location: Determined By Patient - Disposition 01 Discharged Home, Self-Care
--- NOTE | 2016-12-01 10:51 | Discharge Summary ---
Discharge Information Date of admission: 11/24/16 16:08 Attending Physician: Lucas Baker MD Primary care physician: Junior Orosco DO Consults: 11/24/16 19:47 Inpatient Rehab Screening [CONS] Routine 11/26/16 14:17 Physician Consult [CONS] Routine Consulting Provider: Elham Key Reason For Exam: septic knee Ordering Provider has Notified Newspaper Library Manager: Kaitlin 11/27/16 10:25 Wound Vein Clinic Consult [CONS] Routine Reason for consultation: redness to Rt thigh/groin and button - Discharge Diagnosis (1) Weakness Status: Acute (2) Septic arthritis of knee, right Qualifiers: Septic arthritis organism: due to unspecified organism Qualified Code(s): M00.9 - Pyogenic arthritis, unspecified Problem Details: Continue daptomycin daily at outpatient dose through 11/30 Status: Acute (3) Atrial fibrillation Status: Chronic (4) Acute exacerbation of chronic obstructive airways disease Status: Acute - Laboratory Labs: 12/01/16 03:50 12/01/16 03:50 - Microbiology Microbiology 11/29/16 10:01 Cath/Port/Line/Picc Blood Culture - Preliminary No Growth After 2 Days 11/29/16 10:34 Cath/Port/Line/Picc Blood Culture - Preliminary No Growth After 2 Days History of Present Illness HPI: 12/01/16 10:49 Mr. Laura was admitted to the [facility] hospital with community-acquired pneumonia and sepsis with acute respiratory failure. Patient was treated for this. Culture sputum did reveal Haemophilus influenza. In addition he had recently had cervical spine surgery in September 2016. He had been treated also for infection in the right knee with daptomycin with long-term intravenous therapy. He had improved but he continued to demonstrate significant myopathic changes with decreased self-care ability and weakness. He was felt to be an excellent candidate for acute rehabilitation and could benefit and tolerate 3 hours of therapy daily. Hospital Course This is a general summary of the patient's hospital course. For more details refer to the complete medical record. An individualized plan of care was developed for this patient. He was seen by occupational therapy and physical therapy. He improved from standby assist to modified independent functioning with ambulation. Barriers to improvement included his shortness of breath and cough. He did not have further fever during hospitalization on acute rehabilitation. He continued to receive intravenous daptomycin via a PICC line. He was seen by the hospitalist service. PICC line was discontinued at the day of dismissal. He was felt to be stable for dismissal and he will go home with the assistance of home health. He continues to have a cough with clear/white sputum. We advised him to contact his physician if he develops a fever of 101 or greater. Hospital course: 11/25/16 16:43 11/25 Continue with PT/OT for ongoing therapy and strengthening. She is able to be weaned down to room air during the day. He states that with activity. He does feel more dyspneic and is encouraged to utilize oxygen as needed. He does use chronic oxygen at night. Will continue to monitor both thumb and knee as both symptoms have improved greatly. He does continue on prednisone taper. 20 mg daily for 4 days then decrease to 10 mg daily for 4 days then stop. Prednisone may be the cause of mild leukocytosis. We will continue to follow. Routine laboratory studies. 11/27/16 08:14 Septic joint -Right knee Effusion, much improved -Continue daptomycin through 11/30 -Agree with Dr. Key consultation COPD -Continue prednisone taper -Nocturnal oxygen, supportive care Leukocytosis -at least in part associated with steroids -recheck in am HTN -moderate elevations -hesitant to introduce new antihypertensives during acute illness and while on steroids 11/28/16 15:03 Jayy reports that he feels more fatigued and worn out today. Denies fever or chills. 2 loose bowel movements without blood. Persistent productive cough with brownish sputum. No increased shortness of breath or chest pain. No abdominal pain. Cardiac exam reveals irregular rhythm. Lungs diminished in bilateral bases with questionable crackles. Trace edema. Alert and orientated x 3. Septic joint, Right knee -Effusion, much improved -Continue daptomycin through 11/30. -Agree with Dr. Key consultation. COPD -Continue prednisone taper and breathing treatments as needed. -Continue nocturnal oxygen and supportive care. -Mucinex for mucolytic effect and encourage acapella for pulmonary toileting. Leukocytosis, worsening. -WBC elevated to 21.1. Possibly some secondary steroid effect but concern for infectious source. -Will obtain GI panel, repeat CXR and UA to evaluate for possible source of infection. Patient remains afebrile and vitals stable. -Recheck CBC and BMP in AM to monitor blood counts, electrolytes and renal function. Hyponatremia. -Sodium 133. Initiate NS with KCl 20 mEq IV at 100cc/hr for hydration and potassium replacement. Monitor closely for signs of fluid overload. HTN -fairly well controlled. Continue to monitor closely. -hesitant to introduce new antihypertensives during acute illness and while on steroids. 11/29/16 Jayy overall is feeling much better today. He states that the fatigue seems to improve following rests a day. Does continue to have leukocytosis, white count this morning 21.5. GI panel obtained yesterday afternoon was negative, and urinalysis was unremarkable. He remains afebrile overnight. It is possible that leukocytosis is related to ongoing prednisone use. 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 His last dose should be . Have asked nursing staff to cancel his outpatient appointment with infectious disease, Dr. Key. Will contact her tomorrow morning to arrange follow-up for possible evaluation during his stay. Potassium 40 me milliequivalents was given this morning for oral supplementation for mild hypokalemia, potassium 3.3 Continue on Eliquis for chronic anticoagulation. Recheck CBC and BMP tomorrow morning to follow blood counts, renal function and electrolytes 11/30/16 Patient was evaluated by Dr. Key today who has been managing his outpatient daptomycin infusions for right knee cellulitis. Today completes this course and it is discontinued by Dr Key. He does continue to have persistent leukocytosis, however this may be related to prednisone. Prednisone was tapered down starting yesterday to 10 milligrams daily. Will continue this through 12/02. Then taper down to 5 milligrams daily 4 days then stop. Noted that his magnesium is low. Will start magnesium oral supplementation twice a day. Continue on Eliquis for chronic anticoagulation. Recheck CBC and BMP tomorrow morning to follow blood counts, renal function and electrolytes 12/01/16 10:06 Overall, Jayy is doing well and feels good. He is in good spirits today with upcoming discharge this afternoon. Denies any complaints. Eating and drinking well and bowels are moving. On exam he is alert and oriented 3 and in no acute distress. Cardiac exam reveals regular rate and rhythm and lungs are clear to auscultation. Abdomen is soft and nontender. Extremities are free of edema. Repeat labs today showed improvement with leukocytosis trending down at 16.9. Persistent anemia with hemoglobin at 9.7. Blood cultures negative after 1 day. Magnesium improved to 1.7 with supplementation. Continue with current care plan. Anticipate discharge today. PICC to be discontinued prior to discharge Persistent leukocytosis most likely steroid-effect, related to prednisone. Prednisone currently at 10 milligrams daily. Will continue this through 12/02. Then taper down to 5 milligrams daily 4 days then stop. Magnesium improved to 1.7 today. Continue with supplementation. Continue on Eliquis for chronic anticoagulation. Upon discharge, patient's care will be returned to his PCP. Time spent with patient: less than 15 minutes Discharge Plan - Med Rec/Dispo Referrals/Follow Up: Junior Orosco DO [Family Provider] - (Dr. Juventino Orosco on 12/08/16 at 1:00 pm for Hosp. follow-up. Medical [place] [address] [place] [address]) Prescriptions: No Action Atorvastatin Calcium 40 mg PO HS #0 Levothyroxine Sodium 25 mcg PO ACB #0 Nitroglycerin [Nitrostat] 0.4 mg SL Q5MIN3 PRN #0 PRN Reason: CHEST PAIN Omeprazole 40 mg PO ACB #0 Diazepam [Valium] 5 mg PO TID PRN PRN Reason: Anxiety Meloxicam [Mobic] 7.5 mg PO DAILY #14 Albuterol Inhaler [Ventolin Hfa] 1 puff INH BID PRN PRN Reason: Prn Orders Mometasone/Formoterol 200/5 [DULERA 200/5mcg INHALER] 1 puff INH BID DAPTOmycin [Daptomycin] 400 mg IV DAILY Metoprolol Tartrate [Lopressor] 50 mg PO BIDWM tablet LEVALBUTEROL 1.25mg/3ml NEB [XOPENEX 1.25mg/3ml] 1.25 mg AEROSOL QID neb Levalbuterol HCl [Xopenex] 1 vial AEROSOL QID PRN #0 PRN Reason: SHORTNESS OF AIR Apixaban [Eliquis] 5 mg PO BID #0 Hydrocodone/APAP 5/325 [Arnold 5/325] 1 - 2 tab PO Q4-6HPRN PRN PRN Reason: Pain Tramadol [Ultram] 50 - 100 mg PO Q6H PRN #30 PRN Reason: Pain PredniSONE [Deltasone] 20 mg PO WB tablet duloxetine 60 mg capsule,delayed release 60 mg PO DAILY 30 Days Discharge Instructions/Outpatient Orders: Final Provider Discharge Instructions Location: Determined By Patient - Disposition 01 Discharged Home, Self-Care
[2016-12-01 11:23] VITALS: RESP 20
--- NOTE | 2016-12-01 11:53 | Discharge Instructions ---
Discharge Plan - Med Rec/Dispo Referrals/Follow Up: Junior Orosco DO [Family Provider] - (Dr. Juventino Orosco on 12/08/16 at 1:00 pm for Hosp. follow-up. [facility] [place] [id number] [place] [address]) Prescriptions: New Magnesium Oxide [Magox] 400 mg PO BID tablet PredniSONE [Deltasone] 5 mg PO WB #6 tablet Continue Atorvastatin Calcium 40 mg PO HS #0 Levothyroxine Sodium 25 mcg PO ACB #0 Nitroglycerin [Nitrostat] 0.4 mg SL Q5MIN3 PRN #0 PRN Reason: CHEST PAIN Omeprazole 40 mg PO ACB #0 Diazepam [Valium] 5 mg PO TID PRN PRN Reason: Anxiety Meloxicam [Mobic] 7.5 mg PO DAILY #14 Albuterol Inhaler [Ventolin Hfa] 1 puff INH BID PRN PRN Reason: Prn Orders Mometasone/Formoterol 200/5 [DULERA 200/5mcg INHALER] 1 puff INH BID Metoprolol Tartrate [Lopressor] 50 mg PO BIDWM tablet LEVALBUTEROL 1.25mg/3ml NEB [XOPENEX 1.25mg/3ml] 1.25 mg AEROSOL QID neb Levalbuterol HCl [Xopenex] 1 vial AEROSOL QID PRN #0 PRN Reason: SHORTNESS OF AIR Apixaban [Eliquis] 5 mg PO BID #0 Hydrocodone/APAP 5/325 [[place]kov 5/325] 1 - 2 tab PO Q4-6HPRN PRN PRN Reason: Pain Tramadol [Ultram] 50 - 100 mg PO Q6H PRN #30 PRN Reason: Pain duloxetine 60 mg capsule,delayed release 60 mg PO DAILY 30 Days Discontinued DAPTOmycin [Daptomycin] 400 mg IV DAILY PredniSONE [Deltasone] 20 mg PO WB tablet Discharge Instructions/Outpatient Orders: Final Provider Discharge Instructions Location: Determined By Patient - Disposition 01 Discharged Home, Self-Care
[2016-12-01] MEDS ORDERED: NEOMYCIN/POLYMYXIN/BACITRACIN OINT PACKET TP ONE (11:57)
[2016-12-03] MEDS ORDERED: PredniSONE 5 MG TABLET PO SCH (08:00)
== END 2016-12-01 15:54 | disposition home or self-care (01) | DRG 946 ==
PROVIDERS: ADMIT Family Medicine; ATTEND Family Medicine